=== PATIENT | female | born 1960 | race Caucasian/White ===

== ENCOUNTER → 2016-08-19 | Outpatient (CLI) | payer MEDICARE, MEDICAID ==
[~2016-08-19] MED LIST: AMBI10TA PO; ATIV0.5T3 PO; ATIV1TAB10 PO; BENZ1TAB PO; CALCTAB43 PO; CALCTAB68 PO; CELE10TA PO; CHLOR50TA OR; CLOM50CA3 PO; DEBR6.5S4 AU; DEBROX AU; DEPA125C PO; FLUD0.1T PO; FLUD1TA PO; FLUT1SPR2; ISOVUE-370 76% 100ML VIAL (Q9967) As Ordered ONE; LACT10SO29 PO; LASI40TA PO; LEVA750T PO; MAGN400T PO; MAGN400T2 PO; METO50TA2 PO; MILKSUS PO; MIRA33504 PO; MOM30SS OR; MULTTAB4 PO; OXCA300T PO; PERCOCET PO; PERI0.126 MT; SENN1TAB4 PO; SENN8.6T76 PO; SERO1TAB2 PO; SYNT50TA PO; VITA200015 PO; VITMTA PO; ZYPR10TA PO; celebrex OR; colace OR; miralax OR
--- NOTE | 2016-08-19 22:44 | REP ---
CT chest with IV contrast one 05/26 Indication: Chest mass Comparison: CTA chest 12/10/2015, CT chest with contrast 09/07/2015 ,CT chest 12/20/14 Technique: Following IV contrast injection of 75 ml Isovue 370 mg/ml, 3 mm continuous spiral axial sections were performed through the chest. Findings: Thoracic aorta is without aneurysm or dissection. The heart is of normal size. There are moderate calcifications in the left circumflex coronary artery nor adjacent mitral valve. There are a few scattered mediastinal and hilar nodes, none of which are pathologically enlarged or changed. Fibroatelectatic changes are present within the lingula and the left lower lobe without change. Noncalcified nodular opacities are seen in the left lower lobe on image 59 series 201 most compatible with fibro atelectatic changes and not significantly changed from 12/10/2015 . Calcified granuloma is identified within the periphery of the right mid lung field on image number 43 series 201 There is moderate diffuse fatty infiltration of liver . There are three stable hypodense lesions within the right dome of liver on image 67 series 2 most compatible with cysts. Visualized portions of spleen, pancreas adrenal glands are normal. The stomach is contracted. Visualized portion small bowel and colon within normal limits. Subcentimeter left axillary nodes again identified one 8 mm node with slightly rounded appearance/infiltrated Impression 1. Fibro atelectatic changes / scarring in the lingula and in the left with lower lobe. Two nodular opacities both 6 mm diameter on image 59 series 201 are most compatible with fibro atelectatic changes yet interval follow-up CT is recommended in 3 months for reevaluation. Signed by Beatriz Gray MD 08/19/2016 10:35 P
== END ==
LOC: M RAD 12:36
PROVIDERS: ATTEND Family Medicine
DX: R91.8 Other nonspecific abnormal finding of lung field (principal); J98.4 Other disorders of lung; K76.0 Fatty (change of) liver, not elsewhere classified
CPT/HCPCS: 71260; Q9967

== ENCOUNTER → 2016-09-03 | Outpatient (REF) | payer MEDICARE, MEDICAID ==
[~2016-09-03] MED LIST changes: -ISOVUE-370 76% 100ML VIAL (Q9967) As Ordered ONE
[2016-09-03 14:10] LABS: ALBUMIN 3.9 GM/DL (3.2-5.2); ALBUMIN/GLOBULIN RATIO 1.05 (1.00-1.93); ALKALINE PHOSPHATASE 47 U/L (45-117); ALT/SGPT 114 U/L (12-78); ANION GAP 9 MEQ/L (8-16); AST/SGOT 69 U/L (15-37); BILIRUBIN,TOTAL 0.3 MG/DL (0.2-1.0); BLOOD UREA NITROGEN 9 MG/DL (7-18); CALCIUM LEVEL 9.1 MG/DL (8.5-10.1); CARBON DIOXIDE LEVEL 27 MEQ/L (21-32); CHLORIDE LEVEL 101 MEQ/L (98-107); CREATININE FOR GFR 0.59 MG/DL (0.55-1.02); FREE T4 0.69 NG/DL (0.76-1.46); GLOMERULAR FILTRATION RATE > 60.0 (>51); GLUCOSE, FASTING 97 MG/DL (70-105); POTASSIUM SERUM 4.3 MEQ/L (3.5-5.1); SODIUM LEVEL 137 MEQ/L (136-145); TOTAL PROTEIN 7.6 GM/DL (6.4-8.2)
== END ==
LOC: M SFHCPLAZ 10:20
PROVIDERS: ATTEND Family Medicine
DX: I50.30 Unspecified diastolic (congestive) heart failure (principal); E03.9 Hypothyroidism, unspecified; M85.80 Other specified disorders of bone density and structure, unspecified site; Z51.81 Encounter for therapeutic drug level monitoring; Z79.899 Other long term (current) drug therapy

== ENCOUNTER → 2016-09-03 | Outpatient (REF) | payer MEDICARE, MEDICAID ==
[2016-09-03 13:58] LABS: ALBUMIN 3.9 GM/DL (3.2-5.2); ALBUMIN/GLOBULIN RATIO 1.03 (1.00-1.93); ALKALINE PHOSPHATASE 48 U/L (45-117); ALT/SGPT 111 U/L (12-78); AST/SGOT 66 U/L (15-37); BILIRUBIN,DIRECT < 0.1 MG/DL (0.0-0.2); BILIRUBIN,TOTAL 0.3 MG/DL (0.2-1.0); TOTAL PROTEIN 7.7 GM/DL (6.4-8.2)
[2016-09-03 14:06] LABS: BASO % 0.4 % (0.0-1.0); EOS # 0.1 K/mm3 (0.0-0.50); EOS % 1.9 % (0.0-3.0); LARGE UNSTAINED CELL # 0.1 K/mm3 (0.0-0.4); LARGE UNSTAINED CELL % 2.7 % (0.0-4.0); LYMPH # 0.9 K/mm3 (1.5-4.5); LYMPH % 24.2 % (24.0-44.0); MEAN CORPUSCULAR HEMOGLOBIN 30.4 pg (27.0-33.0); MEAN CORPUSCULAR HGB CONC 33.7 g/dl (32.0-36.5); MEAN CORPUSCULAR VOLUME 90.1 fl (80.0-96.0); MONO # 0.4 K/mm3 (0.0-0.8); MONO % 10.5 % (0.0-5.0); NEUTROPHILS # 2.4 K/mm3 (1.8-7.7); NEUTROPHILS % 60.3 % (36.0-66.0); PLATELET COUNT, AUTOMATED 150 k/mm3 (150-450); RED CELL DISTRIBUTION WIDTH 12.8 % (11.5-14.5); WHITE BLOOD COUNT 3.9 K/mm3 (4.0-10.0)
== END ==
LOC: M LABDRAWP 13:01
PROVIDERS: ATTEND Anesthesiology Pain Medicine
DX: Z51.81 Encounter for therapeutic drug level monitoring (principal); Z79.899 Other long term (current) drug therapy

== ENCOUNTER 2016-09-18 10:45 | Emergency (ER) | payer MEDICARE, MEDICAID ==
[2016-09-18 12:57] LABS: ANION GAP 9 MEQ/L (8-16); BLOOD UREA NITROGEN 8 MG/DL (7-18); CALCIUM LEVEL 9.1 MG/DL (8.5-10.1); CARBON DIOXIDE LEVEL 27 MEQ/L (21-32); CHLORIDE LEVEL 95 MEQ/L (98-107); CREATININE FOR GFR 0.61 MG/DL (0.55-1.02); GLOMERULAR FILTRATION RATE > 60.0 (>51); GLUCOSE, FASTING 96 MG/DL (70-105); POTASSIUM SERUM 4.2 MEQ/L (3.5-5.1); SODIUM LEVEL 131 MEQ/L (136-145)
--- NOTE | 2016-09-18 13:14 | REP ---
Chest the patient sitting, AP and lateral views: Comparisons are the chest CT dated 08/19/2016, portable chest dated 07/11/2016 and PA and lateral chest of 11/14/2015. There are no focal infiltrates. No pleural effusions. Lung dinh are clear. Cardiac size is normal. There is a 8 mm nodule adjacent to the left lateral margin of the heart. There were two left lung nodules in this approximate location on the CT of 08/19/2016. 3-month CT follow-up was recommended which would in the October/November time frame. Impression: There are no acute cardiopulmonary findings. There is a left lung nodule as discussed in the body of the report. Signed by Pankaj Love MD 09/18/2016 01:06 P
[2016-09-18 13:25] LABS: BASO % 0.2 % (0.0-1.0); EOS % 1.8 % (0.0-3.0); LARGE UNSTAINED CELL # 0.2 K/mm3 (0.0-0.4); LARGE UNSTAINED CELL % 5.8 % (0.0-4.0); LYMPH # 0.7 K/mm3 (1.5-4.5); LYMPH % 23.6 % (24.0-44.0); MEAN CORPUSCULAR HGB CONC 35.2 g/dl (32.0-36.5); MEAN CORPUSCULAR VOLUME 88.1 fl (80.0-96.0); MONO # 0.4 K/mm3 (0.0-0.8); MONO % 13.7 % (0.0-5.0); NEUTROPHILS # 1.6 K/mm3 (1.8-7.7); NEUTROPHILS % 54.9 % (36.0-66.0); PLATELET COUNT, AUTOMATED 125 k/mm3 (150-450); RED CELL DISTRIBUTION WIDTH 12.7 % (11.5-14.5)
--- NOTE | 2016-09-18 13:30 | REP ---
CT brain without contrast: History: Hypertension. Weakness, evaluate for intracranial hemorrhage. Comparison CT study September 07, 2015. Comparison CT study from September 12, 2014 is also reviewed. 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 Findings: Bone window settings demonstrate hyperostosis frontalis interna. No bony destructive lesion is seen. Visualized paranasal sinuses are clear. On soft tissue window settings there is physiologic calcification of the basal ganglia bilaterally. There is minimal diffuse cerebral atrophy. There is periventricular low density in the right frontal lobe consistent with small vessel changes. This is status quo. There is no evidence of intracranial hemorrhage. No extra-axial fluid collection is seen. No mass or midline shift is observed. Impression: No evidence of intracranial hemorrhage. Small vessel changes and mild diffuse atrophy. 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 No acute abnormality. Signed by Fransisco Delgado MD 09/18/2016 04:32 P
--- NOTE | 2016-09-18 15:51 | EDDOCDS ---
Nurse's Notes [facility] Name: Karla Haywood Age: 56 yrs Sex: Female : 1960 Arrival Date: 09/18/2016 Time: 10:45 Bed 11 Private MD: Nathan Rivero Diagnosis: Weakness Presentation: 09/18 11:02 Presenting complaint: per [facility] staff weakness SOB unable to ambulate lethargic since [facility] yesterday. Adult Sepsis Screening: The patient does not have new or worsening altered mentation. Patient's respiratory rate is less than 22. Systolic blood pressure is less than or equal to 100 (1 point). Patient has a qSOFA score of 0- Negative Sepsis Screen. Suicide/Homicide risk assessment- Unable to assess, due to patient's chronic mental disability. Status: Patient is not a field service analyst or dependent. Transition of care: patient was not received from another setting of care. 11:02 Acuity: BRUCE Level 3 [facility] 11:02 Method Of Arrival: Wheelchair [facility] Triage Assessment: 11:13 General: Appears in no apparent distress, well nourished, well groomed, Behavior is [facility] appropriate for age. Pain: Unable to use pain scale. Does not appear to understand pain scale. Patient appears quiet. HIV screening NA for this visit does not understand. Neurological: Level of Consciousness is awake, alert. Respiratory: Airway is patent Respiratory effort is even, unlabored. Derm: Skin is pink, warm & dry. Historical: - Allergies: Keflex (Rash); - Home Meds: 1. Zyprexa 2.5 mg AM and 10 mg HS Oral tab 1 tab (Last dose: 09/18/2016 06:00) 2. Milk of Magnesia Oral 30 mL thu wed thu (Last dose: 09/17/2016) 3. metoprolol tartrate 50 mg Oral tab 1 tab 2 times per day (Last dose: 09/18/2016 06:00) 4. Calcium + Vitamin D 600 mg calcium- 200 unit Oral tab 600 mg twice a day (Last dose: 09/18/2016 06:00) 5. senna 8.6 mg oral cap 1 caps twice a day (Last dose: 09/18/2016 06:00) 6. multivitamin Oral tab 1 tab daily (Last dose: 09/18/2016 06:00) 7. magnesium oxide 400 mg Oral tab 400 mg twice a day (Last dose: 09/18/2016 06:00) 8. Ativan 0.5 mg Oral tab 1 tab twice a day (Last dose: 09/18/2016 06:00) 9. Vitamin D Oral 4000 unit daily (Last dose: 09/18/2016 06:00) 10. Miralax 17 gram/dose Oral powd 17 g once daily (Last dose: 09/18/2016 06:00) 11. Depakote Sprinkles 125 mg Oral cpSP 8 caps nightly (Last dose: 09/17/2016) 12. Seroquel 300 mg Oral tab 1 tab nightly (Last dose: 09/17/2016) 13. clomipramine 50 mg oral cap 1 cap 2 times per day (Last dose: 09/18/2016 06:00) 14. lactulose 10 gram/15 mL oral syrp 10 g daily (Last dose: 09/17/2016) 15. levothyroxine 50 mcg Oral cap 1 cap once daily (Last dose: 09/18/2016 05:30) 16. oxcarbazepine 300 mg oral tab 1 tab 2 times per day (Last dose: 09/18/2016 06:00) 17. Peridex 0.12 % mucous membrane mwsh 15 mL daily (Last dose: 09/18/2016 06:00) 18. Lasix 40 mg Oral tab 1 tab once daily (Last dose: 09/18/2016 06:00) - PMHx: aggression; Anxiety; Cerebral Palsy; Hypertension; moderate MR; Hypothyroidism; Seizure Disorder; syncope; - PSHx: Cholecystectomy (2012); left ankle surgery; - Social history: Smoking status: Patient states was never smoker of tobacco. The patient speaks a little Chinese. - Family history: Not pertinent. - : The pt / caregiver states he / she is not on anticoagulants. Home medication list is obtained from the facility MAR. - Exposure Risk Screening:: None identified. Screenin:39 Screening information is obtained from residence staff. Fall risk:. Assistance ADL's: mk4 Requires assistance with meal preparation, this assistance is provided by residence staff, bathing, assistance is provided by residence staff, dressing, assistance is provided by residence staff, toileting, assistance is provided by residence staff, ambulation, assistance is provided by residence staff, housework, assistance is provided by residence staff, medication administration, assistance is provided by residence staff. Abuse/DV Screen: The patient / caregiver reports he/she is: not in a situation that causes fear, pain or injury. Nutritional screening: On thickened liquids. home support is adequate. 15:34 Advance Directives: There is no active DNR order. js13 Assessment: 10:57 General: BP recheck 164/104 manual . dwg 11:30 General: Appears in no apparent distress, Behavior is cooperative. Neurological: Level mk4 of Consciousness is awake, baseline MR per [facility] staff, pt cooperative . 11:30 Respiratory: Airway is patent Breath sounds are clear bilaterally. Derm: Skin is mk4 intact, is healthy with good turgor, Skin is pink, warm & dry. 12:30 General: Appears in no apparent distress, Behavior is cooperative. Neurological: Level mk4 of Consciousness is awake. Respiratory: Airway is patent Respiratory effort is even, unlabored. 14:13 General: Appears in no apparent distress, comfortable, Behavior is cooperative, [facility] mk4 workers at bedside , no episodes of syncope, pt cooperative with care , fully awake and alert throughout visit, doesn't appear to be lethargic or have any difficulty breathing . 14:14 Respiratory: Airway is patent Respiratory effort is even, unlabored, Respiratory mk4 pattern is regular, awaiting dispo. 15:18 General: Patient ambulated with minimal assist with gait belt. No shuffling and able to js13 bear weight.. 15:26 General: Appears in no apparent distress, comfortable, Behavior is cooperative. Pain: js13 Denies pain. Neurological: Level of Consciousness is awake. Respiratory: Airway is patent Respiratory effort is even, unlabored, Respiratory pattern is regular, symmetrical, Breath sounds are clear. Derm: Skin is pink, warm & dry. Vital Signs: 10:48 BP 207 / 138; Pulse 93; Resp 20; Temp 96.6(T); Pulse Ox 97% on R/A; Weight 97.52 kg elp (R); Height 5 ft. 6 in. (167.64 cm) (R); 10:56 BP 164 / 104; dwg 12:34 BP 162 / 84 RA Supine (man/lg); ct3 12:42 BP 137 / 76 (auto/); mk4 12:42 Pulse 92 MON; mk4 12:56 Pulse 96 MON; Pulse Ox 95% ; mk4 12:57 BP 114 / 73 (auto/); mk4 13:12 BP 117 / 79 (auto/); mk4 13:12 Pulse 96 MON; Pulse Ox 95% ; mk4 13:27 BP 109 / 72 (auto/); mk4 13:27 Pulse 96 MON; Pulse Ox 94% ; mk4 13:42 BP 101 / 68 (auto/); mk4 13:42 Pulse 98 MON; Pulse Ox 95% ; mk4 13:57 BP 112 / 73 (auto/); mk4 13:57 Pulse 96 MON; Pulse Ox 95% ; mk4 14:12 BP 118 / 73 (auto/); mk4 14:12 Pulse 102 MON; Pulse Ox 93% ; mk4 14:27 BP 124 / 65 (auto/); mk4 14:27 Pulse 98 MON; Pulse Ox 95% ; mk4 14:42 BP 117 / 72 (auto/); js13 14:42 Pulse 100 MON; Resp 14; Pulse Ox 94% on R/A; js13 14:57 BP 120 / 61 (auto/); js13 14:57 Pulse 102 MON; Resp 16; Temp 97.1(O); Pulse Ox 96% on R/A; js13 10:48 Body Mass Index 34.70 (97.52 kg, 167.64 cm) elp Vitals: 10:48 Log In Time: September 18, 2016 at 10:45. RN notified that patient meets Red Flag elp criteria. ED Course: 10:48 Patient visited by Lalitha Joel PCA. elp 10:48 Nathan Rivero MD is Private Physician. elp 10:48 Patient moved to Waiting elp 10:49 Patient visited by Lalitha Joel PCA. elp 11:03 Triage Initiated kpj 11:25 Patient moved to Pre RCE elp 11:26 Patient moved to 11 kpj 11:30 Patient visited by Ida Campos RN. mk4 12:22 Corwin Manley MD is Attending Physician. br1 12:33 Patient visited by Corwin Manley MD. br1 12:35 Patient visited by Bianca Little PCA. ct3 12:45 Inserted saline lock: 20 gauge in right hand and blood collected. No procedures done mk4 that require assistance. Straight cath inserted returned clear yellow urine. Patient tolerated well. 12:48 VALPROIC ACID (DEPAKOTE) Sent. mk4 13:04 [facility] Payment Agreement was scanned into [employer] and attached to record. jp5 13:06 EKG done. (by ED staff). Reviewed by Corwin Manley MD. dem1 13:09 Patient visited by Juan J Lopez. dem1 13:18 Chest, 2 View (pa\E\lat) Returned. EDMS 13:20 Urine Culture Sent. mk4 13:20 Urinalysis Sent. mk4 13:20 -Influenza A&B Rapid Antigen - Nose Sent. mk4 13:53 Patient visited by Ida Campos, DEVEN. mk4 14:06 CT Head Without Contrast Returned. EDMS 14:26 Patient visited by Ida Campos, DEVEN. mk4 15:19 Patient visited by Stephany Sanchez,DEVEN. js13 15:25 Patient visited by Corwin Manley MD. br1 15:27 Patient visited by Stephany Sanchez,DEVEN. js13 15:27 Nathan Rivero MD is Referral Physician. br1 15:32 Discontinued IV lock intact, bleeding controlled, pressure dressing applied, No js13 redness/swelling at site. 15:34 The patient / caregiver is instructed regarding the plan of care and ED course. js13 Order Results: Lab Order: Basic Metabolic Profile; SPEC'M 09/18/16 11:50 Test: GLUCOSE, FASTING; Value: 96; Range: 70-105; Units: MG/DL; Status: F Test: BLOOD UREA NITROGEN; Value: 8; Range: 7-18; Units: MG/DL; Status: F Test: CREATININE FOR GFR; Value: 0.61; Range: 0.55-1.02; Units: MG/DL; Status: F Test: GLOMERULAR FILTRATION RATE; Value: > 60.0; Range: >51; Status: F Test: SODIUM LEVEL; Value: 131; Range: 136-145; Abnormal: Below low normal; Units: MEQ/L; Status: F Test: POTASSIUM SERUM; Value: 4.2; Range: 3.5-5.1; Units: MEQ/L; Status: F Test: CHLORIDE LEVEL; Value: 95; Range: 98-107; Abnormal: Below low normal; Units: MEQ/L; Status: F Test: CARBON DIOXIDE LEVEL; Value: 27; Range: 21-32; Units: MEQ/L; Status: F Test: ANION GAP; Value: 9; Range: 8-16; Units: MEQ/L; Status: F Test: CALCIUM LEVEL; Value: 9.1; Range: 8.5-10.1; Units: MG/DL; Status: F Test Note: ; Units are mL/min/1.73 m2 Chronic Kidney Disease Staging per NKF: Stage I & II GFR >=60 Normal to Mildly Decreased Stage III GFR 30-59 Moderately Decreased Stage IV GFR 15-29 Severely Decreased Stage V GFR <15 Very Little GFR Left ESRD GFR <15 on UNINDENTURED APPRENTICE Lab Order: CBC with Diff; SPEC'M 09/18/16 11:50 Test: WHITE BLOOD COUNT; Value: 3.0; Range: 4.0-10.0; Abnormal: Below low normal; Units: K/mm3; Status: F Test: RED BLOOD COUNT; Value: 4.31; Range: 4.00-5.40; Units: M/mm3; Status: F Test: HEMOGLOBIN; Value: 13.4; Range: 12.0-16.0; Units: g/dl; Status: F Test: HEMATOCRIT; Value: 38.0; Range: 36.0-47.0; Units: %; Status: F Test: MEAN CORPUSCULAR VOLUME; Value: 88.1; Range: 80.0-96.0; Units: fl; Status: F Test: MEAN CORPUSCULAR HEMOGLOBIN; Value: 31.0; Range: 27.0-33.0; Units: pg; Status: F Test: MEAN CORPUSCULAR HGB CONC; Value: 35.2; Range: 32.0-36.5; Units: g/dl; Status: F Test: RED CELL DISTRIBUTION WIDTH; Value: 12.7; Range: 11.5-14.5; Units: %; Status: F Test: PLATELET COUNT, AUTOMATED; Value: 125; Range: 150-450; Abnormal: Below low normal; Units: k/mm3; Status: F Test: NEUTROPHILS %; Value: 54.9; Range: 36.0-66.0; Units: %; Status: F Test: LYMPH %; Value: 23.6; Range: 24.0-44.0; Abnormal: Below low normal; Units: %; Status: F Test: MONO %; Value: 13.7; Range: 0.0-5.0; Abnormal: Above high normal; Units: %; Status: F Test: EOS %; Value: 1.8; Range: 0.0-3.0; Units: %; Status: F Test: BASO %; Value: 0.2; Range: 0.0-1.0; Units: %; Status: F Test: LARGE UNSTAINED CELL %; Value: 5.8; Range: 0.0-4.0; Abnormal: Above high normal; Units: %; Status: F Test: NEUTROPHILS #; Value: 1.6; Range: 1.8-7.7; Abnormal: Below low normal; Units: K/mm3; Status: F Test: LYMPH #; Value: 0.7; Range: 1.5-4.5; Abnormal: Below low normal; Units: K/mm3; Status: F Test: MONO #; Value: 0.4; Range: 0.0-0.8; Units: K/mm3; Status: F Test: EOS #; Value: 0.0; Range: 0.0-0.50; Units: K/mm3; Status: F Test: BASO #; Value: 0.0; Range: 0.0-0.2; Units: K/mm3; Status: F Test: LARGE UNSTAINED CELL #; Value: 0.2; Range: 0.0-0.4; Units: K/mm3; Status: F Lab Order: Cardiac Injury Profile; SPEC'M 09/18/16 11:50 Test: CPK CREATINE PHOSPHOKINASE; Value: 82; Range: 26-192; Units: U/L; Status: F Test: CK-MB VALUE MASS; Value: 1.9; Range: 0.0-3.6; Units: NG/ML; Status: F Test: MB/CK RELATIVE INDEX; Value: 2.31; Range: < OR =4; Status: F Test Note: ; DIAGNOSIS CRITERIA MMB ng/ml Relative Index (RI) NON-AMI < or = 5 N/A [place] > 5 < or = 4 AMI > 5 > 4 Lab Order: Troponin; SPEC'M 17 11:50 Test: TROPONIN I; Value: < 0.02; Range: < 0.10; Units: NG/ML; Status: F Test Note: ; Troponin I Reference Interval for Siemens [place] LOCI: 99th Percentile= 0.00-0.045 ng/ml Risk Stratification: <= 0.10 ng/ml Decreased Risk for Adverse Clinical Events. 0.10-1.50 ng/ml Increased Risk for Adverse Clinical Events. Evaluation of additional criterion and/or repeat testing in 2-6 hours is suggested to rule out myocardial damage. >= 1.50 ng/ml Indicative of Myocardial Injury. Lab Order: -Influenza A&B Rapid Antigen - Nose; SPECM 09/18/16 12:53 Test: INFLUENZA A RAPID SCR by ICA; Value: INFLUENZA A RESULTS NEGATIVE; Status: F Test: INFLUENZA A RAPID SCR by ICA; Value: Comments:; Status: F Test: INFLUENZA B RAPID SCR by ICA; Value: INFLUENZA B RESULTS NEGATIVE; Status: F Test Note: ; The Influenza test is a direct rapid immunoassay for the qualitative detection of Influenza viral antigen. Cell culture (Viral Culture) testing should be considered to confirm NEGATIVE results and to assist in detecting other viruses that can provide similar clinical symptoms. Please contact the lab within 24 hours ([phone]) if confirmatory testing is desired. Lab Order: BNP; [facility] 09/18/16 11:50 Test: BRAIN NATRIURETIC PEPTIDE; Value: 9.2; Range: <100; Units: PG/ML; Status: F Lab Order: Urinalysis; [facility]/18/16 12:57 Test: APPEARANCE, URINE; Value: CLOUDY; Range: CLEAR; Abnormal: Above high normal; Status: F Test: COLOR, URINE; Value: YELLOW; Range: YELLOW; Status: F Test: PH,URINE; Value: 7.0; Range: 5.0-9.0; Units: UNITS; Status: F Test: SPECIFIC GRAVITY URINE AUTO; Value: 1.014; Range: 1.002-1.035; Status: F Test: PROTEIN, URINE AUTO; Value: NEGATIVE; Range: NEGATIVE; Units: mg/dL; Status: F Test: GLUCOSE, URINE (UA) AUTO; Value: NEGATIVE; Range: NEGATIVE; Units: mg/dL; Status: F Test: KETONE, URINE AUTO; Value: TRACE; Range: NEGATIVE; Abnormal: Above high normal; Units: mg/dL; Status: F Test: UROBILINOGEN, URINE AUTO; Value: 0.2; Range: 0.0-2.0; Units: mg/dL; Status: F Test: BILIRUBIN, URINE AUTO; Value: NEGATIVE; Range: NEGATIVE; Status: F Test: NITRITE, URINE AUTO; Value: NEGATIVE; Range: NEGATIVE; Status: F Test: LEUKOCYTE ESTERASE, URINE AUTO; Value: 3+; Range: NEGATIVE; Abnormal: Above high normal; Status: F Test: BLOOD, URINE BLOOD; Value: 2+; Range: NEGATIVE; Abnormal: Above high normal; Status: F Test: WBC, URINE AUTO; Value: 1; Range: 0-3; Units: /HPF; Status: F Test: RBC, URINE AUTO; Value: 1; Range: 0-3; Units: /HPF; Status: F Test: BACTERIA, URINE AUTO; Value: NEGATIVE; Range: NEGATIVE; Status: F Test: SQUAMOUS EPITHELIAL CELL UR AU; Value: 1; Range: 0-6; Units: /HPF; Status: F Test: HYALINE CAST, URINE AUTO; Value: 0; Range: 0-1; Units: /LPF; Status: F Lab Order: VALPROIC ACID (DEPAKOTE); SPEC'M 09/18/16 11:50 Test: VALPROIC ACID (DEPAKOTE); Value: 65.7; Range: 50.0-100.0; Units: UG/ML; Status: F Radiology Order: CT Head Without Contrast Test: CT Head Without Contrast REASON FOR EXAMINATION: htn, weak eval for ich; CT brain without contrast:; ; History: Hypertension. Weakness, evaluate for intracranial hemorrhage.; Comparison CT study September 07, 2015. Comparison CT study from September 12, 2014; is also reviewed. 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 No; bony destructive lesion is seen. Visualized paranasal sinuses are clear.; ; On soft tissue window settings there is physiologic calcification of the basal; ganglia bilaterally. There is minimal diffuse cerebral atrophy. There is; periventricular low density in the right frontal lobe consistent with small; vessel changes. This is status quo. There is no evidence of intracranial; hemorrhage. No extra-axial fluid collection is seen. No mass or midline shift; is observed.; ; Impression:; ; No evidence of intracranial hemorrhage. Small vessel changes and mild diffuse; atrophy. 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 No pleural effusions. Lung dinh are clear.; Cardiac size is normal.; ; There is a 8 mm nodule adjacent to the left lateral margin of the heart. There; were two left lung nodules in this approximate location on the CT of 08/19/2016.; 3-month CT follow-up was recommended which would in the time frame.; ; Impression:; ; There are no acute cardiopulmonary findings.; ; There is a left lung nodule as discussed in the body of the report.; ; ; Signed by; Pankaj Love MD 09/18/2016 01:06 P; Outcome: 15:27 Discharge ordered by Provider. br1 15:33 Discharge Assessment: Patient awake and alert. patient administered narcotics - no. The js13 following High Risk Discharge criteria are identified: None. Discharged to With [facility] staff members. Condition: stable. Discharge instructions given to ground school instructor, Instructed on discharge instructions, follow up and referral plans. medication usage, Demonstrated understanding of instructions, medications, Pt was receptive of discharge instructions/ teaching. CT Study completed. Property :Personal belongings accompany Pt. 15:51 Patient left the ED. js13 Signatures: Dispatcher [employer] EDMS Pankaj Umanzor, RN Kimberley Jarquin RN Corwin Holden MD MD br1 Bianca Little, GLUING MACHINE FEEDER GLUING MACHINE FEEDER ct3 Juan J Lopez dem1 Stephany Sanchez RN RN js13 Lalitha Joel, GLUING MACHINE FEEDER GLUING MACHINE FEEDER sherwinp Ida Campos RN RN [email or web address] Rebekah Rodriguez jp5 Corrections: (The following items were deleted from the chart) 14:16 14:13 General: Appears in no apparent distress, comfortable, Behavior is cooperative, mk4 jrc workers at bedside , no episodes of syncope, pt cooperative with care . mk4 14:18 11:30 General: Appears in no apparent distress, Behavior is cooperative, mk4 mk4 14:38 14:14 Respiratory: Airway is patent Respiratory effort is even, unlabored, Respiratory mk4 pattern is regular, mk4 15:33 14:57 Pulse 102bpm; MonitorResp 16bpm; Pulse Ox 96% RA; js13 js13 MTDD
--- NOTE | 2016-09-18 15:51 | EDDOCDS ---
Physician Documentation [facility] Name: Karla Haywood Age: 56 yrs Sex: Female : 1960 Arrival Date: 09/18/2016 Time: 10:45 Bed 11 Private MD: Nathan Rivero Disposition: 09/18/16 15:27 Discharged to Home/Self Care. Impression: Weakness. - Condition is Stable. - Discharge Instructions: Weakness. - Medication Reconciliation, Local Pharmacy Hours form. - Follow up: Nathan Rivero MD; When: 1 - 2 days; Reason: Recheck today's complaints. - Problem is new. - Symptoms have improved. - Notes: You were seen in the ED for generalized weakness. Bloodwork along with urine tests showed no acute findings. Chest Xray showed your known pulmonary nodule and CT scan showed your vascular malformation, for which you may continue to follow with Dr. Rivero. As you are feeling better you may return home. Call Dr. Rivero to discuss the ED visit and arrange to be seen for follow-up. Return to the ED for any worsening weakness, trouble breathing, fever, vomiting, or any other concerns. Historical: - Allergies: Keflex (Rash); - Home Meds: 1. Zyprexa 2.5 mg AM and 10 mg HS Oral tab 1 tab (Last dose: 09/18/2016 06:00) 2. Milk of Magnesia Oral 30 mL thu (Last dose: 09/17/2016) 3. metoprolol tartrate 50 mg Oral tab 1 tab 2 times per day (Last dose: 09/18/2016 06:00) 4. Calcium + Vitamin D 600 mg calcium- 200 unit Oral tab 600 mg twice a day (Last dose: 09/18/2016 06:00) 5. senna 8.6 mg oral cap 1 caps twice a day (Last dose: 09/18/2016 06:00) 6. multivitamin Oral tab 1 tab daily (Last dose: 09/18/2016 06:00) 7. magnesium oxide 400 mg Oral tab 400 mg twice a day (Last dose: 09/18/2016 06:00) 8. Ativan 0.5 mg Oral tab 1 tab twice a day (Last dose: 09/18/2016 06:00) 9. Vitamin D Oral 4000 unit daily (Last dose: 09/18/2016 06:00) 10. Miralax 17 gram/dose Oral powd 17 g once daily (Last dose: 09/18/2016 06:00) 11. Depakote Sprinkles 125 mg Oral cpSP 8 caps nightly (Last dose: 09/17/2016) 12. Seroquel 300 mg Oral tab 1 tab nightly (Last dose: 09/17/2016) 13. clomipramine 50 mg oral cap 1 cap 2 times per day (Last dose: 09/18/2016 06:00) 14. lactulose 10 gram/15 mL oral syrp 10 g daily (Last dose: 09/17/2016) 15. levothyroxine 50 mcg Oral cap 1 cap once daily (Last dose: 09/18/2016 05:30) 16. oxcarbazepine 300 mg oral tab 1 tab 2 times per day (Last dose: 09/18/2016 06:00) 17. Peridex 0.12 % mucous membrane mwsh 15 mL daily (Last dose: 09/18/2016 06:00) 18. Lasix 40 mg Oral tab 1 tab once daily (Last dose: 09/18/2016 06:00) - PMHx: aggression; Anxiety; Cerebral Palsy; Hypertension; moderate MR; Hypothyroidism; Seizure Disorder; syncope; - PSHx: Cholecystectomy (2012); left ankle surgery; - Social history: Smoking status: Patient states was never smoker of tobacco. The patient speaks a little Northern Irish. - Family history: Not pertinent. - : The pt / caregiver states he / she is not on anticoagulants. Home medication list is obtained from the facility MAR. - Exposure Risk Screening:: None identified. Vital Signs: 09/18 10:48 BP 207 / 138; Pulse 93; Resp 20; Temp 96.6(T); Pulse Ox 97% on R/A; Weight 97.52 kg / elp 214.99 lbs (R); Height 5 ft. 6 in. (167.64 cm) (R); 10:56 BP 164 / 104; dwg 12:34 BP 162 / 84 RA Supine (man/lg); ct3 12:42 BP 137 / 76 (auto/); mk4 12:42 Pulse 92 MON; mk4 12:56 Pulse 96 MON; Pulse Ox 95% ; mk4 12:57 BP 114 / 73 (auto/); mk4 13:12 BP 117 / 79 (auto/); mk4 13:12 Pulse 96 MON; Pulse Ox 95% ; mk4 13:27 BP 109 / 72 (auto/); mk4 13:27 Pulse 96 MON; Pulse Ox 94% ; mk4 13:42 BP 101 / 68 (auto/); mk4 13:42 Pulse 98 MON; Pulse Ox 95% ; mk4 13:57 BP 112 / 73 (auto/); mk4 13:57 Pulse 96 MON; Pulse Ox 95% ; mk4 14:12 BP 118 / 73 (auto/); mk4 14:12 Pulse 102 MON; Pulse Ox 93% ; mk4 14:27 BP 124 / 65 (auto/); mk4 14:27 Pulse 98 MON; Pulse Ox 95% ; mk4 14:42 BP 117 / 72 (auto/); js13 14:42 Pulse 100 MON; Resp 14; Pulse Ox 94% on R/A; js13 14:57 BP 120 / 61 (auto/); js13 14:57 Pulse 102 MON; Resp 16; Temp 97.1(O); Pulse Ox 96% on R/A; js13 10:48 Body Mass Index 34.70 (97.52 kg, 167.64 cm) elp MDM: 12:24 Misc. Nursing Order ordered. br1 12:33 IV Saline Lock ordered. br1 12:34 Code Machine Operator/Pulse Ox/q 30 min VS ordered. br1 12:34 Rhythm Strip to chart ordered. br1 12:34 Undress patient appropriately for examination ordered. br1 12:34 Basic Metabolic Profile Ordered. EDMS 12:34 CBC with Diff Ordered. EDMS 12:34 Cardiac Injury Profile Ordered. EDMS 12:34 Troponin Ordered. EDMS 12:35 ECG WITH READING ER PHYS+CARDIAG ordered. EDMS 12:35 Straight cath ordered. br1 12:36 BNP Ordered. EDMS 12:36 Urinalysis Ordered. EDMS 12:36 -Influenza A&B Rapid Antigen - Nose Ordered. EDMS 12:36 Urine Culture Ordered. EDMS 12:37 Chest, 2 View (pa\E\lat) Ordered. EDMS 12:37 CT Head Without Contrast Ordered. EDMS 12:41 VALPROIC ACID (DEPAKOTE) Ordered. EDMS 13:04 [facility] [place] was scanned into [employer] and attached to record. jp5 13:04 Financial registration complete. jp5 13:44 Basic Metabolic Profile Reviewed. br1 13:44 CBC with Diff Reviewed. br1 13:44 Urinalysis Reviewed. br1 13:44 Cardiac Injury Profile Reviewed. br1 13:44 Troponin Reviewed. br1 13:44 BNP Reviewed. br1 13:44 VALPROIC ACID (DEPAKOTE) Reviewed. br1 13:44 Chest, 2 View (pa\E\lat) Reviewed. br1 14:59 -Influenza A&B Rapid Antigen - Nose Reviewed. br1 14:59 CT Head Without Contrast Reviewed. br1 15:00 Ambulate Patient to Assess Patient Safety ordered. br1 Signatures: Dispatcher [employer] EDMS Kimberley Petit, RN RN Corwin Valle MD MD br1 Stephany Sanchez,RN RN js13 Ida Campos, RN RN marly4 Rebekah Rodriguez jp5 The chart was reviewed and I authenticate all verbal orders and agree with the evaluation and treatment provided.Corrections: (The following items were deleted from the chart) 12:41 12:38 VALPROIC ACID (DEPAKOTE)+LAB ordered. EDMS EDMS Attachments: 13:04 [facility] [place] jp5 MTDD
--- NOTE | 2016-09-19 21:03 | ECGEPIP ---
Stationary ECG Study [facility] - ED Test Date: 2016-09-18 Pat Name: MILLIE AQUINO Department: Room: - Gender: F Fabric Machine Operator: jesenia : 1960 Requested By: LORI Jones Order Number: [id number] Reading MD: Lenora Jones Measurements Intervals Chromo Rate: 95 P: 11 VA: 180 QRS: 64 QRSD: 106 T: 49 QT: 361 QTc: 454 Interpretive Statements SINUS RHYTHM MODERATE INTRAVENTRICULAR CONDUCTION DELAY NSTTW ABNORMALITY DELAYED R PROGRESSION ?SEPTAL [place] Electronically Signed On 09-19-2016 21:03:25 EST by Lenora Jones
--- NOTE | 2016-09-20 16:52 | EDDOCDS ---
Physician Documentation [facility] Name: Karla Haywood Age: 56 yrs Sex: Female : 1960 Arrival Date: 09/18/2016 Time: 10:45 Bed 11 Private MD: Nathan Rivero Disposition: 09/18/16 15:27 Discharged to Home/Self Care. Impression: Weakness. - Condition is Stable. - Discharge Instructions: Weakness. - Medication Reconciliation, Local Pharmacy Hours form. - Follow up: Nathan Rivero MD; When: 1 - 2 days; Reason: Recheck today's complaints. - Problem is new. - Symptoms have improved. - Notes: You were seen in the ED for generalized weakness. Bloodwork along with urine tests showed no acute findings. Chest Xray showed your known pulmonary nodule and CT scan showed your vascular malformation, for which you may continue to follow with Dr. Rivero. As you are feeling better you may return home. Call Dr. Rivero to discuss the ED visit and arrange to be seen for follow-up. Return to the ED for any worsening weakness, trouble breathing, fever, vomiting, or any other concerns. Historical: - Allergies: Keflex (Rash); - Home Meds: 1. Zyprexa 2.5 mg AM and 10 mg HS Oral tab 1 tab (Last dose: 09/18/2016 06:00) 2. Milk of Magnesia Oral 30 mL thu (Last dose: 09/17/2016) 3. metoprolol tartrate 50 mg Oral tab 1 tab 2 times per day (Last dose: 09/18/2016 06:00) 4. Calcium + Vitamin D 600 mg calcium- 200 unit Oral tab 600 mg twice a day (Last dose: 09/18/2016 06:00) 5. senna 8.6 mg oral cap 1 caps twice a day (Last dose: 09/18/2016 06:00) 6. multivitamin Oral tab 1 tab daily (Last dose: 09/18/2016 06:00) 7. magnesium oxide 400 mg Oral tab 400 mg twice a day (Last dose: 09/18/2016 06:00) 8. Ativan 0.5 mg Oral tab 1 tab twice a day (Last dose: 09/18/2016 06:00) 9. Vitamin D Oral 4000 unit daily (Last dose: 09/18/2016 06:00) 10. Miralax 17 gram/dose Oral powd 17 g once daily (Last dose: 09/18/2016 06:00) 11. Depakote Sprinkles 125 mg Oral cpSP 8 caps nightly (Last dose: 09/17/2016) 12. Seroquel 300 mg Oral tab 1 tab nightly (Last dose: 09/17/2016) 13. clomipramine 50 mg oral cap 1 cap 2 times per day (Last dose: 09/18/2016 06:00) 14. lactulose 10 gram/15 mL oral syrp 10 g daily (Last dose: 09/17/2016) 15. levothyroxine 50 mcg Oral cap 1 cap once daily (Last dose: 09/18/2016 05:30) 16. oxcarbazepine 300 mg oral tab 1 tab 2 times per day (Last dose: 09/18/2016 06:00) 17. Peridex 0.12 % mucous membrane mwsh 15 mL daily (Last dose: 09/18/2016 06:00) 18. Lasix 40 mg Oral tab 1 tab once daily (Last dose: 09/18/2016 06:00) - PMHx: aggression; Anxiety; Cerebral Palsy; Hypertension; moderate MR; Hypothyroidism; Seizure Disorder; syncope; - PSHx: Cholecystectomy (2012); left ankle surgery; - Social history: Smoking status: Patient states was never smoker of tobacco. The patient speaks a little Pakistani. - Family history: Not pertinent. - : The pt / caregiver states he / she is not on anticoagulants. Home medication list is obtained from the facility MAR. - Exposure Risk Screening:: None identified. Vital Signs: 09/18 10:48 BP 207 / 138; Pulse 93; Resp 20; Temp 96.6(T); Pulse Ox 97% on R/A; Weight 97.52 kg / elp 214.99 lbs (R); Height 5 ft. 6 in. (167.64 cm) (R); 10:56 BP 164 / 104; dwg 12:34 BP 162 / 84 RA Supine (man/lg); ct3 12:42 BP 137 / 76 (auto/); mk4 12:42 Pulse 92 MON; mk4 12:56 Pulse 96 MON; Pulse Ox 95% ; mk4 12:57 BP 114 / 73 (auto/); mk4 13:12 BP 117 / 79 (auto/); mk4 13:12 Pulse 96 MON; Pulse Ox 95% ; mk4 13:27 BP 109 / 72 (auto/); mk4 13:27 Pulse 96 MON; Pulse Ox 94% ; mk4 13:42 BP 101 / 68 (auto/); mk4 13:42 Pulse 98 MON; Pulse Ox 95% ; mk4 13:57 BP 112 / 73 (auto/); mk4 13:57 Pulse 96 MON; Pulse Ox 95% ; mk4 14:12 BP 118 / 73 (auto/); mk4 14:12 Pulse 102 MON; Pulse Ox 93% ; mk4 14:27 BP 124 / 65 (auto/); mk4 14:27 Pulse 98 MON; Pulse Ox 95% ; mk4 14:42 BP 117 / 72 (auto/); js13 14:42 Pulse 100 MON; Resp 14; Pulse Ox 94% on R/A; js13 14:57 BP 120 / 61 (auto/); js13 14:57 Pulse 102 MON; Resp 16; Temp 97.1(O); Pulse Ox 96% on R/A; js13 10:48 Body Mass Index 34.70 (97.52 kg, 167.64 cm) elp MDM: 12:24 Misc. Nursing Order ordered. br1 12:33 IV Saline Lock ordered. br1 12:34 Regulatory Intern/Pulse Ox/q 30 min VS ordered. br1 12:34 Rhythm Strip to chart ordered. br1 12:34 Undress patient appropriately for examination ordered. br1 12:34 Basic Metabolic Profile Ordered. EDMS 12:34 CBC with Diff Ordered. EDMS 12:34 Cardiac Injury Profile Ordered. EDMS 12:34 Troponin Ordered. EDMS 12:35 ECG WITH READING ER PHYS+CARDIAG ordered. EDMS 12:35 Straight cath ordered. br1 12:36 BNP Ordered. EDMS 12:36 Urinalysis Ordered. EDMS 12:36 -Influenza A&B Rapid Antigen - Nose Ordered. EDMS 12:36 Urine Culture Ordered. EDMS 12:37 Chest, 2 View (pa\E\lat) Ordered. EDMS 12:37 CT Head Without Contrast Ordered. EDMS 12:41 VALPROIC ACID (DEPAKOTE) Ordered. EDMS 13:04 [facility] [place] Payment Agreement was scanned into [employer] and attached to record. jp5 13:04 Financial registration complete. jp5 13:44 Basic Metabolic Profile Reviewed. br1 13:44 CBC with Diff Reviewed. br1 13:44 Urinalysis Reviewed. br1 13:44 Cardiac Injury Profile Reviewed. br1 13:44 Troponin Reviewed. br1 13:44 BNP Reviewed. br1 13:44 VALPROIC ACID (DEPAKOTE) Reviewed. br1 13:44 Chest, 2 View (pa\E\lat) Reviewed. br1 14:59 -Influenza A&B Rapid Antigen - Nose Reviewed. br1 14:59 CT Head Without Contrast Reviewed. br1 15:00 Ambulate Patient to Assess Patient Safety ordered. br1 09/19 12:00 T-Sheet-- Draft Copy was scanned into [employer] and attached to record. gb 12:00 ECG/EKG was scanned into [employer] and attached to record. gb 12:01 Radiology Report was scanned into [employer] and attached to record. gb 09/20 06:42 ED course: dr rivero faxed formal report of cxr for fu mlg. ml Signatures: Dispatcher [employer] EDMS Don Best MD MD ml Jobson, Karen, RN RN kpj Alysha Millan, Reg Reg gb Corwin Manley MD MD br1 Stephany Sanchez,RN RN js13 Ida Campos, RN RN mk4 Rebekah Rodriguez jp5 The chart was reviewed and I authenticate all verbal orders and agree with the evaluation and treatment provided.Corrections: (The following items were deleted from the chart) 09/18 12:41 12:38 VALPROIC ACID (DEPAKOTE)+LAB ordered. EDMS EDMS Attachments: 13:04 [facility] Payment Agreement jp5 09/19 12:00 T-Sheet-- Draft Copy gb 12:00 ECG/EKG gb Chart Complete MTDD
--- NOTE | 2016-09-20 16:52 | EDDOCDS ---
Physician Documentation [facility] Name: Karla Haywood Age: 56 yrs Sex: Female : 1960 Arrival Date: 09/18/2016 Time: 10:45 Bed 11 Private MD: Nathan Rivero Disposition: 09/18/16 15:27 Discharged to Home/Self Care. Impression: Weakness. - Condition is Stable. - Discharge Instructions: Weakness. - Medication Reconciliation, Local Pharmacy Hours form. - Follow up: Nathan Rivero MD; When: 1 - 2 days; Reason: Recheck today's complaints. - Problem is new. - Symptoms have improved. - Notes: You were seen in the ED for generalized weakness. Bloodwork along with urine tests showed no acute findings. Chest Xray showed your known pulmonary nodule and CT scan showed your vascular malformation, for which you may continue to follow with Dr. Rievro. As you are feeling better you may return home. Call Dr. Rivero to discuss the ED visit and arrange to be seen for follow-up. Return to the ED for any worsening weakness, trouble breathing, fever, vomiting, or any other concerns. Historical: - Allergies: Keflex (Rash); - Home Meds: 1. Zyprexa 2.5 mg AM and 10 mg HS Oral tab 1 tab (Last dose: 09/18/2016 06:00) 2. Milk of Magnesia Oral 30 mL thu (Last dose: 09/17/2016) 3. metoprolol tartrate 50 mg Oral tab 1 tab 2 times per day (Last dose: 09/18/2016 06:00) 4. Calcium + Vitamin D 600 mg calcium- 200 unit Oral tab 600 mg twice a day (Last dose: 09/18/2016 06:00) 5. senna 8.6 mg oral cap 1 caps twice a day (Last dose: 09/18/2016 06:00) 6. multivitamin Oral tab 1 tab daily (Last dose: 09/18/2016 06:00) 7. magnesium oxide 400 mg Oral tab 400 mg twice a day (Last dose: 09/18/2016 06:00) 8. Ativan 0.5 mg Oral tab 1 tab twice a day (Last dose: 09/18/2016 06:00) 9. Vitamin D Oral 4000 unit daily (Last dose: 09/18/2016 06:00) 10. Miralax 17 gram/dose Oral powd 17 g once daily (Last dose: 09/18/2016 06:00) 11. Depakote Sprinkles 125 mg Oral cpSP 8 caps nightly (Last dose: 09/17/2016) 12. Seroquel 300 mg Oral tab 1 tab nightly (Last dose: 09/17/2016) 13. clomipramine 50 mg oral cap 1 cap 2 times per day (Last dose: 09/18/2016 06:00) 14. lactulose 10 gram/15 mL oral syrp 10 g daily (Last dose: 09/17/2016) 15. levothyroxine 50 mcg Oral cap 1 cap once daily (Last dose: 09/18/2016 05:30) 16. oxcarbazepine 300 mg oral tab 1 tab 2 times per day (Last dose: 09/18/2016 06:00) 17. Peridex 0.12 % mucous membrane mwsh 15 mL daily (Last dose: 09/18/2016 06:00) 18. Lasix 40 mg Oral tab 1 tab once daily (Last dose: 09/18/2016 06:00) - PMHx: aggression; Anxiety; Cerebral Palsy; Hypertension; moderate MR; Hypothyroidism; Seizure Disorder; syncope; - PSHx: Cholecystectomy (2012); left ankle surgery; - Social history: Smoking status: Patient states was never smoker of tobacco. The patient speaks a little Cook Islander. - Family history: Not pertinent. - : The pt / caregiver states he / she is not on anticoagulants. Home medication list is obtained from the facility MAR. - Exposure Risk Screening:: None identified. Vital Signs: 09/18 10:48 BP 207 / 138; Pulse 93; Resp 20; Temp 96.6(T); Pulse Ox 97% on R/A; Weight 97.52 kg / elp 214.99 lbs (R); Height 5 ft. 6 in. (167.64 cm) (R); 10:56 BP 164 / 104; dwg 12:34 BP 162 / 84 RA Supine (man/lg); ct3 12:42 BP 137 / 76 (auto/); mk4 12:42 Pulse 92 MON; mk4 12:56 Pulse 96 MON; Pulse Ox 95% ; mk4 12:57 BP 114 / 73 (auto/); mk4 13:12 BP 117 / 79 (auto/); mk4 13:12 Pulse 96 MON; Pulse Ox 95% ; mk4 13:27 BP 109 / 72 (auto/); mk4 13:27 Pulse 96 MON; Pulse Ox 94% ; mk4 13:42 BP 101 / 68 (auto/); mk4 13:42 Pulse 98 MON; Pulse Ox 95% ; mk4 13:57 BP 112 / 73 (auto/); mk4 13:57 Pulse 96 MON; Pulse Ox 95% ; mk4 14:12 BP 118 / 73 (auto/); mk4 14:12 Pulse 102 MON; Pulse Ox 93% ; mk4 14:27 BP 124 / 65 (auto/); mk4 14:27 Pulse 98 MON; Pulse Ox 95% ; mk4 14:42 BP 117 / 72 (auto/); js13 14:42 Pulse 100 MON; Resp 14; Pulse Ox 94% on R/A; js13 14:57 BP 120 / 61 (auto/); js13 14:57 Pulse 102 MON; Resp 16; Temp 97.1(O); Pulse Ox 96% on R/A; js13 10:48 Body Mass Index 34.70 (97.52 kg, 167.64 cm) elp MDM: 12:24 Misc. Nursing Order ordered. br1 12:33 IV Saline Lock ordered. br1 12:34 Med Aide/Pulse Ox/q 30 min VS ordered. br1 12:34 Rhythm Strip to chart ordered. br1 12:34 Undress patient appropriately for examination ordered. br1 12:34 Basic Metabolic Profile Ordered. EDMS 12:34 CBC with Diff Ordered. EDMS 12:34 Cardiac Injury Profile Ordered. EDMS 12:34 Troponin Ordered. EDMS 12:35 ECG WITH READING ER PHYS+CARDIAG ordered. EDMS 12:35 Straight cath ordered. br1 12:36 BNP Ordered. EDMS 12:36 Urinalysis Ordered. EDMS 12:36 -Influenza A&B Rapid Antigen - Nose Ordered. EDMS 12:36 Urine Culture Ordered. EDMS 12:37 Chest, 2 View (pa\E\lat) Ordered. EDMS 12:37 CT Head Without Contrast Ordered. EDMS 12:41 VALPROIC ACID (DEPAKOTE) Ordered. EDMS 13:04 [facility] [place] Agreement was scanned into [employer] and attached to record. jp5 13:04 Financial registration complete. jp5 13:44 Basic Metabolic Profile Reviewed. br1 13:44 CBC with Diff Reviewed. br1 13:44 Urinalysis Reviewed. br1 13:44 Cardiac Injury Profile Reviewed. br1 13:44 Troponin Reviewed. br1 13:44 BNP Reviewed. br1 13:44 VALPROIC ACID (DEPAKOTE) Reviewed. br1 13:44 Chest, 2 View (pa\E\lat) Reviewed. br1 14:59 -Influenza A&B Rapid Antigen - Nose Reviewed. br1 14:59 CT Head Without Contrast Reviewed. br1 15:00 Ambulate Patient to Assess Patient Safety ordered. br1 09/19 12:00 T-Sheet-- Draft Copy was scanned into [employer] and attached to record. gb 12:00 ECG/EKG was scanned into [employer] and attached to record. gb 12:01 Radiology Report was scanned into [employer] and attached to record. gb 09/20 06:42 ED course: dr rivero faxed formal report of cxr for fu mlg. ml Signatures: Dispatcher [employer] EDMS Don Best MD MD ml Jobson, Karen, RN RN kpj Alysha Millan, Reg Reg gb Corwin Manley MD MD br1 Stephany Sanchez,RN RN js13 Ida Campos, RN RN mk4 Rebekah Rodriguez jp5 The chart was reviewed and I authenticate all verbal orders and agree with the evaluation and treatment provided.Corrections: (The following items were deleted from the chart) 09/18 12:41 12:38 VALPROIC ACID (DEPAKOTE)+LAB ordered. EDMS EDMS Attachments: 13:04 [facility] Payment Agreement jp5 09/19 12:00 T-Sheet-- Draft Copy gb 12:00 ECG/EKG gb Chart Complete MTDD
--- NOTE | 2016-09-20 16:52 | EDDOCDS ---
Nurse's Notes [facility] Name: Millie Haywood Age: 56 yrs Sex: Female : 1960 Arrival Date: 09/18/2016 Time: 10:45 Bed 11 Private MD: Nathan Rivero Diagnosis: Weakness Presentation: 09/18 11:02 Presenting complaint: per [facility] staff weakness SOB unable to ambulate lethargic since [facility] yesterday. Adult Sepsis Screening: The patient does not have new or worsening altered mentation. Patient's respiratory rate is less than 22. Systolic blood pressure is less than or equal to 100 (1 point). Patient has a qSOFA score of 0- Negative Sepsis Screen. Suicide/Homicide risk assessment- Unable to assess, due to patient's chronic mental disability. 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 Transition of care: patient was not received from another setting of care. 11:02 Acuity: [facility] Level 3 [facility] 11:02 Method Of Arrival: Wheelchair [facility] Triage Assessment: 11:13 General: Appears in no apparent distress, well nourished, well groomed, Behavior is [facility] appropriate for age. Pain: Unable to use pain scale. Does not appear to understand pain scale. Patient appears quiet. HIV screening NA for this visit does not understand. Neurological: Level of Consciousness is awake, alert. Respiratory: Airway is patent Respiratory effort is even, unlabored. Derm: Skin is pink, warm & dry. Historical: - Allergies: Keflex (Rash); - Home Meds: 1. Zyprexa 2.5 mg AM and 10 mg HS Oral tab 1 tab (Last dose: 09/18/2016 06:00) 2. Milk of Magnesia Oral 30 mL thu wed thu (Last dose: 09/17/2016) 3. metoprolol tartrate 50 mg Oral tab 1 tab 2 times per day (Last dose: 09/18/2016 06:00) 4. Calcium + Vitamin D 600 mg calcium- 200 unit Oral tab 600 mg twice a day (Last dose: 09/18/2016 06:00) 5. senna 8.6 mg oral cap 1 caps twice a day (Last dose: 09/18/2016 06:00) 6. multivitamin Oral tab 1 tab daily (Last dose: 09/18/2016 06:00) 7. magnesium oxide 400 mg Oral tab 400 mg twice a day (Last dose: 09/18/2016 06:00) 8. Ativan 0.5 mg Oral tab 1 tab twice a day (Last dose: 09/18/2016 06:00) 9. Vitamin D Oral 4000 unit daily (Last dose: 09/18/2016 06:00) 10. Miralax 17 gram/dose Oral powd 17 g once daily (Last dose: 09/18/2016 06:00) 11. Depakote Sprinkles 125 mg Oral cpSP 8 caps nightly (Last dose: 09/17/2016) 12. Seroquel 300 mg Oral tab 1 tab nightly (Last dose: 09/17/2016) 13. clomipramine 50 mg oral cap 1 cap 2 times per day (Last dose: 09/18/2016 06:00) 14. lactulose 10 gram/15 mL oral syrp 10 g daily (Last dose: 09/17/2016) 15. levothyroxine 50 mcg Oral cap 1 cap once daily (Last dose: 09/18/2016 05:30) 16. oxcarbazepine 300 mg oral tab 1 tab 2 times per day (Last dose: 09/18/2016 06:00) 17. Peridex 0.12 % mucous membrane mwsh 15 mL daily (Last dose: 09/18/2016 06:00) 18. Lasix 40 mg Oral tab 1 tab once daily (Last dose: 09/18/2016 06:00) - PMHx: aggression; Anxiety; Cerebral Palsy; Hypertension; moderate MR; Hypothyroidism; Seizure Disorder; syncope; - PSHx: Cholecystectomy (2012); left ankle surgery; - Social history: Smoking status: Patient states was never smoker of tobacco. The patient speaks a little Ukrainian. - Family history: Not pertinent. - : The pt / caregiver states he / she is not on anticoagulants. Home medication list is obtained from the facility MAR. - Exposure Risk Screening:: None identified. Screenin:39 Screening information is obtained from residence staff. Fall risk:. Assistance ADL's: mk4 Requires assistance with meal preparation, this assistance is provided by residence staff, bathing, assistance is provided by residence staff, dressing, assistance is provided by residence staff, toileting, assistance is provided by residence staff, ambulation, assistance is provided by residence staff, housework, assistance is provided by residence staff, medication administration, assistance is provided by residence staff. Abuse/DV Screen: The patient / caregiver reports he/she is: not in a situation that causes fear, pain or injury. Nutritional screening: On thickened liquids. home support is adequate. 15:34 Advance Directives: There is no active DNR order. js13 Assessment: 10:57 General: BP recheck 164/104 manual . dwg 11:30 General: Appears in no apparent distress, Behavior is cooperative. Neurological: Level mk4 of Consciousness is awake, baseline MR per [facility] staff, pt cooperative . 11:30 Respiratory: Airway is patent Breath sounds are clear bilaterally. Derm: Skin is mk4 intact, is healthy with good turgor, Skin is pink, warm & dry. 12:30 General: Appears in no apparent distress, Behavior is cooperative. Neurological: Level mk4 of Consciousness is awake. Respiratory: Airway is patent Respiratory effort is even, unlabored. 14:13 General: Appears in no apparent distress, comfortable, Behavior is cooperative, [facility] mk4 workers at bedside , no episodes of syncope, pt cooperative with care , fully awake and alert throughout visit, doesn't appear to be lethargic or have any difficulty breathing . 14:14 Respiratory: Airway is patent Respiratory effort is even, unlabored, Respiratory mk4 pattern is regular, awaiting dispo. 15:18 General: Patient ambulated with minimal assist with gait belt. No shuffling and able to js13 bear weight.. 15:26 General: Appears in no apparent distress, comfortable, Behavior is cooperative. Pain: js13 Denies pain. Neurological: Level of Consciousness is awake. Respiratory: Airway is patent Respiratory effort is even, unlabored, Respiratory pattern is regular, symmetrical, Breath sounds are clear. Derm: Skin is pink, warm & dry. Vital Signs: 10:48 BP 207 / 138; Pulse 93; Resp 20; Temp 96.6(T); Pulse Ox 97% on R/A; Weight 97.52 kg elp (R); Height 5 ft. 6 in. (167.64 cm) (R); 10:56 BP 164 / 104; dwg 12:34 BP 162 / 84 RA Supine (man/lg); ct3 12:42 BP 137 / 76 (auto/); mk4 12:42 Pulse 92 MON; mk4 12:56 Pulse 96 MON; Pulse Ox 95% ; mk4 12:57 BP 114 / 73 (auto/); mk4 13:12 BP 117 / 79 (auto/); mk4 13:12 Pulse 96 MON; Pulse Ox 95% ; mk4 13:27 BP 109 / 72 (auto/); mk4 13:27 Pulse 96 MON; Pulse Ox 94% ; mk4 13:42 BP 101 / 68 (auto/); mk4 13:42 Pulse 98 MON; Pulse Ox 95% ; mk4 13:57 BP 112 / 73 (auto/); mk4 13:57 Pulse 96 MON; Pulse Ox 95% ; mk4 14:12 BP 118 / 73 (auto/); mk4 14:12 Pulse 102 MON; Pulse Ox 93% ; mk4 14:27 BP 124 / 65 (auto/); mk4 14:27 Pulse 98 MON; Pulse Ox 95% ; mk4 14:42 BP 117 / 72 (auto/); js13 14:42 Pulse 100 MON; Resp 14; Pulse Ox 94% on R/A; js13 14:57 BP 120 / 61 (auto/); js13 14:57 Pulse 102 MON; Resp 16; Temp 97.1(O); Pulse Ox 96% on R/A; js13 10:48 Body Mass Index 34.70 (97.52 kg, 167.64 cm) elp Vitals: 10:48 Log In Time: September 18, 2016 at 10:45. RN notified that patient meets Red Flag elp criteria. ED Course: 10:48 Patient visited by Lalitha Joel PCA. elp 10:48 Nathan Rivero MD is Private Physician. elp 10:48 Patient moved to Waiting elp 10:49 Patient visited by Lalitha Joel PCA. elp 11:03 Triage Initiated kpj 11:25 Patient moved to Pre RCE elp 11:26 Patient moved to 11 kpj 11:30 Patient visited by Ida Campos RN. mk4 12:22 Lori Manley MD is Attending Physician. br1 12:33 Patient visited by Lori Manley MD. br1 12:35 Patient visited by Bianca Little PCA. ct3 12:45 Inserted saline lock: 20 gauge in right hand and blood collected. No procedures done mk4 that require assistance. Straight cath inserted returned clear yellow urine. Patient tolerated well. 12:48 VALPROIC ACID (DEPAKOTE) Sent. mk4 13:04 [facility] Payment Agreement was scanned into [employer] and attached to record. jp5 13:06 EKG done. (by ED staff). Reviewed by Lori Manley MD. dem1 13:09 Patient visited by Juan J Lopez. dem1 13:18 Chest, 2 View (pa\E\lat) Returned. EDMS 13:20 Urine Culture Sent. mk4 13:20 Urinalysis Sent. mk4 13:20 -Influenza A&B Rapid Antigen - Nose Sent. mk4 13:53 Patient visited by Ida Campos, RN. mk4 14:06 CT Head Without Contrast Returned. EDMS 14:26 Patient visited by Ida Campos, DEVEN. mk4 15:19 Patient visited by Stephany Sanchez,RN. js13 15:25 Patient visited by Lori Manley MD. br1 15:27 Patient visited by Stephany Sanchez,DEVEN. js13 15:27 Nathan Rivero MD is Referral Physician. br1 15:32 Discontinued IV lock intact, bleeding controlled, pressure dressing applied, No js13 redness/swelling at site. 15:34 The patient / caregiver is instructed regarding the plan of care and ED course. js13 16:35 CT Head Without Contrast Returned. EDMS 09/19 12:00 T-Sheet-- Draft Copy was scanned into [employer] and attached to record. gb 12:00 ECG/EKG was scanned into [employer] and attached to record. gb 12:01 Radiology Report was scanned into [employer] and attached to record. gb 21:17 EKG-ADULT Returned. EDMS Order Results: Lab Order: Basic Metabolic Profile; SPEC'M 09/18/16 11:50 Test: GLUCOSE, FASTING; Value: 96; Range: 70-105; Units: MG/DL; Status: F Test: BLOOD UREA NITROGEN; Value: 8; Range: 7-18; Units: MG/DL; Status: F Test: CREATININE FOR GFR; Value: 0.61; Range: 0.55-1.02; Units: MG/DL; Status: F Test: GLOMERULAR FILTRATION RATE; Value: > 60.0; Range: >51; Status: F Test: SODIUM LEVEL; Value: 131; Range: 136-145; Abnormal: Below low normal; Units: MEQ/L; Status: F Test: POTASSIUM SERUM; Value: 4.2; Range: 3.5-5.1; Units: MEQ/L; Status: F Test: CHLORIDE LEVEL; Value: 95; Range: 98-107; Abnormal: Below low normal; Units: MEQ/L; Status: F Test: CARBON DIOXIDE LEVEL; Value: 27; Range: 21-32; Units: MEQ/L; Status: F Test: ANION GAP; Value: 9; Range: 8-16; Units: MEQ/L; Status: F Test: CALCIUM LEVEL; Value: 9.1; Range: 8.5-10.1; Units: MG/DL; Status: F Test Note: ; Units are mL/min/1.73 m2 Chronic Kidney Disease Staging per NKF: Stage I & II GFR >=60 Normal to Mildly Decreased Stage III GFR 30-59 Moderately Decreased Stage IV GFR 15-29 Severely Decreased Stage V GFR <15 Very Little GFR Left ESRD GFR <15 on UPPER MARKER Lab Order: CBC with Diff; SPEC'M 09/18/16 11:50 Test: WHITE BLOOD COUNT; Value: 3.0; Range: 4.0-10.0; Abnormal: Below low normal; Units: K/mm3; Status: F Test: RED BLOOD COUNT; Value: 4.31; Range: 4.00-5.40; Units: M/mm3; Status: F Test: HEMOGLOBIN; Value: 13.4; Range: 12.0-16.0; Units: g/dl; Status: F Test: HEMATOCRIT; Value: 38.0; Range: 36.0-47.0; Units: %; Status: F Test: MEAN CORPUSCULAR VOLUME; Value: 88.1; Range: 80.0-96.0; Units: fl; Status: F Test: MEAN CORPUSCULAR HEMOGLOBIN; Value: 31.0; Range: 27.0-33.0; Units: pg; Status: F Test: MEAN CORPUSCULAR HGB CONC; Value: 35.2; Range: 32.0-36.5; Units: g/dl; Status: F Test: RED CELL DISTRIBUTION WIDTH; Value: 12.7; Range: 11.5-14.5; Units: %; Status: F Test: PLATELET COUNT, AUTOMATED; Value: 125; Range: 150-450; Abnormal: Below low normal; Units: k/mm3; Status: F Test: NEUTROPHILS %; Value: 54.9; Range: 36.0-66.0; Units: %; Status: F Test: LYMPH %; Value: 23.6; Range: 24.0-44.0; Abnormal: Below low normal; Units: %; Status: F Test: MONO %; Value: 13.7; Range: 0.0-5.0; Abnormal: Above high normal; Units: %; Status: F Test: EOS %; Value: 1.8; Range: 0.0-3.0; Units: %; Status: F Test: BASO %; Value: 0.2; Range: 0.0-1.0; Units: %; Status: F Test: LARGE UNSTAINED CELL %; Value: 5.8; Range: 0.0-4.0; Abnormal: Above high normal; Units: %; Status: F Test: NEUTROPHILS #; Value: 1.6; Range: 1.8-7.7; Abnormal: Below low normal; Units: K/mm3; Status: F Test: LYMPH #; Value: 0.7; Range: 1.5-4.5; Abnormal: Below low normal; Units: K/mm3; Status: F Test: MONO #; Value: 0.4; Range: 0.0-0.8; Units: K/mm3; Status: F Test: EOS #; Value: 0.0; Range: 0.0-0.50; Units: K/mm3; Status: F Test: BASO #; Value: 0.0; Range: 0.0-0.2; Units: K/mm3; Status: F Test: LARGE UNSTAINED CELL #; Value: 0.2; Range: 0.0-0.4; Units: K/mm3; Status: F Lab Order: Cardiac Injury Profile; SPEC'M 09/18/16 11:50 Test: CPK CREATINE PHOSPHOKINASE; Value: 82; Range: 26-192; Units: U/L; Status: F Test: CK-MB VALUE MASS; Value: 1.9; Range: 0.0-3.6; Units: NG/ML; Status: F Test: MB/CK RELATIVE INDEX; Value: 2.31; Range: < OR =4; Status: F Test Note: ; DIAGNOSIS CRITERIA MMB ng/ml Relative Index (RI) NON-AMI < or = 5 N/A [place] > 5 < or = 4 AMI > 5 > 4 Lab Order: Troponin; SPEC'M 09/18/16 11:50 Test: TROPONIN I; Value: < 0.02; Range: < 0.10; Units: NG/ML; Status: F Test Note: ; Troponin I Reference Interval for Gip[employer] LOCI: 99th Percentile= 0.00-0.045 ng/ml Risk Stratification: <= 0.10 ng/ml Decreased Risk for Adverse Clinical Events. 0.10-1.50 ng/ml Increased Risk for Adverse Clinical Events. Evaluation of additional criterion and/or repeat testing in 2-6 hours is suggested to rule out myocardial damage. >= 1.50 ng/ml Indicative of Myocardial Injury. Lab Order: -Influenza A&B Rapid Antigen - Nose; SPEC'M 09/18/16 12:53 Test: INFLUENZA A RAPID SCR by ICA; Value: INFLUENZA A RESULTS NEGATIVE; Status: F Test: INFLUENZA A RAPID SCR by ICA; Value: Comments:; Status: F Test: INFLUENZA B RAPID SCR by ICA; Value: INFLUENZA B RESULTS NEGATIVE; Status: F Test Note: ; The Influenza test is a direct rapid immunoassay for the qualitative detection of Influenza viral antigen. Cell culture (Viral Culture) testing should be considered to confirm NEGATIVE results and to assist in detecting other viruses that can provide similar clinical symptoms. Please contact the lab within 24 hours ([phone] if confirmatory testing is desired. Lab Order: BNP; SPEC'M 09/18/16 11:50 Test: BRAIN NATRIURETIC PEPTIDE; Value: 9.2; Range: <100; Units: PG/ML; Status: F Lab Order: Urinalysis; SPEC'M 09/18/16 12:57 Test: APPEARANCE, URINE; Value: CLOUDY; Range: CLEAR; Abnormal: Above high normal; Status: F Test: COLOR, URINE; Value: YELLOW; Range: YELLOW; Status: F Test: PH,URINE; Value: 7.0; Range: 5.0-9.0; Units: UNITS; Status: F Test: SPECIFIC GRAVITY URINE AUTO; Value: 1.014; Range: 1.002-1.035; Status: F Test: PROTEIN, URINE AUTO; Value: NEGATIVE; Range: NEGATIVE; Units: mg/dL; Status: F Test: GLUCOSE, URINE (UA) AUTO; Value: NEGATIVE; Range: NEGATIVE; Units: mg/dL; Status: F Test: KETONE, URINE AUTO; Value: TRACE; Range: NEGATIVE; Abnormal: Above high normal; Units: mg/dL; Status: F Test: UROBILINOGEN, URINE AUTO; Value: 0.2; Range: 0.0-2.0; Units: mg/dL; Status: F Test: BILIRUBIN, URINE AUTO; Value: NEGATIVE; Range: NEGATIVE; Status: F Test: NITRITE, URINE AUTO; Value: NEGATIVE; Range: NEGATIVE; Status: F Test: LEUKOCYTE ESTERASE, URINE AUTO; Value: 3+; Range: NEGATIVE; Abnormal: Above high normal; Status: F Test: BLOOD, URINE BLOOD; Value: 2+; Range: NEGATIVE; Abnormal: Above high normal; Status: F Test: WBC, URINE AUTO; Value: 1; Range: 0-3; Units: /HPF; Status: F Test: RBC, URINE AUTO; Value: 1; Range: 0-3; Units: /HPF; Status: F Test: BACTERIA, URINE AUTO; Value: NEGATIVE; Range: NEGATIVE; Status: F Test: SQUAMOUS EPITHELIAL CELL UR AU; Value: 1; Range: 0-6; Units: /HPF; Status: F Test: HYALINE CAST, URINE AUTO; Value: 0; Range: 0-1; Units: /LPF; Status: F Lab Order: Urine Culture; SPEC'M 09/18/16 12:57 Test: URINE CULTURE; Value: <EXTERNAL COMMENT eCWMed> FULL REPORT IN LAB NOTES (eCW and Medent).; Status: F Test: URINE CULTURE; Value: URINE CULTURE RESULT NO GROWTH; Status: F Lab Order: VALPROIC ACID (DEPAKOTE); SPEC'M 09/18/16 11:50 Test: VALPROIC ACID (DEPAKOTE); Value: 65.7; Range: 50.0-100.0; Units: UG/ML; Status: F Radiology Order: EKG-ADULT Test: EKG-ADULT REASON FOR EXAMINATION: dysrhythmia; Stationary ECG Study; [facility] - ED; ; Test Date: 2016-09-18; Pat Name: MILLIE HAYWOOD Department:; Room: -; Gender: F [employer] Agent: jesenia; : 1960 Requested By: LORI Jones; Order Number: [id number] Reading MD: Lenora Jones; Measurements; Intervals [place]; Rate: 95 P: 11; VA: 180 QRS: 64; QRSD: 106 T: 49; QT: 361; QTc: 454; Interpretive Statements; SINUS RHYTHM; MODERATE INTRAVENTRICULAR CONDUCTION DELAY; NSTTW ABNORMALITY; DELAYED R PROGRESSION ?SEPTAL MO; Electronically Signed On 09-19-2016 21:03:25 EST by Lenora Jones; Radiology Order: CT Head Without Contrast Test: CT Head Without Contrast REASON FOR EXAMINATION: htn, weak eval for ich; CT brain without contrast:; ; History: Hypertension. Weakness, evaluate for intracranial hemorrhage.; Comparison CT study September 07, 2015. Comparison CT study from September 12, 2014; is also reviewed. 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 No; bony destructive lesion is seen. Visualized paranasal sinuses are clear.; ; On soft tissue window settings there is physiologic calcification of the basal; ganglia bilaterally. There is minimal diffuse cerebral atrophy. There is; periventricular low density in the right frontal lobe consistent with small; vessel changes. This is status quo. There is no evidence of intracranial; hemorrhage. No extra-axial fluid collection is seen. No mass or midline shift; is observed.; ; Impression:; ; No evidence of intracranial hemorrhage. Small vessel changes and mild diffuse; atrophy. 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 No pleural effusions. Lung dinh are clear.; Cardiac size is normal.; ; There is a 8 mm nodule adjacent to the left lateral margin of the heart. There; were two left lung nodules in this approximate location on the CT of 08/19/2016.; 3-month CT follow-up was recommended which would in the time frame.; ; Impression:; ; There are no acute cardiopulmonary findings.; ; There is a left lung nodule as discussed in the body of the report.; ; ; Signed by; Pankaj Love MD 09/18/2016 01:06 P; Outcome: 09/18 15:27 Discharge ordered by Provider. br1 15:33 Discharge Assessment: Patient awake and alert. patient administered narcotics - no. The js13 following High Risk Discharge criteria are identified: None. Discharged to With [facility] staff members. Condition: stable. Discharge instructions given to petrophysical engineer, Instructed on discharge instructions, follow up and referral plans. medication usage, Demonstrated understanding of instructions, medications, Pt was receptive of discharge instructions/ teaching. CT Study completed. Property :Personal belongings accompany Pt. 15:51 Patient left the ED. js13 Signatures: Dispatcher [employer] EDMS Pankaj Umanzor, RN RN Kimberley Alvarez RN RN Alysha Hauser, Lori Troncoso MD MD br1 Bianca Little, NEON TUBE PUMPER NEON TUBE PUMPER ct3 Soraida Lopezia dem1 Stephany SanchezRN RN js13 Lalitha Joel, NEON TUBE PUMPER NEON TUBE PUMPER elp Ida Campos RN RN [email or web address] Rebekah Rodriguez jp5 Corrections: (The following items were deleted from the chart) 14:16 14:13 General: Appears in no apparent distress, comfortable, Behavior is cooperative, mk4 [facility] workers at bedside , no episodes of syncope, pt cooperative with care . mk4 14:18 11:30 General: Appears in no apparent distress, Behavior is cooperative, mk4 mk4 14:38 14:14 Respiratory: Airway is patent Respiratory effort is even, unlabored, Respiratory mk4 pattern is regular, mk4 15:33 14:57 Pulse 102bpm; MonitorResp 16bpm; Pulse Ox 96% RA; js13 js13 Chart Complete MTDD
== END 2016-09-18 15:51 | disposition home or self-care (01) ==
LOC: M ED 10:45
DX: R53.1 Weakness (principal); R06.02 Shortness of breath; I10 Essential (primary) hypertension; E03.9 Hypothyroidism, unspecified; F41.9 Anxiety disorder, unspecified; G80.9 Cerebral palsy, unspecified; F71 Moderate intellectual disabilities; G40.909 Epilepsy, unspecified, not intractable, without status epilepticus; Z79.899 Other long term (current) drug therapy; Z79.51 Long term (current) use of inhaled steroids; Z88.1 Allergy status to other antibiotic agents

== ENCOUNTER → 2016-09-19 | Outpatient (REF) | payer MEDICARE, MEDICAID | LOC: M SFHCPLAZ 16:11 | PROVIDERS: ATTEND Family Medicine | DX: R53.1 Weakness (principal) | CPT/HCPCS: 36415; 82140; G0463 ==

== ENCOUNTER → 2016-09-22 | Outpatient (REF) | payer MEDICARE, MEDICAID | LOC: M SFHCPLAZ 13:45 | PROVIDERS: ATTEND Physician Assistant Medical | DX: K76.0 Fatty (change of) liver, not elsewhere classified (principal) | CPT/HCPCS: 36415; 80164; 82140; G0463 ==

== ENCOUNTER → 2016-10-06 | Outpatient (CLI) | payer MEDICARE, MEDICAID ==
[2016-10-06 10:23] LABS: BASO % 0.2 % (0.0-1.0); EOS % 1.3 % (0.0-3.0); LARGE UNSTAINED CELL # 0.1 K/mm3 (0.0-0.4); LYMPH # 0.9 K/mm3 (1.5-4.5); LYMPH % 33.4 % (24.0-44.0); MEAN CORPUSCULAR HEMOGLOBIN 31.1 pg (27.0-33.0); MEAN CORPUSCULAR HGB CONC 34.9 g/dl (32.0-36.5); MONO # 0.2 K/mm3 (0.0-0.8); MONO % 8.7 % (0.0-5.0); NEUTROPHILS # 1.4 K/mm3 (1.8-7.7); NEUTROPHILS % 54.5 % (36.0-66.0); PLATELET COUNT, AUTOMATED 148 k/mm3 (150-450); WHITE BLOOD COUNT 2.6 K/mm3 (4.0-10.0)
[2016-10-06 10:24] LABS: ALBUMIN 3.6 GM/DL (3.2-5.2); ALBUMIN/GLOBULIN RATIO 0.97 (1.00-1.93); ALKALINE PHOSPHATASE 44 U/L (45-117); ALT/SGPT 96 U/L (12-78); ANION GAP 11 MEQ/L (8-16); AST/SGOT 55 U/L (15-37); BILIRUBIN,TOTAL 0.2 MG/DL (0.2-1.0); BLOOD UREA NITROGEN 8 MG/DL (7-18); CALCIUM LEVEL 8.9 MG/DL (8.5-10.1); CARBON DIOXIDE LEVEL 27 MEQ/L (21-32); CHLORIDE LEVEL 97 MEQ/L (98-107); CREATININE FOR GFR 0.55 MG/DL (0.55-1.02); GLOMERULAR FILTRATION RATE > 60.0 (>51); GLUCOSE, FASTING 148 MG/DL (70-105); POTASSIUM SERUM 4.2 MEQ/L (3.5-5.1); SODIUM LEVEL 135 MEQ/L (136-145); TOTAL PROTEIN 7.3 GM/DL (6.4-8.2)
== END ==
LOC: M WUC 09:08
PROVIDERS: ATTEND Family Medicine
DX: K76.0 Fatty (change of) liver, not elsewhere classified (principal); D72.819 Decreased white blood cell count, unspecified; E55.9 Vitamin D deficiency, unspecified

== ENCOUNTER → 2016-12-08 | Outpatient (REF) | payer MEDICARE, MEDICAID | LOC: M SFHCPLAZ 09:22 | PROVIDERS: ATTEND Physician Assistant Medical | DX: N30.00 Acute cystitis without hematuria (principal) ==

== ENCOUNTER → 2017-02-12 | Outpatient (CLI) | payer MEDICARE, MEDICAID ==
[~2017-02-12] MED LIST changes: +BISA10SU4 PR; -CALCTAB43 PO; +CALCTAB74 PO; +CEFD300CAP PO; +CLOM25CA2 PO; +COLA50CA5 PO; -FLUD1TA PO; +ISOVUE-370 76% 100ML VIAL (Q9967) As Ordered ONE; -LEVA750T PO; +LEVA750T7 PO; +MACR100C43 PO; +METO50TA7 PO; +QUET1TAB8 PO; +SENN18TA PO; -SENN1TAB4 PO; +VALI2TAB PO; +ZYPR2.5T2 PO
--- NOTE | 2017-02-12 12:29 | REP ---
Clinical: Follow-up pulmonary nodule. Comparison: 08/19/2016. Technique: Axial contrast enhanced images from the thoracic inlet to the upper abdomen using 100 ml Isovue 370 intravenous contrast material with coronal and sagittal re-formations. Findings: The bilateral lung dinh demonstrate scattered ground-glass opacities which may reflect mild bronchitis along with mild stable lingular and left lower lobe fibroatelectatic changes and chronic bronchiectasis. Small scattered bronchial opacities suggest mucous plugging. The previously identified presumed nodules likely reflect chronic mucous plugging and the larger, more posteriorly based "nodule "is unchanged while the more anteriorly smaller "nodule "now identified as patent mildly ectatic bronchiole. No new acute consolidation, nodule or mass lesion. No pleural effusion/reaction or pneumothorax. Calcified granuloma along the periphery of the right lower lobe is unchanged. Mediastinum demonstrates normal thoracic aorta and stable heart/pericardium. No adenopathy. Fatty infiltration to the liver noted. Adrenal glands are normal. Impression: 1. Previously suggested nodules likely represent small foci of mucus plugging, and the more posterior nodule versus mucous plugging remains unchanged while the more anterior suspected nodule now demonstrates patent ectatic bronchiole. 2. Current examination demonstrates scattered ground-glass opacities which may reflect superimposed bronchitis. Signed by Tim Kim MD 02/12/2017 12:20 P
== END ==
LOC: M RAD 10:49
PROVIDERS: ATTEND Family Medicine
DX: R22.2 Localized swelling, mass and lump, trunk (principal)
CPT/HCPCS: 71260; Q9967

== ENCOUNTER → 2017-02-13 | Outpatient (CLI) | payer MEDICARE, MEDICAID ==
[~2017-02-13] MED LIST changes: -ISOVUE-370 76% 100ML VIAL (Q9967) As Ordered ONE
[2017-02-13 10:10] LABS: BASO % 0.7 % (0.0-1.0); EOS # 0.1 K/mm3 (0.0-0.50); EOS % 1.5 % (0.0-3.0); LARGE UNSTAINED CELL # 0.1 K/mm3 (0.0-0.4); LARGE UNSTAINED CELL % 3.2 % (0.0-4.0); LYMPH # 1.4 K/mm3 (1.5-4.5); LYMPH % 35.4 % (24.0-44.0); MEAN CORPUSCULAR HEMOGLOBIN 31.8 pg (27.0-33.0); MEAN CORPUSCULAR HGB CONC 34.3 g/dl (32.0-36.5); MEAN CORPUSCULAR VOLUME 92.5 fl (80.0-96.0); MONO # 0.4 K/mm3 (0.0-0.8); MONO % 8.9 % (0.0-5.0); NEUTROPHILS % 50.2 % (36.0-66.0); PLATELET COUNT, AUTOMATED 159 k/mm3 (150-450); RED CELL DISTRIBUTION WIDTH 12.8 % (11.5-14.5); WHITE BLOOD COUNT 3.9 K/mm3 (4.0-10.0)
[2017-02-13 10:16] LABS: INR 0.99
[2017-02-13 10:50] LABS: ALBUMIN 3.8 GM/DL (3.2-5.2); ALBUMIN/GLOBULIN RATIO 0.88 (1.00-1.93); ALKALINE PHOSPHATASE 45 U/L (45-117); ALT/SGPT 90 U/L (12-78); ANION GAP 9 MEQ/L (8-16); AST/SGOT 60 U/L (15-37); BILIRUBIN,TOTAL 0.3 MG/DL (0.2-1.0); BLOOD UREA NITROGEN 9 MG/DL (7-18); CALCIUM LEVEL 9.1 MG/DL (8.5-10.1); CARBON DIOXIDE LEVEL 28 MEQ/L (21-32); CHLORIDE LEVEL 100 MEQ/L (98-107); CREATININE FOR GFR 0.62 MG/DL (0.55-1.02); FREE T4 0.63 NG/DL (0.76-1.46); GLOMERULAR FILTRATION RATE > 60.0 (>51); GLUCOSE, FASTING 112 MG/DL (70-105); POTASSIUM SERUM 4.6 MEQ/L (3.5-5.1); SODIUM LEVEL 137 MEQ/L (136-145); TOTAL PROTEIN 8.1 GM/DL (6.4-8.2)
== END ==
LOC: M LAB 09:30
PROVIDERS: ATTEND Family Medicine
DX: K76.0 Fatty (change of) liver, not elsewhere classified (principal); D69.6 Thrombocytopenia, unspecified; E55.9 Vitamin D deficiency, unspecified; E03.9 Hypothyroidism, unspecified
CPT/HCPCS: 36415; 80053; 80164; 82105; 82140; 82306; 83970; 84439; 84443; 85025; 85610; 85730; G0463

== ENCOUNTER → 2017-03-30 | Outpatient (REF) | payer MEDICARE, MEDICAID ==
[2017-03-30 13:19] LABS: MEAN CORPUSCULAR HEMOGLOBIN 31.7 pg (27.0-33.0); MEAN CORPUSCULAR HGB CONC 34.6 g/dl (32.0-36.5); MEAN CORPUSCULAR VOLUME 91.6 fl (80.0-96.0); RED CELL DISTRIBUTION WIDTH 13.1 % (11.5-14.5); WHITE BLOOD COUNT 3.8 K/mm3 (4.0-10.0)
[2017-03-30 13:49] LABS: ALBUMIN 3.5 GM/DL (3.2-5.2); ALBUMIN/GLOBULIN RATIO 0.85 (1.00-1.93); ALKALINE PHOSPHATASE 44 U/L (45-117); ALT/SGPT 84 U/L (12-78); ANION GAP 9 MEQ/L (8-16); AST/SGOT 58 U/L (15-37); BILIRUBIN,TOTAL 0.2 MG/DL (0.2-1.0); BLOOD UREA NITROGEN 7 MG/DL (7-18); CALCIUM LEVEL 8.8 MG/DL (8.5-10.1); CARBON DIOXIDE LEVEL 27 MEQ/L (21-32); CHLORIDE LEVEL 98 MEQ/L (98-107); CREATININE FOR GFR 0.51 MG/DL (0.55-1.02); GLOMERULAR FILTRATION RATE > 60.0 (>51); GLUCOSE, FASTING 86 MG/DL (70-105); MAGNESIUM LEVEL 1.9 MG/DL (1.8-2.4); POTASSIUM SERUM 4.2 MEQ/L (3.5-5.1); SODIUM LEVEL 134 MEQ/L (136-145); TOTAL PROTEIN 7.6 GM/DL (6.4-8.2)
[2017-03-30 14:16] LABS: BASOPHILS 1 % (0-4); EOSINOPHILS 2 % (0-5)
== END ==
LOC: M SFHCPLAZ 11:52
PROVIDERS: ATTEND Family Medicine
DX: D72.819 Decreased white blood cell count, unspecified (principal); E55.9 Vitamin D deficiency, unspecified; Z79.899 Other long term (current) drug therapy
CPT/HCPCS: 36415; 80053; 82306; 83036; 83735; 83970; 85007; 85027; G0463

== ENCOUNTER 2017-05-12 16:37 | Emergency (ER) | payer MEDICARE, MEDICAID ==
[~2017-05-12] VITALS: Ht 165.1 cm; Wt 100.0 kg
[~2017-05-12 16:37] MED LIST changes: -BISA10SU4 PR; -CEFD300CAP PO; -CLOM25CA2 PO; -COLA50CA5 PO; -MACR100C43 PO; -QUET1TAB8 PO; -VALI2TAB PO; -ZYPR2.5T2 PO
[2017-05-12] MEDS ORDERED: VALI2TAB PO (16:53)
[2017-05-12] MEDS ORDERED: COLA50CA5 PO (16:53)
[2017-05-12] MEDS ORDERED: ZYPR2.5T2 PO (16:53)
[2017-05-12] MEDS ORDERED: NS 1,000 ML IV ONE (18:15)
[2017-05-12 18:56] LABS: BASO % 0.2 % (0.0-1.0); IMMATURE GRANULOCYTE % 0.5 % (0-0); LYMPH # 1.5 10^3/uL (1.5-4.5); LYMPH % 36.5 % (24.0-44.0); MEAN CORPUSCULAR VOLUME 91.3 fl (80.0-96.0); MONO # 0.6 10^3/uL (0.0-0.8); MONO % 15.6 % (0.0-5.0); NEUTROPHILS # 1.9 10^3/uL (1.8-7.7); NEUTROPHILS % 46.2 % (36.0-66.0); PLATELET COUNT, AUTOMATED 154 10^3/uL (150-450); WHITE BLOOD COUNT 4.1 10^3/uL (4.0-10.0)
[2017-05-12 19:06] LABS: ADD MORPHOLOGY? NO
[2017-05-12] MEDS ORDERED: NS 500 ML IV ONE (19:15)
[2017-05-12 19:24] LABS: ANION GAP 6 MEQ/L (8-16); BLOOD UREA NITROGEN 8 MG/DL (7-18); CALCIUM LEVEL 9.5 MG/DL (8.5-10.1); CARBON DIOXIDE LEVEL 30 MEQ/L (21-32); CHLORIDE LEVEL 95 MEQ/L (98-107); CREATININE FOR GFR 0.67 MG/DL (0.55-1.02); GLOMERULAR FILTRATION RATE > 60.0 (>51); GLUCOSE, FASTING 125 MG/DL (70-105); POTASSIUM SERUM 4.5 MEQ/L (3.5-5.1); SODIUM LEVEL 131 MEQ/L (136-145)
[2017-05-12 21:21] LABS: RENAL EPITHELIAL CELLS 2 /HPF; YEAST LIKE CELL URINE AUTO SMALL
[2017-05-12] MEDS ORDERED: MACR100C43 PO (21:38)
[2017-05-12] MEDS ORDERED: NITROFURANTOIN (MACROBID) 100 MG CAP PO ONE (21:45)
[2017-05-12 21:48] VITALS: BP 148/90
== END 2017-05-12 22:01 | disposition home or self-care (01) ==
LOC: M ED 16:37
DX: N39.0 Urinary tract infection, site not specified (principal); Z79.899 Other long term (current) drug therapy; Z79.51 Long term (current) use of inhaled steroids; Z88.1 Allergy status to other antibiotic agents
CPT/HCPCS: 36415; 80048; 80053; 81001; 83036; 83605; 85025; 87040; 87088; 87186; 96360; 96361; 99283; G0463

== ENCOUNTER → 2017-05-12 | Outpatient (REF) | payer MEDICARE, MEDICAID ==
[2017-05-12 11:52] LABS: BASO % 0.3 % (0.0-1.0); EOS % 1.3 % (0.0-3.0); LYMPH # 1.1 10^3/uL (1.5-4.5); LYMPH % 35.7 % (24.0-44.0); MEAN CORPUSCULAR HEMOGLOBIN 30.7 pg (27.0-33.0); MEAN CORPUSCULAR HGB CONC 33.8 g/dl (32.0-36.5); MONO # 0.3 10^3/uL (0.0-0.8); MONO % 10.3 % (0.0-5.0); NEUTROPHILS # 1.5 10^3/uL (1.8-7.7); NEUTROPHILS % 51.4 % (36.0-66.0); PLATELET COUNT, AUTOMATED 136 10^3/uL (150-450); RED CELL DISTRIBUTION WIDTH 12.8 % (11.5-14.5)
[2017-05-12 11:54] LABS: ADD MANUAL DIFFER NO; DIFF SLIDE NUMBER 208
[2017-05-12 13:17] LABS: ALBUMIN 3.4 GM/DL (3.2-5.2); ALBUMIN/GLOBULIN RATIO 0.79 (1.00-1.93); ALKALINE PHOSPHATASE 47 U/L (45-117); ALT/SGPT 103 U/L (12-78); ANION GAP 8 MEQ/L (8-16); AST/SGOT 64 U/L (15-37); BILIRUBIN,TOTAL 0.3 MG/DL (0.2-1.0); BLOOD UREA NITROGEN 7 MG/DL (7-18); CARBON DIOXIDE LEVEL 29 MEQ/L (21-32); CHLORIDE LEVEL 95 MEQ/L (98-107); CREATININE FOR GFR 0.62 MG/DL (0.55-1.02); GLOMERULAR FILTRATION RATE > 60.0 (>51); GLUCOSE, FASTING 161 MG/DL (70-105); POTASSIUM SERUM 4.4 MEQ/L (3.5-5.1); SODIUM LEVEL 132 MEQ/L (136-145); TOTAL PROTEIN 7.7 GM/DL (6.4-8.2)
== END ==
LOC: M SFHCPLAZ 11:04
PROVIDERS: ATTEND Physician Assistant Medical
DX: N39.0 Urinary tract infection, site not specified (principal); D72.819 Decreased white blood cell count, unspecified; R73.01 Impaired fasting glucose; R55 Syncope and collapse

== ENCOUNTER → 2017-05-28 | Outpatient (REF) | payer MEDICARE, MEDICAID ==
[~2017-05-28] MED LIST changes: +BISA10SU4 PR; +CEFD300CAP PO; +CLOM25CA2 PO; +COLA50CA5 PO; +MACR100C43 PO; +QUET1TAB8 PO; +VALI2TAB PO; +ZYPR2.5T2 PO
[2017-05-28 13:36] LABS: ANION GAP 8 MEQ/L (8-16); BLOOD UREA NITROGEN 6 MG/DL (7-18); CALCIUM LEVEL 9.1 MG/DL (8.5-10.1); CARBON DIOXIDE LEVEL 29 MEQ/L (21-32); CHLORIDE LEVEL 99 MEQ/L (98-107); CREATININE FOR GFR 0.62 MG/DL (0.55-1.02); GLOMERULAR FILTRATION RATE > 60.0 (>51); GLUCOSE, FASTING 117 MG/DL (70-105); POTASSIUM SERUM 4.3 MEQ/L (3.5-5.1); SODIUM LEVEL 136 MEQ/L (136-145)
== END ==
LOC: M SFHCPLAZ 09:52
PROVIDERS: ATTEND Physician Assistant Medical
DX: N39.0 Urinary tract infection, site not specified (principal)

== ENCOUNTER 2017-06-03 05:40 | Inpatient (IN) | payer MEDICARE, MEDICAID ==
[~2017-06-03] VITALS: Ht 167.6 cm; Wt 98.7 kg
[~2017-06-03 05:40] MED LIST changes: -BISA10SU4 PR; -CEFD300CAP PO; -CLOM25CA2 PO; -QUET1TAB8 PO
[2017-06-04] MEDS ORDERED: NS IV ONE (11:00)
[2017-06-04] MEDS ORDERED: DILUENT IV ONE (11:00)
[2017-06-04] MEDS ORDERED: IPRATROPIUM 0.5MG/ALBUTEROL 2.5MG INH SOL UD 3ML (DUONEB)(J7620) NEB ONE (11:15)
[2017-06-04] MEDS ORDERED: ALBUTEROL SULFATE 2.5 MG/0.5 ML INH NEB SOLN INH ONE (11:15)
[2017-06-04 11:45] LABS: BASO % 0.1 % (0.0-1.0); EOS % 0.1 % (0.0-3.0); IMMATURE GRANULOCYTE % 0.3 % (0-0); LYMPH # 1.2 10^3/uL (1.5-4.5); LYMPH % 16.4 % (24.0-44.0); MEAN CORPUSCULAR HEMOGLOBIN 31.1 pg (27.0-33.0); MEAN CORPUSCULAR HGB CONC 33.3 g/dl (32.0-36.5); MEAN CORPUSCULAR VOLUME 93.3 fl (80.0-96.0); MONO # 1.6 10^3/uL (0.0-0.8); MONO % 22.2 % (0.0-5.0); NEUTROPHILS # 4.3 10^3/uL (1.8-7.7); NEUTROPHILS % 60.9 % (36.0-66.0); PLATELET COUNT, AUTOMATED 125 10^3/uL (150-450); RED CELL DISTRIBUTION WIDTH 13.8 % (11.5-14.5); WHITE BLOOD COUNT 7.1 10^3/uL (4.0-10.0)
[2017-06-04] MEDS ORDERED: methylPREDNISolone INJ 125 MG/2 ML VIAL (J2930) IV ONE (11:45)
[2017-06-04 12:03] LABS: RENAL EPITHELIAL CELLS 1 /HPF
[2017-06-04 12:16] LABS: INR 1.13
--- NOTE | 2017-06-04 12:25 | REP ---
PORTABLE CHEST, SINGLE VIEW: COMPARISON: 09/18/2016 There is no evidence of acute infiltrate. No pleural effusion is seen. The heart is normal in size. The mediastinal silhouette is unremarkable. The visualized osseous structures are intact. IMPRESSION: No acute pulmonary disease. Signed by Pankaj Membreno MD 06/04/2017 02:38 P
[2017-06-04 13:11] LABS: ALBUMIN/GLOBULIN RATIO 0.65 (1.00-1.93); ALKALINE PHOSPHATASE 45 U/L (45-117); ALT/SGPT 51 U/L (12-78); AMYLASE 35 U/L (25-115); ANION GAP 7 MEQ/L (8-16); AST/SGOT 26 U/L (15-37); BILIRUBIN,DIRECT 0.1 MG/DL (0.0-0.2); BILIRUBIN,TOTAL 0.4 MG/DL (0.2-1.0); BLOOD UREA NITROGEN 5 MG/DL (7-18); CALCIUM LEVEL 8.6 MG/DL (8.5-10.1); CARBON DIOXIDE LEVEL 27 MEQ/L (21-32); CHLORIDE LEVEL 98 MEQ/L (98-107); CREATININE FOR GFR 0.73 MG/DL (0.55-1.02); GLOMERULAR FILTRATION RATE > 60.0 (>51); GLUCOSE, FASTING 185 MG/DL (70-105); POTASSIUM SERUM 4.1 MEQ/L (3.5-5.1); SODIUM LEVEL 132 MEQ/L (136-145); TOTAL PROTEIN 7.6 GM/DL (6.4-8.2)
[2017-06-04 13:12] LABS: ABG BASE EXCESS 0.4 (-2.0-2.0); ABG HCO3 24.6 MEQ/L (22.0-26.0); ABG PARTIAL PRESSURE CO2 38.1 mmHg (35.0-45.0); ABG PARTIAL PRESSURE O2 60.8 mmHg (75.0-100.0); ABG STANDARD HCO3 24.7 MEQ/L (22.0-26.0); ABG TOTAL CO2 25.8 MEQ/L (22.0-29.0); ABG pH (ARTERIAL) 7.428 UNITS (7.350-7.450)
[2017-06-04] MEDS ORDERED: ACETAMINOPHEN 650 MG SUPP PR ONE (13:30)
[2017-06-04] MEDS ORDERED: LevoFLOXacin IV 750 MG in APPROPRIATE DILUENT 1 EA IV ONE (13:30)
[2017-06-04] MEDS ORDERED: ACETAMINOPHEN 325 MG TAB PO ONE (13:30)
[2017-06-04] MEDS ORDERED: CLOM25CA2 PO (13:37)
[2017-06-04] MEDS ORDERED: BISA10SU4 PR (13:42)
[2017-06-04] MEDS ORDERED: QUET1TAB8 PO (13:42)
[2017-06-04] MEDS ORDERED: NS 1,000 ML IV SCH (15:00)
[2017-06-04] MEDS ORDERED: ACETAMINOPHEN TAB 650MG DOSE (2X325MG) PO PRN (15:15)
[2017-06-04] MEDS ORDERED: BISACODYL 10 MG SUPP PR PRN (15:30)
[2017-06-04] MEDS ORDERED: diazePAM 2 MG TAB PO PRN (15:45)
[2017-06-04] MEDS ORDERED: ALBUTEROL SULFATE 2.5 MG/0.5 ML INH NEB SOLN NEB PRN (16:15)
[2017-06-04 16:50] VITALS: BP 142/73
--- NOTE | 2017-06-04 20:29 | HPEPDOC ---
General Date of Admission Jun 04, 2017 at 15:10 Primary Care Physician: Nathan Rivero M.D. Attending Physician: DEANN NICOLE DO Chief Complaint The patient is a 57-year-old female admitted with a reason for visit of Sepsis; Uti. History of Present Illness Patient is a 57-year-old female with past medical history significant for cerebral palsy, moderate mental retardation, obesity, CHF grade 1 diastolic dysfunction, vitamin D deficiency, history of recurrent syncope presents to the emergency room due to fever. Patient is at [facility] patient is present with her caregiver. Patient recently had a urinary tract infection a few weeks ago and was present in the ER. She was given Macrobid and sent home. Patient got a little better. Went side Dr. Rivero last Thursday. Was cleared from the urinary tract infection. Patient finished the Macrobid. A few days later started having strong odor of urine. Patient does have history of frequent UTIs. She had multiple syncopal episodes and seizure-like activity. Was not happening every day. This all started over the weekend with seizure-like activity at day program. Patient does have a history of these seizures and syncopal episodes when she is sick. Seizure-like activity is described as waving both arms. Denies incontinence. Syncopal episodes are described as usually when she eats. She'll be sitting up and slumps over these few seconds and then wakes back up. She is not confused. She is little more lethargic and sleepy than normal. This happens when she is ill. She does have some weakness in her arms. This is chronic. She denies any pain anywhere. She is able to answer questions. She knows she is in the hospital. She had a temperature of 102F yesterday. She was given some Tylenol. Patient visited her doctor in the office. She was sent over for ER evaluation and admission to the hospital. Home Medications Scheduled Calcium/Vitamin D (Calcium 600+D 600-400 mg-Unit) 1 Tab Tab, 1 TAB PO BID, ( Reported) CRUSH AND GIVE IN SAUCE Carbamide Peroxide (Debrox) 6.5 % Yelena, 5 DROP AU QMONTH, (Reported) GIVE FOR 3 DAYS THEN FLUSH Chlorhexidine Gluconate (Peridex) 0.12 % Yelena, 15 ML MT DAILY, (Reported) APPLY TO MOUTH USING TOOTHETTE Cholecalciferol (Vitamin D) 2,000 Unit Tab, 4,000 UNIT PO QPM, (Reported) CRUSH AND GIVE IN SAUCE Clomipramine HCl (Clomipramine HCl) 25 Mg Cap, 50 MG PO BID, (Reported) Divalproex Sodium (Depakote Sprinkles) 125 Mg Cap, 1,000 MG PO QHS, (Reported) GIVE IN SAUCE Docusate Sodium (Colace Clear) 50 Mg Cap, 15 ML PO Q2D, (Reported) Furosemide (Lasix) 40 Mg Tab, 40 MG PO DAILY, (Reported) Lactulose (Lactulose) 10 Gm/15 Ml Yelena, 15 ML PO BID, (Reported) AM AND 1600 Levothyroxine Sodium (Synthroid) 50 Mcg Tab, 50 MCG PO DAILY, (Reported) Lorazepam (Ativan) 0.5 Mg Tab, 0.5 MG PO BID, (Reported) Magnesium Oxide (Magnesium Oxide) 400 Mg Tab, 400 MG PO BID, (Reported) CRUSH AND GIVE IN SAUCE Metoprolol Tartrate (Metoprolol Tartrate) 50 Mg Tab, 50 MG PO BID, (Reported) CRUSH AND GIVE IN SAUCE Milk Of Magnesia (Milk of Magnesia) 1,200 Mg/15 Ml Hodan, 30 ML PO 3XW, (Reported) THURSDAY,THURSDAY,THURSDAY @[facility] Multivitamins *[facility]OCK[facility]* (Thera M Plus *[facility]*) 1 Tab Tab, 1 TAB PO QPM , (Reported) CRUSH AND GIVE IN SAUCE Olanzapine (Zyprexa) 10 Mg Tab, 10 MG PO QHS, (Reported) CRUSH AND GIVE IN SAUCE Olanzapine (Zyprexa) 2.5 Mg Tab, 2.5 MG PO QAM, (Reported) CRUSH AND GIVE IN SAUCE Oxcarbazepine (Oxcarbazepine) 300 Mg Tab, 300 MG PO BID, (Reported) Polyethylene Glycol (Miralax) 1 Pow Pow, 17 GM PO BID, (Reported) Quetiapine Fumerate (Quetiapine Fumarate) 100 Mg Tab, 100 MG PO BID, (Reported) Senna (Senna-Lax) 8.6 Mg Tab, 1 TAB PO BID, (Reported) CRUSH AND GIVE IN SAUCE Scheduled PRN Bisacodyl (Bisacodyl) 10 Mg Sup, 10 MG MA PRN PRN for CONSTIPATION, (Reported) GIVEN ON DAY 2 WITH NO BOWL MOVEMENT Diazepam (Valium) 2 Mg Tab, 2 MG PO ASDIRECTED PRN for ANXIETY/AGITATION, ( Reported) GIVEN PRIOR TO DENTAL PROCEDURE ONLY Allergies Coded Allergies: Cephalexin (Unverified Allergy, Unknown, RASH, 06/07/17) Has tolerated other cephalosporins since Past Medical History Medical History Cerebral palsy Moderate mental retardation Hypertension History of recurrent syncope Constipation Vitamin D deficiency Thrombocytopenia Obesity Osteoporosis CHF, grade 1 diastolic dysfunction Surgical History Teeth extractions Laparoscopic cholecystectomy Social History Patient lives at [facility]. She is disabled. Has a history of secondhand smoke exposure. Does not smoke herself. Denies alcohol. Review of Symptoms Constitutional: Reports: Other (Difficult to obtain, patient is poor historian. ), Denies: Chills, Fever Physical Examination General Exam: Positive: Alert, Cooperative, No Acute Distress ENT Exam: Positive: Atraumatic Neck Exam: Positive: Supple, Negative: JVD, thyromegaly, Lymphadenopathy Chest Exam: Positive: Clear to auscultation Heart Exam: Positive: Rate Normal Abdomen Exam: Positive: Normal bowel sounds, Soft, Negative: Tenderness Skin Exam: Positive: Nl turgor and temperature Psych Exam: Positive: Other (orientated to palce) Vital Signs Vital Signs Date Time Temp Pulse Resp B/P (MAP) Pulse Ox O2 Delivery O2 Flow Rate FiO2 06/04/17 17:00 Nasal Cannula 2.0 06/04/17 16:50 18 06/04/17 16:50 97.7 111 142/73 (96) 94 Laboratory Data Labs 24H Laboratory Tests 2 06/04/17 11:11: Blood Gas Bicarbonate Standard 24.7, Arterial Blood pH 7.428, Arterial Blood Partial Pressure CO2 38.1, Arterial Blood Partial Pressure O2 60.8L, Arterial Blood Total CO2 25.8, Arterial Blood HCO3 24.6, Arterial Blood Base Excess 0.4, Arterial Blood Oxygen Saturation 91.3L 06/04/17 11:30: Immature Granulocyte % (Auto) 0.3H, White Blood Count 7.1, Red Blood Count 3.86L , Hemoglobin 12.0, Hematocrit 36.0, Mean Corpuscular Volume 93.3, Mean Corpuscular Hemoglobin 31.1, Mean Corpuscular Hemoglobin Concent 33.3, Red Cell Distribution Width 13.8, Platelet Count 125L, Neutrophils (%) (Auto) 60.9, Lymphocytes (%) (Auto) 16.4L, Monocytes (%) (Auto) 22.2H, Eosinophils (%) (Auto ) 0.1, Basophils (%) (Auto) 0.1, Neutrophils # (Auto) 4.3, Lymphocytes # (Auto) 1.2L, Monocytes # (Auto) 1.6H, Eosinophils # (Auto) 0.0, Basophils # (Auto) 0.0 , Immature Granulocyte # (Auto) 0.0, Nucleated Red Blood Cells % (auto) 0.0, Prothrombin Time 14.7H, Prothromb Time International Ratio 1.13, Activated Partial Thromboplast Time 31.5 06/04/17 11:31: Lactic Acid Level 2.6*H 06/04/17 11:46: Urine Appearance CLOUDYH, Urine Color YELLOW, Urine pH 7.0, Urine Specific [place] 1.018, Urine Protein 1+H, Urine Glucose (UA) 1+H, Urine Ketones NEGATIVE , Urine Urobilinogen 0.2, Urine Bilirubin NEGATIVE, Urine Leukocyte Esterase 3+H , Urine Blood NEGATIVE, Urine Nitrite POSITIVE, Urine WBC (Auto) TNTCH, Urine RBC (Auto) 14H, Urine Hyaline Casts (Auto) 0, Urine Bacteria (Auto) 1+H, Urine Squamous Epithelial Cells 0, Urine Transitional Epithelial Cells <1, Urine Renal Epithelial Cells 1, Urine Mucus (Auto) SMALL, Urine Sperm (Auto) 06/04/17 12:32: Anion Gap 7L, Glomerular Filtration Rate > 60.0, Calcium Level 8.6, Aspartate Amino Transf (AST/SGOT) 26, Alanine Aminotransferase (ALT/SGPT) 51, Alkaline Phosphatase 45, Total Bilirubin 0.4, Direct Bilirubin 0.1, Total Creatine Kinase 40, Creatine Kinase MB 1.0, Creatine Kinase MB Relative Index 2.50, Troponin I < 0.02, C-Reactive Protein, Quantitative 12.10H, Total Protein 7.6, Albumin 3.0L, Albumin/Globulin Ratio 0.65L, Amylase Level 35, Valproic Acid ( Depakene) Level 60.1 06/04/17 16:00: Lactic Acid Followup at 4 Hours 1.4 CBC/BMP Laboratory Tests 06/04/17 11:30 Red Blood Count 3.86 L, Mean Corpuscular Volume 93.3, Mean Corpuscular Hemoglobin 31.1, Mean Corpuscular Hemoglobin Concent 33.3, Red Cell Distribution Width 13.8, Neutrophils (%) (Auto) 60.9, Lymphocytes (%) (Auto) 16.4 L, Monocytes (%) (Auto) 22.2 H, Eosinophils (%) (Auto) 0.1, Basophils (%) ( Auto) 0.1, Neutrophils # (Auto) 4.3, Lymphocytes # (Auto) 1.2 L, Monocytes # ( Auto) 1.6 H, Eosinophils # (Auto) 0.0, Basophils # (Auto) 0.0 06/04/17 12:32 Microbiology Microbiology 06/04/17 Blood Culture, Received Pending 06/04/17 Blood Culture, Received Pending 06/04/17 Influenza Virus Type A Antigen - Final, Complete 06/04/17 Influenza Virus Type B Antigen - Final, Complete 06/04/17 Urine Culture, Received Pending Assessment/Plan 1. Sepsis from urinary tract infection Patient's lactic acid was elevated at 2.6. Patient is getting 1 bolus IV. Repeat lactic acid with reflex order. We'll give patient light fluids if lactic acid is normal. 60 mL per hour. Blood pressure has been normal and not hypotensive. Monitor vitals. Continue with Tylenol as needed for fevers. Temperature decreased to 102 F after given a dose of Tylenol. Patient meets SIRS criteria arterial with tachycardia and fever. 2. Urine tract infection Patient has evidence of infection on urinalysis. Patient had recently been treated for Escherichia coli UTI. Urine culture has been performed and pending. Starting patient on ceftriaxone every 12 hours IV. 3. Cervical palsy, moderate MR Patient is [facility] patient. Continue home medications. 4. Hypertension Continue home medications. Monitor vitals. 5. Vitamin D deficiency Continue home medications. 6. Grade 1 diastolic dysfunction Continuing home medications. Monitor I's and O's. Monitor fluid status. Plan / VTE VTE Prophylaxis Ordered?: Yes Plan Plan Patient moves for urinary tract infection. Treated with IV antibiotics. Starting patient on home pureed diet. GME ATTESTATION GME ATTESTATION My preceptor for this patient encounter was physically present in the building during the encounter and was fully available. As needed, all aspects of the patient interview, examination, medical decision making process, and medical care plan development were reviewed and approved by the preceptor. Preceptor is aware and concurs with the plan as stated in the body of this note and will attest to such by his/her cosignature. JOCELYNE SORIANO DO Jun 04, 2017 20:29
[2017-06-04] MEDS: SENNA 8.6 MG TAB (SENOKOT) PO SCH (20:35)
[2017-06-04] MEDS: LACTULOSE 20 GM/30 ML SYRUP UD PO SCH (20:35)
[2017-06-04] MEDS: VITAMIN D 1,000 INTERNATIONAL UNITS TABLET PO SCH (20:35)
[2017-06-04] MEDS: OLANZapine 10 MG TAB PO SCH (20:35)
[2017-06-04] MEDS: LORazepam 0.5 MG TAB PO SCH (20:36)
[2017-06-04] MEDS: MULTIVITAMINS/MINERALS THERAP 1 TAB PO SCH (20:36)
[2017-06-04] MEDS: MAGNESIUM OXIDE 400 MG TAB (MAG-OX) PO SCH (20:36)
[2017-06-04] MEDS: QUEtiapine FUMARATE 100 MG TAB PO SCH (20:36)
[2017-06-04] MEDS: MIRALAX *UNIT DOSE* 17GM PACKET PO SCH ×2 (20:37→21:00)
[2017-06-04] MEDS: OXcarbazepine 300 MG TAB PO SCH (20:37)
[2017-06-04] MEDS: DIVALPROEX SPRINKLE 125 MG CAP PO SCH (20:37)
[2017-06-04] MEDS: METOPROLOL TART 50 MG TAB PO SCH (20:37)
[2017-06-04] MEDS: cefTRIAXone SOD 1 GM in D5W 50 ML IV SCH (21:19)
[2017-06-04 22:00] VITALS: BP 125/66
[2017-06-05] MEDS: LEVOTHYROXINE 50MCG TABLET (0.05MG) PO SCH (05:49)
[2017-06-05 06:00] VITALS: BP 147/78
[2017-06-05 06:08] LABS: BASO % 0.2 % (0.0-1.0); EOS % 0.3 % (0.0-3.0); IMMATURE GRANULOCYTE % 0.5 % (0-0); LYMPH # 1.4 10^3/uL (1.5-4.5); LYMPH % 22.3 % (24.0-44.0); MEAN CORPUSCULAR HEMOGLOBIN 31.2 pg (27.0-33.0); MEAN CORPUSCULAR VOLUME 94.5 fl (80.0-96.0); MONO # 1.2 10^3/uL (0.0-0.8); NEUTROPHILS # 3.7 10^3/uL (1.8-7.7); NEUTROPHILS % 57.7 % (36.0-66.0); PLATELET COUNT, AUTOMATED 107 10^3/uL (150-450); RED CELL DISTRIBUTION WIDTH 13.7 % (11.5-14.5); WHITE BLOOD COUNT 6.4 10^3/uL (4.0-10.0)
[2017-06-05 06:25] LABS: ANION GAP 7 MEQ/L (8-16); BLOOD UREA NITROGEN 8 MG/DL (7-18); CARBON DIOXIDE LEVEL 27 MEQ/L (21-32); CHLORIDE LEVEL 104 MEQ/L (98-107); CREATININE FOR GFR 0.62 MG/DL (0.55-1.02); GLOMERULAR FILTRATION RATE > 60.0 (>51); GLUCOSE, FASTING 160 MG/DL (70-105); MAGNESIUM LEVEL 2.3 MG/DL (1.8-2.4); POTASSIUM SERUM 3.8 MEQ/L (3.5-5.1); SODIUM LEVEL 138 MEQ/L (136-145)
--- NOTE | 2017-06-05 07:21 | ECGEPIP ---
Stationary ECG Study [facility] - ED Test Date: 2017-06-04 Pat Name: MILLIE AQUINO Department: Room: - Gender: F Physical Therapy Attendant: jt : 1960 Requested By: Don Best Order Number: [id number] Reading MD: Lenora Jones Measurements Intervals [place] Rate: 114 P: 42 [place]: 183 QRS: 5 QRSD: 104 T: 5 QT: 304 QTc: 419 Interpretive Statements SINUS TACHYCARDIA ABNORMAL RHYTHM ECG NSTTW ABNORMALITY IVCD INCREASED RATE 09/18/16 Electronically Signed On 06-05-2017 7:21:00 EDT by Lenora Jones
[2017-06-05] MEDS: SENNA 8.6 MG TAB (SENOKOT) PO SCH ×2 (09:00→21:00)
[2017-06-05] MEDS: MIRALAX *UNIT DOSE* 17GM PACKET PO SCH ×2 (09:00→21:27)
[2017-06-05] MEDS: LACTULOSE 20 GM/30 ML SYRUP UD PO SCH ×2 (09:00→21:26)
[2017-06-05] MEDS: cefTRIAXone SOD 1 GM in D5W 50 ML IV SCH ×2 (09:34→21:38)
[2017-06-05] MEDS: OLANZapine 2.5MG TABLET PO SCH (09:39)
[2017-06-05] MEDS: QUEtiapine FUMARATE 100 MG TAB PO SCH ×2 (09:40→21:39)
[2017-06-05] MEDS: OXcarbazepine 300 MG TAB PO SCH ×2 (09:40→21:39)
[2017-06-05] MEDS: METOPROLOL TART 50 MG TAB PO SCH ×2 (09:41→21:40)
[2017-06-05] MEDS: LORazepam 0.5 MG TAB PO SCH ×2 (09:41→21:40)
[2017-06-05] MEDS: MAGNESIUM OXIDE 400 MG TAB (MAG-OX) PO SCH ×2 (09:41→21:40)
[2017-06-05] MEDS: CHLORHEXIDINE GLUCONATE 0.12 % 15ML UDC (PERIDEX ORAL RINSE) MT SCH (09:42)
--- NOTE | 2017-06-05 09:42 | IPNPDOC ---
Subjective Date Seen The patient was seen on 06/05/17. Subjective Chief Complaint/HPI The patient is a 57-year-old female admitted with a reason for visit of Sepsis; Uti. Events since last encounter Pt's personal care service provider at bedside. No new concerns. Karla slept well through the night. She would like to get out of bed. History and ROS unable to be obtained from the patient. General: Reports: ROS Unobtainable Objective Physical Examination General Exam: Positive: Alert, No Acute Distress ENT Exam: Positive: Mucous membr. moist/pink Chest Exam: Positive: Clear to auscultation, Diminished Heart Exam: Positive: Rate Normal, Normal S1, Normal S2 Abdomen Exam: Positive: Normal bowel sounds, Soft, Tenderness Extremity Exam: Positive: Edema (UE, LE appears puffy, LE 1-2 mm pitting edema) Assessment /Plan Problems (1) Sepsis Status: Acute Response to Treatment: Stable, Improving Discussed With: Nurse Problem Specific Plan: Monitor Clinically, Repeat Labs Problem Text: Cultures pending, T max 102.7 06/04 2 pm, no temp since then, WBC nl, cont with IV Ceftriaxone. (2) UTI (urinary tract infection) Status: Acute Response to Treatment: Stable Problem Specific Plan: Monitor Clinically Problem Text: See above. (3) Chronic diastolic CHF (congestive heart failure) Status: Chronic Response to Treatment: Stable Discussed With: Patient Problem Specific Plan: Monitor Clinically, Repeat Labs Problem Text: her lungs are clear, but she has significant edema, will d/c her IVF, resume Lasix 40 mg daily (4) Hypertension Status: Chronic Response to Treatment: Stable Problem Specific Plan: Monitor Clinically Plan/VTE VTE Prophylaxis Ordered?: Yes Plan Family Medicine Attending Note: Patient was seen and examined; I discussed her care with CONNIE Gilmore and I agree with her note as documented. Ms. Haywood is improving in terms of BP, temperature, and WBCs remain normal. Per her C aide at bedside, she is still quite weak and very sleepy. She will likely need a PT consult once she is more awake - likely within the next 2 days. (KES) VS, I&O, 24H, Fishbone Vital Signs/I&O Vital Signs Date Time Temp Pulse Resp B/P (MAP) Pulse Ox O2 Delivery O2 Flow Rate FiO2 06/05/17 06:00 97.2 97 20 147/78 (101) 94 Nasal Cannula 2.0 Laboratory Data 24H LABS Laboratory Tests 2 06/04/17 11:11: Blood Gas Bicarbonate Standard 24.7, Arterial Blood pH 7.428, Arterial Blood Partial Pressure CO2 38.1, Arterial Blood Partial Pressure O2 60.8L, Arterial Blood Total CO2 25.8, Arterial Blood HCO3 24.6, Arterial Blood Base Excess 0.4, Arterial Blood Oxygen Saturation 91.3L 06/04/17 11:30: Immature Granulocyte % (Auto) 0.3H, White Blood Count 7.1, Red Blood Count 3.86L , Hemoglobin 12.0, Hematocrit 36.0, Mean Corpuscular Volume 93.3, Mean Corpuscular Hemoglobin 31.1, Mean Corpuscular Hemoglobin Concent 33.3, Red Cell Distribution Width 13.8, Platelet Count 125L, Neutrophils (%) (Auto) 60.9, Lymphocytes (%) (Auto) 16.4L, Monocytes (%) (Auto) 22.2H, Eosinophils (%) (Auto ) 0.1, Basophils (%) (Auto) 0.1, Neutrophils # (Auto) 4.3, Lymphocytes # (Auto) 1.2L, Monocytes # (Auto) 1.6H, Eosinophils # (Auto) 0.0, Basophils # (Auto) 0.0 , Immature Granulocyte # (Auto) 0.0, Nucleated Red Blood Cells % (auto) 0.0, Prothrombin Time 14.7H, Prothromb Time International Ratio 1.13, Activated Partial Thromboplast Time 31.5 06/04/17 11:31: Lactic Acid Level 2.6*H 06/04/17 11:46: Urine Appearance CLOUDYH, Urine Color YELLOW, Urine pH 7.0, Urine Specific [place] 1.018, Urine Protein 1+H, Urine Glucose (UA) 1+H, Urine Ketones NEGATIVE , Urine Urobilinogen 0.2, Urine Bilirubin NEGATIVE, Urine Leukocyte Esterase 3+H , Urine Blood NEGATIVE, Urine Nitrite POSITIVE, Urine WBC (Auto) TNTCH, Urine RBC (Auto) 14H, Urine Hyaline Casts (Auto) 0, Urine Bacteria (Auto) 1+H, Urine Squamous Epithelial Cells 0, Urine Transitional Epithelial Cells <1, Urine Renal Epithelial Cells 1, Urine Mucus (Auto) SMALL, Urine Sperm (Auto) 06/04/17 12:32: Anion Gap 7L, Glomerular Filtration Rate > 60.0, Calcium Level 8.6, Aspartate Amino Transf (AST/SGOT) 26, Alanine Aminotransferase (ALT/SGPT) 51, Alkaline Phosphatase 45, Total Bilirubin 0.4, Direct Bilirubin 0.1, Total Creatine Kinase 40, Creatine Kinase MB 1.0, Creatine Kinase MB Relative Index 2.50, Troponin I < 0.02, C-Reactive Protein, Quantitative 12.10H, Total Protein 7.6, Albumin 3.0L, Albumin/Globulin Ratio 0.65L, Amylase Level 35, Valproic Acid ( Depakene) Level 60.1 06/04/17 16:00: Lactic Acid Followup at 4 Hours 1.4 06/05/17 05:21: Anion Gap 7L, Glomerular Filtration Rate > 60.0, Calcium Level 8.0L, Immature Granulocyte % (Auto) 0.5H, White Blood Count 6.4, Red Blood Count 3.43L, Hemoglobin 10.7L, Hematocrit 32.4L, Mean Corpuscular Volume 94.5, Mean Corpuscular Hemoglobin 31.2, Mean Corpuscular Hemoglobin Concent 33.0, Red Cell Distribution Width 13.7, Platelet Count 107L, Neutrophils (%) (Auto) 57.7, Lymphocytes (%) (Auto) 22.3L, Monocytes (%) (Auto) 19.0H, Eosinophils (%) (Auto ) 0.3, Basophils (%) (Auto) 0.2, Neutrophils # (Auto) 3.7, Lymphocytes # (Auto) 1.4L, Monocytes # (Auto) 1.2H, Eosinophils # (Auto) 0.0, Basophils # (Auto) 0.0 , Immature Granulocyte # (Auto) 0.0, Nucleated Red Blood Cells % (auto) 0.0, Blood Urea Nitrogen 8#, Creatinine 0.62, Sodium Level 138, Potassium Level 3.8, Chloride Level 104, Carbon Dioxide Level 27, Magnesium Level 2.3 CBC/BMP Laboratory Tests 06/04/17 11:30 Red Blood Count 3.86 L, Mean Corpuscular Volume 93.3, Mean Corpuscular Hemoglobin 31.1, Mean Corpuscular Hemoglobin Concent 33.3, Red Cell Distribution Width 13.8, Neutrophils (%) (Auto) 60.9, Lymphocytes (%) (Auto) 16.4 L, Monocytes (%) (Auto) 22.2 H, Eosinophils (%) (Auto) 0.1, Basophils (%) ( Auto) 0.1, Neutrophils # (Auto) 4.3, Lymphocytes # (Auto) 1.2 L, Monocytes # ( Auto) 1.6 H, Eosinophils # (Auto) 0.0, Basophils # (Auto) 0.0 06/04/17 12:32 06/05/17 05:21 Red Blood Count 3.43 L, Mean Corpuscular Volume 94.5, Mean Corpuscular Hemoglobin 31.2, Mean Corpuscular Hemoglobin Concent 33.0, Red Cell Distribution Width 13.7, Neutrophils (%) (Auto) 57.7, Lymphocytes (%) (Auto) 22.3 L, Monocytes (%) (Auto) 19.0 H, Eosinophils (%) (Auto) 0.3, Basophils (%) ( Auto) 0.2, Neutrophils # (Auto) 3.7, Lymphocytes # (Auto) 1.4 L, Monocytes # ( Auto) 1.2 H, Eosinophils # (Auto) 0.0, Basophils # (Auto) 0.0, Calcium Level 8.0 L Microbiology Microbiology 06/04/17 Blood Culture, Received Pending 06/04/17 Blood Culture, Received Pending 06/04/17 Influenza Virus Type A Antigen - Final, Complete 06/04/17 Influenza Virus Type B Antigen - Final, Complete 06/04/17 Urine Culture, Received Pending TARAS GLOVER PA-C Jun 05, 2017 09:42 JEAN BOLIVAR MD Jun 05, 2017 12:13
[2017-06-05] MEDS: CARBAMIDE PEROXIDE 6.5% OTIC SOLN 15ML AU SCH (09:43)
[2017-06-05 10:00] VITALS: BP 124/61
[2017-06-05] MEDS ORDERED: FUROSEMIDE 40 MG TAB PO ONE (10:00)
[2017-06-05 14:00] VITALS: BP 114/55
[2017-06-05 18:00] VITALS: BP 129/73
[2017-06-05 20:50] VITALS: BP 132/87
[2017-06-05] MEDS ORDERED: MOM 30ML SUSPENSION UDC PO SCH (21:00)
[2017-06-05] MEDS: DIVALPROEX SPRINKLE 125 MG CAP PO SCH (21:39)
[2017-06-05] MEDS: VITAMIN D 1,000 INTERNATIONAL UNITS TABLET PO SCH (21:40)
[2017-06-05] MEDS: OLANZapine 10 MG TAB PO SCH (21:40)
[2017-06-05] MEDS: MULTIVITAMINS/MINERALS THERAP 1 TAB PO SCH (21:41)
[2017-06-06 02:55] VITALS: BP 131/80
[2017-06-06 05:45] VITALS: BP 142/78
[2017-06-06 05:52] LABS: BASO % 0.2 % (0.0-1.0); EOS # 0.2 10^3/uL (0.0-0.50); EOS % 3.3 % (0.0-3.0); IMMATURE GRANULOCYTE % 0.7 % (0-0); LYMPH # 1.4 10^3/uL (1.5-4.5); LYMPH % 29.8 % (24.0-44.0); MEAN CORPUSCULAR HEMOGLOBIN 30.8 pg (27.0-33.0); MEAN CORPUSCULAR HGB CONC 32.8 g/dl (32.0-36.5); MEAN CORPUSCULAR VOLUME 93.8 fl (80.0-96.0); MONO # 0.9 10^3/uL (0.0-0.8); NEUTROPHILS # 2.2 10^3/uL (1.8-7.7); PLATELET COUNT, AUTOMATED 129 10^3/uL (150-450); RED CELL DISTRIBUTION WIDTH 13.8 % (11.5-14.5); WHITE BLOOD COUNT 4.6 10^3/uL (4.0-10.0)
[2017-06-06] MEDS: LEVOTHYROXINE 50MCG TABLET (0.05MG) PO SCH (05:57)
[2017-06-06 06:05] LABS: ANION GAP 7 MEQ/L (8-16); BLOOD UREA NITROGEN 7 MG/DL (7-18); CALCIUM LEVEL 8.6 MG/DL (8.5-10.1); CARBON DIOXIDE LEVEL 26 MEQ/L (21-32); CHLORIDE LEVEL 103 MEQ/L (98-107); CREATININE FOR GFR 0.54 MG/DL (0.55-1.02); GLOMERULAR FILTRATION RATE > 60.0 (>51); GLUCOSE, FASTING 112 MG/DL (70-105); POTASSIUM SERUM 4.1 MEQ/L (3.5-5.1); SODIUM LEVEL 136 MEQ/L (136-145)
[2017-06-06] MEDS: LACTULOSE 20 GM/30 ML SYRUP UD PO SCH ×2 (08:35→21:11)
[2017-06-06] MEDS: cefTRIAXone SOD 1 GM in D5W 50 ML IV SCH ×2 (08:35→21:15)
[2017-06-06] MEDS: CHLORHEXIDINE GLUCONATE 0.12 % 15ML UDC (PERIDEX ORAL RINSE) MT SCH (08:35)
[2017-06-06] MEDS: QUEtiapine FUMARATE 100 MG TAB PO SCH ×2 (08:36→21:14)
[2017-06-06] MEDS: METOPROLOL TART 50 MG TAB PO SCH ×2 (08:36→21:14)
[2017-06-06] MEDS: CARBAMIDE PEROXIDE 6.5% OTIC SOLN 15ML AU SCH (08:36)
[2017-06-06] MEDS: LORazepam 0.5 MG TAB PO SCH ×2 (08:36→21:12)
[2017-06-06] MEDS: MIRALAX *UNIT DOSE* 17GM PACKET PO SCH ×2 (08:36→21:13)
[2017-06-06] MEDS: MAGNESIUM OXIDE 400 MG TAB (MAG-OX) PO SCH ×2 (08:37→21:13)
[2017-06-06] MEDS: SENNA 8.6 MG TAB (SENOKOT) PO SCH ×2 (08:37→21:12)
[2017-06-06] MEDS: FUROSEMIDE 40 MG TAB PO SCH (08:37)
[2017-06-06] MEDS: OLANZapine 2.5MG TABLET PO SCH (08:42)
[2017-06-06] MEDS: OXcarbazepine 300 MG TAB PO SCH ×2 (08:42→21:12)
[2017-06-06 10:00] VITALS: BP 128/64
[2017-06-06 14:00] VITALS: BP 131/82
[2017-06-06 18:00] VITALS: BP 142/78
[2017-06-06] MEDS: MULTIVITAMINS/MINERALS THERAP 1 TAB PO SCH (21:12)
[2017-06-06] MEDS: VITAMIN D 1,000 INTERNATIONAL UNITS TABLET PO SCH (21:13)
[2017-06-06] MEDS: DIVALPROEX SPRINKLE 125 MG CAP PO SCH (21:13)
[2017-06-06] MEDS: OLANZapine 10 MG TAB PO SCH (21:16)
[2017-06-06 22:00] VITALS: BP 113/70
--- NOTE | 2017-06-07 01:22 | IPNPDOC ---
Subjective Date Seen The patient was seen on 06/06/17. Subjective Chief Complaint/HPI The patient is a 57-year-old female admitted with a reason for visit of Sepsis; Uti. Events since last encounter She is resting comfortably at time of exam, but aide stated that she had been awake for a while earlier and ate well. Aide reports patient had been ambulating with walker prior to admission, thought patient much weaker now. General: Reports: ROS Unobtainable Objective Physical Examination General Exam: Positive: No Acute Distress ENT Exam: Positive: Mucous membr. moist/pink Chest Exam: Positive: Clear to auscultation, Diminished Heart Exam: Positive: Rate Normal, Normal S1, Normal S2 Abdomen Exam: Positive: Normal bowel sounds, Soft, Tenderness Extremity Exam: Positive: Edema (UE, LE appears puffy, LE 1-2 mm pitting edema) Assessment /Plan Problems (1) Sepsis Status: Acute Response to Treatment: Stable, Improving Discussed With: Nurse Problem Specific Plan: Monitor Clinically, Repeat Labs Problem Text: 06/06 -- remains afebrile. E. coli UTI. Switch to PO abx tomorrow. Cultures pending, T max 102.7 06/04 2 pm, no temp since then, WBC nl, cont with IV Ceftriaxone. (2) UTI (urinary tract infection) Status: Acute Response to Treatment: Stable Problem Specific Plan: Monitor Clinically Problem Text: See above. (3) Chronic diastolic CHF (congestive heart failure) Status: Chronic Response to Treatment: Stable Discussed With: Patient Problem Specific Plan: Monitor Clinically, Repeat Labs Problem Text: her lungs are clear, but she has significant edema, will d/c her IVF, resume Lasix 40 mg daily (4) Hypertension Status: Chronic Response to Treatment: Stable Problem Specific Plan: Monitor Clinically Plan/VTE VTE Prophylaxis Ordered?: Yes VS, I&O, 24H, Fishbone Vital Signs/I&O Vital Signs Date Time Temp Pulse Resp B/P (MAP) Pulse Ox O2 Delivery O2 Flow Rate FiO2 06/06/17 22:00 96.8 102 19 113/70 (84) 94 Nasal Cannula 2.0 Laboratory Data 24H LABS Laboratory Tests 2 06/06/17 05:22: Immature Granulocyte % (Auto) 0.7H, White Blood Count 4.6, Red Blood Count 3.57L , Hemoglobin 11.0L, Hematocrit 33.5L, Mean Corpuscular Volume 93.8, Mean Corpuscular Hemoglobin 30.8, Mean Corpuscular Hemoglobin Concent 32.8, Red Cell Distribution Width 13.8, Platelet Count 129L, Neutrophils (%) (Auto) 47.0, Lymphocytes (%) (Auto) 29.8, Monocytes (%) (Auto) 19.0H, Eosinophils (%) (Auto) 3.3H, Basophils (%) (Auto) 0.2, Neutrophils # (Auto) 2.2, Lymphocytes # (Auto) 1.4L, Monocytes # (Auto) 0.9H, Eosinophils # (Auto) 0.2, Basophils # (Auto) 0.0 , Immature Granulocyte # (Auto) 0.0, Nucleated Red Blood Cells % (auto) 0.0, Anion Gap 7L, Glomerular Filtration Rate > 60.0, Blood Urea Nitrogen 7, Creatinine 0.54L, Sodium Level 136, Potassium Level 4.1, Chloride Level 103, Carbon Dioxide Level 26, Calcium Level 8.6 CBC/BMP Laboratory Tests 06/06/17 05:22 Red Blood Count 3.57 L, Mean Corpuscular Volume 93.8, Mean Corpuscular Hemoglobin 30.8, Mean Corpuscular Hemoglobin Concent 32.8, Red Cell Distribution Width 13.8, Neutrophils (%) (Auto) 47.0, Lymphocytes (%) (Auto) 29.8, Monocytes (%) (Auto) 19.0 H, Eosinophils (%) (Auto) 3.3 H, Basophils (%) ( Auto) 0.2, Neutrophils # (Auto) 2.2, Lymphocytes # (Auto) 1.4 L, Monocytes # ( Auto) 0.9 H, Eosinophils # (Auto) 0.2, Basophils # (Auto) 0.0, Calcium Level 8.6 Microbiology Microbiology 06/04/17 Blood Culture - Preliminary, Resulted No Growth after 48 hours. All Specime... 06/04/17 Blood Culture - Preliminary, Resulted No Growth after 48 hours. All Specime... 06/04/17 Influenza Virus Type A Antigen - Final, Complete 06/04/17 Influenza Virus Type B Antigen - Final, Complete 06/04/17 Urine Culture - Final, Complete Escherichia Coli KARISSA ROMO DO Jun 07, 2017 01:22
[2017-06-07 02:00] VITALS: BP 128/70
[2017-06-07 05:59] LABS: BASO % 0.5 % (0.0-1.0); EOS # 0.3 10^3/uL (0.0-0.50); EOS % 7.2 % (0.0-3.0); IMMATURE GRANULOCYTE % 1.3 % (0-0); LYMPH # 1.4 10^3/uL (1.5-4.5); LYMPH % 38.2 % (24.0-44.0); MEAN CORPUSCULAR HEMOGLOBIN 30.7 pg (27.0-33.0); MEAN CORPUSCULAR HGB CONC 32.9 g/dl (32.0-36.5); MEAN CORPUSCULAR VOLUME 93.2 fl (80.0-96.0); MONO # 0.8 10^3/uL (0.0-0.8); MONO % 21.5 % (0.0-5.0); NEUTROPHILS # 1.2 10^3/uL (1.8-7.7); NEUTROPHILS % 31.3 % (36.0-66.0); PLATELET COUNT, AUTOMATED 139 10^3/uL (150-450); RED CELL DISTRIBUTION WIDTH 13.6 % (11.5-14.5); WHITE BLOOD COUNT 3.8 10^3/uL (4.0-10.0)
[2017-06-07 06:00] VITALS: BP 124/88
[2017-06-07 06:14] LABS: ANION GAP 6 MEQ/L (8-16); BLOOD UREA NITROGEN 9 MG/DL (7-18); CALCIUM LEVEL 8.8 MG/DL (8.5-10.1); CARBON DIOXIDE LEVEL 29 MEQ/L (21-32); CHLORIDE LEVEL 103 MEQ/L (98-107); CREATININE FOR GFR 0.51 MG/DL (0.55-1.02); GLOMERULAR FILTRATION RATE > 60.0 (>51); GLUCOSE, FASTING 124 MG/DL (70-105); POTASSIUM SERUM 3.9 MEQ/L (3.5-5.1); SODIUM LEVEL 138 MEQ/L (136-145)
[2017-06-07] MEDS: LEVOTHYROXINE 50MCG TABLET (0.05MG) PO SCH (06:15)
[2017-06-07] MEDS: LACTULOSE 20 GM/30 ML SYRUP UD PO SCH ×2 (08:25→20:44)
[2017-06-07] MEDS: MIRALAX *UNIT DOSE* 17GM PACKET PO SCH ×2 (08:25→20:46)
[2017-06-07] MEDS: CHLORHEXIDINE GLUCONATE 0.12 % 15ML UDC (PERIDEX ORAL RINSE) MT SCH (08:26)
[2017-06-07] MEDS: OXcarbazepine 300 MG TAB PO SCH ×2 (08:26→20:44)
[2017-06-07] MEDS: CEFDINIR 300 MG CAP (OMNICEF) PO SCH ×2 (08:27→20:45)
[2017-06-07] MEDS: OLANZapine 2.5MG TABLET PO SCH (08:27)
[2017-06-07] MEDS: METOPROLOL TART 50 MG TAB PO SCH ×2 (08:27→20:47)
[2017-06-07] MEDS: SENNA 8.6 MG TAB (SENOKOT) PO SCH ×2 (08:27→20:46)
[2017-06-07] MEDS: QUEtiapine FUMARATE 100 MG TAB PO SCH ×2 (08:28→20:45)
[2017-06-07] MEDS: LORazepam 0.5 MG TAB PO SCH ×2 (08:28→20:44)
[2017-06-07] MEDS: MAGNESIUM OXIDE 400 MG TAB (MAG-OX) PO SCH ×2 (08:28→20:45)
[2017-06-07] MEDS: FUROSEMIDE 40 MG TAB PO SCH (08:28)
[2017-06-07] MEDS: CARBAMIDE PEROXIDE 6.5% OTIC SOLN 15ML AU SCH (08:30)
[2017-06-07 10:00] VITALS: BP 150/79
[2017-06-07 14:00] VITALS: BP 130/86
[2017-06-07 18:00] VITALS: BP 130/80
[2017-06-07] MEDS: OLANZapine 10 MG TAB PO SCH (20:44)
[2017-06-07] MEDS: DIVALPROEX SPRINKLE 125 MG CAP PO SCH (20:44)
[2017-06-07] MEDS: MULTIVITAMINS/MINERALS THERAP 1 TAB PO SCH (20:45)
[2017-06-07] MEDS: VITAMIN D 1,000 INTERNATIONAL UNITS TABLET PO SCH (20:45)
[2017-06-07 22:00] VITALS: BP 136/86
[2017-06-08 02:00] VITALS: BP 124/73
--- NOTE | 2017-06-08 02:27 | IPNPDOC ---
Subjective Date Seen The patient was seen on 06/07/17. Subjective Chief Complaint/HPI The patient is a 57-year-old female admitted with a reason for visit of Sepsis; Uti. Events since last encounter Patient was awake and alert today, requesting lunch (specifically polish fries) and DC home. Caregiver felt that she was at, or close to, her baseline. Patient switched to PO abx, and discussed with caregiver that if she passed PT, she could got home today or tomorrow. Caregiver preferred tomorrow, assuming patient passed PT. General: Reports: ROS Unobtainable Objective Physical Examination General Exam: Positive: Alert, Cooperative, No Acute Distress ENT Exam: Positive: Atraumatic Neck Exam: Positive: Supple, Negative: JVD, thyromegaly, Lymphadenopathy Chest Exam: Positive: Clear to auscultation Heart Exam: Positive: Rate Normal Abdomen Exam: Positive: Normal bowel sounds, Soft, Negative: Tenderness Extremity Exam: Positive: Edema (UE, LE appears puffy, LE 1-2 mm pitting edema) Skin Exam: Positive: Nl turgor and temperature Psych Exam: Positive: Other (orientated to place) Assessment /Plan Problems (1) Sepsis Status: Acute Response to Treatment: Stable, Improving Discussed With: Nurse Problem Specific Plan: Monitor Clinically, Repeat Labs Problem Text: 06/07 -- on PO abx, likely home tomorrow 06/06 -- remains afebrile. E. coli UTI. Switch to PO abx tomorrow. Cultures pending, T max 102.7 06/04 2 pm, no temp since then, WBC nl, cont with IV Ceftriaxone. (2) UTI (urinary tract infection) Status: Acute Response to Treatment: Stable Problem Specific Plan: Monitor Clinically Problem Text: See above. (3) Chronic diastolic CHF (congestive heart failure) Status: Chronic Response to Treatment: Stable Discussed With: Patient Problem Specific Plan: Monitor Clinically, Repeat Labs Problem Text: her lungs are clear, but she has significant edema, will d/c her IVF, resume Lasix 40 mg daily (4) Hypertension Status: Chronic Response to Treatment: Stable Problem Specific Plan: Monitor Clinically Plan/VTE VTE Prophylaxis Ordered?: Yes VS, I&O, 24H, Fishbone Vital Signs/I&O Vital Signs Date Time Temp Pulse Resp B/P (MAP) Pulse Ox O2 Delivery O2 Flow Rate FiO2 06/07/17 22:00 97.3 98 20 136/86 (103) 94 Room Air 2.0 Laboratory Data 24H LABS Laboratory Tests 2 06/07/17 05:17: Immature Granulocyte % (Auto) 1.3H, White Blood Count 3.8L, Red Blood Count 3.68L, Hemoglobin 11.3L, Hematocrit 34.3L, Mean Corpuscular Volume 93.2, Mean Corpuscular Hemoglobin 30.7, Mean Corpuscular Hemoglobin Concent 32.9, Red Cell Distribution Width 13.6, Platelet Count 139L, Neutrophils (%) (Auto) 31.3L, Lymphocytes (%) (Auto) 38.2, Monocytes (%) (Auto) 21.5H, Eosinophils (%) (Auto) 7.2H, Basophils (%) (Auto) 0.5, Neutrophils # (Auto) 1.2L, Lymphocytes # (Auto) 1.4L, Monocytes # (Auto) 0.8, Eosinophils # (Auto) 0.3, Basophils # (Auto) 0.0, Immature Granulocyte # (Auto) 0.1H, Nucleated Red Blood Cells % (auto) 0.0, Anion Gap 6L, Glomerular Filtration Rate > 60.0, Blood Urea Nitrogen 9, Creatinine 0.51L, Sodium Level 138, Potassium Level 3.9, Chloride Level 103, Carbon Dioxide Level 29, Calcium Level 8.8 CBC/BMP Laboratory Tests 06/07/17 05:17 Red Blood Count 3.68 L, Mean Corpuscular Volume 93.2, Mean Corpuscular Hemoglobin 30.7, Mean Corpuscular Hemoglobin Concent 32.9, Red Cell Distribution Width 13.6, Neutrophils (%) (Auto) 31.3 L, Lymphocytes (%) (Auto) 38.2, Monocytes (%) (Auto) 21.5 H, Eosinophils (%) (Auto) 7.2 H, Basophils (%) ( Auto) 0.5, Neutrophils # (Auto) 1.2 L, Lymphocytes # (Auto) 1.4 L, Monocytes # ( Auto) 0.8, Eosinophils # (Auto) 0.3, Basophils # (Auto) 0.0, Calcium Level 8.8 Microbiology Microbiology 06/04/17 Blood Culture - Preliminary, Resulted No Growth after 72 hours. All specime... 10/26/17 Blood Culture - Preliminary, Resulted No Growth after 72 hours. All specime... 06/04/17 Influenza Virus Type A Antigen - Final, Complete 06/04/17 Influenza Virus Type B Antigen - Final, Complete 06/04/17 Urine Culture - Final, Complete Escherichia Coli KARISSA ROMO DO Jun 08, 2017 02:27
[2017-06-08 05:53] LABS: BASO % 0.5 % (0.0-1.0); EOS # 0.4 10^3/uL (0.0-0.50); EOS % 10.4 % (0.0-3.0); IMMATURE GRANULOCYTE % 0.8 % (0-0); LYMPH # 1.6 10^3/uL (1.5-4.5); LYMPH % 41.3 % (24.0-44.0); MEAN CORPUSCULAR HEMOGLOBIN 30.4 pg (27.0-33.0); MEAN CORPUSCULAR HGB CONC 32.9 g/dl (32.0-36.5); MEAN CORPUSCULAR VOLUME 92.1 fl (80.0-96.0); MONO # 0.6 10^3/uL (0.0-0.8); MONO % 17.1 % (0.0-5.0); NEUTROPHILS # 1.1 10^3/uL (1.8-7.7); NEUTROPHILS % 29.9 % (36.0-66.0); PLATELET COUNT, AUTOMATED 154 10^3/uL (150-450); RED CELL DISTRIBUTION WIDTH 13.5 % (11.5-14.5); WHITE BLOOD COUNT 3.8 10^3/uL (4.0-10.0)
[2017-06-08] MEDS: LEVOTHYROXINE 50MCG TABLET (0.05MG) PO SCH (05:58)
[2017-06-08 06:00] VITALS: BP 124/83
[2017-06-08 06:06] LABS: ANION GAP 8 MEQ/L (8-16); BLOOD UREA NITROGEN 10 MG/DL (7-18); CALCIUM LEVEL 8.9 MG/DL (8.5-10.1); CARBON DIOXIDE LEVEL 29 MEQ/L (21-32); CHLORIDE LEVEL 101 MEQ/L (98-107); CREATININE FOR GFR 0.55 MG/DL (0.55-1.02); GLOMERULAR FILTRATION RATE > 60.0 (>51); GLUCOSE, FASTING 126 MG/DL (70-105); POTASSIUM SERUM 3.8 MEQ/L (3.5-5.1); SODIUM LEVEL 138 MEQ/L (136-145)
[2017-06-08] MEDS: LACTULOSE 20 GM/30 ML SYRUP UD PO SCH (09:00)
[2017-06-08] MEDS: MIRALAX *UNIT DOSE* 17GM PACKET PO SCH (09:00)
[2017-06-08] MEDS: SENNA 8.6 MG TAB (SENOKOT) PO SCH (09:00)
[2017-06-08] MEDS: OXcarbazepine 300 MG TAB PO SCH (09:18)
[2017-06-08 09:19] VITALS: BP 124/83
[2017-06-08] MEDS: QUEtiapine FUMARATE 100 MG TAB PO SCH (09:19)
[2017-06-08] MEDS: MAGNESIUM OXIDE 400 MG TAB (MAG-OX) PO SCH (09:19)
[2017-06-08] MEDS: OLANZapine 2.5MG TABLET PO SCH (09:19)
[2017-06-08] MEDS: CEFDINIR 300 MG CAP (OMNICEF) PO SCH (09:19)
[2017-06-08] MEDS: METOPROLOL TART 50 MG TAB PO SCH (09:19)
[2017-06-08] MEDS: FUROSEMIDE 40 MG TAB PO SCH (09:19)
[2017-06-08] MEDS: LORazepam 0.5 MG TAB PO SCH (09:19)
[2017-06-08] MEDS: CHLORHEXIDINE GLUCONATE 0.12 % 15ML UDC (PERIDEX ORAL RINSE) MT SCH (09:20)
[2017-06-08] MEDS: CARBAMIDE PEROXIDE 6.5% OTIC SOLN 15ML AU SCH (09:21)
[2017-06-08 10:00] VITALS: BP 129/78
[2017-06-08] MEDS ORDERED: CEFD300CAP PO (10:29)
--- NOTE | 2017-06-09 15:35 | DSES ---
DATE OF ADMISSION: 06/04/2017 DATE OF DISCHARGE: 06/08/2017 PCP: Dr. Nathan Rivero ATTENDING: Dr. Addy Hernandez HISTORY: This is a 57-year-old female patient with cerebral palsy, moderate mental retardation who presented to [facility] Emergency Room with fever. She recently had been treated for urinary tract infection and completed a course of Macrobid. The concern was that she had recurrent urinary tract infection (UTI). She was admitted to the hospital for sepsis secondary to UTI with a lactic acid level of 2.6. She was treated with bolus IV antibiotics and Tylenol as needed for fevers. Her Lasix was initially held during her hospitalization. During her hospital course she remained medically stable. Her fever reduced to normalized. She remains without any leukocytosis. Urine culture returned E. coli. Blood cultures were negative. She did have a rapid flu that was also negative. On admission chest x-ray was benign. She will be discharged home today. DISCHARGE DIAGNOSES: Include: 1. Sepsis secondary to urinary tract infection. 2. Chronic diastolic congestive heart failure. 3. Hypertension. DISCHARGE MEDICATIONS: Include: - Lasix 40 mg daily - Ceftin ER 300 mg by mouth twice a day times five days - bisacodyl 10 mg per rectum daily as needed for constipation - calcium with D twice daily - Debrox 5 drops each ear monthly - Peridex 15 mL oral care daily - vitamin D 4000 units daily - clomipramine 50 mg by mouth twice a day - valium 2 mg daily as needed for anxiety/agitation - Depakote 1000 mg before bed - Colace 15 mL every other day - lactulose 15 mg by mouth twice a day - levothyroxine 50 mcg by mouth daily - Ativan 0.5 mg twice daily - mag oxide 400 mg twice daily - metoprolol 50 mg twice daily - Milk of Magnesia 30 mL by mouth three times weekly - multivitamin one tablet daily - Zyprexa 10 mg before bed, 2.5 mg in the morning - oxcarbazepine 300 mg twice daily - MiraLAX 17 grams orally twice daily - Seroquel 100 mg by mouth twice a day - Senna 1 tablet by mouth twice daily DISCHARGE PLAN: Followup with Dr. Rivero in 1 week. Activity should be as tolerated. Diet is 1400 mL fluid restriction, nectar thickened liquids, pureed.
== END 2017-06-08 14:25 | disposition home or self-care (01) | DRG 872 ==
LOC: M ED 05:40 → UNDOADMIN 06-04 15:10 → M ED INP 06-04 15:10 → M MSPAV 06-04 16:54
PROVIDERS: ADMIT Internal Medicine; ATTEND Family Medicine
DX: A41.9 Sepsis, unspecified organism (principal); N39.0 Urinary tract infection, site not specified; I50.32 Chronic diastolic (congestive) heart failure; B96.20 Unspecified Escherichia coli [E. coli] as the cause of diseases classified elsewhere; G80.9 Cerebral palsy, unspecified; I11.0 Hypertensive heart disease with heart failure; M81.0 Age-related osteoporosis without current pathological fracture; E66.9 Obesity, unspecified; Z87.440 Personal history of urinary (tract) infections; Z79.899 Other long term (current) drug therapy; Z88.1 Allergy status to other antibiotic agents; Z90.49 Acquired absence of other specified parts of digestive tract; Z77.22 Contact with and (suspected) exposure to environmental tobacco smoke (acute) (chronic)

== ENCOUNTER 2017-06-29 09:36 | Outpatient (CLI) | payer MEDICARE, MEDICAID ==
[~2017-06-29] VITALS: Ht 165.1 cm; Wt 98.9 kg
[~2017-06-29 09:36] MED LIST changes: +BISA10SU4 PR; +CEFD300CAP PO; +CLOM25CA2 PO; +QUET1TAB8 PO
[2017-06-29] MEDS ORDERED: ZOLEDRONIC ACID 5 MG in APPROPRIATE DILUENT 1 EA IV ONE (10:00)
== END 2017-06-29 10:35 | disposition home or self-care (01) ==
LOC: M INFU 09:36
PROVIDERS: ATTEND Family Medicine
DX: M85.80 Other specified disorders of bone density and structure, unspecified site (principal); Z79.899 Other long term (current) drug therapy; Z88.1 Allergy status to other antibiotic agents
CPT/HCPCS: 96365; J3489

== ENCOUNTER → 2017-08-05 | Outpatient (CLI) | payer MEDICARE, MEDICAID ==
[2017-08-05 13:19] LABS: BASO % 0.6 % (0.0-1.0); EOS # 0.1 10^3/uL (0.0-0.50); EOS % 4.1 % (0.0-3.0); IMMATURE GRANULOCYTE % 0.6 % (0-0); LYMPH # 1.6 10^3/uL (1.5-4.5); LYMPH % 46.7 % (24.0-44.0); MEAN CORPUSCULAR HEMOGLOBIN 30.9 pg (27.0-33.0); MEAN CORPUSCULAR HGB CONC 33.9 g/dl (32.0-36.5); MEAN CORPUSCULAR VOLUME 91.2 fl (80.0-96.0); MONO # 0.4 10^3/uL (0.0-0.8); MONO % 12.7 % (0.0-5.0); NEUTROPHILS # 1.2 10^3/uL (1.8-7.7); NEUTROPHILS % 35.3 % (36.0-66.0); PLATELET COUNT, AUTOMATED 157 10^3/uL (150-450); RED CELL DISTRIBUTION WIDTH 13.2 % (11.5-14.5); WHITE BLOOD COUNT 3.4 10^3/uL (4.0-10.0)
[2017-08-05 13:33] LABS: ALBUMIN 3.4 GM/DL (3.2-5.2); ALBUMIN/GLOBULIN RATIO 0.76 (1.00-1.93); ALKALINE PHOSPHATASE 43 U/L (45-117); ALT/SGPT 78 U/L (12-78); AST/SGOT 49 U/L (7-37); BILIRUBIN,DIRECT 0.1 MG/DL (0.0-0.2); BILIRUBIN,TOTAL 0.3 MG/DL (0.2-1.0); TOTAL PROTEIN 7.9 GM/DL (6.4-8.2)
== END ==
LOC: M WUC 08:21
DX: Z79.899 Other long term (current) drug therapy (principal)
CPT/HCPCS: 80076

== ENCOUNTER → 2017-08-14 | Outpatient (REF) | payer MEDICARE, MEDICAID | LOC: M SFHCPLAZ 12:30 | DX: N39.0 Urinary tract infection, site not specified (principal) | CPT/HCPCS: 87088 ==

== ENCOUNTER → 2017-09-10 | Outpatient (REF) | payer MEDICARE, MEDICAID ==
[2017-09-10 14:54] LABS: BASO % 0.6 % (0.0-1.0); EOS # 0.2 10^3/uL (0.0-0.50); EOS % 3.4 % (0.0-3.0); HEMATOCRIT 39.6 % (36.0-47.0); HEMOGLOBIN 13.3 g/dl (12.0-16.0); IMMATURE GRANULOCYTE # 0.1 10^3/uL (0-0); IMMATURE GRANULOCYTE % 1.6 % (0-0); LYMPH # 0.6 10^3/uL (1.5-4.5); LYMPH % 12.7 % (24.0-44.0); MEAN CORPUSCULAR HEMOGLOBIN 30.4 pg (27.0-33.0); MEAN CORPUSCULAR HGB CONC 33.6 g/dl (32.0-36.5); MEAN CORPUSCULAR VOLUME 90.4 fl (80.0-96.0); MONO # 0.7 10^3/uL (0.0-0.8); MONO % 13.3 % (0.0-5.0); NEUTROPHILS # 3.4 10^3/uL (1.8-7.7); NEUTROPHILS % 68.4 % (36.0-66.0); PLATELET COUNT, AUTOMATED 154 10^3/uL (150-450); RED BLOOD COUNT 4.38 10^6/uL (4.00-5.40); RED CELL DISTRIBUTION WIDTH 13.1 % (11.5-14.5)
[2017-09-10 15:38] LABS: ESTIMATED AVERAGE GLUCOSE 134 MG/DL (60-110); HEMOGLOBIN A1c 6.3 %
[2017-09-10 16:21] LABS: ALBUMIN 3.4 GM/DL (3.2-5.2); ALBUMIN/GLOBULIN RATIO 0.77 (1.00-1.93); ALKALINE PHOSPHATASE 56 U/L (45-117); ALT/SGPT 123 U/L (12-78); ANION GAP 10 MEQ/L (8-16); AST/SGOT 82 U/L (7-37); BILIRUBIN,TOTAL 0.3 MG/DL (0.2-1.0); BLOOD UREA NITROGEN 7 MG/DL (7-18); CALCIUM LEVEL 8.7 MG/DL (8.5-10.1); CARBON DIOXIDE LEVEL 26 MEQ/L (21-32); CHLORIDE LEVEL 98 MEQ/L (98-107); CREATININE FOR GFR 0.54 MG/DL (0.55-1.30); FREE T4 0.77 NG/DL (0.76-1.46); GLOMERULAR FILTRATION RATE > 60.0 (>51); GLUCOSE, FASTING 227 MG/DL (70-100); MAGNESIUM LEVEL 1.8 MG/DL (1.8-2.4); NT-PRO BNP 159 PG/ML (<125); POTASSIUM SERUM 4.1 MEQ/L (3.5-5.1); SODIUM LEVEL 134 MEQ/L (136-145); TOTAL PROTEIN 7.8 GM/DL (6.4-8.2)
== END ==
LOC: M SFHCPLAZ 09:42
DX: E03.9 Hypothyroidism, unspecified (principal); D69.6 Thrombocytopenia, unspecified; I50.30 Unspecified diastolic (congestive) heart failure; Z79.899 Other long term (current) drug therapy
CPT/HCPCS: 83735

== ENCOUNTER → 2017-10-19 | Outpatient (CLI) | payer MEDICARE, MEDICAID | LOC: M WUC 16:50 | DX: M19.041 Primary osteoarthritis, right hand (principal) | CPT/HCPCS: 73130; 84550 ==

== ENCOUNTER → 2017-10-19 | Outpatient (REF) | payer MEDICARE, MEDICAID ==
[2017-10-19 18:46] LABS: C REACTIVE PROTEIN QUANTITATIV 0.46 MG/DL (0.00-0.30)
[2017-10-19 18:46] LABS: URIC ACID 6.8 MG/DL (2.6-6.0)
[2017-10-19 19:03] LABS: BASO % 0.4 % (0.0-1.0); EOS # 0.1 10^3/uL (0.0-0.50); EOS % 2.5 % (0.0-3.0); HEMATOCRIT 40.8 % (36.0-47.0); HEMOGLOBIN 13.4 g/dl (12.0-16.0); IMMATURE GRANULOCYTE % 0.4 % (0-3.0); LYMPH # 1.3 10^3/uL (1.5-4.5); LYMPH % 29.7 % (24.0-44.0); MEAN CORPUSCULAR HEMOGLOBIN 29.8 pg (27.0-33.0); MEAN CORPUSCULAR HGB CONC 32.8 g/dl (32.0-36.5); MEAN CORPUSCULAR VOLUME 90.7 fl (80.0-96.0); MONO # 0.6 10^3/uL (0.0-0.8); MONO % 13.4 % (0.0-5.0); NEUTROPHILS # 2.4 10^3/uL (1.8-7.7); NEUTROPHILS % 53.6 % (36.0-66.0); PLATELET COUNT, AUTOMATED 175 10^3/uL (150-450); RED CELL DISTRIBUTION WIDTH 13.6 % (11.5-14.5); WHITE BLOOD COUNT 4.5 10^3/uL (4.0-10.0)
[2017-10-19 20:48] LABS: ERYTHROCYTE SEDIMENTATION RATE 41 mm/hr (0-30)
== END ==
LOC: M SFHCPLAZ 16:00
DX: M79.641 Pain in right hand (principal)
CPT/HCPCS: 84550

== ENCOUNTER → 2017-12-16 | Outpatient (CLI) | payer MEDICARE, MEDICAID ==
[2017-12-16 09:01] LABS: BASO % 0.6 % (0.0-1.0); EOS # 0.1 10^3/uL (0.0-0.50); EOS % 2.1 % (0.0-3.0); HEMATOCRIT 39.2 % (36.0-47.0); HEMOGLOBIN 13.3 g/dl (12.0-15.5); IMMATURE GRANULOCYTE % 0.9 % (0-3.0); LYMPH # 1.3 10^3/uL (1.5-4.5); LYMPH % 37.4 % (24.0-44.0); MEAN CORPUSCULAR HEMOGLOBIN 30.6 pg (27.0-33.0); MEAN CORPUSCULAR HGB CONC 33.9 g/dl (32.0-36.5); MEAN CORPUSCULAR VOLUME 90.1 fl (80.0-96.0); MONO # 0.5 10^3/uL (0.0-0.8); MONO % 15.9 % (0.0-5.0); NEUTROPHILS # 1.5 10^3/uL (1.8-7.7); NEUTROPHILS % 43.1 % (36.0-66.0); PLATELET COUNT, AUTOMATED 138 10^3/uL (150-450); RED BLOOD COUNT 4.35 10^6/uL (4.00-5.40); RED CELL DISTRIBUTION WIDTH 13.1 % (11.5-14.5); WHITE BLOOD COUNT 3.4 10^3/uL (4.0-10.0)
[2017-12-16 09:32] LABS: ALBUMIN 3.5 GM/DL (3.2-5.2); ALKALINE PHOSPHATASE 48 U/L (45-117); ALT/SGPT 80 U/L (12-78); ANION GAP 9 MEQ/L (8-16); AST/SGOT 48 U/L (7-37); BILIRUBIN,TOTAL 0.2 MG/DL (0.2-1.0); BLOOD UREA NITROGEN 8 MG/DL (7-18); CALCIUM LEVEL 8.7 MG/DL (8.5-10.1); CARBON DIOXIDE LEVEL 26 MEQ/L (21-32); CHLORIDE LEVEL 99 MEQ/L (98-107); CREATININE FOR GFR 0.63 MG/DL (0.55-1.30); GLOMERULAR FILTRATION RATE > 60.0 (>51); GLUCOSE, FASTING 153 MG/DL (70-100); POTASSIUM SERUM 4.3 MEQ/L (3.5-5.1); SODIUM LEVEL 134 MEQ/L (136-145); TOTAL PROTEIN 8.5 GM/DL (6.4-8.2); VALPROIC ACID (DEPAKOTE) 81.7 UG/ML (50.0-100.0)
[2017-12-16 09:45] LABS: TOTAL 25(OH) VITAMIN D 81.2 NG/ML (30.0-100.0)
[2017-12-16 09:46] LABS: PTH INTACT 54.4 PG/ML (18.5-88.0)
[2017-12-16 10:44] LABS: ESTIMATED AVERAGE GLUCOSE 134 MG/DL (60-110); HEMOGLOBIN A1c 6.3 %
[2017-12-19 00:07] LABS: OXCARBAZEPINE 11 ug/mL (10-35)
[2017-12-19 00:07] LABS: INSULIN LEVEL 131.1 uIU/mL (2.6-24.9)
== END ==
LOC: M WUC 08:06
DX: D69.6 Thrombocytopenia, unspecified (principal); R73.01 Impaired fasting glucose; R55 Syncope and collapse
CPT/HCPCS: 83525

== ENCOUNTER 2018-02-04 17:29 | Emergency (ER) | payer MEDICARE, MEDICAID ==
[2018-02-04 18:43] LABS: VENOUS BASE EXCESS -1.7 (-2.0-2.0); VENOUS HCO3 23.3 MEQ/L (23.0-27.0); VENOUS O2 SATURATION 94.5 % (60.0-80.0); VENOUS PARTIAL PRESSURE CO2 40.5 mmHg (38.0-50.0); VENOUS PARTIAL PRESSURE O2 72.3 mmHg (30.0-50.0); VENOUS PH 7.378 UNITS (7.330-7.430); VENOUS TOTAL CO2 24.6 MEQ/L (24.0-28.0)
[2018-02-04 19:05] LABS: ALBUMIN 3.5 GM/DL (3.2-5.2); ALBUMIN/GLOBULIN RATIO 0.69 (1.00-1.93); ALKALINE PHOSPHATASE 49 U/L (45-117); ALT/SGPT 81 U/L (12-78); ANION GAP 9 MEQ/L (8-16); AST/SGOT 54 U/L (7-37); BILIRUBIN,DIRECT 0.1 MG/DL (0.0-0.2); BILIRUBIN,TOTAL 0.3 MG/DL (0.2-1.0); BLOOD UREA NITROGEN 13 MG/DL (7-18); CALCIUM LEVEL 8.8 MG/DL (8.5-10.1); CARBON DIOXIDE LEVEL 26 MEQ/L (21-32); CHLORIDE LEVEL 98 MEQ/L (98-107); GLOMERULAR FILTRATION RATE > 60.0 (>51); GLUCOSE, FASTING 113 MG/DL (70-100); POTASSIUM SERUM 4.5 MEQ/L (3.5-5.1); SODIUM LEVEL 133 MEQ/L (136-145); TOTAL PROTEIN 8.6 GM/DL (6.4-8.2)
== END 2018-02-04 19:34 | disposition home or self-care (01) ==
LOC: M ED 17:29
DX: T43.011A Poisoning by tricyclic antidepressants, accidental (unintentional), initial encounter (principal); I11.0 Hypertensive heart disease with heart failure; I50.9 Heart failure, unspecified; G47.9 Sleep disorder, unspecified; F71 Moderate intellectual disabilities; Z87.440 Personal history of urinary (tract) infections; M81.0 Age-related osteoporosis without current pathological fracture; E03.9 Hypothyroidism, unspecified; F41.9 Anxiety disorder, unspecified; F32.9 Major depressive disorder, single episode, unspecified; Z88.1 Allergy status to other antibiotic agents; Z79.899 Other long term (current) drug therapy
CPT/HCPCS: 93005

== ENCOUNTER → 2018-03-09 | Outpatient (REF) | payer MEDICARE, MEDICAID ==
[2018-03-09 09:53] LABS: AMORPHOUS SEDIMENT SMALL (NEGATIVE); APPEARANCE, URINE CLOUDY (CLEAR); BACTERIA, URINE AUTO 1+ (NEGATIVE); BILIRUBIN, URINE AUTO NEGATIVE (NEGATIVE); BLOOD, URINE BLOOD NEGATIVE (NEGATIVE); COLOR, URINE AMBER (YELLOW); GLUCOSE, URINE (UA) AUTO NEGATIVE (NEGATIVE); KETONE, URINE AUTO TRACE mg/dL (NEGATIVE); LEUKOCYTE ESTERASE, URINE AUTO TRACE (NEGATIVE); NITRITE, URINE AUTO NEGATIVE (NEGATIVE); PROTEIN, URINE AUTO NEGATIVE (NEGATIVE); RBC, URINE AUTO 0 /HPF (0-3); SPECIFIC GRAVITY URINE AUTO 1.016 (1.002-1.035); SQUAMOUS EPITHELIAL CELL UR AU 2 /HPF (0-6); UROBILINOGEN, URINE AUTO 0.2 mg/dL (0.0-2.0); WBC, URINE AUTO 6 /HPF (0-3)
== END ==
LOC: M SFHCPLAZ 09:18
DX: N39.0 Urinary tract infection, site not specified (principal)
CPT/HCPCS: 81001

== ENCOUNTER → 2018-05-18 | Outpatient (REF) | payer MEDICARE, MEDICAID ==
[2018-05-18 21:19] LABS: AMORPHOUS SEDIMENT SMALL (NEGATIVE); APPEARANCE, URINE CLOUDY (CLEAR); BACTERIA, URINE AUTO NEGATIVE (NEGATIVE); BILIRUBIN, URINE AUTO NEGATIVE (NEGATIVE); BLOOD, URINE BLOOD NEGATIVE (NEGATIVE); COLOR, URINE YELLOW (YELLOW); GLUCOSE, URINE (UA) AUTO NEGATIVE (NEGATIVE); KETONE, URINE AUTO TRACE mg/dL (NEGATIVE); LEUKOCYTE ESTERASE, URINE AUTO NEGATIVE (NEGATIVE); MUCUS, URINE SMALL (NEGATIVE); NITRITE, URINE AUTO NEGATIVE (NEGATIVE); PROTEIN, URINE AUTO NEGATIVE (NEGATIVE); RBC, URINE AUTO 2 /HPF (0-3); SPECIFIC GRAVITY URINE AUTO 1.016 (1.002-1.035); SQUAMOUS EPITHELIAL CELL UR AU 1 /HPF (0-6); UROBILINOGEN, URINE AUTO 0.2 mg/dL (0.0-2.0); WBC, URINE AUTO 3 /HPF (0-3)
== END ==
LOC: M LAB REF 20:45
DX: L97.522 Non-pressure chronic ulcer of other part of left foot with fat layer exposed (principal); R39.9 Unspecified symptoms and signs involving the genitourinary system
CPT/HCPCS: 81001

== ENCOUNTER → 2018-06-12 | Outpatient (CLI) | payer MEDICARE, MEDICAID ==
[2018-06-12 10:40] LABS: BASO % 0.3 % (0.0-1.0); EOS # 0.1 10^3/uL (0.0-0.50); EOS % 1.4 % (0.0-3.0); HEMATOCRIT 39.8 % (36.0-47.0); HEMOGLOBIN 13.9 g/dl (12.0-15.5); IMMATURE GRANULOCYTE % 0.8 % (0-3.0); LYMPH # 1.2 10^3/uL (1.5-4.5); LYMPH % 33.4 % (24.0-44.0); MEAN CORPUSCULAR HEMOGLOBIN 30.8 pg (27.0-33.0); MEAN CORPUSCULAR HGB CONC 34.9 g/dl (32.0-36.5); MEAN CORPUSCULAR VOLUME 88.1 fl (80.0-96.0); MONO # 0.6 10^3/uL (0.0-0.8); NEUTROPHILS # 1.7 10^3/uL (1.8-7.7); NEUTROPHILS % 47.1 % (36.0-66.0); PLATELET COUNT, AUTOMATED 109 10^3/uL (150-450); RED BLOOD COUNT 4.52 10^6/uL (4.00-5.40); RED CELL DISTRIBUTION WIDTH 13.5 % (11.5-14.5); WHITE BLOOD COUNT 3.5 10^3/uL (4.0-10.0)
[2018-06-12 10:50] LABS: INR 1.04; PROTHROMBIN TIME 13.7 SECONDS (12.1-14.4)
[2018-06-12 10:51] LABS: PARTIAL THROMBOPLASTIN TIME 30.3 SECONDS (25.4-37.6)
[2018-06-12 11:02] LABS: ESTIMATED AVERAGE GLUCOSE 128 MG/DL (60-110); HEMOGLOBIN A1c 6.1 %
[2018-06-12 11:15] LABS: ALBUMIN 3.4 GM/DL (3.2-5.2); ALBUMIN/GLOBULIN RATIO 0.74 (1.00-1.93); ALKALINE PHOSPHATASE 44 U/L (45-117); ALT/SGPT 62 U/L (12-78); ANION GAP 8 MEQ/L (8-16); AST/SGOT 33 U/L (7-37); BILIRUBIN,TOTAL 0.3 MG/DL (0.2-1.0); BLOOD UREA NITROGEN 8 MG/DL (7-18); C REACTIVE PROTEIN QUANTITATIV < 0.30 MG/DL (0.00-0.30); CALCIUM LEVEL 8.5 MG/DL (8.5-10.1); CARBON DIOXIDE LEVEL 25 MEQ/L (21-32); CHLORIDE LEVEL 95 MEQ/L (98-107); CHOLESTEROL LEVEL 174 MG/DL (<200); CHOLESTEROL RISK RATIO 5.117 (<5); CPK CREATINE PHOSPHOKINASE 53 U/L (26-192); CREATININE FOR GFR 0.54 MG/DL (0.55-1.30); FREE T4 0.68 NG/DL (0.76-1.46); GLOMERULAR FILTRATION RATE > 60.0 (>51); GLUCOSE, FASTING 120 MG/DL (70-100); HDL CHOLESTEROL 34 MG/DL (>40); LDL CHOLESTEROL 72 MG/DL (<100); MAGNESIUM LEVEL 1.9 MG/DL (1.8-2.4); NON-HDL-C 140 MG/DL; POTASSIUM SERUM 4.4 MEQ/L (3.5-5.1); SODIUM LEVEL 128 MEQ/L (136-145); TRIGLYCERIDES LEVEL 340 MG/DL (<150)
[2018-06-14 10:03] LABS: TOTAL 25(OH) VITAMIN D 88.8 NG/ML (30.0-100.0)
[2018-06-14 10:04] LABS: PTH INTACT 60.5 PG/ML (18.5-88.0)
[2018-06-15 10:08] LABS: ALPHA FETOPROTEIN TUMOR QUANT 2.2 NG/ML (<8.1)
== END ==
LOC: M LAB 10:08
DX: D72.819 Decreased white blood cell count, unspecified (principal); K76.0 Fatty (change of) liver, not elsewhere classified; I50.30 Unspecified diastolic (congestive) heart failure; E55.9 Vitamin D deficiency, unspecified; E03.9 Hypothyroidism, unspecified; R53.81 Other malaise; Z79.899 Other long term (current) drug therapy
CPT/HCPCS: 72190

== ENCOUNTER 2018-06-21 13:33 | Outpatient (CLI) | payer MEDICARE, MEDICAID ==
[2018-06-21] MEDS: ZOLEDRONIC ACID 5 MG in APPROPRIATE DILUENT 1 EA IV (13:45)
== END 2018-06-21 14:40 | disposition home or self-care (01) ==
LOC: M INFU 13:33
DX: M85.80 Other specified disorders of bone density and structure, unspecified site (principal); Z79.899 Other long term (current) drug therapy
CPT/HCPCS: J3489

== ENCOUNTER → 2018-09-14 | Outpatient (REF) | payer MEDICARE, MEDICAID ==
[~2018-09-14] MED LIST changes: -DEPA125C PO; +DEPA1CAP PO; -LASI40TA PO; +LASI40TA9 PO; +MILK120011 PO; -MILKSUS PO; -OXCA300T PO; +OXCA300T14 PO
[2018-09-14 11:39] LABS: HEMOGLOBIN A1c 6.5 %
[2018-09-14 11:43] LABS: ALBUMIN 3.4 GM/DL (3.2-5.2); ALT/SGPT 190 U/L (12-78); BILIRUBIN,TOTAL 0.3 MG/DL (0.2-1.0); BLOOD UREA NITROGEN 11 MG/DL (7-18); CALCIUM LEVEL 8.7 MG/DL (8.5-10.1); CARBON DIOXIDE LEVEL 27 MEQ/L (21-32); CHLORIDE LEVEL 94 MEQ/L (98-107); CREATININE FOR GFR 0.63 MG/DL (0.55-1.30); FREE T4 0.68 NG/DL (0.76-1.46); GLOMERULAR FILTRATION RATE > 60.0 (>51); GLUCOSE, FASTING 126 MG/DL (70-100); POTASSIUM SERUM 4.8 MEQ/L (3.5-5.1); SODIUM LEVEL 129 MEQ/L (136-145); TOTAL PROTEIN 8.1 GM/DL (6.4-8.2); VALPROIC ACID (DEPAKOTE) 81.3 UG/ML (50.0-100.0)
== END ==
LOC: M SFHCPLAZ 09:45
PROVIDERS: ATTEND Physician Assistant Medical
DX: R73.01 Impaired fasting glucose (principal); E66.9 Obesity, unspecified; R56.9 Unspecified convulsions

== ENCOUNTER → 2018-09-20 | Outpatient (CLI) | payer MEDICARE, MEDICAID ==
[2018-09-20 11:26] LABS: ALBUMIN 3.4 GM/DL (3.2-5.2); ALT/SGPT 158 U/L (12-78); BILIRUBIN,TOTAL 0.2 MG/DL (0.2-1.0); BLOOD UREA NITROGEN 9 MG/DL (7-18); CALCIUM LEVEL 8.7 MG/DL (8.5-10.1); CARBON DIOXIDE LEVEL 26 MEQ/L (21-32); CHLORIDE LEVEL 96 MEQ/L (98-107); CREATININE FOR GFR 0.69 MG/DL (0.55-1.30); GLOMERULAR FILTRATION RATE > 60.0 (>51); GLUCOSE, FASTING 209 MG/DL (70-100); POTASSIUM SERUM 4.4 MEQ/L (3.5-5.1); SODIUM LEVEL 133 MEQ/L (136-145); TOTAL PROTEIN 8.4 GM/DL (6.4-8.2)
== END ==
LOC: M WUC 08:28
PROVIDERS: ATTEND Physician Assistant Medical
DX: R53.83 Other fatigue (principal); E22.2 Syndrome of inappropriate secretion of antidiuretic hormone; R56.9 Unspecified convulsions

== ENCOUNTER → 2018-10-07 | Outpatient (CLI) | payer MEDICARE, MEDICAID ==
--- NOTE | 2018-10-12 10:35 | SLEEPHOME ---
DATE OF PROCEDURE: 10/07/2018 ORDERING PROVIDER: ANABELLA Gunter INTERPRETATION: Diagnostic home sleep testing was performed due to concern for the obstructive sleep apnea syndrome in this patient with a history of snoring, excessive somnolence and obesity. For testing nocturnal T3 respiratory monitoring device was used. Continuous record was made of pulse, oxygen saturation, airflow, chest and abdominal strain and body position. 10 hours and 59 minutes of data were reviewed. Of these 8 hours and 15 minutes were marked as time in bed. During the interval marked time in bed, there was 33 respiratory events identified of 10 seconds in duration or greater for a respiratory event index respiratory event index of 4. The events that were seen were both obstructive and mixed. 19 mixed and central apneas were identified. Baseline pulse rate of 74 beats per minute, pulse rate ranged from 65-83. Baseline saturation was 91%. Lowest oxygen saturation recorded was 83%. Testing was performed in both the supine and non-supine positions. Events were more frequent in the supine posture. IMPRESSION: Borderline abnormal diagnostic home sleep test with repetitive respiratory events and oxygen desaturations to 83%. The respiratory event index was 4. RECOMMENDATION: Sleep position retraining for avoidance of the supine posture may be sufficient to reduce the frequency of events. If symptoms persist, referral for formal sleep evaluation and nocturnal polysomnography may be necessary to substantiate a diagnosis of obstructive sleep apnea syndrome.
== END ==
LOC: M SLEEP HO 11:07
PROVIDERS: ATTEND Physician Assistant Medical
DX: R09.02 Hypoxemia (principal)

== ENCOUNTER → 2018-11-17 | Outpatient (REF) | payer MEDICARE, MEDICAID ==
[~2018-11-17] MED LIST changes: +OXYC1TAB23 PO; -PERCOCET PO
[2018-11-17 16:27] LABS: ALBUMIN 3.7 GM/DL (3.2-5.2); ALT/SGPT 196 U/L (12-78); BILIRUBIN,TOTAL 0.3 MG/DL (0.2-1.0); BLOOD UREA NITROGEN 11 MG/DL (7-18); C REACTIVE PROTEIN QUANTITATIV < 0.30 MG/DL (0.00-0.30); CALCIUM LEVEL 9.1 MG/DL (8.5-10.1); CARBON DIOXIDE LEVEL 29 MEQ/L (21-32); CHLORIDE LEVEL 94 MEQ/L (98-107); CREATININE FOR GFR 0.71 MG/DL (0.55-1.30); GLOMERULAR FILTRATION RATE > 60.0 (>51); GLUCOSE, FASTING 115 MG/DL (70-100); POTASSIUM SERUM 4.7 MEQ/L (3.5-5.1); SODIUM LEVEL 130 MEQ/L (136-145)
[2018-11-17 16:43] LABS: HEMOGLOBIN A1c 5.8 %
[2018-11-17 16:44] LABS: BASO % 0.5 % (0.0-1.0); EOS % 0.9 % (0.0-3.0); HEMATOCRIT 39.6 % (36.0-47.0); HEMOGLOBIN 13.5 g/dl (12.0-15.5); LYMPH # 1.1 10^3/uL (1.5-4.5); LYMPH % 25.9 % (24.0-44.0); MEAN CORPUSCULAR HGB CONC 34.1 g/dl (32.0-36.5); MONO # 0.7 10^3/uL (0.0-0.8); MONO % 17.4 % (0.0-5.0); NEUTROPHILS # 2.3 10^3/uL (1.8-7.7); NEUTROPHILS % 54.6 % (36.0-66.0); PLATELET COUNT, AUTOMATED 137 10^3/uL (150-450); RED BLOOD COUNT 4.35 10^6/uL (4.00-5.40); WHITE BLOOD COUNT 4.3 10^3/uL (4.0-10.0)
== END ==
LOC: M SFHCPLAZ 13:57
PROVIDERS: ATTEND Physician Assistant Medical
DX: N39.0 Urinary tract infection, site not specified (principal); E22.2 Syndrome of inappropriate secretion of antidiuretic hormone; R73.01 Impaired fasting glucose; R53.83 Other fatigue
CPT/HCPCS: 36415; 80053; 83036; 84145; 85025; 85379; 86140; G0463

== ENCOUNTER → 2018-11-19 | Outpatient (REF) | payer MEDICARE, MEDICAID ==
[2018-11-19 13:45] LABS: AMORPHOUS SEDIMENT SMALL (NEGATIVE); APPEARANCE, URINE CLOUDY (CLEAR); BACTERIA, URINE AUTO 3+ (NEGATIVE); BILIRUBIN, URINE AUTO NEGATIVE (NEGATIVE); BLOOD, URINE BLOOD NEGATIVE (NEGATIVE); COLOR, URINE AMBER (YELLOW); GLUCOSE, URINE (UA) AUTO NEGATIVE (NEGATIVE); KETONE, URINE AUTO TRACE mg/dL (NEGATIVE); LEUKOCYTE ESTERASE, URINE AUTO 2+ (NEGATIVE); MUCUS, URINE SMALL (NEGATIVE); NITRITE, URINE AUTO NEGATIVE (NEGATIVE); PROTEIN, URINE AUTO 2+ mg/dL (NEGATIVE); RBC, URINE AUTO 12 /HPF (0-3); SQUAMOUS EPITHELIAL CELL UR AU 0 /HPF (0-6); WBC, URINE AUTO 153 /HPF (0-3)
== END ==
LOC: M SFHCPLAZ 12:54
PROVIDERS: ATTEND Physician Assistant Medical
DX: N39.0 Urinary tract infection, site not specified (principal)

== ENCOUNTER → 2018-12-03 | Outpatient (CLI) | payer MEDICARE, MEDICAID ==
[2018-12-03 18:16] LABS: ALBUMIN 3.3 GM/DL (3.2-5.2); ALT/SGPT 115 U/L (12-78); BILIRUBIN,TOTAL 0.4 MG/DL (0.2-1.0); BLOOD UREA NITROGEN 8 MG/DL (7-18); CALCIUM LEVEL 8.8 MG/DL (8.5-10.1); CARBON DIOXIDE LEVEL 26 MEQ/L (21-32); CHLORIDE LEVEL 92 MEQ/L (98-107); CREATININE FOR GFR 0.44 MG/DL (0.55-1.30); GLOMERULAR FILTRATION RATE > 60.0 (>51); GLUCOSE, FASTING 142 MG/DL (70-100); POTASSIUM SERUM 4.8 MEQ/L (3.5-5.1); SODIUM LEVEL 127 MEQ/L (136-145); TOTAL PROTEIN 7.8 GM/DL (6.4-8.2); VALPROIC ACID (DEPAKOTE) 74.7 UG/ML (50.0-100.0)
== END ==
LOC: M WUC 14:59
PROVIDERS: ATTEND Nurse Practitioner Family
DX: R56.9 Unspecified convulsions (principal); K76.0 Fatty (change of) liver, not elsewhere classified

== ENCOUNTER → 2018-12-04 | Outpatient (REF) | payer MEDICARE, MEDICAID ==
[2018-12-04 09:18] LABS: AMORPHOUS SEDIMENT SMALL (NEGATIVE); APPEARANCE, URINE HAZY (CLEAR); BACTERIA, URINE AUTO NEGATIVE (NEGATIVE); BILIRUBIN, URINE AUTO NEGATIVE (NEGATIVE); BLOOD, URINE BLOOD NEGATIVE (NEGATIVE); COLOR, URINE YELLOW (YELLOW); GLUCOSE, URINE (UA) AUTO NEGATIVE (NEGATIVE); KETONE, URINE AUTO NEGATIVE (NEGATIVE); LEUKOCYTE ESTERASE, URINE AUTO NEGATIVE (NEGATIVE); MUCUS, URINE SMALL (NEGATIVE); NITRITE, URINE AUTO NEGATIVE (NEGATIVE); PROTEIN, URINE AUTO NEGATIVE (NEGATIVE); RBC, URINE AUTO 1 /HPF (0-3); SQUAMOUS EPITHELIAL CELL UR AU 0 /HPF (0-6); UROBILINOGEN, URINE AUTO 0.2 mg/dL (0.0-2.0); WBC, URINE AUTO 2 /HPF (0-3)
== END ==
LOC: M FHC 08:56
PROVIDERS: ATTEND Nurse Practitioner Family
DX: N39.0 Urinary tract infection, site not specified (principal)

== ENCOUNTER → 2018-12-09 | Outpatient (CLI) | payer MEDICARE, MEDICAID ==
[2018-12-09 11:07] LABS: ALBUMIN 3.2 GM/DL (3.2-5.2); ALT/SGPT 118 U/L (12-78); BILIRUBIN,TOTAL 0.3 MG/DL (0.2-1.0); BLOOD UREA NITROGEN 9 MG/DL (7-18); CALCIUM LEVEL 8.5 MG/DL (8.5-10.1); CARBON DIOXIDE LEVEL 28 MEQ/L (21-32); CHLORIDE LEVEL 95 MEQ/L (98-107); CREATININE FOR GFR 0.55 MG/DL (0.55-1.30); GLOMERULAR FILTRATION RATE > 60.0 (>51); GLUCOSE, FASTING 136 MG/DL (70-100); POTASSIUM SERUM 4.7 MEQ/L (3.5-5.1); SODIUM LEVEL 128 MEQ/L (136-145); TOTAL PROTEIN 8.5 GM/DL (6.4-8.2)
== END ==
LOC: M WUC 09:16
PROVIDERS: ATTEND Physician Assistant Medical
DX: E22.2 Syndrome of inappropriate secretion of antidiuretic hormone (principal); K72.90 Hepatic failure, unspecified without coma

== ENCOUNTER → 2019-01-07 | Outpatient (CLI) | payer MEDICARE, MEDICAID ==
[2019-01-07 08:24] LABS: BASO % 0.2 % (0.0-1.0); EOS # 0.1 10^3/uL (0.0-0.50); EOS % 1.4 % (0.0-3.0); HEMATOCRIT 40.6 % (36.0-47.0); HEMOGLOBIN 14.3 g/dl (12.0-15.5); LYMPH # 1.3 10^3/uL (1.5-4.5); LYMPH % 29.6 % (24.0-44.0); MEAN CORPUSCULAR HEMOGLOBIN 31.1 pg (27.0-33.0); MEAN CORPUSCULAR HGB CONC 35.2 g/dl (32.0-36.5); MEAN CORPUSCULAR VOLUME 88.3 fl (80.0-96.0); MONO # 0.7 10^3/uL (0.0-0.8); MONO % 17.3 % (0.0-5.0); NEUTROPHILS # 2.1 10^3/uL (1.8-7.7); NEUTROPHILS % 50.8 % (36.0-66.0); PLATELET COUNT, AUTOMATED 125 10^3/uL (150-450); WHITE BLOOD COUNT 4.2 10^3/uL (4.0-10.0)
[2019-01-07 08:54] LABS: ALBUMIN 3.2 GM/DL (3.2-5.2); ALT/SGPT 180 U/L (12-78); BILIRUBIN,TOTAL 0.3 MG/DL (0.2-1.0); BLOOD UREA NITROGEN 6 MG/DL (7-18); CALCIUM LEVEL 8.7 MG/DL (8.5-10.1); CARBON DIOXIDE LEVEL 26 MEQ/L (21-32); CHLORIDE LEVEL 95 MEQ/L (98-107); CREATININE FOR GFR 0.58 MG/DL (0.55-1.30); GLOMERULAR FILTRATION RATE > 60.0 (>51); GLUCOSE, FASTING 115 MG/DL (70-100); POTASSIUM SERUM 4.4 MEQ/L (3.5-5.1); SODIUM LEVEL 128 MEQ/L (136-145); VALPROIC ACID (DEPAKOTE) 80.3 UG/ML (50.0-100.0)
[2019-01-07 11:52] LABS: PTH INTACT 51.9 PG/ML (18.5-88.0); TOTAL 25(OH) VITAMIN D 104.8 NG/ML (30.0-100.0)
== END ==
LOC: M LAB 07:42
PROVIDERS: ATTEND Family Medicine
DX: D69.6 Thrombocytopenia, unspecified (principal); I10 Essential (primary) hypertension; E03.9 Hypothyroidism, unspecified; R55 Syncope and collapse; E55.9 Vitamin D deficiency, unspecified

== ENCOUNTER → 2019-02-03 | Outpatient (CLI) | payer MEDICARE, MEDICAID ==
[2019-02-03 08:20] LABS: BASO % 0.4 % (0.0-1.0); EOS # 0.1 10^3/uL (0.0-0.50); EOS % 1.8 % (0.0-3.0); HEMATOCRIT 39.8 % (36.0-47.0); HEMOGLOBIN 13.6 g/dl (12.0-15.5); LYMPH # 1.8 10^3/uL (1.5-4.5); MEAN CORPUSCULAR HEMOGLOBIN 31.1 pg (27.0-33.0); MEAN CORPUSCULAR HGB CONC 34.2 g/dl (32.0-36.5); MEAN CORPUSCULAR VOLUME 90.9 fl (80.0-96.0); MONO # 0.6 10^3/uL (0.0-0.8); MONO % 12.8 % (0.0-5.0); NEUTROPHILS # 2.1 10^3/uL (1.8-7.7); NEUTROPHILS % 45.8 % (36.0-66.0); PLATELET COUNT, AUTOMATED 121 10^3/uL (150-450); RED BLOOD COUNT 4.38 10^6/uL (4.00-5.40); WHITE BLOOD COUNT 4.5 10^3/uL (4.0-10.0)
[2019-02-03 08:54] LABS: ALT/SGPT 102 U/L (12-78); BILIRUBIN,TOTAL 0.3 MG/DL (0.2-1.0); BLOOD UREA NITROGEN 10 MG/DL (7-18); CALCIUM LEVEL 8.5 MG/DL (8.8-10.2); CARBON DIOXIDE LEVEL 29 MEQ/L (21-32); CHLORIDE LEVEL 97 MEQ/L (98-107); GLOMERULAR FILTRATION RATE > 60.0 (>45); GLUCOSE, FASTING 98 MG/DL (70-100); NT-PRO BNP 148 PG/ML (<125); POTASSIUM SERUM 4.4 MEQ/L (3.5-5.1); SODIUM LEVEL 131 MEQ/L (136-145); TOTAL PROTEIN 8.3 GM/DL (6.4-8.2)
[2019-02-03 08:58] LABS: OSMOLALITY SERUM 282 MOSM/KG (275-295)
[2019-02-08 14:19] LABS: ALBUMIN 3.66 GM/DL (3.29-5.55); ALBUMIN % 44.1 % (55.8-66.1); ALPHA-1-GLOBULIN % 3.1 % (2.9-4.9); ALPHA-2-GLOBULINS % 8.3 % (7.1-11.8); BETA-1-GLOBULINS % 5.7 % (4.7-7.2); BETA-2-GLOBULINS % 5.6 % (3.2-6.5); GAMMA GLOBULIN % 33.2 % (11.1-18.8)
[2019-02-08 14:20] LABS: ALPHA-1-GLOBULINS 0.26 GM/DL (0.17-0.41); ALPHA-2-GLOBULINS 0.69 GM/DL (0.42-0.99); BETA-1-GLOBULINS 0.47 GM/DL (0.28-0.60); BETA-2-GLOBULINS 0.46 GM/DL (0.19-0.55); GAMMA GLOBULINS 2.76 GM/DL (0.65-1.58)
== END ==
LOC: M LAB 07:42
PROVIDERS: ATTEND Family Medicine
DX: I50.30 Unspecified diastolic (congestive) heart failure (principal); R53.1 Weakness; E87.1 Hypo-osmolality and hyponatremia

== ENCOUNTER → 2019-02-04 | Outpatient (REF) | payer MEDICARE, MEDICAID ==
[2019-02-05 07:51] LABS: OSMOLALITY URINE 560 MOSM/KG (500-800)
[2019-02-05 08:02] LABS: SODIUM,RANDOM URINE 44 MEQ/L
[2019-02-05 08:13] LABS: APPEARANCE, URINE CLEAR (CLEAR); BACTERIA, URINE AUTO NEGATIVE (NEGATIVE); BILIRUBIN, URINE AUTO NEGATIVE (NEGATIVE); BLOOD, URINE BLOOD NEGATIVE (NEGATIVE); COLOR, URINE YELLOW (YELLOW); GLUCOSE, URINE (UA) AUTO NEGATIVE (NEGATIVE); KETONE, URINE AUTO TRACE mg/dL (NEGATIVE); LEUKOCYTE ESTERASE, URINE AUTO NEGATIVE (NEGATIVE); NITRITE, URINE AUTO NEGATIVE (NEGATIVE); PROTEIN, URINE AUTO NEGATIVE (NEGATIVE); RBC, URINE AUTO 0 /HPF (0-3); SPECIFIC GRAVITY URINE AUTO 1.017 (1.002-1.035); UROBILINOGEN, URINE AUTO 0.2 mg/dL (0.0-2.0); WBC, URINE AUTO 1 /HPF (0-3)
[2019-02-05 08:14] LABS: SQUAMOUS EPITHELIAL CELL UR AU 0 /HPF (0-6)
== END ==
LOC: M LAB REF 20:50
PROVIDERS: ATTEND Family Medicine
DX: I50.30 Unspecified diastolic (congestive) heart failure (principal); E87.1 Hypo-osmolality and hyponatremia; R53.1 Weakness

== ENCOUNTER → 2019-03-01 | Outpatient (REF) | payer MEDICARE, MEDICAID ==
[2019-03-01 16:27] LABS: ALT/SGPT 170 U/L (12-78); BILIRUBIN,TOTAL 0.4 MG/DL (0.2-1.0); BLOOD UREA NITROGEN 10 MG/DL (7-18); CALCIUM LEVEL 8.7 MG/DL (8.8-10.2); CARBAMAZEPINE (TEGRETOL) LEVEL < 0.5 UG/ML (4.0-10.0); CARBON DIOXIDE LEVEL 29 MEQ/L (21-32); CHLORIDE LEVEL 94 MEQ/L (98-107); CREATININE FOR GFR 0.52 MG/DL (0.55-1.30); GLOMERULAR FILTRATION RATE > 60.0 (>45); GLUCOSE, FASTING 130 MG/DL (70-100); NT-PRO BNP 200 PG/ML (<125); POTASSIUM SERUM 4.4 MEQ/L (3.5-5.1); SODIUM LEVEL 129 MEQ/L (136-145); TOTAL PROTEIN 8.5 GM/DL (6.4-8.2); VALPROIC ACID (DEPAKOTE) 76.9 UG/ML (50.0-100.0)
== END ==
LOC: M SFHCPLAZ 14:23
PROVIDERS: ATTEND Physician Assistant Medical
DX: K76.0 Fatty (change of) liver, not elsewhere classified (principal); I50.30 Unspecified diastolic (congestive) heart failure; R40.0 Somnolence
CPT/HCPCS: 80053; 80156; 80164; 82140; 83880; G0463

== ENCOUNTER → 2019-03-04 | Outpatient (REF) | payer MEDICARE, MEDICAID | LOC: M SFHCPLAZ 12:37 | PROVIDERS: ATTEND Physician Assistant Medical | DX: R53.83 Other fatigue (principal) | CPT/HCPCS: 36415; 82140; G0463 ==

== ENCOUNTER → 2019-03-10 | Outpatient (REF) | payer MEDICARE, MEDICAID ==
[2019-03-10 13:40] LABS: OSMOLALITY SERUM 281 MOSM/KG (275-295)
[2019-03-10 14:05] LABS: ALBUMIN 3.2 GM/DL (3.2-5.2); ALT/SGPT 195 U/L (12-78); BILIRUBIN,TOTAL 0.3 MG/DL (0.2-1.0); BLOOD UREA NITROGEN 8 MG/DL (7-18); CALCIUM LEVEL 9.1 MG/DL (8.8-10.2); CARBON DIOXIDE LEVEL 29 MEQ/L (21-32); CHLORIDE LEVEL 97 MEQ/L (98-107); CREATININE FOR GFR 0.62 MG/DL (0.55-1.30); FREE T4 0.73 NG/DL (0.76-1.46); GLOMERULAR FILTRATION RATE > 60.0 (>45); GLUCOSE, FASTING 110 MG/DL (70-100); NT-PRO BNP 181 PG/ML (<125); POTASSIUM SERUM 4.2 MEQ/L (3.5-5.1); SODIUM LEVEL 133 MEQ/L (136-145); TOTAL PROTEIN 8.7 GM/DL (6.4-8.2); VALPROIC ACID (DEPAKOTE) 72.6 UG/ML (50.0-100.0)
[2019-03-10 14:35] LABS: HEMOGLOBIN A1c 6.1 %
== END ==
LOC: M SFHCPLAZ 10:12
PROVIDERS: ATTEND Family Medicine
DX: E87.1 Hypo-osmolality and hyponatremia (principal); I50.30 Unspecified diastolic (congestive) heart failure; R73.01 Impaired fasting glucose
CPT/HCPCS: 36415; 80053; 80164; 80183; 83036; 83735; 83880; 83930; 84439; 84443; G0463

== ENCOUNTER → 2019-03-14 | Outpatient (REF) | payer MEDICARE, MEDICAID ==
[2019-03-14 10:30] LABS: SODIUM,RANDOM URINE 60 MEQ/L
[2019-03-14 10:31] LABS: OSMOLALITY URINE 298 MOSM/KG (500-800)
== END ==
LOC: M SFHCPLAZ 09:08
PROVIDERS: ATTEND Family Medicine
DX: E87.1 Hypo-osmolality and hyponatremia (principal); I50.30 Unspecified diastolic (congestive) heart failure; R73.01 Impaired fasting glucose

== ENCOUNTER → 2019-03-22 | Outpatient (CLI) | payer MEDICARE, MEDICAID ==
[~2019-03-22] MED LIST changes: +GASTROGRAFIN SOLUTION 30ML (Q9963) As Ordered ONE; +ISOVUE-370 76% 100ML VIAL (Q9967) As Ordered ONE
--- NOTE | 2019-03-23 08:15 | REP ---
REASON: Abdominal pain. COMPARISON: Multiple. The latest 07/11/2016. CONTRAST 100 mL Isovue-370. Motion artifact obscures the lung bases. A significant nodule can not be ruled out. There are no pleural or pericardial effusions. There are numerable low density lesions seen throughout the liver. They all have higher than water Hounsfield unit readings with exception of one in the posterior segment of the right lobe which measures 1.8 cm. These were not present or not imaged on the prior exams where significant motion artifact was also noted. Surgical clips are seen in the gallbladder fossa from previous cholecystectomy. The spleen and pancreas are within normal limits. The adrenal glands and kidneys are within normal limits. The abdominal aorta and paraaortic regions are within normal limits. The bowel loops and their mesenteries are within normal limits. There is no free fluid or free air. There is no evidence of an intraabdominal mass or adenopathy. CT PELVIS: The bowel loops and their mesenteries are within normal limits. There is no evidence of a mass or adenopathy. There is no free fluid or free air. Bone window technique throughout the examination shows no significant change in the appearance of the osseous structures. IMPRESSION: 1. Exam limitations as described above. 2. Newly imaged or new developed liver low density lesions. I can not confirm that they represent cysts. Only one has water Hounsfield unit readings while the other have higher than water Hounsfield unit readings. When the imaged upper abdomen obtained during CT of the chest of 09/12/2014 is reviewed, some of these were imaged while other were not. Consider ultrasonography for further evaluation. If the patient is MRI compatible consider MRI if clinically relevant. Electronically Signed by Dylan Saavedra DO 03/23/2019 09:37 A
== END ==
LOC: M RAD 12:30
PROVIDERS: ATTEND Family Medicine
DX: R10.9 Unspecified abdominal pain (principal)
CPT/HCPCS: 74178; Q9963; Q9967

== ENCOUNTER → 2019-03-31 | Outpatient (CLI) | payer MEDICARE, MEDICAID ==
[~2019-03-31] MED LIST changes: -GASTROGRAFIN SOLUTION 30ML (Q9963) As Ordered ONE; -ISOVUE-370 76% 100ML VIAL (Q9967) As Ordered ONE
--- NOTE | 2019-03-31 10:05 | REP ---
RIGHT UPPER QUADRANT SONOGRAPHY: HISTORY: Liver cysts. COMPARISON: Sonography September 20, 2015. Comparison CT study March 22, 2019. Sonographic Findings: Scan quality was inhibited some degree by limited windows and patient ability to cooperate. The gallbladder is surgically absent. Common bile duct is normal measuring 0.6 cm in greatest diameter. There are several hepatic cysts as seen on CT. The largest is high in the right posterior liver 1.4 cm in greatest diameter. There are echogenic shadowing foci in the liver which are compatible with the granulomatous calcifications. Two cysts were visible by prior sonography. Pancreas is obscured by abdominal gas. There is no evidence of ascites. No right renal abnormality is noted. Right kidney measures 11 x 5.1 x 4.5 cm. IMPRESSION: Several simple cysts in the liver. No other significant abnormality. Post cholecystectomy. Electronically Signed by Fransisco Delgado MD 03/31/2019 04:26 P
== END ==
LOC: M RAD 07:42
PROVIDERS: ATTEND Family Medicine
DX: K76.89 Other specified diseases of liver (principal)

== ENCOUNTER → 2019-05-21 | Outpatient (REF) | payer MEDICARE, MEDICAID ==
[2019-05-21 11:07] LABS: AMORPHOUS SEDIMENT MODERATE (NEGATIVE); APPEARANCE, URINE CLOUDY (CLEAR); BACTERIA, URINE AUTO 1+ (NEGATIVE); BILIRUBIN, URINE AUTO NEGATIVE (NEGATIVE); BLOOD, URINE BLOOD NEGATIVE (NEGATIVE); COLOR, URINE YELLOW (YELLOW); GLUCOSE, URINE (UA) AUTO NEGATIVE (NEGATIVE); KETONE, URINE AUTO NEGATIVE (NEGATIVE); LEUKOCYTE ESTERASE, URINE AUTO 1+ (NEGATIVE); MUCUS, URINE SMALL (NEGATIVE); NITRITE, URINE AUTO NEGATIVE (NEGATIVE); PROTEIN, URINE AUTO NEGATIVE (NEGATIVE); RBC, URINE AUTO 3 /HPF (0-3); SPECIFIC GRAVITY URINE AUTO 1.012 (1.002-1.035); SQUAMOUS EPITHELIAL CELL UR AU 2 /HPF (0-6); UROBILINOGEN, URINE AUTO 0.2 mg/dL (0.0-2.0); WBC, URINE AUTO 32 /HPF (0-3)
== END ==
LOC: M LAB REF 10:00
PROVIDERS: ATTEND Family Medicine
DX: N39.0 Urinary tract infection, site not specified (principal)

== ENCOUNTER → 2019-05-25 | Outpatient (REF) | payer MEDICARE, MEDICAID ==
[2019-05-25 11:45] LABS: AMORPHOUS SEDIMENT SMALL (NEGATIVE); APPEARANCE, URINE CLOUDY (CLEAR); BACTERIA, URINE AUTO 1+ (NEGATIVE); BILIRUBIN, URINE AUTO NEGATIVE (NEGATIVE); BLOOD, URINE BLOOD NEGATIVE (NEGATIVE); COLOR, URINE AMBER (YELLOW); GLUCOSE, URINE (UA) AUTO NEGATIVE (NEGATIVE); KETONE, URINE AUTO TRACE mg/dL (NEGATIVE); LEUKOCYTE ESTERASE, URINE AUTO 2+ (NEGATIVE); NITRITE, URINE AUTO NEGATIVE (NEGATIVE); PROTEIN, URINE AUTO 1+ mg/dL (NEGATIVE); RBC, URINE AUTO 9 /HPF (0-3); SPECIFIC GRAVITY URINE AUTO 1.016 (1.002-1.035); SQUAMOUS EPITHELIAL CELL UR AU 13 /HPF (0-6); TRIPLE PHOSPHATE CRYSTALS SMALL; UROBILINOGEN, URINE AUTO 0.2 mg/dL (0.0-2.0); WBC, URINE AUTO 4 /HPF (0-3)
== END ==
LOC: M SFHCPLAZ 10:20
PROVIDERS: ATTEND Family Medicine
DX: N39.0 Urinary tract infection, site not specified (principal)

== ENCOUNTER → 2019-06-07 | Outpatient (REF) | payer MEDICARE, MEDICAID ==
[2019-06-07 11:12] LABS: BASO % 0.6 % (0.0-1.0); EOS # 0.1 10^3/uL (0.0-0.5); EOS % 1.6 % (0.0-3.0); HEMATOCRIT 40.6 % (36.0-47.0); HEMOGLOBIN 14.3 g/dl (12.0-15.5); LYMPH # 1.2 10^3/uL (1.5-5.0); LYMPH % 37.3 % (24.0-44.0); MEAN CORPUSCULAR HEMOGLOBIN 32.4 pg (27.0-33.0); MEAN CORPUSCULAR HGB CONC 35.2 g/dl (32.0-36.5); MEAN CORPUSCULAR VOLUME 91.9 fl (80.0-96.0); MONO # 0.4 10^3/uL (0.0-0.8); MONO % 11.6 % (0.0-5.0); NEUTROPHILS # 1.5 10^3/uL (1.5-8.5); NEUTROPHILS % 47.3 % (36.0-66.0); PLATELET COUNT, AUTOMATED 104 10^3/uL (150-450); RED BLOOD COUNT 4.42 10^6/uL (4.00-5.40); WHITE BLOOD COUNT 3.1 10^3/uL (4.0-10.0)
[2019-06-07 11:38] LABS: ALBUMIN 2.8 GM/DL (3.2-5.2); ALT/SGPT 125 U/L (12-78); BILIRUBIN,TOTAL 0.4 MG/DL (0.2-1.0); BLOOD UREA NITROGEN 8 MG/DL (7-18); C REACTIVE PROTEIN QUANTITATIV 1.17 MG/DL (0.00-0.30); CALCIUM LEVEL 8.7 MG/DL (8.8-10.2); CARBON DIOXIDE LEVEL 27 MEQ/L (21-32); CHLORIDE LEVEL 93 MEQ/L (98-107); CREATININE FOR GFR 0.58 MG/DL (0.55-1.30); GLOMERULAR FILTRATION RATE > 60.0 (>45); GLUCOSE, FASTING 142 MG/DL (70-100); LDH LACTATE DEHYDROGENASE 166 U/L (84-246); POTASSIUM SERUM 4.5 MEQ/L (3.5-5.1); SODIUM LEVEL 127 MEQ/L (136-145)
[2019-06-07 14:48] LABS: APPEARANCE, URINE HAZY (CLEAR); BACTERIA, URINE AUTO 2+ (NEGATIVE); BILIRUBIN, URINE AUTO NEGATIVE (NEGATIVE); BLOOD, URINE BLOOD 1+ (NEGATIVE); COLOR, URINE YELLOW (YELLOW); GLUCOSE, URINE (UA) AUTO NEGATIVE (NEGATIVE); KETONE, URINE AUTO NEGATIVE (NEGATIVE); LEUKOCYTE ESTERASE, URINE AUTO NEGATIVE (NEGATIVE); MUCUS, URINE SMALL (NEGATIVE); NITRITE, URINE AUTO POSITIVE (NEGATIVE); PROTEIN, URINE AUTO NEGATIVE (NEGATIVE); RBC, URINE AUTO 7 /HPF (0-3); SQUAMOUS EPITHELIAL CELL UR AU 0 /HPF (0-6); TRANSITIONAL EPITHELIAL AUTO <1 /HPF; UROBILINOGEN, URINE AUTO 0.2 mg/dL (0.0-2.0); WBC, URINE AUTO 2 /HPF (0-3)
== END ==
LOC: M SFHCPLAZ 10:02
PROVIDERS: ATTEND Physician Assistant Medical
DX: R30.0 Dysuria (principal); N39.0 Urinary tract infection, site not specified
CPT/HCPCS: 36415; 80053; 81001; 82140; 83605; 83615; 85025; 86140; 87088; 87186; G0463

== ENCOUNTER → 2019-06-08 | Outpatient (REF) | payer MEDICARE, MEDICAID ==
[2019-06-08 11:58] LABS: BASO % 0.3 % (0.0-1.0); EOS # 0.1 10^3/uL (0.0-0.5); EOS % 1.4 % (0.0-3.0); HEMATOCRIT 38.8 % (36.0-47.0); HEMOGLOBIN 13.5 g/dl (12.0-15.5); LYMPH % 26.6 % (24.0-44.0); MEAN CORPUSCULAR HEMOGLOBIN 31.9 pg (27.0-33.0); MEAN CORPUSCULAR HGB CONC 34.8 g/dl (32.0-36.5); MEAN CORPUSCULAR VOLUME 91.7 fl (80.0-96.0); MONO # 0.5 10^3/uL (0.0-0.8); MONO % 12.4 % (0.0-5.0); NEUTROPHILS # 2.1 10^3/uL (1.5-8.5); NEUTROPHILS % 58.2 % (36.0-66.0); PLATELET COUNT, AUTOMATED 116 10^3/uL (150-450); RED BLOOD COUNT 4.23 10^6/uL (4.00-5.40); WHITE BLOOD COUNT 3.6 10^3/uL (4.0-10.0)
[2019-06-08 12:29] LABS: ALBUMIN 2.8 GM/DL (3.2-5.2); ALT/SGPT 119 U/L (12-78); BILIRUBIN,TOTAL 0.3 MG/DL (0.2-1.0); BLOOD UREA NITROGEN 9 MG/DL (7-18); CALCIUM LEVEL 8.9 MG/DL (8.8-10.2); CARBON DIOXIDE LEVEL 27 MEQ/L (21-32); CHLORIDE LEVEL 95 MEQ/L (98-107); CREATININE FOR GFR 0.57 MG/DL (0.55-1.30); GLOMERULAR FILTRATION RATE > 60.0 (>45); GLUCOSE, FASTING 161 MG/DL (70-100); POTASSIUM SERUM 4.2 MEQ/L (3.5-5.1); SODIUM LEVEL 127 MEQ/L (136-145); TOTAL PROTEIN 8.3 GM/DL (6.4-8.2)
== END ==
LOC: M SFHCPLAZ 10:36
PROVIDERS: ATTEND Physician Assistant Medical
DX: E87.1 Hypo-osmolality and hyponatremia (principal)

== ENCOUNTER → 2019-06-28 | Outpatient (REF) | payer MEDICARE, MEDICAID ==
[2019-06-28 12:51] LABS: AMORPHOUS SEDIMENT SMALL (NEGATIVE); APPEARANCE, URINE CLOUDY (CLEAR); BACTERIA, URINE AUTO 1+ (NEGATIVE); BILIRUBIN, URINE AUTO NEGATIVE (NEGATIVE); BLOOD, URINE BLOOD NEGATIVE (NEGATIVE); COLOR, URINE YELLOW (YELLOW); GLUCOSE, URINE (UA) AUTO NEGATIVE (NEGATIVE); KETONE, URINE AUTO NEGATIVE (NEGATIVE); LEUKOCYTE ESTERASE, URINE AUTO TRACE (NEGATIVE); NITRITE, URINE AUTO NEGATIVE (NEGATIVE); PROTEIN, URINE AUTO NEGATIVE (NEGATIVE); RBC, URINE AUTO 0 /HPF (0-3); SPECIFIC GRAVITY URINE AUTO 1.013 (1.002-1.035); SQUAMOUS EPITHELIAL CELL UR AU 3 /HPF (0-6); UROBILINOGEN, URINE AUTO 0.2 mg/dL (0.0-2.0); WBC, URINE AUTO 7 /HPF (0-3)
== END ==
LOC: M SFHCPLAZ 12:08
PROVIDERS: ATTEND Nurse Practitioner Family
DX: N39.0 Urinary tract infection, site not specified (principal)

== ENCOUNTER → 2019-07-03 | Outpatient (CLI) | payer MEDICARE, MEDICAID ==
[2019-07-03 14:34] LABS: ALBUMIN 2.9 GM/DL (3.2-5.2); ALT/SGPT 83 U/L (12-78); BILIRUBIN,TOTAL 0.4 MG/DL (0.2-1.0); BLOOD UREA NITROGEN 8 MG/DL (7-18); CALCIUM LEVEL 8.9 MG/DL (8.8-10.2); CARBON DIOXIDE LEVEL 27 MEQ/L (21-32); CHLORIDE LEVEL 94 MEQ/L (98-107); CREATININE FOR GFR 0.65 MG/DL (0.55-1.30); GLOMERULAR FILTRATION RATE > 60.0 (>45); GLUCOSE, FASTING 151 MG/DL (70-100); POTASSIUM SERUM 4.8 MEQ/L (3.5-5.1); SODIUM LEVEL 128 MEQ/L (136-145); TOTAL PROTEIN 8.5 GM/DL (6.4-8.2)
== END ==
LOC: M WUC 13:01
PROVIDERS: ATTEND Family Medicine
DX: R53.83 Other fatigue (principal)

== ENCOUNTER → 2019-07-14 | Outpatient (CLI) | payer MEDICARE, MEDICAID ==
[2019-07-14 17:17] LABS: BASO % 0.3 % (0.0-1.0); HEMATOCRIT 41.5 % (36.0-47.0); HEMOGLOBIN 13.8 g/dl (12.0-15.5); LYMPH # 1.5 10^3/uL (1.5-5.0); LYMPH % 38.8 % (24.0-44.0); MEAN CORPUSCULAR HEMOGLOBIN 32.1 pg (27.0-33.0); MEAN CORPUSCULAR HGB CONC 33.3 g/dl (32.0-36.5); MEAN CORPUSCULAR VOLUME 96.5 fl (80.0-96.0); MONO # 0.6 10^3/uL (0.0-0.8); MONO % 14.8 % (0.0-5.0); NEUTROPHILS # 1.7 10^3/uL (1.5-8.5); NEUTROPHILS % 44.6 % (36.0-66.0); PLATELET COUNT, AUTOMATED 104 10^3/uL (150-450); WHITE BLOOD COUNT 3.8 10^3/uL (4.0-10.0)
[2019-07-14 17:28] LABS: ALBUMIN 3.1 GM/DL (3.2-5.2); ALT/SGPT 70 U/L (12-78); BILIRUBIN,TOTAL 0.3 MG/DL (0.2-1.0); BLOOD UREA NITROGEN 9 MG/DL (7-18); CALCIUM LEVEL 8.8 MG/DL (8.8-10.2); CARBON DIOXIDE LEVEL 30 MEQ/L (21-32); CHLORIDE LEVEL 101 MEQ/L (98-107); CREATININE FOR GFR 0.54 MG/DL (0.55-1.30); GLOMERULAR FILTRATION RATE > 60.0 (>45); GLUCOSE, FASTING 95 MG/DL (70-100); POTASSIUM SERUM 4.6 MEQ/L (3.5-5.1); SODIUM LEVEL 134 MEQ/L (136-145); TOTAL PROTEIN 8.5 GM/DL (6.4-8.2)
[2019-07-14 17:30] LABS: INR 1.25; PROTHROMBIN TIME 15.4 SECONDS (11.8-14.0)
[2019-07-14 17:31] LABS: PARTIAL THROMBOPLASTIN TIME 36.7 SECONDS (25.0-38.4)
[2019-07-14 17:42] LABS: PTH INTACT 50.4 PG/ML (18.5-88.0); TOTAL 25(OH) VITAMIN D 97.9 NG/ML (30.0-100.0)
[2019-07-14 18:07] LABS: HEMOGLOBIN A1c 5.7 %
[2019-07-19 08:06] LABS: LEVETIRACETAM (KEPPRA) 15.8 ug/mL (10.0-40.0)
== END ==
LOC: M PLALAB 12:18
PROVIDERS: ATTEND Family Medicine
DX: R73.01 Impaired fasting glucose (principal); K72.90 Hepatic failure, unspecified without coma; E55.9 Vitamin D deficiency, unspecified; E87.1 Hypo-osmolality and hyponatremia; D69.6 Thrombocytopenia, unspecified; K76.0 Fatty (change of) liver, not elsewhere classified
CPT/HCPCS: 36415; 80053; 80164; 80180; 82172; 82306; 83010; 83036; 83883; 83970; 85025; 85610; 85730; G0463

== ENCOUNTER → 2019-07-29 | Outpatient (REF) | payer MEDICARE, MEDICAID ==
[2019-07-29 13:35] LABS: ALBUMIN 2.9 GM/DL (3.2-5.2); ALT/SGPT 106 U/L (12-78); BILIRUBIN,TOTAL 0.6 MG/DL (0.2-1.0); BLOOD UREA NITROGEN 8 MG/DL (7-18); CALCIUM LEVEL 8.7 MG/DL (8.8-10.2); CARBON DIOXIDE LEVEL 27 MEQ/L (21-32); CHLORIDE LEVEL 96 MEQ/L (98-107); GLOMERULAR FILTRATION RATE > 60.0 (>45); GLUCOSE, FASTING 114 MG/DL (70-100); POTASSIUM SERUM 4.4 MEQ/L (3.5-5.1); SODIUM LEVEL 131 MEQ/L (136-145); TOTAL PROTEIN 8.9 GM/DL (6.4-8.2)
== END ==
LOC: M SFHCPLAZ 11:46
PROVIDERS: ATTEND Nurse Practitioner Family
DX: K72.90 Hepatic failure, unspecified without coma (principal)

== ENCOUNTER → 2019-08-11 | Outpatient (CLI) | payer MEDICARE, MEDICAID ==
--- NOTE | 2019-08-17 13:39 | DEXA ---
AP SPINE L1 - L4 1.105 -0.7 0.5 LT FEMUR TOTAL 0.826 -1.4 -0.5 LT NECK 0.875 -1.2 0.1 RT FEMUR TOTAL 0.960 -0.4 0.6 RT NECK 0.896 -1.0 0.2 TOTAL BODY TOTAL OTHER COMMENTS: Normal bone densitometry of the spine. There is low bone density of the hips. The density of the spine has increased 8.9% since the initial exam on 03/30/2012. The spine density has increased 8.9% since the most recent exam on 06/05/2016. The density of the left hip has decreased 21.3% since the initial exam on 03/30/2012. The density of the left hip has increased 1.3% since the most recent exam on 06/05/2016. The density of the right hip has increased 1.1% since the initial exam on 03/30/2012. The density of the right hip has increased 5.3% since the most recent exam on 06/05/2016. FOLLOW-UP: Recommendation for the next bone density exam: 2 years. REY
== END ==
LOC: M WHC 10:08
PROVIDERS: ATTEND Family Medicine
DX: M85.89 Other specified disorders of bone density and structure, multiple sites (principal)

== ENCOUNTER → 2019-08-19 | Outpatient (CLI) | payer MEDICARE, MEDICAID ==
[2019-08-19 13:56] LABS: BASO % 0.5 % (0.0-1.0); EOS # 0.1 10^3/uL (0.0-0.5); EOS % 1.5 % (0.0-3.0); HEMATOCRIT 37.3 % (36.0-47.0); HEMOGLOBIN 12.9 g/dl (12.0-15.5); LYMPH # 1.5 10^3/uL (1.5-5.0); LYMPH % 37.1 % (24.0-44.0); MEAN CORPUSCULAR HEMOGLOBIN 32.8 pg (27.0-33.0); MEAN CORPUSCULAR HGB CONC 34.6 g/dl (32.0-36.5); MEAN CORPUSCULAR VOLUME 94.9 fl (80.0-96.0); MONO # 0.6 10^3/uL (0.0-0.8); MONO % 14.1 % (0.0-5.0); NEUTROPHILS # 1.9 10^3/uL (1.5-8.5); NEUTROPHILS % 46.3 % (36.0-66.0); PLATELET COUNT, AUTOMATED 115 10^3/uL (150-450); RED BLOOD COUNT 3.93 10^6/uL (4.00-5.40); WHITE BLOOD COUNT 4.1 10^3/uL (4.0-10.0)
[2019-08-19 14:18] LABS: ALT/SGPT 92 U/L (12-78); BILIRUBIN,TOTAL 0.4 MG/DL (0.2-1.0); BLOOD UREA NITROGEN 10 MG/DL (7-18); CALCIUM LEVEL 8.9 MG/DL (8.8-10.2); CARBON DIOXIDE LEVEL 30 MEQ/L (21-32); CHLORIDE LEVEL 97 MEQ/L (98-107); CREATININE FOR GFR 0.59 MG/DL (0.55-1.30); GLOMERULAR FILTRATION RATE > 60.0 (>45); GLUCOSE, FASTING 89 MG/DL (70-100); POTASSIUM SERUM 4.4 MEQ/L (3.5-5.1); SODIUM LEVEL 132 MEQ/L (136-145); TOTAL PROTEIN 8.5 GM/DL (6.4-8.2)
== END ==
LOC: M PLALAB 12:14
PROVIDERS: ATTEND Family Medicine
DX: R55 Syncope and collapse (principal); E03.9 Hypothyroidism, unspecified; K76.0 Fatty (change of) liver, not elsewhere classified
CPT/HCPCS: 36415; 80053; 80164; 80180; 82105; 82140; 83605; 84439; 84443; 85025; G0463

== ENCOUNTER → 2019-08-25 | Outpatient (REF) | payer MEDICARE, MEDICAID ==
[2019-08-25 20:36] LABS: APPEARANCE, URINE CLEAR (CLEAR); BACTERIA, URINE AUTO NEGATIVE (NEGATIVE); BILIRUBIN, URINE AUTO NEGATIVE (NEGATIVE); BLOOD, URINE BLOOD NEGATIVE (NEGATIVE); COLOR, URINE YELLOW (YELLOW); GLUCOSE, URINE (UA) AUTO NEGATIVE (NEGATIVE); KETONE, URINE AUTO NEGATIVE (NEGATIVE); LEUKOCYTE ESTERASE, URINE AUTO NEGATIVE (NEGATIVE); NITRITE, URINE AUTO NEGATIVE (NEGATIVE); PROTEIN, URINE AUTO NEGATIVE (NEGATIVE); RBC, URINE AUTO 0 /HPF (0-3); SPECIFIC GRAVITY URINE AUTO 1.014 (1.002-1.035); SQUAMOUS EPITHELIAL CELL UR AU 0 /HPF (0-6); UROBILINOGEN, URINE AUTO 0.2 mg/dL (0.0-2.0); WBC, URINE AUTO 0 /HPF (0-3)
== END ==
LOC: M LAB REF 20:23
PROVIDERS: ATTEND Family Medicine
DX: N39.0 Urinary tract infection, site not specified (principal)

== ENCOUNTER → 2019-12-02 | Outpatient (REF) | payer MEDICARE, MEDICAID ==
[~2019-12-02] MED LIST changes: +QUET100T2 PO; -QUET1TAB8 PO
[2019-12-02 13:13] LABS: BASO % 0.5 % (0.0-1.0); EOS # 0.1 10^3/uL (0.0-0.5); EOS % 1.6 % (0.0-3.0); HEMATOCRIT 40.3 % (36.0-47.0); LYMPH # 1.9 10^3/uL (1.5-5.0); LYMPH % 44.2 % (24.0-44.0); MEAN CORPUSCULAR HEMOGLOBIN 31.9 pg (27.0-33.0); MEAN CORPUSCULAR HGB CONC 34.7 g/dl (32.0-36.5); MEAN CORPUSCULAR VOLUME 91.8 fl (80.0-96.0); MONO # 0.5 10^3/uL (0.0-0.8); MONO % 12.3 % (0.0-5.0); NEUTROPHILS # 1.8 10^3/uL (1.5-8.5); NEUTROPHILS % 40.9 % (36.0-66.0); PLATELET COUNT, AUTOMATED 105 10^3/uL (150-450); RED BLOOD COUNT 4.39 10^6/uL (4.00-5.40); WHITE BLOOD COUNT 4.3 10^3/uL (4.0-10.0)
[2019-12-02 13:44] LABS: HEMOGLOBIN A1c 5.7 %
[2019-12-02 13:45] LABS: ALBUMIN 3.1 GM/DL (3.2-5.2); ALT/SGPT 128 U/L (12-78); BILIRUBIN,TOTAL 0.4 MG/DL (0.2-1.0); BLOOD UREA NITROGEN 11 MG/DL (7-18); CARBON DIOXIDE LEVEL 28 MEQ/L (21-32); CHLORIDE LEVEL 98 MEQ/L (98-107); GLOMERULAR FILTRATION RATE > 60.0 (>45); GLUCOSE, FASTING 108 MG/DL (70-100); POTASSIUM SERUM 4.3 MEQ/L (3.5-5.1); SODIUM LEVEL 132 MEQ/L (136-145); TOTAL PROTEIN 8.9 GM/DL (6.4-8.2); VALPROIC ACID (DEPAKOTE) 76.6 UG/ML (50.0-100.0)
[2019-12-05 00:06] LABS: LEVETIRACETAM (KEPPRA) 35.5 ug/mL (10.0-40.0)
== END ==
LOC: M SFHCPLAZ 11:55
PROVIDERS: ATTEND Family Medicine
DX: R55 Syncope and collapse (principal); R73.01 Impaired fasting glucose
CPT/HCPCS: 36415; 80053; 80164; 80180; 83036; 83525; 85025; G0463

== ENCOUNTER → 2020-04-02 | Outpatient (CLI) | payer MEDICARE, MEDICAID ==
[~2020-04-02] MED LIST changes: -LACT10SO29 PO; +LACT20EL PO
[2020-04-02 14:12] LABS: ALT/SGPT 122 U/L (12-78); BILIRUBIN,TOTAL 0.4 MG/DL (0.2-1.0); BLOOD UREA NITROGEN 8 MG/DL (7-18); CALCIUM LEVEL 8.8 MG/DL (8.8-10.2); CARBON DIOXIDE LEVEL 26 MEQ/L (21-32); CHLORIDE LEVEL 100 MEQ/L (98-107); CREATININE FOR GFR 0.48 MG/DL (0.55-1.30); FREE T4 0.82 NG/DL (0.76-1.46); GLOMERULAR FILTRATION RATE > 60.0 (>45); GLUCOSE, FASTING 93 MG/DL (70-100); MAGNESIUM LEVEL 1.7 MG/DL (1.8-2.4); POTASSIUM SERUM 3.8 MEQ/L (3.5-5.1); SODIUM LEVEL 132 MEQ/L (136-145); TOTAL PROTEIN 8.5 GM/DL (6.4-8.2); VALPROIC ACID (DEPAKOTE) 84.3 UG/ML (50.0-100.0)
== END ==
LOC: M LAB 08:58
PROVIDERS: ATTEND Family Medicine
DX: I50.9 Heart failure, unspecified (principal)

== ENCOUNTER → 2020-05-29 | Outpatient (CLI) | payer MEDICARE, MEDICAID ==
[2020-05-29 10:57] LABS: BASO % 0.6 % (0.0-1.0); EOS # 0.1 10^3/uL (0.0-0.5); EOS % 1.6 % (0.0-3.0); HEMOGLOBIN 14.2 g/dl (12.0-15.5); LYMPH # 2.1 10^3/uL (1.5-5.0); LYMPH % 42.9 % (24.0-44.0); MEAN CORPUSCULAR HEMOGLOBIN 30.9 pg (27.0-33.0); MEAN CORPUSCULAR HGB CONC 33.8 g/dl (32.0-36.5); MEAN CORPUSCULAR VOLUME 91.5 fl (80.0-96.0); MONO # 0.6 10^3/uL (0.0-0.8); MONO % 11.5 % (0.0-5.0); NEUTROPHILS # 2.2 10^3/uL (1.5-8.5); NEUTROPHILS % 43.2 % (36.0-66.0); PLATELET COUNT, AUTOMATED 121 10^3/uL (150-450); RED BLOOD COUNT 4.59 10^6/uL (4.00-5.40)
[2020-05-29 11:25] LABS: ALBUMIN 2.9 GM/DL (3.2-5.2); ALT/SGPT 91 U/L (12-78); BILIRUBIN,TOTAL 0.4 MG/DL (0.2-1.0); BLOOD UREA NITROGEN 11 MG/DL (7-18); C REACTIVE PROTEIN QUANTITATIV 0.34 MG/DL (0.00-0.30); CARBON DIOXIDE LEVEL 27 MEQ/L (21-32); CHLORIDE LEVEL 101 MEQ/L (98-107); CREATININE FOR GFR 0.49 MG/DL (0.55-1.30); GLOMERULAR FILTRATION RATE > 60.0 (>45); GLUCOSE, FASTING 89 MG/DL (70-100); POTASSIUM SERUM 4.4 MEQ/L (3.5-5.1); SODIUM LEVEL 132 MEQ/L (136-145); TOTAL PROTEIN 8.8 GM/DL (6.4-8.2)
[2020-05-29 11:58] LABS: APPEARANCE, URINE CLOUDY (CLEAR); BACTERIA, URINE AUTO 2+ (NEGATIVE); BILIRUBIN, URINE AUTO NEGATIVE (NEGATIVE); BLOOD, URINE BLOOD NEGATIVE (NEGATIVE); COLOR, URINE YELLOW (YELLOW); GLUCOSE, URINE (UA) AUTO NEGATIVE (NEGATIVE); KETONE, URINE AUTO NEGATIVE (NEGATIVE); LEUKOCYTE ESTERASE, URINE AUTO 3+ (NEGATIVE); NITRITE, URINE AUTO POSITIVE (NEGATIVE); PROTEIN, URINE AUTO NEGATIVE (NEGATIVE); RBC, URINE AUTO 0 /HPF (0-3); SPECIFIC GRAVITY URINE AUTO 1.013 (1.002-1.035); SQUAMOUS EPITHELIAL CELL UR AU 0 /HPF (0-6); UROBILINOGEN, URINE AUTO 0.2 mg/dL (0.0-2.0); WBC, URINE AUTO 29 /HPF (0-3)
== END ==
LOC: M LAB 08:35
PROVIDERS: ATTEND Family Medicine
DX: R53.83 Other fatigue (principal)

== ENCOUNTER 2020-08-06 10:21 | Inpatient (IN) | payer MEDICARE, MEDICAID ==
[~2020-08-06] VITALS: Ht 165.1 cm; Wt 81.3 kg
[2020-08-06 12:14] LABS: BASO % 0.2 % (0.0-1.0); HEMOGLOBIN 16.1 g/dl (12.0-15.5); LYMPH # 2.1 10^3/uL (1.5-5.0); LYMPH % 15.8 % (24.0-44.0); MEAN CORPUSCULAR HEMOGLOBIN 30.8 pg (27.0-33.0); MEAN CORPUSCULAR HGB CONC 32.9 g/dl (32.0-36.5); MEAN CORPUSCULAR VOLUME 93.9 fl (80.0-96.0); MONO % 7.7 % (0.0-5.0); NEUTROPHILS # 9.9 10^3/uL (1.5-8.5); NEUTROPHILS % 75.7 % (36.0-66.0); PLATELET COUNT, AUTOMATED 166 10^3/uL (150-450); RED BLOOD COUNT 5.22 10^6/uL (4.00-5.40)
--- NOTE | 2020-08-06 12:21 | REP ---
INDICATION: distension ?SBO COMPARISON: None. TECHNIQUE: Supine and cross-table lateral views of the abdomen and pelvis. FINDINGS: Frontal view of the chest demonstrates chronic interstitial changes and fibrosis. Superimposed left lower lobe infiltrate cannot be excluded. Supine and cross-table lateral views of the abdomen demonstrate a large ovoid gas filled portion of suspected sigmoid colon highly suspicious for sigmoid volvulus. Associated proximal large bowel demonstrates distension and diffuse fecal stasis. Small bowel is incompletely evaluated. IMPRESSION: Findings highly suspicious for obstructive sigmoid volvulus causing obstruction to the large bowel with extensive fecal stasis. <Electronically signed by Tim Kim > 08/06/20 [id number]
[2020-08-06] MEDS ORDERED: MACR50CA10 PO (12:24)
[2020-08-06] MEDS ORDERED: KEPP1TAB2 PO (12:24)
[2020-08-06] MEDS ORDERED: LevoFLOXacin IV 750 MG in IV 1 EA IV ONE (12:45)
[2020-08-06] MEDS ORDERED: NS 2,530 ML in IV 1 EA IV ONE (12:45)
[2020-08-06 12:59] LABS: ALBUMIN 3.7 GM/DL (3.2-5.2); BILIRUBIN,DIRECT 0.2 MG/DL (0.0-0.2); BILIRUBIN,TOTAL 0.5 MG/DL (0.2-1.0); C REACTIVE PROTEIN QUANTITATIV 0.72 MG/DL (0.00-0.30); TOTAL PROTEIN 10.6 GM/DL (6.4-8.2)
[2020-08-06] MEDS ORDERED: ISOVUE-370 76% 100ML VIAL As Ordered ONE (12:59)
--- NOTE | 2020-08-06 14:16 | REP ---
INDICATION: ?sigmoid volvulus. COMPARISON: None TECHNIQUE: Axial contrast-enhanced images from the lung bases to the pubic symphysis using 100 cc Isovue 370 intravenous contrast material. . This CT examination was performed using the following dose reduction techniques: Automated exposure control, adjustment of mA and/or kv according to the patient's size, and the use of iterative reconstruction technique. FINDINGS: There is significant dilatation involving the mid to distal sigmoid colon with air-fecal fluid levels which abruptly transitions to collapsed distal sigmoid colon demonstrating a subtle "beak like" appearance with subtle surrounding swirled appearance to the adjacent fat. The remainder of the colon demonstrates moderate to significant distension and fecal stasis. Findings are compatible with distal sigmoid obstruction possibly related to adhesions or small internal hernia. The small bowel is relatively unremarkable. There is no evidence for free air or significant ascites. Liver demonstrates few scattered hypodensities measuring up to 2 cm which may reflect cysts. Spleen, pancreas, bilateral adrenal glands and kidneys are normal. Evidence for prior cholecystectomy noted. Further evaluation of the pelvis demonstrates relatively normal bladder and age-appropriate uterus/adnexa. No significant ascites. No free air. Abdominal aorta and vasculature without aneurysm or dissection. Musculoskeletal structures demonstrate degenerative changes. IMPRESSION: Findings are highly suspicious for distal sigmoid obstruction possibly related to adhesions or internal hernia. <Electronically signed by Tim Kim > 08/06/20 [id number]
[2020-08-06] MEDS ORDERED: CALC1TAB63 PO (15:17)
[2020-08-06] MEDS ORDERED: DOCU5LIQ PO (15:17)
[2020-08-06] MEDS ORDERED: POLY1POW38 PO (15:17)
[2020-08-06] MEDS ORDERED: XIFA550T PO (15:17)
[2020-08-06] MEDS ORDERED: VITA200038 PO (15:17)
[2020-08-06] MEDS ORDERED: MILKSUS3 PO (15:17)
[2020-08-06] MEDS ORDERED: FLEET ENEMA PR ONE (15:30)
--- NOTE | 2020-08-06 17:12 | HPEPDOC ---
[facility] Medical History & Physical Date of Admission Aug 06, 2020 Date of Service: Aug 06, 2020 History and Physical CHIEF COMPLAINT: Abdominal Pain HISTORY OF PRESENT ILLNESS (retrieved from employment evaluator/case manager as patient has intellectual disability and unable to answer questions): 60 yo F hx of anxiety, depression, constipation, hypothyroidism, recurrent UTIs, chronic diastolic heart failure and intellectual disability presents from [facility] home as the caretakers have noticed her abdomen had become extremely rigid. Patient appeared to be having abdominal pain. Bench Lay Out Technician notes patient had BM yesterday which was normal. Bench Lay Out Technician denies presence of any nausea/vomiting. In the ED, patient had an abdominal x-ray and CT scan performed which showed findings suggestive of sigmoid volvulus with large bowel obstruction and fecal stasis. Initial vitals showing tachycardia, otherwise within normal limits. Patients lactate was 4.98 on admission and CRP slightly elevated at 0.72. Leukocytosis was present with WBC at 13. Gen surg curbsided and inserted rectal tube into patient in the ED, with air insufflation. Per nurse, soft stool came out, non-bloody. PAST MEDICAL HISTORY: 1. Anxiety 2. Depression 3. Hypothyroidism 4. Recurrent UTIs 5. Chronic Diastolic heart failure 6. Intellectual disability PAST SURGICAL HISTORY: 1. Laproscopic cholecystectomy SOCIAL HISTORY: Does not smoke drink or use drugs. Lives at [facility] home ALLERGIES: cephalexin REVIEW OF SYSTEMS: Unable to be clearly documented as patient has intellectual disability. However as per employment evaluator/case manager, patient did not seem to have any fevers, chills, cough HOME MEDICATIONS: Please see below. PHYSICAL EXAMINATION: GENERAL APPEARANCE: Sleeping. Not answering questions. As per employment evaluator/case manager, unable to follow directions HEENT: Lips appear blue, but warm. CARDIOVASCULAR: Heart sounds 1+2 normal. No murmurs or regurgitations LUNGS: Clear to auscultation ABDOMEN: Filled with air. Non-tender. BS + MUSCULOSKELETAL: Unable to be examined EXTREMITIES: No pitting edema. Left ankle with brace NEUROLOGICAL: Unable to be examined LABORATORY DATA: See below. IMAGING: Abdominal CT scan: Findings are highly suspicious for distal sigmoid obstruction possibly related to adhesions or internal hernia. Abdominal X-ray: Findings highly suspicious for obstructive sigmoid volvulus causing obstruction to the large bowel with extensive fecal stasis. MICROBIOLOGY: Please see below. ASSESSMENT/Plan: 60 yo F hx of anxiety, depression, constipation, hy pothyroidism, recurrent UTIs, chronic diastolic heart failure and intellectual disability presents from [facility] home as the caretakers have noticed her abdomen had become extremely rigid and patient appeared to have abdominal pain. Abdominal x- ray and CT scan highly suggestive of sigmoid volvulus. Rectal tube inserted in ED with soft stool flowing out and was subsequently removed. Patient admitted for management of sigmoid volvulus. #Sigmoid Volvulus -As seen on abdominal X-ray and CT. As per CT this may be due to internal hernia or adhesions (s/p cholecystectomy) -Rectal tube placed in ED by Dr. Lee. Initial plan to place NG but given intellectual disability this plan was aborted -Strict NPO for another rectal tube placement and possible surgery tomorrow -Home constipation meds: miralax, milk of mag, colace, senna, lactulose discontinued until volvulus is confirmed to have been resolved -INR ordered. COVID neg #Lactic acidosis -4.8 on admission. Trend. Likely 2/2 sigmoid volvulus -IV fluids ordered #Leukocytosis -13 on admission. Trend -Likely 2/2 acute stress event rather than infectious -Afebrile #?Hx of seizures -c/w home medication keppra 750 BID #HTN -On metoprolol 50 BID. HR tachy on admission. continue #Anxiety/Depression -C/W home medication clomipramine #Hypothyroidism -C/w home medication synthyroid 50 mcg #Chronic diastolic heart failure -Clinically euvolemic -Stage 1 DD as per outpatient notes in november. On 60 mg lasix daily. Continue. #Intellectual disability -c/w home medications quetiapine 100, olanzapine as per outpatient notes in November DVT: SCDs Diet: NPO Dispo: Back to [facility] Case discussed with Dr. Vishal Zacarias MD Hospitalist Resident Vital Signs Vital Signs Date Time Temp Pulse Resp B/P (MAP) Pulse Ox O2 Delivery O2 Flow Rate FiO2 08/06/20 16:22 104 18 133/84 (100) 94 Room Air 08/06/20 10:27 96.6 Laboratory Data Labs 24H Laboratory Tests 2 08/06/20 12:06: Immature Granulocyte % (Auto) 0.6, Neutrophils (%) (Auto) 75.7H, Lymphocytes (%) (Auto) 15.8L, Monocytes (%) (Auto) 7.7H, Eosinophils (%) (Auto) 0.0, Basophils (%) (Auto) 0.2, Neutrophils # (Auto) 9.9H, Lymphocytes # (Auto) 2.1, Monocytes # (Auto) 1.0H, Eosinophils # (Auto) 0.0, Basophils # (Auto) 0.0, Nucleated Red Blood Cells % (auto) 0.0, Total Bilirubin 0.5, Direct Bilirubin 0.2, Aspartate Amino Transf (AST/SGOT) 29, Alanine Aminotransferase (ALT/SGPT) 44, Alkaline Phosphatase 61, C-Reactive Protein, Quantitative 0.72H, Total Protein 10.6H, Albumin 3.7, Albumin/Globulin Ratio 0.5L, Amylase Level 36, Lipase 147, Valproic Acid (Depakene) Level 88.0 08/06/20 12:07: POC Glucose (Misc Panel) 178H, POC Sodium (Misc Panel) 140, POC Potassium (Misc Panel) 3.6, POC Chloride (Misc Panel) 99, POC Total CO2 (Misc Panel) 24.0, POC Blood Urea Nitrogen (Misc Panel 22, POC Ionized Calcium (Misc Panel) 5.1, POC Creatinine (Misc Panel) 0.7, POC Hematocrit (Misc Panel) 51.0 08/06/20 12:11: POC Lactate (Misc Panel) 4.98*H 08/06/20 12:13: POC Troponin I (Misc) 0.01 08/06/20 15:34: CBC/BMP Laboratory Tests 08/06/20 12:06 Microbiology Microbiology 08/06/20 Blood Culture, Received Pending Home Medications Scheduled Calcium Carbonate/Vitamin D3 (Calcium 600-Vit D3 400 Tablet) 1 Each Tablet, 1 TAB PO BID CRUSH AND GIVE IN APPLESAUCE Carbamide Peroxide (Debrox) 6.5 % Yelena, 5 DROP AU QMONTH GIVE FOR 3 DAYS THEN FLUSH Chlorhexidine Gluconate (Peridex) 0.12 % Yelena, 15 ML MT DAILY APPLY TO MOUTH USING TOOTHETTE Cholecalciferol (Vitamin D3) (Vitamin D3) 50 Mcg Tablet, 100 MCG PO DAILY CRUSH AND GIVE WITH APPLESAUCE Clomipramine HCl (Clomipramine HCl) 25 Mg Cap, 25 MG PO BID Divalproex Sodium (Depakote Sprinkle) 125 Mg Cap, 875 MG PO QHS GIVE IN SAUCE Docusate Sodium (Docusate Sodium) 50 Mg/5 Ml Liquid, 15 ML PO BID Furosemide (Lasix) 40 Mg Tab, 60 MG PO DAILY Lactulose (Lactulose) 10 Gm/15 Ml Yelena, 15 ML PO BID AM AND 1600 Levetiracetam (Keppra) 750 Mg Tablet, 750 MG PO BID Levothyroxine Sodium (Synthroid) 50 Mcg Tab, 50 MCG PO DAILY Magnesium Hydroxide (Milk of Magnesia) 400 Mg/5 Ml Oral.susp, 30 ML PO 3XW MON, WED, FRI QHS Magnesium Oxide (Magnesium Oxide) 400 Mg Tab, 400 MG PO BID CRUSH AND GIVE IN SAUCE Metoprolol Tartrate (Metoprolol Tartrate) 50 Mg Tab, 50 MG PO BID CRUSH AND GIVE IN SAUCE Multivitamins (Thera M Plus Tablet) 1 Tab Tab, 1 TAB PO DAILY CRUSH AND GIVE IN SAUCE Nitrofurantoin Macrocrystal (Macrodantin) 50 Mg Capsule, 50 MG PO QHS Olanzapine (Zyprexa) 10 Mg Tab, 2.5 MG PO QHS CRUSH AND GIVE IN SAUCE Polyethylene Glycol 3350 (Polyethylene Glycol 3350) 17 Gm Powd.pack, 17 GRAM PO BID MIX WITH 8 OUNCES OF NECTAR THICK WATER Quetiapine Fumarate (Quetiapine Fumarate) 100 Mg Tab, 150 MG PO BID Rifaximin (Xifaxan) 550 Mg Tablet, 550 MG PO BID Senna (Senna Lax) 8.6 Mg Tab, 17.2 MG PO TID CRUSH AND GIVE IN SAUCE Allergies Coded Allergies: cephalexin (Verified Allergy, Intermediate, rash, 08/06/20) A-FIB/CHADSVASC A-FIB History Current/History of A-Fib/PAF?: No GME ATTESTATION GME ATTESTATION My faculty preceptor for this patient encounter was physically present during the encounter and was fully available. All aspects of the patient interview, examination, medical decision making process, and medical care plan development were reviewed and approved by the faculty preceptor. The faculty preceptor is aware and concurs with the plan as stated in the body of this note and will attest to such by his/her cosignature. ATTENDING NOTE I, A Yousef, have independently examined this patient and performed my own physical exam, as well as reviewed the documentation and edited where necessary. I have discussed in detail with the resident / student the findings and plan of treatment as documented by the resident / student and edited their note. I agree with their findings and treatment plan and have edited their documentation. I will continue to follow the patient during this hospital stay. BECKY ZACARIAS M.D.,PGY-2 Aug 06, 2020 17:12 REJI RICO MD Aug 07, 2020 19:30
[2020-08-06 17:20] LABS: RSV AMPLIFICATION NEGATIVE (NEGATIVE)
[2020-08-06] MEDS ORDERED: MOM 30ML SUSPENSION UDC PO PRN (20:45)
[2020-08-06] MEDS: NS 1,000 ML IV SCH (20:54)
[2020-08-06] MEDS ORDERED: HEPARIN SOD (PORCINE) 5000UNITS/ML 1ML VIAL/SYRINGE SC SCH (21:00)
[2020-08-06] MEDS ORDERED: OLANZapine 10 MG TAB PO SCH (21:00)
[2020-08-06] MEDS ORDERED: DOCUSATE SOD LIQ 100MG/10ML UDC PO SCH (21:00)
[2020-08-06] MEDS ORDERED: levETIRAcetam 250MG TABLET (KEPPRA) PO SCH (21:00)
[2020-08-06] MEDS ORDERED: MAGNESIUM OXIDE 400 MG TAB (MAG-OX) PO SCH (21:00)
[2020-08-06] MEDS ORDERED: MIRALAX *UNIT DOSE* 17GM PACKET PO SCH (21:00)
[2020-08-06] MEDS ORDERED: METOPROLOL TART 50 MG TAB PO SCH (21:00)
[2020-08-06] MEDS ORDERED: rifAXIMin 550 MG TAB (XIFAXAN) PO SCH (21:00)
[2020-08-06] MEDS ORDERED: QUEtiapine FUMARATE 50 MG TAB PO SCH (21:00)
[2020-08-06] MEDS ORDERED: SENNA 8.6 MG TAB (SENOKOT) PO SCH (21:00)
[2020-08-06] MEDS ORDERED: levETIRAcetam INJection 750 MG in D5W 100 ML IV ONE (22:15)
[2020-08-06] MEDS: DIVALPROEX SPRINKLE 125 MG CAP PO SCH (22:43)
[2020-08-07] VITALS (7 sets, daily range): BP systolic 100–111; BP diastolic 63–69
[2020-08-07] MEDS: NS 1,000 ML IV SCH ×2 (05:47→15:42)
[2020-08-07] MEDS: LEVOTHYROXINE 50MCG TABLET (0.05MG) PO SCH (05:47)
[2020-08-07 05:56] LABS: HEMATOCRIT 45.2 % (36.0-47.0); HEMOGLOBIN 15.2 g/dl (12.0-15.5); MEAN CORPUSCULAR HEMOGLOBIN 31.6 pg (27.0-33.0); MEAN CORPUSCULAR HGB CONC 33.6 g/dl (32.0-36.5); PLATELET COUNT, AUTOMATED 122 10^3/uL (150-450); RED BLOOD COUNT 4.81 10^6/uL (4.00-5.40); WHITE BLOOD COUNT 10.4 10^3/uL (4.0-10.0)
[2020-08-07 06:07] LABS: INR 1.32; PROTHROMBIN TIME 16.7 SECONDS (12.5-14.3)
[2020-08-07 06:25] LABS: ALBUMIN 2.3 GM/DL (3.2-5.2); ALT/SGPT 41 U/L (12-78); BILIRUBIN,TOTAL 0.6 MG/DL (0.2-1.0); BLOOD UREA NITROGEN 16 MG/DL (7-18); CALCIUM LEVEL 8.1 MG/DL (8.8-10.2); CARBON DIOXIDE LEVEL 26 MEQ/L (21-32); CHLORIDE LEVEL 107 MEQ/L (98-107); CREATININE FOR GFR 0.68 MG/DL (0.55-1.30); GLOMERULAR FILTRATION RATE > 60.0 (>45); GLUCOSE, FASTING 146 MG/DL (70-100); POTASSIUM SERUM 3.4 MEQ/L (3.5-5.1); SODIUM LEVEL 138 MEQ/L (136-145); TOTAL PROTEIN 7.7 GM/DL (6.4-8.2)
[2020-08-07] MEDS: CHLORHEXIDINE GLUCONATE 0.12 % 15ML UDC (PERIDEX ORAL RINSE) MT SCH (08:52)
[2020-08-07] MEDS: levETIRAcetam 250MG TABLET (KEPPRA) PO SCH ×2 (08:53→21:44)
[2020-08-07] MEDS: FUROSEMIDE 40 MG TAB PO SCH (08:53)
[2020-08-07] MEDS: QUEtiapine FUMARATE 50 MG TAB PO SCH ×2 (08:53→21:45)
[2020-08-07] MEDS: MAGNESIUM OXIDE 400 MG TAB (MAG-OX) PO SCH ×2 (08:56→21:45)
[2020-08-07] MEDS: METOPROLOL TART 50 MG TAB PO SCH ×2 (08:57→21:45)
[2020-08-07] MEDS ORDERED: MIRALAX *UNIT DOSE* 17GM PACKET PO SCH (09:00)
[2020-08-07] MEDS ORDERED: MULTIVITAMINS/MINERALS THERAP 1 TAB PO SCH (09:00)
[2020-08-07] MEDS ORDERED: SENNA 8.6 MG TAB (SENOKOT) PO SCH (09:00)
[2020-08-07] MEDS ORDERED: MOM 30ML SUSPENSION UDC PO PRN (09:00)
--- NOTE | 2020-08-07 11:33 | IPNPDOC ---
Text Note Date of Service The patient was seen on 08/07/20. NOTE Subjective: Patient seen and examined at bedside. No acute overnight events reported reported by nursing staff this morning. Patient was complaining of pain. Discussed at length with caregiver at bedside. Objective: General: NAD, lying comfortably in bed, attempts to answer questions, poor historian at baseline with intellectual disability HEENT: NC/AT LungS: CTA B/L Heart: +S1S2, soft systolic murmur Abd: soft, tender, +BS, distended Ext: trace peripheral edema A/P: 60F with PMHx anxiety/depression, constipation, hypothyroidism, recurrent UTIs, HFpEF, intellectual disability presents from [facility] home as the caretakers have noticed her abdomen had become extremely rigid and patient appeared to have abdominal pain. Abdominal x-ray and CT scan highly suggestive of sigmoid volvulus. Rectal tube inserted in ED with soft stool flowing out and was subsequently removed. Patient admitted for management of sigmoid volvulus. #Sigmoid Volvulus - follow as per surgery -As seen on abdominal X-ray and CT. As per CT this may be due to internal hernia or adhesions (s/p cholecystectomy) -Rectal tube placed in ED by Dr. Lee. Initial plan to place NG but given intellectual disability this plan was aborted -Strict NPO for another rectal tube placement and possible surgery -Home constipation meds: miralax, milk of mag, colace, senna, lactulose discontinued until volvulus is confirmed to have been resolved -INR ordered. COVID neg #Lactic acidosis -4.8 on admission - trending down #+blood cultures - empiric abx coverage started - check mrsa screen - repeat cultures pending #Leukocytosis -13 on admission. Trend down -Likely 2/2 acute stress event rather than infectious -Afebrile #?Hx of seizures -c/w home medication keppra 750 BID #HTN -On metoprolol 50 BID. HR tachy on admission. continue #Anxiety/Depression -C/W home medication clomipramine #Hypothyroidism -C/w home medication synthyroid 50 mcg #Chronic diastolic heart failure -Clinically euvolemic -Stage 1 DD as per outpatient notes in november. On 60 mg lasix daily. Continue. #Intellectual disability -c/w home medications quetiapine 100, olanzapine as per outpatient notes in November #DVT prophylaxis - mechanical DISPO: pending surgery f/u for volvulus VS,Fishbone, I+O VS, Fishbone, I+O Laboratory Tests 08/06/20 12:06 08/07/20 05:42 Vital Signs Date Time Temp Pulse Resp B/P (MAP) Pulse Ox O2 Delivery O2 Flow Rate FiO2 08/07/20 08:57 119 112/75 08/07/20 06:00 98.4 19 95 Nasal Cannula 2.0 I&O- Last 24 Hours up to 6 AM 08/07/20 05:59 Intake Total 3187.5 ml Output Total 275 ml Balance 2912.5 ml JOCELYNE ELLIS MD Aug 07, 2020 11:32
[2020-08-07] MEDS: MEROPENEM INJ 1 GM in IV 1 EA IV SCH ×2 (12:33→21:43)
[2020-08-07 13:56] LABS: ABG BASE EXCESS -2.1 (-2.0-2.0); ABG HCO3 20.9 MEQ/L (22.0-26.0); ABG O2 SATURATION 98.7 % (95.0-99.0); ABG PARTIAL PRESSURE CO2 31.3 mmHg (35.0-45.0); ABG STANDARD HCO3 22.8 MEQ/L (22.0-26.0); ABG TOTAL CO2 21.9 MEQ/L (23.0-31.0); ABG pH (ARTERIAL) 7.443 UNITS (7.350-7.450)
[2020-08-07] MEDS ORDERED: VANCOMYCIN HCL 750 MG, VIAL MATE ADAPTER 1 EACH in D5W 250 ML IV ONE ×2 (14:00→15:00)
--- NOTE | 2020-08-07 14:17 | REP ---
INDICATION: eval dvt COMPARISON: None. TECHNIQUE: Membreno scale and color Doppler evaluation bilateral lower extremities using linear high frequency transducer. FINDINGS: Ultrasound examination of the right and left lower extremity deep venous structures from the common femoral vein to the popliteal vein demonstrates normal compressibility flow and wave patterns in response to respiration and augmentation. There is no evidence for deep venous thrombosis. IMPRESSION: No evidence for deep venous thrombosis. <Electronically signed by Tim Kim > 08/07/20 [id number]
[2020-08-07 14:37] LABS: HEMATOCRIT 44.1 % (36.0-47.0); MEAN CORPUSCULAR HEMOGLOBIN 30.5 pg (27.0-33.0); MEAN CORPUSCULAR HGB CONC 31.7 g/dl (32.0-36.5); MEAN CORPUSCULAR VOLUME 96.1 fl (80.0-96.0); PLATELET COUNT, AUTOMATED 110 10^3/uL (150-450); RED BLOOD COUNT 4.59 10^6/uL (4.00-5.40); WHITE BLOOD COUNT 7.7 10^3/uL (4.0-10.0)
--- NOTE | 2020-08-07 14:47 | REP ---
INDICATION: sob COMPARISON: 06/04/2017 TECHNIQUE: PA and lateral. FINDINGS: Lung dinh demonstrate diffuse chronic interstitial changes and fibrosis. Subtle superimposed left-sided airspace disease cannot be excluded. No discrete focal consolidation, effusion, or pneumothorax. Skeletal structures are stable. Old healed left clavicle fracture noted. IMPRESSION: Chronic appearing changes. Cannot exclude superimposed left sided airspace disease <Electronically signed by Tim Kim > 08/07/20 [id number]
[2020-08-07 14:56] LABS: ANISOCYTOSIS 1+; ATYPICAL LYMPH 3 % (0-5); HYPOCHROMASIA 1+; LYMPHOCYTES 23 % (16-44); MONOCYTES 11 % (0-5); NEUTROPHILS 19 % (28-66); PLATELET ESTIMATE DECREASED (NORMAL)
[2020-08-07 15:11] LABS: ALBUMIN 2.2 GM/DL (3.2-5.2); ALT/SGPT 36 U/L (12-78); BILIRUBIN,TOTAL 0.5 MG/DL (0.2-1.0); BLOOD UREA NITROGEN 19 MG/DL (7-18); CALCIUM LEVEL 7.8 MG/DL (8.8-10.2); CARBON DIOXIDE LEVEL 26 MEQ/L (21-32); CHLORIDE LEVEL 107 MEQ/L (98-107); CK-MB VALUE MASS < 1.0 NG/ML (<3.6); CPK CREATINE PHOSPHOKINASE 33 U/L (26-192); CREATININE FOR GFR 0.74 MG/DL (0.55-1.30); GLOMERULAR FILTRATION RATE > 60.0 (>45); GLUCOSE, FASTING 213 MG/DL (70-100); MB/CK RELATIVE INDEX 3.03 (< OR =4); POTASSIUM SERUM 3.6 MEQ/L (3.5-5.1); SODIUM LEVEL 140 MEQ/L (136-145); TOTAL PROTEIN 6.8 GM/DL (6.4-8.2); TROPONIN I < 0.02 NG/ML (< 0.10)
[2020-08-07 16:58] LABS: NT-PRO BNP 439 PG/ML (<125)
--- NOTE | 2020-08-07 19:45 | IPN ---
PROGRESS NOTE DATE: 08/07/2020 SUBJECTIVE: The patient last night had decompression of a probable sigmoid volvulus. This morning she has had much less distention that she had previously. She had no nausea or vomiting, however she has had several bowel movements during the day and essentially has not had significant distention as she had yesterday. She has been NPO. However, at this point she says her white count has dropped down to 10.4. A follow-up CBC revealed a white count down to 7.7 this afternoon. I spoke with Dr. Guy this afternoon after I had seen the patient. The patient had blood cultures that showed gram positive cocci in clusters, etiology as of yet to be determined. The stool that she has been having has been soft stool and has not been bloody and no evidence of significant diarrhea associated with possible C. Diff. PHYSICAL EXAMINATION: Her abdomen is softly distended, mildly tender to deep palpation but no definitive peritoneal signs. Mostly, she seems uncomfortable but really does not wince when we performed her abdominal exam. IMPRESSION/PLAN: Her sigmoid volvulus seems to have resolved/improved and she is having some bowel movements and these have been soft, medium size, multiple ones without any bloody diarrhea, without any other complaints from this standpoint. I anticipate this issue is resolved. However, the concern at this point is that with the gram positive/blood cultures that are positive that there may be some other etiology that is yet to be determined. At this point, it is less likely that is colonic michelle causing this gram positive blood culture. It is possible, however, the opposite is true where she may have had some sort of infectious etiology that caused an ileus and that this was not indeed a sigmoid volvulus. However, I would recommend if she has ongoing infectious status to repeat her CT scan of her abdomen and pelvis for further evaluation. I would also be concerned of a possible aspiration pneumonia given the amount of gastric distention I saw yesterday on her CT scan although the patient has not had any nausea or vomiting reportedly by the [facility] Staff who is with her. In any case, we will have to continue with current close observation.
[2020-08-07] MEDS ORDERED: DOCUSATE SOD LIQ 100MG/10ML UDC PO SCH (21:00)
[2020-08-07] MEDS: DIVALPROEX SPRINKLE 125 MG CAP PO SCH (21:44)
[2020-08-07] MEDS: OLANZapine 2.5MG TABLET PO SCH (21:45)
[2020-08-07] MEDS: VANCOMYCIN HCL 1,000 MG, VIAL MATE ADAPTER 1 EACH in D5W 250 ML IV SCH (22:54)
[2020-08-08 01:00] VITALS: BP 103/72
[2020-08-08] MEDS: MEROPENEM INJ 1 GM in IV 1 EA IV SCH ×3 (04:31→21:05)
[2020-08-08 06:00] VITALS: BP 108/73
[2020-08-08] MEDS: LEVOTHYROXINE 50MCG TABLET (0.05MG) PO SCH (06:33)
[2020-08-08] MEDS: NS 1,000 ML IV SCH ×2 (06:34→18:37)
[2020-08-08 07:41] LABS: HEMATOCRIT 41.7 % (36.0-47.0); HEMOGLOBIN 13.4 g/dl (12.0-15.5); MEAN CORPUSCULAR HEMOGLOBIN 30.9 pg (27.0-33.0); MEAN CORPUSCULAR HGB CONC 32.1 g/dl (32.0-36.5); MEAN CORPUSCULAR VOLUME 96.3 fl (80.0-96.0); PLATELET COUNT, AUTOMATED 107 10^3/uL (150-450); RED BLOOD COUNT 4.33 10^6/uL (4.00-5.40); WHITE BLOOD COUNT 7.8 10^3/uL (4.0-10.0)
[2020-08-08 08:05] LABS: ATYPICAL LYMPH 3 % (0-5); LYMPHOCYTES 29 % (16-44); MONOCYTES 19 % (0-5); NEUTROPHILS 42 % (28-66); PLATELET ESTIMATE DECREASED (NORMAL)
[2020-08-08 08:06] LABS: BLOOD UREA NITROGEN 20 MG/DL (7-18); CALCIUM LEVEL 8.3 MG/DL (8.8-10.2); CARBON DIOXIDE LEVEL 32 MEQ/L (21-32); CHLORIDE LEVEL 109 MEQ/L (98-107); CREATININE FOR GFR 0.71 MG/DL (0.55-1.30); GLOMERULAR FILTRATION RATE > 60.0 (>45); GLUCOSE, FASTING 122 MG/DL (70-100); POTASSIUM SERUM 3.6 MEQ/L (3.5-5.1); SODIUM LEVEL 145 MEQ/L (136-145)
[2020-08-08] MEDS: FUROSEMIDE 40 MG TAB PO SCH (08:52)
[2020-08-08] MEDS: levETIRAcetam 250MG TABLET (KEPPRA) PO SCH ×2 (08:56→21:05)
[2020-08-08] MEDS: CHLORHEXIDINE GLUCONATE 0.12 % 15ML UDC (PERIDEX ORAL RINSE) MT SCH (08:56)
[2020-08-08] MEDS: MAGNESIUM OXIDE 400 MG TAB (MAG-OX) PO SCH ×2 (08:57→21:05)
[2020-08-08] MEDS: QUEtiapine FUMARATE 50 MG TAB PO SCH ×2 (08:57→21:05)
[2020-08-08] MEDS: METOPROLOL TART 50 MG TAB PO SCH ×2 (09:00→20:55)
--- NOTE | 2020-08-08 09:15 | CR ---
CONSULTATION DATE: 08/06/2020 REASON FOR CONSULTATION: HISTORY OF PRESENT ILLNESS: The patient presents to the emergency room with abdominal distension, abdominal pain for less than 24 hours. The patient has some mental retardation and a significant intellectual disability, unable to truly answer questions, but her honeycomb decapper states that she had normal bowel movements for the last couple of days and has an abdominal distension today and was complaining of abdominal pain. She did not have any nausea, no vomiting. Emergency room workup revealed abdominal distension with CT scan findings of distended colon, etiology was undetermined. However, given her presentation, I was concerned that there was sigmoid volvulus. PAST MEDICAL HISTORY: Significant for: 1. History of laparoscopic cholecystectomy. 2. Anxiety/depression. 3. Hypothyroidism. 4. Recurrent urinary tract infections (UTIs) 5. Chronic diastolic heart failure. MEDICATIONS: Calcium carbonate, clomipramine, Depakote, Colace, Lasix, Lactulose, Keppra, Synthroid, milk of magnesia, magnesium oxide, metoprolol, Macrodantin, Zyprexa, MiraLax, quetiapine fumarate, Xifaxan and senna. PHYSICAL EXAMINATION: Reveals a 60-year-old who looks her stated age. HEENT: Unremarkable. Neck: Supple. No adenopathy. Lungs are clear anteriorly. Heart is regular. Abdomen is tensely distended, tympanic without significant guarding or rebound or peritoneal sounds. The patient does have an elevated white count of 13,000. However, it appears to be probably dehydration given the hematocrit elevation of 49 as well. IMPRESSION/PLAN: The patient has large bowel distension of undetermined etiology, possibly functional, as well as possible mechanical. Given its presentation and where I am looking at the CAT, I think I can see where the transition point in the sigmoid and would present as a typical probable sigmoid volvulus presentation. At this point, I have discussed with the sister consent for placing a rectal tube. The patient and the family understands the risks, include but are not limited to infection, bleeding, damage to the bowel itself, bowel perforation, as well as possibly not resolving the issue and may require operative intervention and further intervention.
[2020-08-08 10:00] VITALS: BP 94/62
[2020-08-08] MEDS: VANCOMYCIN HCL 1,000 MG, VIAL MATE ADAPTER 1 EACH in D5W 250 ML IV SCH ×2 (10:08→22:35)
--- NOTE | 2020-08-08 10:22 | RO ---
OPERATIVE NOTE DATE OF OPERATION: 08/06/2020 PREOPERATIVE DIAGNOSIS: Colonic distention, probable sigmoid volvulus. POSTOPERATIVE DIAGNOSIS: Colonic distention, probable sigmoid volvulus. PROCEDURE: Colonic decompression with rectal tube. SURGEON: Rosendo Lee Jr., MD ANESTHESIA: None. BRIEF PROCEDURE SUMMAR: The patient was left in her emergency room bed, was placed in the left lateral decubitus position. Digital rectal exam was performed then. Using a 24-Malay chest tube, I was carefully able to pass this up through the area of colonic obstruction. A large volume of air was evacuated and then a significant amount of liquid stool as well. The patient's abdominal distention immediately improved. The tube was irrigated multiple times to get further liquid stool out but otherwise given the patient's intellectual disabilities, I had concerns that she might move this tube out or may cause some trauma with this tube. Thus, I removed the tube given the significant improvement and plan is to follow up in 12-24 hours and see if this resolves on its own or whether further intervention/decompression may be necessary.
--- NOTE | 2020-08-08 10:41 | REP ---
INDICATION: interim eval COMPARISON: 08/06/2020 TECHNIQUE: Supine view of the abdomen and pelvis. FINDINGS: Distended central loop of large bowel likely representing dilated sigmoid colon appears mildly improved as compared to prior examination. Moderate fecal stasis through the colon as well as suspected fecal impaction at the rectosigmoid suggested. IMPRESSION: Findings suggest mildly improved decreased distention of the large bowel and sigmoid colon as compared with 08/06/2020. Fecal impaction at the rectum. <Electronically signed by Tim Kim > 08/08/20 1037
--- NOTE | 2020-08-08 11:55 | IPNPDOC ---
Text Note Date of Service The patient was seen on 08/08/20. NOTE Subjective: Patient seen and examined at bedside. No acute overnight events reported. , No new medical complaints this morning. Patient does appear to be more comfortable today. Objective: General: NAD, lying comfortably in bed, attempts to answer questions, poor historian at baseline with intellectual disability HEENT: NC/AT LungS: CTA B/L Heart: +S1S2, RRR Abd: soft, mild tenderness, +BS, distended Ext: trace peripheral edema A/P: 60F with PMHx anxiety/depression, constipation, hypothyroidism, recurrent UTIs, HFpEF, intellectual disability presents from [facility] home as the caretakers have noticed her abdomen had become extremely rigid and patient appeared to have abdo hillary pain. Abdominal x-ray and CT scan highly suggestive of sigmoid volvulus. Rectal tube inserted in ED with soft stool flowing out and was subsequently removed. Patient admitted for management of sigmoid volvulus. #Sigmoid Volvulus - follow as per surgery - assistance appreciated -Strict NPO #Lactic acidosis - unclear etiology - continue with IV fluids and antibiotics - melquiades/vanc day #2 #+blood cultures - empiric abx coverage started - mrsa screen - negative - repeat cultures pending #Leukocytosis - resolved #?Hx of seizures -c/w home medication keppra 750 BID #HTN -On metoprolol 50 BID. #Anxiety/Depression -C/W home medication clomipramine #Hypothyroidism -C/w home medication Synthroid 50 mcg #Chronic diastolic heart failure -Clinically euvolemic -Stage 1 DD as per outpatient notes in november. On 60 mg lasix daily. Continue. #Intellectual disability -c/w home medications quetiapine 100, olanzapine as per outpatient notes in November #DVT prophylaxis - mechanical DISPO: pending clinical improvement, possible aspiration pneumonia, CT chest pending for further eval VS,Fishbone, I+O VS, Fishbone, I+O Laboratory Tests 08/07/20 14:29 08/08/20 07:29 Vital Signs Date Time Temp Pulse Resp B/P (MAP) Pulse Ox O2 Delivery O2 Flow Rate FiO2 08/08/20 09:00 2.0 08/08/20 09:00 109 110/74 08/08/20 06:00 99.4 18 98 Nasal Cannula I&O- Last 24 Hours up to 6 AM 08/08/20 06:00 Intake Total 1070 ml Output Total 750 ml Balance 320 ml JOCELYNE ELLIS MD Aug 08, 2020 11:55
--- NOTE | 2020-08-08 12:22 | ECHO ---
DATE OF PROCEDURE: 08/07/2020 Age: 60 Gender: Female Height: 165 cm Weight: 81 kg REFERRING PHYSICIAN: Sandro Rodgers MD and Stewart Guy M.D. INDICATION: Dyspnea. MEASUREMENTS: IVS 1.3 cm LV 3.0 cm LVPW 1.3 cm LA 3.4 cm Aorta 3.3 cm Mitral E wave velocity 59 cm/s Mitral A wave 79 cm/s E prime septal 5.6 cm/s E prime lateral 6.5 cm/s FINDINGS: This study is of limited technical quality with difficult visualization. Apparently the patient was uncooperative with the exam. Underlying sinus rhythm with wide QRS complex. Left ventricle has normal size and hyperdynamic contractility, I estimate EF around 70%. Unfortunately I cannot completely rule out subtle wall motion abnormalities because the visualization was rather limited. The right ventricle also appears grossly normal size and systolic function. Both atria appear at least mildly enlarged. Aortic valve is tricuspid. It is sclerotic, but mobility is preserved. Mitral and tricuspid valves appear grossly normal. The pulmonic valve also appears grossly normal based on limited visualization. No pericardial effusion is noted. Inferior vena cava was not visualized. The aortic root and aortic arch appear normal. Abdominal aorta was not seen. Doppler interrogation of the aortic valve reveals no significant stenosis and trace insufficiency. There is approximately [id number] mitral and tricuspid insufficiency. Calculated pulmonary artery pressure is in the 30s corresponding to mild pulmonary hypertension. Pulmonic valve exhibits trace insufficiency. Mitral inflow pattern and tissue Doppler imaging of the mitral annulus reveal grade 1 diastolic dysfunction. CONCLUSIONS: * Study is of fair technical quality due to poor cooperation from the patient. * Underlying sinus rhythm with wide QRS complex. * Normal LV size with mild LVH and hyperdynamic LV systolic function, estimated LVEF approximately 70%. Cannot rule out subtle segmental wall motion abnormalities. Grade 1 diastolic dysfunction. * Aortic sclerosis with no stenosis and trace insufficiency. * [id number] mitral and tricuspid insufficiency. * Unable to estimate central venous pressure, but at least mild pulmonary hypertension. MTDD
[2020-08-08] MEDS ORDERED: SODIUM CHLORIDE 0.9% 1000ML IV ONE (12:45)
--- NOTE | 2020-08-08 13:10 | REP ---
INDICATION: sob, lactic acidosis COMPARISON: 02/12/2017 TECHNIQUE: Axial noncontrast images from the thoracic inlet to the upper abdomen with coronal and sagittal reformations. This CT examination was performed using the following dose reduction techniques: Automated exposure control, adjustment of mA and/or kv according to the patient's size, and use of iterative reconstruction technique. FINDINGS: Advanced chronic emphysematous disease with bronchiectasis and scattered scarring/fibrosis again noted. Subtle superimposed scattered bilateral ground-glass infiltrates along with minimal right basilar atelectasis and small right pleural effusion are identified. Atherosclerotic changes to the thoracic aorta and coronary arteries noted without aortic aneurysm or cardiomegaly. No significant adenopathy. Tracheobronchial tree is relatively patent. Thyroid gland is grossly normal. IMPRESSION: Advanced chronic emphysematous disease with superimposed subtle scattered patchy ground-glass infiltrates, trace right atelectasis and small right pleural effusion suggest early multifocal pneumonia. Correlation is required. <Electronically signed by Tim Kim > 08/08/20 [id number]
[2020-08-08 14:00] VITALS: BP 98/71
[2020-08-08 15:26] LABS: FREE THYROXINE INDEX 2.2 % (1.3-4.8); T UPTAKE 34 % (30-39); THYROID STIMULATING HORMONE 0.464 uIU/ML (0.358-3.740); THYROXINE (T4) 6.6 UG/DL (4.5-12.0)
[2020-08-08 18:00] VITALS: BP 102/70
[2020-08-08] MEDS: OLANZapine 2.5MG TABLET PO SCH (21:05)
[2020-08-08] MEDS: DIVALPROEX SPRINKLE 125 MG CAP PO SCH (21:06)
[2020-08-08 22:00] VITALS: BP 101/68
[2020-08-09] MEDS: MEROPENEM INJ 1 GM in IV 1 EA IV SCH ×3 (04:16→20:46)
[2020-08-09] MEDS: LEVOTHYROXINE 50MCG TABLET (0.05MG) PO SCH (05:55)
[2020-08-09 06:00] VITALS: BP 125/79
[2020-08-09 06:05] LABS: BASO % 0.4 % (0.0-1.0); EOS # 0.1 10^3/uL (0.0-0.5); EOS % 1.1 % (0.0-3.0); HEMATOCRIT 36.4 % (36.0-47.0); HEMOGLOBIN 11.7 g/dl (12.0-15.5); LYMPH # 1.7 10^3/uL (1.5-5.0); LYMPH % 36.9 % (24.0-44.0); MEAN CORPUSCULAR HGB CONC 32.1 g/dl (32.0-36.5); MEAN CORPUSCULAR VOLUME 96.3 fl (80.0-96.0); MONO # 0.7 10^3/uL (0.0-0.8); MONO % 14.5 % (0.0-5.0); NEUTROPHILS # 2.1 10^3/uL (1.5-8.5); NEUTROPHILS % 46.2 % (36.0-66.0); PLATELET COUNT, AUTOMATED 103 10^3/uL (150-450); RED BLOOD COUNT 3.78 10^6/uL (4.00-5.40); WHITE BLOOD COUNT 4.6 10^3/uL (4.0-10.0)
[2020-08-09 06:44] LABS: BLOOD UREA NITROGEN 17 MG/DL (7-18); CALCIUM LEVEL 7.5 MG/DL (8.8-10.2); CARBON DIOXIDE LEVEL 31 MEQ/L (21-32); CHLORIDE LEVEL 108 MEQ/L (98-107); CREATININE FOR GFR 0.41 MG/DL (0.55-1.30); GLOMERULAR FILTRATION RATE > 60.0 (>45); GLUCOSE, FASTING 98 MG/DL (70-100); POTASSIUM SERUM 3.5 MEQ/L (3.5-5.1); SODIUM LEVEL 142 MEQ/L (136-145)
[2020-08-09] MEDS: MAGNESIUM OXIDE 400 MG TAB (MAG-OX) PO SCH ×2 (08:53→20:47)
[2020-08-09] MEDS: CHLORHEXIDINE GLUCONATE 0.12 % 15ML UDC (PERIDEX ORAL RINSE) MT SCH (08:53)
[2020-08-09] MEDS: QUEtiapine FUMARATE 50 MG TAB PO SCH ×2 (08:54→20:47)
[2020-08-09] MEDS: METOPROLOL TART 50 MG TAB PO SCH ×2 (08:54→21:00)
[2020-08-09] MEDS: FUROSEMIDE 40 MG TAB PO SCH (08:54)
[2020-08-09] MEDS: levETIRAcetam 250MG TABLET (KEPPRA) PO SCH ×2 (08:54→20:47)
[2020-08-09 10:00] VITALS: BP 94/65
[2020-08-09] MEDS: VANCOMYCIN HCL 1,000 MG, VIAL MATE ADAPTER 1 EACH in D5W 250 ML IV SCH ×2 (10:33→23:25)
[2020-08-09] MEDS: NS 1,000 ML IV SCH (10:34)
--- NOTE | 2020-08-09 10:35 | IPN ---
PROGRESS NOTE DATE: 08/09/2020 SUBJECTIVE: Karla is seen [facility]. She has sigmoid volvulus. She has Staph hominis positive blood cultures. She is being followed by surgery. She is presently in [facility] Home with intellectual disability. She has lactic acidosis, which has cleared with IV fluids and antibiotic therapy. Her blood pressure is well-controlled on the current dose of metoprolol. She is on her home seizure medications without recurrence of epileptic events. Has hypothyroidism on replacement levothyroxine. OBJECTIVE: VITAL SIGNS: Blood pressure 118/79, pulse rate 100, respiratory rate 18, O2 saturation 98%. GENERAL: Alert and conversant, in no distress. LUNGS: Clear. HEART: Regular rhythm. ABDOMEN: Soft and mildly distended. No masses. No peripheral edema. LABORATORY DATA: Electrolytes unremarkable. BUN 17, creatinine 0.4, potassium 3.5. White count 4.6, hemoglobin 11.7, and platelets 103,000. Blood cultures have grown out Staph hominis on one blood culture and three are negative so far. IMPRESSION AND PLAN: 1. Cecal volvulus. Dr. Lee is following her. She is status post colonic decompression with rectal tube. 2. Staphylococcus hominis bacteremia that could be of bowel source; however, there is only one positive blood culture. She is on IV antibiotics with meropenem and vancomycin. 3. Seizure disorder, stable on current antiepileptic medication. 4. Hypothyroidism. Continue current dose of levothyroxine. 5. "Diastolic dysfunction." She carries the diagnosis of diastolic congestive heart failure. It looks like it is mild age-appropriate diastolic abnormality. She is on Lasix 60 mg daily for which we will need to keep a close eye on her renal function, as her p.o. intake is currently limited.
[2020-08-09 14:00] VITALS: BP 99/67
[2020-08-09 18:00] VITALS: BP 100/67
[2020-08-09] MEDS: DIVALPROEX SPRINKLE 125 MG CAP PO SCH (20:47)
[2020-08-09] MEDS: OLANZapine 2.5MG TABLET PO SCH (20:47)
[2020-08-09] MEDS: ACETAMINOPHEN TAB 650MG DOSE (2X325MG) PO PRN (20:48)
[2020-08-09 22:00] VITALS: BP 102/60
[2020-08-10 02:00] VITALS: BP 108/68
[2020-08-10] MEDS: MEROPENEM INJ 1 GM in IV 1 EA IV SCH ×3 (03:52→22:30)
[2020-08-10] MEDS: NS 1,000 ML IV SCH ×2 (03:52→15:39)
[2020-08-10 06:00] VITALS: BP 112/64
[2020-08-10] MEDS: LEVOTHYROXINE 50MCG TABLET (0.05MG) PO SCH (06:33)
[2020-08-10] MEDS: CHLORHEXIDINE GLUCONATE 0.12 % 15ML UDC (PERIDEX ORAL RINSE) MT SCH (09:22)
[2020-08-10] MEDS: METOPROLOL TART 50 MG TAB PO SCH ×2 (09:23→20:56)
[2020-08-10] MEDS: QUEtiapine FUMARATE 50 MG TAB PO SCH ×2 (09:23→20:55)
[2020-08-10] MEDS: levETIRAcetam 250MG TABLET (KEPPRA) PO SCH ×2 (09:23→20:46)
[2020-08-10] MEDS: MAGNESIUM OXIDE 400 MG TAB (MAG-OX) PO SCH ×2 (09:24→20:47)
[2020-08-10] MEDS: VANCOMYCIN HCL 1,000 MG, VIAL MATE ADAPTER 1 EACH in D5W 250 ML IV SCH ×2 (09:25→23:31)
--- NOTE | 2020-08-10 09:27 | IPN ---
PROGRESS NOTE DATE: 08/10/2020 SUBJECTIVE: Karla looks better. She seems more energetic. Her color is better. The [facility] staff think she has improved as well. PHYSICAL EXAMINATION: VITAL SIGNS: Blood pressure is 112/64, afebrile. Vital signs stable. LUNGS: Clear. HEART: Regular rhythm. ABDOMEN: Slightly distended, nontender. No masses. LABORATORY DATA: Lab work is all pending. IMPRESSION: 1. Cecal volvulus, status post colonic decompression with rectal tube. She seems to be responding to this. She is on a clear liquid diet, tolerating it well. Dr. Lee is following her. 2. Staph hominis bacteremia, one out of four blood cultures, on IV antibiotics with Ertapenem and Vancomycin. She needs an endoscopy at some point to make sure there is no underlying malignancy. 3. Seizure disorder, continue her antiepileptic therapy. 4. Hypothyroidism, on Levothyroxine. 5. Diastolic dysfunction, she carries that diagnosis, I think it is probably just an age-related finding. Her urine output is decreased. I am stopping her Lasix today. 6. Waiting for surgical input as far as next step with this case.
[2020-08-10 10:00] VITALS: BP 113/70
--- NOTE | 2020-08-10 10:55 | IPN ---
PROGRESS NOTE DATE: 08/10/2020 SUBJECTIVE: The patient overall seems to be doing well with the clear liquids overnight, although she states that she is hungry. There was a report by the [facility] [[email or web address]] bedside mechanic senior, who states that she had a bowel movement this morning, although that once again was not recorded on the Is and Os. OBJECTIVE: Her abdomen still has some mild distention and she complains of some discomfort, but no tenderness. IMPRESSION AND PLAN: I do feel that she has a baseline probable bowel distention issue. It is hard to know if this is a chronic dilated colon as her major issues or whether there is some partial volvulus associated with this. However, I do feel that it is reasonable to give her a regular diet given that she is "asymptomatic" or at least baseline for her at this time. If she tolerates a regular diet, then discharging her to home may be a reasonable next step. Question obviously is whether she has ongoing bowel issues whether a diverting colostomy may be reasonable and that can be discussed as an outpatient I believe. Dr. Graham will be covering me for the weekend. Should you have any additional questions or concerns, please contact him. Otherwise, I will not ask him to round on her with the expectation that she will be discharged over the weekend.
--- NOTE | 2020-08-10 10:55 | IPN ---
PROGRESS NOTE DATE: 08/09/2020 SUBJECTIVE: The patient had a very large bowel movement last night, it was not recorded on the I and O's however, and the patient seems to be thirsty this morning, wants something to drink, actually wants something to eat. However, given her white count is normalized and overall she is feeling "back to normal," although when I ask her if her abdomen hurts she does mention "yes" but on her physical exam she has some distention but no significant tenderness appreciated. IMPRESSION/PLAN: Patient seems to be at her stable baseline at this time and we may be able to have her continue at this level of abdominal distention requiring some bowel regimen that may be an ongoing issue but at this point what I would recommend is that we start her on the clears, see how she does with this. If she does not develop any progressive abdominal distention then I would recommend that we advance her to a regular diet tomorrow and if she tolerates that for 24 hours, then discharge her to home thereafter.
[2020-08-10] MEDS: DOCUSATE SODIUM 100MG CAPSULE PO SCH ×2 (11:32→20:45)
[2020-08-10] MEDS: SENNA 8.6 MG TAB (SENOKOT) PO SCH ×2 (11:32→20:47)
[2020-08-10 12:39] LABS: BASO % 0.4 % (0.0-1.0); EOS # 0.1 10^3/uL (0.0-0.5); HEMATOCRIT 38.4 % (36.0-47.0); HEMOGLOBIN 12.2 g/dl (12.0-15.5); LYMPH # 1.8 10^3/uL (1.5-5.0); LYMPH % 36.7 % (24.0-44.0); MEAN CORPUSCULAR HEMOGLOBIN 30.5 pg (27.0-33.0); MEAN CORPUSCULAR HGB CONC 31.8 g/dl (32.0-36.5); MONO # 0.6 10^3/uL (0.0-0.8); MONO % 12.9 % (0.0-5.0); NEUTROPHILS # 2.4 10^3/uL (1.5-8.5); NEUTROPHILS % 48.6 % (36.0-66.0); PLATELET COUNT, AUTOMATED 123 10^3/uL (150-450)
[2020-08-10 13:02] LABS: BLOOD UREA NITROGEN 9 MG/DL (7-18); CALCIUM LEVEL 7.6 MG/DL (8.8-10.2); CARBON DIOXIDE LEVEL 34 MEQ/L (21-32); CHLORIDE LEVEL 103 MEQ/L (98-107); GLOMERULAR FILTRATION RATE > 60.0 (>45); GLUCOSE, FASTING 143 MG/DL (70-100); POTASSIUM SERUM 3.3 MEQ/L (3.5-5.1); SODIUM LEVEL 141 MEQ/L (136-145)
[2020-08-10 14:00] VITALS: BP 111/70
[2020-08-10] MEDS: KCL 10MEQ/100ML SWI (KRUN) 10 MEQ in IV 1 EA IV SCH ×8 (15:33→20:45)
[2020-08-10 18:00] VITALS: BP 110/68
[2020-08-10] MEDS: DIVALPROEX SPRINKLE 125 MG CAP PO SCH (20:46)
[2020-08-10] MEDS: OLANZapine 2.5MG TABLET PO SCH (20:47)
[2020-08-10] MEDS: ACETAMINOPHEN TAB 650MG DOSE (2X325MG) PO PRN (20:53)
[2020-08-10 22:00] VITALS: BP 116/92
[2020-08-10] MEDS ORDERED: DOCUSATE SOD LIQ 100MG/10ML UDC GT PRN (22:30)
[2020-08-10] MEDS ORDERED: DOCUSATE SOD LIQ 100MG/10ML UDC PO SCH (23:30)
[2020-08-11] VITALS (12 sets, daily range): BP systolic 68–109; BP diastolic 48–73
[2020-08-11] MEDS: MEROPENEM INJ 1 GM in IV 1 EA IV SCH (04:01)
[2020-08-11 05:46] LABS: HEMATOCRIT 38.7 % (36.0-47.0); HEMOGLOBIN 12.7 g/dl (12.0-15.5); MEAN CORPUSCULAR HEMOGLOBIN 31.5 pg (27.0-33.0); MEAN CORPUSCULAR HGB CONC 32.8 g/dl (32.0-36.5); PLATELET COUNT, AUTOMATED 110 10^3/uL (150-450); RED BLOOD COUNT 4.03 10^6/uL (4.00-5.40); WHITE BLOOD COUNT 5.7 10^3/uL (4.0-10.0)
[2020-08-11 06:21] LABS: BLOOD UREA NITROGEN 5 MG/DL (7-18); CALCIUM LEVEL 7.8 MG/DL (8.8-10.2); CARBON DIOXIDE LEVEL 34 MEQ/L (21-32); CHLORIDE LEVEL 103 MEQ/L (98-107); CREATININE FOR GFR 0.46 MG/DL (0.55-1.30); GLOMERULAR FILTRATION RATE > 60.0 (>45); GLUCOSE, FASTING 103 MG/DL (70-100); POTASSIUM SERUM 4.3 MEQ/L (3.5-5.1); SODIUM LEVEL 139 MEQ/L (136-145)
[2020-08-11] MEDS: VANCOMYCIN HCL 1,000 MG, VIAL MATE ADAPTER 1 EACH in D5W 250 ML IV SCH (06:23)
[2020-08-11] MEDS: LEVOTHYROXINE 50MCG TABLET (0.05MG) PO SCH (06:23)
[2020-08-11] MEDS: CHLORHEXIDINE GLUCONATE 0.12 % 15ML UDC (PERIDEX ORAL RINSE) MT SCH (08:50)
[2020-08-11] MEDS: MAGNESIUM OXIDE 400 MG TAB (MAG-OX) PO SCH ×2 (08:51→20:52)
[2020-08-11] MEDS: QUEtiapine FUMARATE 50 MG TAB PO SCH ×2 (08:51→20:52)
[2020-08-11] MEDS: SENNA 8.6 MG TAB (SENOKOT) PO SCH ×2 (08:51→20:52)
[2020-08-11] MEDS: levETIRAcetam 250MG TABLET (KEPPRA) PO SCH ×2 (08:51→20:52)
[2020-08-11] MEDS: METOPROLOL TART 50 MG TAB PO SCH (08:52)
[2020-08-11] MEDS: DOCUSATE SODIUM 100MG CAPSULE PO SCH ×2 (09:00→20:51)
--- NOTE | 2020-08-11 10:39 | IPN ---
PROGRESS NOTE DATE: 08/11/2020 SUBJECTIVE: Karla is being followed for her cecal volvulus and saw GI yesterday, started on clear liquids, did not develop any worsening abdominal distention. She does have some edema related to her IV fluids which we need to address today. PHYSICAL EXAMINATION: VITAL SIGNS: Blood pressure 109/73, pulse 58, respiratory rate 18, 97% O2 saturation. GENERAL: She is alert and conversant. There is puffy edema of the hands and upper extremities. LUNGS: Clear. HEART: Heart rhythm is soft. Mildly distended, nontender. ABDOMEN: Good bowel sounds. LABORATORY DATA: CBC is unremarkable. Potassium is 4.3. Renal function is normal. IMPRESSION: 1. Volvulus, resolved without surgical intervention. We are going to stop her IV antibiotics at this point and advance her diet. 2. Edema, she has received IV fluids for several days. I will give her a single dose of diuretic. Need to watch her potassium if she has much of a diuresis. 3. Seizure disorder, stable without recurrence. 4. Hypothyroidism, continue current dose of levothyroxine. PLAN: Discharge tomorrow or the next day. She is a [facility] client so I am not sure whether they will take the client back on Thursday.
[2020-08-11] MEDS ORDERED: FUROSEMIDE 20MG/2ML VIAL (J1940) IV ONE (11:00)
[2020-08-11] MEDS ORDERED: LR 1,000 ML IV ONE (11:15)
--- NOTE | 2020-08-11 11:39 | IPN ---
PROGRESS NOTE DATE: 08/11/2020 SUBJECTIVE: I was called by the floor. Karla's blood pressure fell after she received her morning dose of metoprolol. She had systolics in the 80s-90s, was rechecked and it was in the 60s. She was lethargic so oxygen was placed. Nursing checked it manually and it is up in the mid 90s. No seizure activity was noted. PHYSICAL EXAMINATION: VITAL SIGNS: Systolic pressure is now in the 90s. GENERAL: She is more alert. She is responsive. Color is good. No diaphoretic. LUNGS: Decreased breath sounds, clear. HEART: Rhythm is regular. ABDOMEN: Soft, it is not anymore distended or tender than it was earlier in the day. IMPRESSION: 1. Hypotension, probably from her antihypertensives. She acts a little postictal but she does have [facility] staff member present who did not witness any seizure. I am giving her a bolus of lactated ringers. We will recheck her pressure. She is volume overloaded but at this point I need to get her pressure up, we can deal with the excess volume later in the day. The furosemide I ordered earlier has not been given and will hold this. I have also stopped her antihypertensives.
[2020-08-11] MEDS: FUROSEMIDE 20MG/2ML VIAL (J1940) IV ONE ×2 (18:43→18:51)
[2020-08-11] MEDS: DIVALPROEX SPRINKLE 125 MG CAP PO SCH (20:52)
[2020-08-11] MEDS: OLANZapine 2.5MG TABLET PO SCH (20:52)
[2020-08-11] MEDS: ACETAMINOPHEN TAB 650MG DOSE (2X325MG) PO PRN (20:57)
[2020-08-12] VITALS (9 sets, daily range): BP systolic 92–129; BP diastolic 57–84
[2020-08-12 05:55] LABS: HEMATOCRIT 35.5 % (36.0-47.0); HEMOGLOBIN 11.4 g/dl (12.0-15.5); MEAN CORPUSCULAR HEMOGLOBIN 30.4 pg (27.0-33.0); MEAN CORPUSCULAR HGB CONC 32.1 g/dl (32.0-36.5); MEAN CORPUSCULAR VOLUME 94.7 fl (80.0-96.0); PLATELET COUNT, AUTOMATED 116 10^3/uL (150-450); RED BLOOD COUNT 3.75 10^6/uL (4.00-5.40); WHITE BLOOD COUNT 4.8 10^3/uL (4.0-10.0)
[2020-08-12 06:28] LABS: BLOOD UREA NITROGEN 6 MG/DL (7-18); CALCIUM LEVEL 7.6 MG/DL (8.8-10.2); CARBON DIOXIDE LEVEL 32 MEQ/L (21-32); CHLORIDE LEVEL 105 MEQ/L (98-107); CREATININE FOR GFR 0.34 MG/DL (0.55-1.30); GLOMERULAR FILTRATION RATE > 60.0 (>45); GLUCOSE, FASTING 91 MG/DL (70-100); SODIUM LEVEL 139 MEQ/L (136-145)
[2020-08-12] MEDS: LEVOTHYROXINE 50MCG TABLET (0.05MG) PO SCH (06:55)
[2020-08-12] MEDS: CHLORHEXIDINE GLUCONATE 0.12 % 15ML UDC (PERIDEX ORAL RINSE) MT SCH (08:12)
[2020-08-12] MEDS: MAGNESIUM OXIDE 400 MG TAB (MAG-OX) PO SCH ×2 (08:13→20:08)
[2020-08-12] MEDS: DOCUSATE SODIUM 100MG CAPSULE PO SCH ×2 (08:13→20:07)
[2020-08-12] MEDS: QUEtiapine FUMARATE 50 MG TAB PO SCH ×2 (08:13→20:07)
[2020-08-12] MEDS: SENNA 8.6 MG TAB (SENOKOT) PO SCH ×2 (08:14→20:07)
[2020-08-12] MEDS: levETIRAcetam 250MG TABLET (KEPPRA) PO SCH ×2 (08:14→20:07)
--- NOTE | 2020-08-12 09:20 | IPN ---
PROGRESS NOTE DATE: 08/11/2020 HISTORY: Patient is a 60-year-old woman with a lifelong developmental intellectual disability who had presented to the hospital with I believe some abdominal discomfort and distention and was found to have evidence for a sigmoid volvulus. She initially underwent decompression with a rectal tube but has had no recurrence of symptoms since this was removed. She is on a liquid diet which she has been tolerating. She was noted to have a mild drop in her blood pressure today and Dr. Hernandez asked me to reassess her. Vital signs show that she has been afebrile over the past 24 hours. Her most recent blood pressure was 68/48. Her pulse is in the 70s and 80s. A pulse oximetry is normal. Intake and output shows that yesterday she had 2500 in, 1400 of which was oral. Her urine output showed 870 out. PHYSICAL EXAMINATION: The patient is lying quietly in the hospital bed. She interacts verbally with the aide from [facility] ([facility] who is at the bedside. She also interacts with me and says hello and asks some short questions. Heart exam shows a regular rhythm. The abdomen is somewhat full and borderline obese. She does have some bowel sounds. There is tympany to percussion in her left mid and central abdomen. She has no tenderness to percussion. The abdomen is full but soft and there is no significant tenderness on palpation. LABORATORY STUDIES: Today show a white count of 6, hemoglobin 13, hematocrit 39, and a platelet count of 110,000. Chemistries showed normal electrolytes with a BUN of 5, creatinine 0.46, and a glucose of 103. She has blood cultures from 08/07/2020 which show no growth after 72 hours. IMPRESSION: Patient has underlying anatomy consistent with a sigmoid volvulus. She is not currently having any pain or obstruction. RECOMMENDATIONS: At this point, she does not appear to have any exacerbation of her volvulus. She can continue the liquid diet and it may be reasonable to consider advancing this. Certainly, if she develops recurrent symptoms I think it would be reasonable to consider surgical intervention on an elective scheduled basis to address her volvulus. REY
--- NOTE | 2020-08-12 16:18 | IPN ---
PROGRESS NOTE DATE: 08/12/2020 Karla's blood pressure remains problematic, she is between 90-100, she seems well perfused, mental status is back to its baseline, does not look septic, not running a fever, no white cell elevation to suggest there is an infection leading to this. PHYSICAL EXAMINATION: Blood pressure 92/68, pulse 93, respiratory rate 18. General appearance: Alert, mental status at baseline, she communicates per her usual. Skin: Warm and well-perfused. Lungs: Clear. Heart: Regular rhythm. Abdomen: Soft, nontender. 1+ peripheral edema in the upper extremities and the feet. LABORATORY DATA: White count 4, hemoglobin 11.4, platelets 160, sodium 139, potassium 4, BUN 6, creatinine 0.3, glucose 91. IMPRESSION: 1. Cecal volvulus. She is on a liquid diet. Surgery is following her. Elective surgery to prevent recurrence of this advised. 2. Mild hypotension. Review of her office and hospital chart shows that her baseline blood pressures are around 90-100 anyway. I think that is where she usually has her blood pressure and she is not so much hypotensive currently as at her usual pressures. 3. Peripheral edema. I am hesitant to give a diuretic, I do not want make her already baseline low blood pressures any lower. She probably will just mobilize this and diurese it on her own over time. If not, we could reconsider diuretic therapy. Potential for discharge tomorrow if stable.
[2020-08-12] MEDS ORDERED: FLUCONAZOLE 100 MG TAB PO ONE (19:45)
[2020-08-12] MEDS: DIVALPROEX SPRINKLE 125 MG CAP PO SCH (20:06)
[2020-08-12] MEDS: OLANZapine 2.5MG TABLET PO SCH (20:07)
[2020-08-12] MEDS: ACETAMINOPHEN TAB 650MG DOSE (2X325MG) PO PRN (20:08)
[2020-08-12] MEDS ORDERED: CLOTRIMAZOLE 1% VAG CR 45 GM PV SCH (21:00)
[2020-08-12] MEDS: DOCUSATE SOD LIQ 100MG/10ML UDC PO SCH (21:56)
[2020-08-12] MEDS: CLOTRIMAZOLE 1% VAG CR 45 GM TOP SCH (22:28)
[2020-08-13 02:00] VITALS: BP 105/69
[2020-08-13 06:00] VITALS: BP 103/69
[2020-08-13] MEDS: LEVOTHYROXINE 50MCG TABLET (0.05MG) PO SCH (06:03)
[2020-08-13 06:39] LABS: HEMATOCRIT 35.3 % (36.0-47.0); HEMOGLOBIN 11.6 g/dl (12.0-15.5); MEAN CORPUSCULAR HEMOGLOBIN 30.5 pg (27.0-33.0); MEAN CORPUSCULAR HGB CONC 32.9 g/dl (32.0-36.5); MEAN CORPUSCULAR VOLUME 92.9 fl (80.0-96.0); PLATELET COUNT, AUTOMATED 148 10^3/uL (150-450); WHITE BLOOD COUNT 5.9 10^3/uL (4.0-10.0)
[2020-08-13 06:58] LABS: BLOOD UREA NITROGEN 5 MG/DL (7-18); CALCIUM LEVEL 8.2 MG/DL (8.8-10.2); CARBON DIOXIDE LEVEL 32 MEQ/L (21-32); CHLORIDE LEVEL 104 MEQ/L (98-107); CREATININE FOR GFR 0.38 MG/DL (0.55-1.30); GLOMERULAR FILTRATION RATE > 60.0 (>45); GLUCOSE, FASTING 94 MG/DL (70-100); SODIUM LEVEL 138 MEQ/L (136-145)
[2020-08-13] MEDS: DOCUSATE SOD LIQ 100MG/10ML UDC PO SCH ×2 (08:25→08:43)
[2020-08-13] MEDS: CHLORHEXIDINE GLUCONATE 0.12 % 15ML UDC (PERIDEX ORAL RINSE) MT SCH (08:25)
[2020-08-13] MEDS: SENNA 8.6 MG TAB (SENOKOT) PO SCH (08:25)
[2020-08-13] MEDS: MAGNESIUM OXIDE 400 MG TAB (MAG-OX) PO SCH (08:26)
[2020-08-13] MEDS: levETIRAcetam 250MG TABLET (KEPPRA) PO SCH (08:26)
[2020-08-13] MEDS: QUEtiapine FUMARATE 50 MG TAB PO SCH (08:26)
[2020-08-13] MEDS: CLOTRIMAZOLE 1% VAG CR 45 GM TOP SCH (08:27)
--- NOTE | 2020-08-13 09:20 | DSES ---
DISCHARGE SUMMARY DATE OF ADMISSION: 08/06/2020 DATE OF DISCHARGE: 08/13/2020 PRINCIPAL DIAGNOSIS: Cecal volvulus with small bowel obstruction resolved without surgical intervention. SECONDARY DIAGNOSES: 1. Chronic borderline hypotension. 2. Peripheral edema secondary to intravenous (IV) fluids. 3. Lactic acidosis, resolved. 4. History of seizures. 5. Hypothyroidism. 6. Mental retardation. 7. Reported history of diastolic heart failure. HISTORY: The patient was admitted with cecal volvulus with small bowel obstruction. Please see details in history and physical from admission. HOSPITAL COURSE: Admitted to a medical bed and seen by surgery. Rectal tube was passed. The bowel obstruction resolved. The volvulus apparently corrected. She never needed surgical intervention. I picked up her case towards the end of her hospitalization. She was on IV fluids for most of her hospitalization and developed some peripheral edema related to this. We did not diurese this off because her blood pressures were 90 to 100 and I did not want to promote hypotension (I reviewed her office chart and her baseline blood pressure was around 100, so she was basically at her baseline). She had an echocardiogram with ejection fraction of 70%. Grade 1 diastolic dysfunction, which is essentially appropriate for age. Aortic sclerosis without stenosis. [id number] mitral and tricuspid insufficiency noted. At least mild pulmonary hypertension noted. DISCHARGE PHYSICAL EXAMINATION: VITAL SIGNS: On the day of discharge, she is eager to go home. Her blood pressure has been stable at 103/69, pulse 92, respiratory rate 18, O2 saturation 97% on room air. GENERAL APPEARANCE: She was alert and cooperative. LUNGS: Clear. HEART: Rhythm regular. ABDOMEN: Soft and nontender with no masses. EXTREMITIES: There is 1+ peripheral edema of the hands and legs. LABORATORY DATA: Today her white count is 5.9, hemoglobin 11.6, platelets 148,000. Sodium 138, potassium 4.0, BUN 5, creatinine 0.3, glucose 94. COVID screen was negative. MRSA screen was negative. DISCHARGE DISPOSITION: She is discharged home in improved and stable condition. She is under [facility] care. She will follow-up with her primary care provider, Dr. Rivero, in a week. DISCHARGE ACTIVITY: As tolerated. DISCHARGE DIET: She will stay on the same diet she was taking prior to admission. DISCHARGE MEDICATIONS: - calcium with vitamin D - Debrox drops as needed - Peridex mouth wash as needed - vitamin D 100 mcg daily - clomipramine 25 mg b.i.d. - Depakote sprinkles 875 mg at bedtime - Colace liquid 50 mg per teaspoon, one tablespoon b.i.d. - furosemide 60 mg daily - lactulose 15 mg b.i.d. - Keppra 750 mg b.i.d. - levothyroxine 50 mcg daily - milk of magnesia as needed - Magox 400 mg b.i.d. - Lopressor 50 mg b.i.d. - multivitamin - nitrofurantoin 50 mg at bedtime for UTI prophylaxis - Zyprexa 2.5 mg at bedtime - MiraLAX 17 grams b.i.d. mixed with nectar thick water - Seroquel 150 mg b.i.d. - rifaximin 550 mg b.i.d. - Senna laxative t.i.d. There are no pending labs. ADDENDUM: The patient had Staph hominis on one blood culture. Follow-up blood cultures were negative. Could be contaminant, but could be related to her cecal volvulus. The plan is for surgery to see her as an outpatient to discuss further workup and surgical intervention to prevent recurrence of volvulus.
[2020-08-13 10:00] VITALS: BP 118/81
[2020-08-13 14:00] VITALS: BP 110/80
[2020-08-15] MEDS ORDERED: FLUCONAZOLE 50MG TABLET PO ONE (19:45)
== END 2020-08-13 15:50 | disposition home or self-care (01) | DRG 389 ==
LOC: M ED 10:21 → M ED INP 17:49 → M MSPAV 08-07 01:09
PROVIDERS: ADMIT Family Medicine; ATTEND Family Medicine
PROC: 0DHP7DZ Insertion of Intraluminal Device into Rectum, Via Natural or Artificial Opening (ICD-10-PCS; principal; 2020-08-06)
DX: K56.2 Volvulus (principal); I50.32 Chronic diastolic (congestive) heart failure; E87.2 Acidosis; R78.81 Bacteremia; F79 Unspecified intellectual disabilities; I11.0 Hypertensive heart disease with heart failure; G40.909 Epilepsy, unspecified, not intractable, without status epilepticus; I95.2 Hypotension due to drugs; Z79.899 Other long term (current) drug therapy; E03.9 Hypothyroidism, unspecified; D72.829 Elevated white blood cell count, unspecified; F41.9 Anxiety disorder, unspecified; F32.9 Major depressive disorder, single episode, unspecified

== ENCOUNTER 2020-09-02 21:11 | Inpatient (IN) | payer MEDICARE, MEDICAID ==
[~2020-09-02] VITALS: Ht 162.6 cm; Wt 86.6 kg
[~2020-09-02 21:11] MED LIST changes: +CALC1TAB63 PO; +DOCU5LIQ PO; +KEPP1TAB2 PO; +MACR50CA10 PO; +MILKSUS3 PO; +POLY1POW38 PO; +VITA200038 PO; +XIFA550T PO
[2020-09-02] MEDS ORDERED: NS 1,000 ML IV ONE (21:45)
--- NOTE | 2020-09-02 22:35 | REPVR ---
PROCEDURE INFORMATION: Exam: XR Chest, 1 View Exam date and time: 09/02/2020 10:05 PM Age: 60 years old Clinical indication: Shortness of breath; Additional info: Gen med TECHNIQUE: Imaging protocol: XR of the chest Views: 1 view. COMPARISON: CT Chest without contrast 08/08/2020 12:45 PM FINDINGS: Lungs: There is interstitial density throughout both lungs and similar to the previous exams. This may be the result of chronic interstitial lung disease. It would be helpful to obtain a CT scan of the chest further evaluation of this. Pleural space: Unremarkable. No pleural effusion. No pneumothorax. Heart/Mediastinum: Heart is normal in size. Bones/joints: Unremarkable. Gastrointestinal tract: There is distention of the bowel and recurrent obstruction not excluded. Recommend CT scan of the abdomen and pelvis as well. IMPRESSION: 1. Interstitial density throughout both lungs with similar to the previous exams. 2. Recurrent distention of bowel and I could not exclude Recurrent obstruction. Recommend CT scan of the chest, abdomen and pelvis for further evaluation to be compared with the previous exams. Electronically signed by: Sharif Best On 09/02/2020 22:35:31 PM
[2020-09-02 22:47] LABS: RSV AMPLIFICATION NEGATIVE (NEGATIVE)
[2020-09-02 22:50] LABS: INR 1.49; PROTHROMBIN TIME 18.3 SECONDS (12.5-14.3)
[2020-09-02 23:05] LABS: BLOOD UREA NITROGEN 11 MG/DL (7-18); CALCIUM LEVEL 8.9 MG/DL (8.8-10.2); CARBON DIOXIDE LEVEL 25 MEQ/L (21-32); CHLORIDE LEVEL 101 MEQ/L (98-107); CREATININE FOR GFR 0.64 MG/DL (0.55-1.30); GLOMERULAR FILTRATION RATE > 60.0 (>45); GLUCOSE, FASTING 121 MG/DL (70-100); POTASSIUM SERUM 4.2 MEQ/L (3.5-5.1); SODIUM LEVEL 134 MEQ/L (136-145)
--- NOTE | 2020-09-02 23:43 | HPEPDOC ---
[facility] Medical History & Physical Date of Admission Sep 02, 2020 Date of Service: Sep 03, 2020 History and Physical TIME OF SERVICE: 1205 CHIEF COMPLAINT: sent from assisted living facility HISTORY OF PRESENT ILLNESS: This 60 yr old F developed a runny nose and congestion yesterday. Today [facility] staff sent her to the hospital because she was tachycardic and weak. REVIEW OF SYSTEMS: unobtainable bc the pt has AMS PAST MEDICAL/ SURGICAL HISTORY: Anxiety Depression Hypothyroidism Recurrent UTIs HFpEF / Chronic Diastolic heart failure Hx of paroxysmal VT Chronic nocturnal O2 use Osteopenia Intellectual disability with aggressive behavior /requires assistance with ADLs Laparoscopic cholecystectomy L Ankle Surgery SOCIAL HISTORY: Does not smoke drink or use drugs. Lives at [facility] home FAMILY HISTORY: unobtainable bc the pt has AMS ALLERGIES: Please see below. HOME MEDICATIONS: Please see below. PHYSICAL EXAMINATION: Vital Signs Date Time Temp Pulse Resp B/P (MAP) Pulse Ox O2 Delivery O2 Flow Rate FiO2 09/02/20 21:56 108 89 09/02/20 22:41 111/75 (87) 09/02/20 22:56 99.0 20 Nasal Cannula 09/03/20 05:29 1.0 GENERAL APPEARANCE: well nourished/ well developed/ appears ill HEENT: NC in place CARDIOVASCULAR: RRR/NMRG/ no LE edema LUNGS: CTAB ABDOMEN: soft / she doesnt grimace with palpation INTEGUMENT: legs are cool to touch NEUROLOGICAL: unable to assess bc pt has AMS PSYCHIATRIC: lethargic LABORATORY DATA: 09/02/20 23:52 09/02/20 21:26: Coronavirus (COVID-19)(PCR) POSITIVEA, Influenza Type A (RT-PCR) NEGATIVE, Influenza Type B (RT-PCR) NEGATIVE, Respiratory Syncytial Virus (PCR) NEGATIVE 09/02/20 22:11: Prothrombin Time 18.3H, Prothromb Time International Ratio 1.49, Anion Gap 8, Glomerular Filtration Rate > 60.0, Lactic Acid Level 2.1*H, Calcium Level 8.9 IMAGING: Chest xray IMPRESSION: 1. Interstitial density throughout both lungs with similar to the previous exams. 2. Recurrent distention of bowel and I could not exclude Recurrent obstruction. Recommend CT scan of the chest, abdomen and pelvis for further evaluation to be compared with the previous exams. CT chest IMPRESSION: 1. Patchy ground-glass opacities bilaterally and reticular opacities. Mildly increased from prior. Commonly reported imaging features of COVID-19 pneumonia are present. Other processes such as influenza pneumonia and organizing pneumonia, as can be seen with drug toxicity and connective tissue disease, can cause a similar imaging pattern. (See Reference: Alexei) 2. Diffuse bronchial mucous thickening and mucus plugging consistent with bronchitis. Increased from prior. 3. Enlarged right pretracheal node. Increased from prior. 4. See CT Abdomen Pelvis report for abdomen and pelvis findings CT abd/pelvis IMPRESSION: 1. Stool impaction in the rectum. 2. Dilated sigmoid colon. Probably secondary to stool impaction. 3. Focal thickening of the mid sigmoid colon. Peristaltic contraction versus hypertrophic changes versus colitis versus neoplasm. 4. Diffuse mild thickening of the rectosigmoid junction. Suspicious for colitis. 5. No evidence of bowel perforation. 6. Multiple hypodense lesions in the liver. No change from prior. 7. Patchy ground-glass opacities in the lung bases. See CT chest report. CT head IMPRESSION: 1. No acute intracranial hemorrhage, mass or midline shift. 2. Involutional changes of the brain in keeping with the patient's age, with findings of chronic microvascular ischemic disease. MICROBIOLOGY: 09/02/20 Blood Culture, Received Pending 09/02/20 Blood Culture, Received Pending ASSESSMENT: is a 60 yr old w a hx of Intellectual disability with aggressive behavior Anxiety Depression Hypothyroidism HFpEF Chronic nocturnal O2 use & Osteopenia who will be admitted for management of sepsis, COVID 19 and possible colitis. PLAN: 1. Encephalopathy Likely due to infection CT head neg for CVA Plan: admit to PCU / frequent neurochecks /NPO with D5NS pending improvement in her mental status 2. COVID-19 O2 sats were as low as 88 % in the ER Plan: continuous pulse ox / supplemental O2 up to 3L with target O2 sats between 92-95% / contact & air borne precautions / f/u repeat plts (if low indicates bad prognosis), CRP (if high indicates bad prognosis), INR, BMP, fibrinogen, INR, D- dimer, PT, PTT (if patient has DIC indicates bad prognosis), ferritin, LDH, troponins ( if elevated will need Echo to r/o cardiomyopathy) / VBG to assess the degree of hypoxemia / bc she has hypoxemia will start IV steroids & Remdesivir 3. Questionable colitis Plan: the day time team may consider Gen surg +/- GI consult for c-scope 4. Weakness Likely 2/2 infection Plan: f/u phosphorus/ fall precautions 4. Stool impaction Plan: enema 5. Chronic HFpEF Plan: IV Furosemide & metoprolol 6. Anxiety /Depression / Intellectual Disability w behavioral disturbance Plan: hold Clomipramine, Quetiapine & until she is more alert 7. Hypothyroidism Plan: IV Levothyroxine DVT px w lovenox and ASA Dispo: Home after more than 2 midnights stay Home Medications Scheduled Carbamide Peroxide (Debrox) 6.5 % Yelena, 5 DROP AU QMONTH GIVE FOR 3 DAYS THEN FLUSH Cholecalciferol (Vitamin D3) (Vitamin D3) 50 Mcg Tablet, 100 MCG PO DAILY CRUSH AND GIVE WITH APPLESAUCE Clomipramine HCl (Clomipramine HCl) 25 Mg Cap, 25 MG PO BID Divalproex Sodium (Depakote Sprinkle) 125 Mg Cap, 875 MG PO QHS GIVE IN SAUCE Docusate Sodium (Docusate Sodium) 50 Mg/5 Ml Liquid, 15 ML PO BID Furosemide (Lasix) 40 Mg Tab, 40 MG PO DAILY Lactulose (Lactulose) 10 Gm/15 Ml Yelena, 15 ML PO BID AM AND 1600 Levetiracetam (Keppra) 750 Mg Tablet, 750 MG PO BID Levothyroxine Sodium (Synthroid) 50 Mcg Tab, 50 MCG PO DAILY Magnesium Hydroxide (Milk of Magnesia) 400 Mg/5 Ml Oral.susp, 30 ML PO 3XW MON, WED, FRI QHS Magnesium Oxide (Magnesium Oxide) 400 Mg Tab, 400 MG PO BID CRUSH AND GIVE IN SAUCE Metoprolol Tartrate (Metoprolol Tartrate) 50 Mg Tab, 50 MG PO BID CRUSH AND GIVE IN SAUCE Multivitamins (Thera M Plus Tablet) 1 Tab Tab, 1 TAB PO DAILY CRUSH AND GIVE IN SAUCE Nitrofurantoin Macrocrystal (Macrodantin) 50 Mg Capsule, 50 MG PO QHS Olanzapine (Olanzapine) 2.5 Mg Tablet, 2.5 MG PO QHS Polyethylene Glycol 3350 (Polyethylene Glycol 3350) 17 Gm Powd.pack, 17 GRAM PO BID MIX WITH 8 OUNCES OF NECTAR THICK WATER Quetiapine Fumarate (Quetiapine Fumarate) 100 Mg Tab, 150 MG PO BID Rifaximin (Xifaxan) 550 Mg Tablet, 550 MG PO BID Senna (Senna Lax) 8.6 Mg Tab, 17.2 MG PO TID CRUSH AND GIVE IN SAUCE Scheduled PRN Acetaminophen (Acetaminophen) 325 Mg Tablet, 650 MG PO Q4H PRN for PAIN / FEVER Guaifenesin (Guaifenesin) 100 Mg/5 Ml Liquid, 20 ML PO Q4H PRN for COUGH Ibuprofen (Ibuprofen) 100 Mg/5 Ml Oral.susp, 200 MG PO Q6H PRN for PAIN Neomycin/Bacitracin/Polymyxinb (Triple Antibiotic Ointment) 28.4 Gm Oint...g., 1 APPLIC TOP BID PRN for CUTS Nystatin (Nystatin) 15 Gm Cream..g., 1 APPLIC EXT BID PRN for EXCORIATION APPLY TO LABIA Zinc Oxide (Desitin) 454 Gm Cream..g., 1 APLCT TOP BID PRN for RASH Allergies Coded Allergies: cephalexin (Verified Allergy, Intermediate, rash, 08/06/20) A-FIB/CHADSVASC A-FIB History Current/History of A-Fib/PAF?: No Current PO Anticoag Therapy: No CATE CONRAD MD Sep 02, 2020 23:43
[2020-09-02] MEDS ORDERED: MAALOX 30 ML SUSP *UDC PO PRN (23:45)
[2020-09-02] MEDS ORDERED: ACETAMINOPHEN TAB 650MG DOSE (2X325MG) PO PRN (23:45)
[2020-09-02] MEDS ORDERED: MOM 30ML SUSPENSION UDC PO PRN (23:45)
[2020-09-03] VITALS (7 sets, daily range): BP systolic 99–120; BP diastolic 62–74; O2SAT 95
[2020-09-03 00:22] LABS: BASO % 0.5 % (0.0-1.0); EOS % 0.2 % (0.0-3.0); HEMATOCRIT 38.2 % (36.0-47.0); HEMOGLOBIN 12.5 g/dl (12.0-15.5); LYMPH # 2.3 10^3/uL (1.5-5.0); LYMPH % 37.4 % (24.0-44.0); MEAN CORPUSCULAR HEMOGLOBIN 30.6 pg (27.0-33.0); MEAN CORPUSCULAR HGB CONC 32.7 g/dl (32.0-36.5); MEAN CORPUSCULAR VOLUME 93.4 fl (80.0-96.0); MONO # 1.1 10^3/uL (0.0-0.8); MONO % 18.7 % (0.0-5.0); NEUTROPHILS # 2.6 10^3/uL (1.5-8.5); NEUTROPHILS % 42.7 % (36.0-66.0); PLATELET COUNT, AUTOMATED 113 10^3/uL (150-450); RED BLOOD COUNT 4.09 10^6/uL (4.00-5.40); WHITE BLOOD COUNT 6.1 10^3/uL (4.0-10.0)
[2020-09-03] MEDS ORDERED: D5W/0.9% SODIUM CHLORIDE 1,000 ML IV SCH (00:25)
[2020-09-03 00:34] LABS: ALBUMIN 2.6 GM/DL (3.2-5.2); ALT/SGPT 27 U/L (12-78); BILIRUBIN,DIRECT 0.2 MG/DL (0.0-0.2); BILIRUBIN,TOTAL 0.5 MG/DL (0.2-1.0); C REACTIVE PROTEIN QUANTITATIV 9.77 MG/DL (0.00-0.30); CPK CREATINE PHOSPHOKINASE 31 U/L (26-192); FERRITIN 292 NG/ML (8-252); LDH LACTATE DEHYDROGENASE 164 U/L (84-246); MAGNESIUM LEVEL 1.8 MG/DL (1.8-2.4); NT-PRO BNP 232 PG/ML (<125); TOTAL PROTEIN 7.4 GM/DL (6.4-8.2); TROPONIN I < 0.02 NG/ML (< 0.10)
[2020-09-03 00:35] LABS: INR 1.29; PROTHROMBIN TIME 16.4 SECONDS (12.5-14.3)
[2020-09-03 00:36] LABS: PARTIAL THROMBOPLASTIN TIME 39.6 SECONDS (24.2-38.5)
[2020-09-03 00:39] LABS: D-DIMER QUANT 917.2 ng/ml (<500)
--- NOTE | 2020-09-03 00:56 | REPVR ---
PROCEDURE INFORMATION: Exam: CT Head Without Contrast Exam date and time: 09/02/2020 12:30 AM Age: 60 years old Clinical indication: Pain; Headache; Additional info: Covid 19 PT can't walk R/O CVA TECHNIQUE: Imaging protocol: Computed tomography of the head without contrast. Radiation optimization: All CT scans at this facility use at least one of these dose optimization techniques: automated exposure control; mA and/or kV adjustment per patient size (includes targeted exams where dose is matched to clinical indication); or iterative reconstruction. COMPARISON: CT Head without contrast 09/18/2016 12:45 PM FINDINGS: Brain: There are global involutional changes of the brain which are in keeping with the patient's age. Periventricular hypodensities are nonspecific but most likely reflect chronic microvascular ischemic disease. The appearance is stable compared to 09/18/2016. Benign basal ganglia calcifications are noted. There is no evidence of intracranial hemorrhage. No abnormal extra-axial fluid collections are identified. No mass effect or midline shift is seen. Cerebral ventricles: No ventriculomegaly. Bones/joints: Benign hyperostosis frontalis is present. Paranasal sinuses: Air-fluid levels are seen in the maxillary antra bilaterally and the right sphenoid sinus. Mastoid air cells: There is mild partial opacification of the left mastoid air cells. Soft tissues: Unremarkable. IMPRESSION: 1. No acute intracranial hemorrhage, mass or midline shift. 2. Involutional changes of the brain in keeping with the patient's age, with findings of chronic microvascular ischemic disease. Electronically signed by: Anca Foy On 09/03/2020 00:55:52 AM
--- NOTE | 2020-09-03 01:01 | REPVR ---
PROCEDURE INFORMATION: Exam: CT Chest Without Contrast; Diagnostic Exam date and time: 09/02/2020 12:30 AM Age: 60 years old Clinical indication: Chest pain; Additional info: Covid TECHNIQUE: Imaging protocol: Diagnostic computed tomography of the chest without contrast. Radiation optimization: All CT scans at this facility use at least one of these dose optimization techniques: automated exposure control; mA and/or kV adjustment per patient size (includes targeted exams where dose is matched to clinical indication); or iterative reconstruction. COMPARISON: CT Chest without contrast 08/08/2020 12:45 PM FINDINGS: Limitations: Examination is limited by motion artifact. Bronchial tree: Bronchial mucous plugging bilaterally. Diffuse bronchial mucous thickening. Mild bronchiectasis in the left upper lobe, lingula, and left lower lobe. Lungs: Patchy ground-glass opacities bilaterally. Peripheral calcified granuloma in the right upper lobe. Diffuse reticular opacities. Pleural space: No right pleural effusion. Mild left pleural effusion. No pneumothorax. Heart: Calcification of the mitral annulus. Mild pericardial effusion. Heart size is within normal limits. Aorta: Mild calcified atherosclerotic disease. No aortic aneurysm. Lymph nodes: Enlarged right pretracheal node measures 1.6 x 2.1 cm. Other multiple small mediastinal nodes. Bones/joints: Unremarkable. No acute fracture. Soft tissues: Unremarkable. IMPRESSION: 1. Patchy ground-glass opacities bilaterally and reticular opacities. Mildly increased from prior. Commonly reported imaging features of COVID-19 pneumonia are present. Other processes such as influenza pneumonia and organizing pneumonia, as can be seen with drug toxicity and connective tissue disease, can cause a similar imaging pattern. (See Reference: Alexei) 2. Diffuse bronchial mucous thickening and mucus plugging consistent with bronchitis. Increased from prior. 3. Enlarged right pretracheal node. Increased from prior. 4. See CT Abdomen Pelvis report for abdomen and pelvis findings. REFERENCES: Alexei Medel, et al., Radiological Society of [place] Expert Consensus Statement on Reporting Chest CT Findings Related to COVID-19. Endorsed by the Society of Thoracic Radiology, the [place] [employer], and RSNA, Oct 2019. Electronically signed by: Willie Perez On 09/03/2020 01:01:14 AM
--- NOTE | 2020-09-03 01:06 | REPVR ---
PROCEDURE INFORMATION: Exam: CT Abdomen And Pelvis Without Contrast Exam date and time: 09/02/2020 12:30 AM Age: 60 years old Clinical indication: Abdominal pain; Additional info: Covid. History of sigmoid volvulus. TECHNIQUE: Imaging protocol: Computed tomography of the abdomen and pelvis without contrast. Radiation optimization: All CT scans at this facility use at least one of these dose optimization techniques: automated exposure control; mA and/or kV adjustment per patient size (includes targeted exams where dose is matched to clinical indication); or iterative reconstruction. COMPARISON: CT ABD/PEL W/IV CONTRAST ONLY 08/06/2020 1:51 PM FINDINGS: Limitations: Examination is limited by motion artifact. Lungs: Diffuse bronchial wall thickening. Patchy ground-glass opacities and reticular opacities bilaterally. Calcified granuloma in the right middle lobe. See CT chest report. Heart: Mild pericardial effusion. Liver: Calcified granulomas in the liver. Multiple hypodense lesions in the liver measuring up to 1.7 cm. Gallbladder and bile ducts: Status post cholecystectomy. No biliary ductal dilatation. Pancreas: Normal. No ductal dilation. Spleen: Normal. No splenomegaly. Adrenal glands: Normal. No mass. Kidneys and ureters: Normal. No hydronephrosis. Stomach and bowel: Small bowel is not dilated. Focal thickening of the midsigmoid colon. (Series 305, image 75). Diffuse mild thickening of the rectosigmoid junction. There is associated mild pericolonic stranding associated with the rectosigmoid junction. Sigmoid colon measures up to 8.2 x 11.4 cm. cm in diameter. Stool impaction in the rectum. Copious stool in the colon. Appendix: The appendix is not seen. However, there is no evidence of appendicitis. Appendix is normal. Intraperitoneal space: Unremarkable. No free air. No significant fluid collection. Vasculature: Mild calcified atherosclerotic disease. No aortic aneurysm. Lymph nodes: Unremarkable. No enlarged lymph nodes. Urinary bladder: Unremarkable as visualized. Reproductive: Uterus is normal. Bones/joints: Moderate degenerative spine. No acute fracture. Chronic compression deformity of the superior endplate of L2. Soft tissues: There is dependent subcutaneous edema. IMPRESSION: 1. Stool impaction in the rectum. 2. Dilated sigmoid colon. Probably secondary to stool impaction. 3. Focal thickening of the mid sigmoid colon. Peristaltic contraction versus hypertrophic changes versus colitis versus neoplasm. 4. Diffuse mild thickening of the rectosigmoid junction. Suspicious for colitis. 5. No evidence of bowel perforation. 6. Multiple hypodense lesions in the liver. No change from prior. 7. Patchy ground-glass opacities in the lung bases. See CT chest report. Electronically signed by: Willie Perez On 09/03/2020 01:06:28 AM
[2020-09-03] MEDS ORDERED: OLAN2.5T25 PO (01:20)
[2020-09-03] MEDS ORDERED: GUAI100L6 PO (01:27)
[2020-09-03] MEDS ORDERED: ACET-908 PO (01:27)
[2020-09-03] MEDS ORDERED: IBUP100S10 PO (01:27)
[2020-09-03] MEDS ORDERED: NYST10CR EXT (01:27)
[2020-09-03] MEDS ORDERED: TRIPOIN9 TOP (01:27)
[2020-09-03] MEDS ORDERED: DESI13CR2 TOP (01:27)
[2020-09-03] MEDS ORDERED: levETIRAcetam INJection 750 MG in D5W 100 ML IV SCH ×2 (05:00→09:00)
[2020-09-03] MEDS ORDERED: REMDESIVIR 200 MG in NS 250 ML IV ONE (07:00)
--- NOTE | 2020-09-03 07:06 | ECGEPIP ---
[facility] - ED Test Date: 2020-09-02 Pat Name: MILLIE AQUINO Department: Room: [place] [id number] Gender: Female Director Of Student Life: : 1960 Requested By: ASHIA TORRES Order Number: [id number] Reading MD: Juan Mckeon Measurements Intervals Powell Rate: 106 P: 10 UT: 164 QRS: -18 QRSD: 105 T: -10 QT: 322 QTc: 428 Interpretive Statements SINUS TACHYCARDIA MINIMAL VOLTAGE CRITERIA FOR LVH, CONSIDER NORMAL VARIANT SEPTAL MYOCARDIAL INFARCTION, PROBABLY OLD SIMILAR TO 02/04/18 Electronically Signed on 09-03-2020 7:05:55 EST by Juan Mckeon
[2020-09-03 08:32] LABS: VENOUS BASE EXCESS 0.4 (-2.0-2.0); VENOUS HCO3 26.3 MEQ/L (23.0-27.0); VENOUS O2 SATURATION 91.7 % (60.0-80.0); VENOUS PARTIAL PRESSURE CO2 47.3 mmHg (38.0-50.0); VENOUS PARTIAL PRESSURE O2 66.9 mmHg (30.0-50.0); VENOUS PH 7.363 UNITS (7.330-7.430); VENOUS STANDARD HCO3 24.8 MEQ/L; VENOUS TOTAL CO2 27.8 MEQ/L (24.0-28.0)
[2020-09-03 08:35] LABS: BASO % 0.3 % (0.0-1.0); EOS % 0.2 % (0.0-3.0); HEMATOCRIT 35.6 % (36.0-47.0); HEMOGLOBIN 11.5 g/dl (12.0-15.5); LYMPH # 1.9 10^3/uL (1.5-5.0); LYMPH % 32.1 % (24.0-44.0); MEAN CORPUSCULAR HEMOGLOBIN 30.7 pg (27.0-33.0); MEAN CORPUSCULAR HGB CONC 32.3 g/dl (32.0-36.5); MEAN CORPUSCULAR VOLUME 95.2 fl (80.0-96.0); MONO # 1.2 10^3/uL (0.0-0.8); NEUTROPHILS # 2.8 10^3/uL (1.5-8.5); NEUTROPHILS % 47.1 % (36.0-66.0); PLATELET COUNT, AUTOMATED 102 10^3/uL (150-450); RED BLOOD COUNT 3.74 10^6/uL (4.00-5.40); WHITE BLOOD COUNT 5.9 10^3/uL (4.0-10.0)
[2020-09-03] MEDS ORDERED: METOPROLOL 5 MG/5 ML VIAL IV SCH (09:00)
[2020-09-03] MEDS ORDERED: FUROSEMIDE 20MG/2ML VIAL (J1940) IV SCH (09:00)
[2020-09-03] MEDS ORDERED: SODIUM CHLORIDE 0.9% INJ 10 ML SYR IV ONE (09:00)
[2020-09-03] MEDS: ASPIRIN 81 MG ENTERIC TAB PO SCH (09:00)
[2020-09-03] MEDS: METOPROLOL TART 50 MG TAB PO SCH ×2 (09:00→21:00)
[2020-09-03] MEDS ORDERED: FLEET ENEMA PR PRN (09:00)
[2020-09-03] MEDS: ENOXAPARIN 40MG/0.4ML SYRINGE (J1650 PER 10MG) SC SCH ×2 (09:01→21:00)
[2020-09-03] MEDS: dexameTHASONE 4 MG/ML 1ML VIAL (J1100 PER 1MG) IV SCH (09:02)
[2020-09-03 09:08] LABS: BLOOD UREA NITROGEN 10 MG/DL (7-18); CALCIUM LEVEL 8.2 MG/DL (8.8-10.2); CARBON DIOXIDE LEVEL 28 MEQ/L (21-32); CHLORIDE LEVEL 101 MEQ/L (98-107); CREATININE FOR GFR 0.58 MG/DL (0.55-1.30); GLOMERULAR FILTRATION RATE > 60.0 (>45); GLUCOSE, FASTING 112 MG/DL (70-100); MAGNESIUM LEVEL 1.9 MG/DL (1.8-2.4); POTASSIUM SERUM 3.7 MEQ/L (3.5-5.1); SODIUM LEVEL 138 MEQ/L (136-145)
--- NOTE | 2020-09-03 11:50 | IPNPDOC ---
Text Note Date of Service The patient was seen on 09/03/20. NOTE Interval history: [facility] patient admitted overnight as [facility] staff found her tachy cardic in the 120s and weaker than her baseline. They also noted to day history of rhinorrhea and nasal congestion. She was found to be Covid positive in the emergency department yesterday and was satting 88% on room air so she was admitted for hypoxia. CT of her abdomen and pelvis also showed stool impaction and colonic dilatation. She was recently discharged on 08/13/2020 for a volvulus however it is unclear the last time she had a bowel movement. Subjective: No acute events overnight. Patient was rousable on walking in the room. I was informed that she is altered at baseline however when I asked if I could listen to her heart and lungs she grunted yes and not at her exposing her chest. Further answers were unobtainable. Patient did have a bowel movement overnight following an enema. Objective: Physical examination: Vitals: (See below) General: Well-appearing female who appears stated age sleeping comfortably in bed in no acute distress. HEENT: NC, AT. EOMI, no scleral icterus. No pharyngeal erythema, mucous membranes moist. Neck: No lymphadenopathy or JVD CV: RRR, Normal S1 and S2. No murmurs, gallops, or rubs. Resp: CTAB with full breath sounds. No wheezes, crackles, or rhonchi. No dullness to percussion. Abdomen: Bowel sounds present. Soft, nontender, minimally distended. Extremities: 2mm pitting edema below the knees in bilateral lower extremities. Assessment/Plan: Patient is a 60-year-old female who presents from [facility] who presents with hypoxemia in the setting of Covid 19 pneumonia. #. Hypoxic respiratory failure secondary to Covid 19 infection -Continue with Dexamethasone/Remdesivir and continuing to monitor oxygen levels. She is presently on room air and doing well, however we will wait to see if she returns to her baseline mental status and monitor her an additional night. - Procalcitonin of 0.07, no need for additional antibiotic therapy - Lungs are clear, no need for additional respiratory support presently. #. Constipation -BM overnight so this may have been transient -Will start CLD to see how she does, will continue with IV medications for now #. Colitis? -Her abdominal exam is benign, no signs of worsening symptoms and patient appears improved from day prior, will continue to monitor, if she becomes febrile or continues to not pass stool will trial additional enema #. Encephalopathy? If the patient was truly encephalopathic last night, I believe it has resolved or is resolving today as she was able to follow commands for me. Per [facility] staff she is usually more awake, we will re-evaluate her this afternoon to see if she perks up, will continue to hold clomipramine, seroquel. #. Chronic HFpEF Continue IV Lasix and metoprolol #. Intellectual disability with history of behavioral disturbance/anxiety/depression See encephalopathy #. Hypothyroidism -Continue home Synthroid DVT prophylaxis: Lovenox. Disposition: Likely one more night of observation. VS,Fishbone, I+O VS, Fishbone, I+O Laboratory Tests 09/02/20 22:11 09/02/20 23:52 09/03/20 07:51 Vital Signs Date Time Temp Pulse Resp B/P (MAP) Pulse Ox O2 Delivery O2 Flow Rate FiO2 09/03/20 09:02 98 108/62 (77) 09/03/20 07:54 96.9 19 96 Nasal Cannula 2.0 I&O- Last 24 Hours up to 6 AM 09/03/20 06:00 Intake Total 1150 ml Balance 1150 ml GME ATTESTATION GME ATTESTATION My faculty preceptor for this patient encounter was physically present during the encounter and was fully available. All aspects of the patient interview, examination, medical decision making process, and medical care plan development were reviewed and approved by the faculty preceptor. The faculty preceptor is aware and concurs with the plan as stated in the body of this note and will attest to such by his/her cosignature. ATTENDING NOTE I, Blane Lopez MD, have independently examined this patient and performed my own physical exam, as well as reviewed the documentation and edited where necessary. I have discussed in detail with the resident / student the findings and plan of treatment as documented by the resident / student and edited their note. I agree with their findings and treatment plan and have edited their documentation. LEO KAUFFMAN DO Sep 03, 2020 11:50 BLANE LOPEZ MD Sep 07, 2020 12:50
[2020-09-03] MEDS: levETIRAcetam 250MG TABLET (KEPPRA) PO SCH (21:44)
[2020-09-04 04:00] VITALS: BP 125/65
[2020-09-04 06:57] LABS: INR 1.26; PROTHROMBIN TIME 16.1 SECONDS (12.5-14.3)
[2020-09-04 06:58] LABS: PARTIAL THROMBOPLASTIN TIME 38.7 SECONDS (24.2-38.5)
[2020-09-04] MEDS ORDERED: REMDESIVIR 100 MG in NS 250 ML IV SCH (07:00)
[2020-09-04 07:12] LABS: ALBUMIN 2.6 GM/DL (3.2-5.2); ALT/SGPT 36 U/L (12-78); BILIRUBIN,DIRECT 0.2 MG/DL (0.0-0.2); BILIRUBIN,TOTAL 0.4 MG/DL (0.2-1.0); CPK CREATINE PHOSPHOKINASE 29 U/L (26-192); FERRITIN 355 NG/ML (8-252); LDH LACTATE DEHYDROGENASE 175 U/L (84-246); NT-PRO BNP 243 PG/ML (<125); TOTAL PROTEIN 7.8 GM/DL (6.4-8.2); TROPONIN I < 0.02 NG/ML (< 0.10)
[2020-09-04 08:00] VITALS: O2SAT 94
[2020-09-04] MEDS ORDERED: SODIUM CHLORIDE 0.9% INJ 10 ML SYR IV SCH (08:00)
[2020-09-04 08:15] VITALS: BP 120/78
[2020-09-04 08:38] VITALS: BP 124/78
[2020-09-04] MEDS: METOPROLOL TART 50 MG TAB PO SCH (08:38)
[2020-09-04] MEDS: dexameTHASONE 4 MG/ML 1ML VIAL (J1100 PER 1MG) IV SCH (08:39)
[2020-09-04] MEDS: ENOXAPARIN 40MG/0.4ML SYRINGE (J1650 PER 10MG) SC SCH (08:39)
[2020-09-04] MEDS: levETIRAcetam 250MG TABLET (KEPPRA) PO SCH (08:39)
[2020-09-04] MEDS: ASPIRIN 81 MG ENTERIC TAB PO SCH (08:39)
[2020-09-04] MEDS ORDERED: FUROSEMIDE 40 MG TAB PO SCH (09:00)
[2020-09-04] MEDS ORDERED: OMEP-218 PO (10:43)
[2020-09-04] MEDS ORDERED: DEXA2TA PO (10:43)
--- NOTE | 2020-09-04 12:40 | DS.PDOC ---
Discharge Summary General Date of Admission Sep 02, 2020 at 23:43 Date of Discharge 09/04/2020 Attending Physician: BLANE LOPEZ MD Discharge Summary PROCEDURES PERFORMED DURING STAY: None. ADMITTING/DISCHARGE DIAGNOSES: COVID 19 pneumonia Anxiety Depression Hypothyroidism Recurrent UTIs HFpEF / Chronic Diastolic heart failure Hx of paroxysmal VT Chronic nocturnal O2 use Osteopenia Intellectual disability with aggressive behavior /requires assistance with ADLs Laparoscopic cholecystectomy L Ankle Surgery COMPLICATIONS/CHIEF COMPLAINT: Covid 19. HISTORY OF PRESENT ILLNESS/HOSPITAL COURSE: "This 60 yr old F developed a runny nose and congestion yesterday. Today [facility] staff sent her to the hospital because she was tachycardic and weak." Patient was evaluated in the emergency department and was found to be transiently hypoxemic and unable to tolerate room air. Very soon after admission she was able to tolerate room air adequately and there is consideration of discharge the following day however per the [facility] staff she typic ally was much more alert and active and there was concern of worsening so some of her antipsychotic agents were held and additional nitrates and by day 2 she was significantly more alert and interactive with staff. There was initially concern for stool impaction on admission so she was made npo and given an enema however shortly after she had a BM, she was restarted on her normal CLD and tolerated this adequately showing no signs of abdominal discomfort. She had been afebrile the entire time, had not required any supplemental oxygen, and a normal white blood cell count, with a normal pro-calcitonin to the decision is made to discharge her back to [facility] with a prescription for dexamethasone. DISCHARGE MEDICATIONS: Please see below. ALLERGIES: Please see below. PHYSICAL EXAMINATION ON DISCHARGE: VITAL SIGNS: Please see below. General: Well-appearing female who appears stated age sleeping comfortably in bed in no acute distress. HEENT: NC, AT. EOMI, no scleral icterus. No pharyngeal erythema, mucous membranes moist. Neck: No lymphadenopathy or JVD CV: RRR, Normal S1 and S2. No murmurs, gallops, or rubs. Resp: CTAB with full breath sounds. No wheezes, crackles, or rhonchi. No dullness to percussion. Abdomen: Bowel sounds present. Soft, nontender, minimally distended. Extremities: 2mm pitting edema below the knees in bilateral lower extremities. Psychiatric: Alert, interactive, making efforts to communicate. LABORATORY DATA: Please see below. IMAGING: Chest xray IMPRESSION: 1. Interstitial density throughout both lungs with similar to the previous exams. 2. Recurrent distention of bowel and I could not exclude Recurrent obstruction. Recommend CT scan of the chest, abdomen and pelvis for further evaluation to be compared with the previous exams. CT chest IMPRESSION: 1. Patchy ground-glass opacities bilaterally and reticular opacities. Mildly increased from prior. Commonly reported imaging features of COVID-19 pneumonia are present. Other processes such as influenza pneumonia and organizing pneumonia, as can be seen with drug toxicity and connective tissue disease, can cause a similar imaging pattern. (See Reference: Alexei) 2. Diffuse bronchial mucous thickening and mucus plugging consistent with bronchitis. Increased from prior. 3. Enlarged right pretracheal node. Increased from prior. 4. See CT Abdomen Pelvis report for abdomen and pelvis findings CT abd/pelvis IMPRESSION: 1. Stool impaction in the rectum. 2. Dilated sigmoid colon. Probably secondary to stool impaction. 3. Focal thickening of the mid sigmoid colon. Peristaltic contraction versus hypertrophic changes versus colitis versus neoplasm. 4. Diffuse mild thickening of the rectosigmoid junction. Suspicious for colitis. 5. No evidence of bowel perforation. 6. Multiple hypodense lesions in the liver. No change from prior. 7. Patchy ground-glass opacities in the lung bases. See CT chest report. CT head IMPRESSION: 1. No acute intracranial hemorrhage, mass or midline shift. 2. Involutional changes of the brain in keeping with the patient's age, with findings of chronic microvascular ischemic disease. PROGNOSIS: Good ACTIVITY: As tolerated. DIET: Clear liquid diet DISCHARGE PLAN: [facility] DISCHARGE INSTRUCTIONS: 1. Follow-up with PCP in the next 2 weeks 2. His return to hospital if symptoms worsen. DISCHARGE CONDITION: Stable. TIME SPENT ON DISCHARGE: 16 minutes. Vital Signs/I&Os Vital Signs Date Time Temp Pulse Resp B/P (MAP) Pulse Ox O2 Delivery O2 Flow Rate FiO2 09/04/20 08:38 79 124/78 09/04/20 08:15 98.0 20 93 Room Air 09/03/20 16:45 2.0 I&O- Last 24 Hours up to 6 AM 09/04/20 06:00 Intake Total 1010 ml Balance 1010 ml Laboratory Data Labs 24H Laboratory Tests 2 09/03/20 17:58: Bedside Glucose (Misc Panel) 133H 09/04/20 05:57: Prothrombin Time 16.1H, Prothromb Time International Ratio 1.26, Activated Partial Thromboplast Time 38.7H, Fibrinogen 440, Ferritin 355H, Total Bilirubin 0.4, Direct Bilirubin 0.2, Aspartate Amino Transf (AST/SGOT) 38H, Alanine Aminotransferase (ALT/SGPT) 36, Alkaline Phosphatase 52, Lactate Dehydrogenase 175, Total Creatine Kinase 29, Troponin I < 0.02, TW-Smo-Z-Type Natriuretic Peptide 243H, Total Protein 7.8, Albumin 2.6L, Albumin/Globulin Ratio 0.5L 09/04/20 06:12: Bedside Glucose (Misc Panel) 97 FSBS Laboratory Tests Test 09/03/20 17:58 09/04/20 06:12 Range/Units Bedside Glucose (Misc Panel) 133 97 80-115 MG/DL Microbiology Microbiology 09/02/20 Blood Culture - Preliminary, Resulted No growth after 24 hours . All specim... 09/02/20 Blood Culture - Preliminary, Resulted No growth after 24 hours . All specim... Discharge Medications Scheduled Carbamide Peroxide (Debrox) 6.5 % Yelena, 5 DROP AU QMONTH, (Reported) GIVE FOR 3 DAYS THEN FLUSH Cholecalciferol (Vitamin D3) (Vitamin D3) 50 Mcg Tablet, 100 MCG PO DAILY, (Reported) CRUSH AND GIVE WITH APPLESAUCE Clomipramine HCl (Clomipramine HCl) 25 Mg Cap, 25 MG PO BID, (Reported) Dexamethasone (Dexamethasone) 2 Mg Tablet, 1 TAB PO DAILY Divalproex Sodium (Depakote Sprinkle) 125 Mg Cap, 875 MG PO QHS, (Reported) GIVE IN SAUCE Docusate Sodium (Docusate Sodium) 50 Mg/5 Ml Liquid, 15 ML PO BID, (Reported) Furosemide (Lasix) 40 Mg Tab, 40 MG PO DAILY, (Reported) Lactulose (Lactulose) 10 Gm/15 Ml Yelena, 15 ML PO BID, (Reported) AM AND 1600 Levetiracetam (Keppra) 750 Mg Tablet, 750 MG PO BID, (Reported) Levothyroxine Sodium (Synthroid) 50 Mcg Tab, 50 MCG PO DAILY, (Reported) Magnesium Hydroxide (Milk of Magnesia) 400 Mg/5 Ml Oral.susp, 30 ML PO 3XW, (Reported) MON, WED, FRI QHS Magnesium Oxide (Magnesium Oxide) 400 Mg Tab, 400 MG PO BID, (Reported) CRUSH AND GIVE IN SAUCE Metoprolol Tartrate (Metoprolol Tartrate) 50 Mg Tab, 50 MG PO BID, (Reported) CRUSH AND GIVE IN SAUCE Multivitamins (Thera M Plus Tablet) 1 Tab Tab, 1 TAB PO DAILY, (Reported) CRUSH AND GIVE IN SAUCE Nitrofurantoin Macrocrystal (Macrodantin) 50 Mg Capsule, 50 MG PO QHS, (Reported) Olanzapine (Olanzapine) 2.5 Mg Tablet, 2.5 MG PO QHS, (Reported) Omeprazole (Omeprazole) 20 Mg Capsule.dr, 1 CAP PO DAILY Polyethylene Glycol 3350 (Polyethylene Glycol 3350) 17 Gm Powd.pack, 17 GRAM PO BID, (Reported) MIX WITH 8 OUNCES OF NECTAR THICK WATER Quetiapine Fumarate (Quetiapine Fumarate) 100 Mg Tab, 150 MG PO BID, (Reported) Rifaximin (Xifaxan) 550 Mg Tablet, 550 MG PO BID, (Reported) Senna (Senna Lax) 8.6 Mg Tab, 17.2 MG PO TID, (Reported) CRUSH AND GIVE IN SAUCE Scheduled PRN Acetaminophen (Acetaminophen) 325 Mg Tablet, 650 MG PO Q4H PRN for PAIN / FEVER, (Reported) Guaifenesin (Guaifenesin) 100 Mg/5 Ml Liquid, 20 ML PO Q4H PRN for COUGH, (Reported) Ibuprofen (Ibuprofen) 100 Mg/5 Ml Oral.susp, 200 MG PO Q6H PRN for PAIN, (Reported) Neomycin/Bacitracin/Polymyxinb (Triple Antibiotic Ointment) 28.4 Gm Oint...g., 1 APPLIC TOP BID PRN for CUTS, (Reported) Nystatin (Nystatin) 15 Gm Cream..g., 1 APPLIC EXT BID PRN for EXCORIATION, (Reported) APPLY TO LABIA Zinc Oxide (Desitin) 454 Gm Cream..g., 1 APLCT TOP BID PRN for RASH, (Reported) Allergies Coded Allergies: cephalexin (Verified Allergy, Intermediate, rash, 08/06/20) GME ATTESTATION GME ATTESTATION My faculty preceptor for this patient encounter was physically present during the encounter and was fully available. All aspects of the patient interview, examination, medical decision making process, and medical care plan development were reviewed and approved by the faculty preceptor. The faculty preceptor is a boothe and concurs with the plan as stated in the body of this note and will attest to such by his/her cosignature. GME ATTESTATION GME ATTESTATION My faculty preceptor for this patient encounter was physically present during the encounter and was fully available. All aspects of the patient interview, examination, medical decision making process, and medical care plan development were reviewed and approved by the faculty preceptor. The faculty preceptor is aware and concurs with the plan as stated in the body of this note and will attest to such by his/her cosignature. ATTENDING NOTE I, Blane Lopez MD, have independently examined this patient and performed my own physical exam, as well as reviewed the documentation and edited where necessary. I have discussed in detail with the resident / student the findings and plan of treatment as documented by the resident / student and edited their note. I agree with their findings and treatment plan and have edited their documentation. LEO KAUFFMAN DO Sep 04, 2020 12:40 BLANE LOPEZ MD Sep 07, 2020 12:53
== END 2020-09-04 14:10 | disposition home or self-care (01) | DRG 177 ==
LOC: M ED 21:11 → M ED INP 23:43 → M 4MAIN 09-03 05:26
PROVIDERS: ADMIT Internal Medicine; ATTEND Internal Medicine
DX: U07.1 COVID-19 (principal); J12.89 Other viral pneumonia; I50.32 Chronic diastolic (congestive) heart failure; G93.40 Encephalopathy, unspecified; K52.9 Noninfective gastroenteritis and colitis, unspecified; F79 Unspecified intellectual disabilities; E03.9 Hypothyroidism, unspecified; F41.9 Anxiety disorder, unspecified; F32.9 Major depressive disorder, single episode, unspecified; R00.0 Tachycardia, unspecified; Z79.899 Other long term (current) drug therapy; Z88.8 Allergy status to other drugs, medicaments and biological substances; K56.41 Fecal impaction

== ENCOUNTER → 2020-09-17 | Outpatient (REF) | payer MEDICARE, MEDICAID ==
[~2020-09-17] MED LIST changes: +ACET-908 PO; +DESI13CR2 TOP; +DEXA2TA PO; +GUAI100L6 PO; +IBUP100S10 PO; +NYST10CR EXT; +OLAN2.5T25 PO; +OMEP-218 PO; +TRIPOIN9 TOP
[2020-09-17 18:38] LABS: BASO % 0.8 % (0.0-1.0); EOS # 0.1 10^3/uL (0.0-0.5); HEMATOCRIT 38.9 % (36.0-47.0); HEMOGLOBIN 12.9 g/dl (12.0-15.5); LYMPH # 1.9 10^3/uL (1.5-5.0); LYMPH % 37.2 % (24.0-44.0); MEAN CORPUSCULAR HEMOGLOBIN 30.9 pg (27.0-33.0); MEAN CORPUSCULAR HGB CONC 33.2 g/dl (32.0-36.5); MEAN CORPUSCULAR VOLUME 93.3 fl (80.0-96.0); MONO # 0.7 10^3/uL (0.0-0.8); MONO % 12.7 % (0.0-5.0); NEUTROPHILS # 2.5 10^3/uL (1.5-8.5); NEUTROPHILS % 47.9 % (36.0-66.0); PLATELET COUNT, AUTOMATED 174 10^3/uL (150-450); RED BLOOD COUNT 4.17 10^6/uL (4.00-5.40); WHITE BLOOD COUNT 5.2 10^3/uL (4.0-10.0)
[2020-09-17 19:21] LABS: ALBUMIN 2.9 GM/DL (3.2-5.2); ALT/SGPT 20 U/L (12-78); BILIRUBIN,TOTAL 0.4 MG/DL (0.2-1.0); BLOOD UREA NITROGEN 10 MG/DL (7-18); CALCIUM LEVEL 9.1 MG/DL (8.8-10.2); CARBON DIOXIDE LEVEL 29 MEQ/L (21-32); CHLORIDE LEVEL 100 MEQ/L (98-107); CREATININE FOR GFR 0.62 MG/DL (0.55-1.30); FERRITIN 182 NG/ML (8-252); GLOMERULAR FILTRATION RATE > 60.0 (>45); GLUCOSE, FASTING 115 MG/DL (70-100); IRON (FE) 59 UG/DL (50-170); POTASSIUM SERUM 3.8 MEQ/L (3.5-5.1); SODIUM LEVEL 137 MEQ/L (136-145); TOTAL PROTEIN 8.1 GM/DL (6.4-8.2)
== END ==
LOC: M SFHCPLAZ 15:46
PROVIDERS: ATTEND Physician Assistant Medical
DX: Z79.899 Other long term (current) drug therapy (principal); J12.82 Pneumonia due to coronavirus disease 2019
CPT/HCPCS: 36415; 80053; 82728; 83540; 85025; G0463

== ENCOUNTER → 2020-10-01 | Outpatient (REF) | payer MEDICARE, MEDICAID ==
[2020-10-01 18:21] LABS: BASO % 0.7 % (0.0-1.0); EOS # 0.1 10^3/uL (0.0-0.5); EOS % 2.9 % (0.0-3.0); HEMATOCRIT 39.9 % (36.0-47.0); HEMOGLOBIN 13.5 g/dl (12.0-15.5); LYMPH # 1.9 10^3/uL (1.5-5.0); LYMPH % 45.6 % (24.0-44.0); MEAN CORPUSCULAR HEMOGLOBIN 31.8 pg (27.0-33.0); MEAN CORPUSCULAR HGB CONC 33.8 g/dl (32.0-36.5); MEAN CORPUSCULAR VOLUME 93.9 fl (80.0-96.0); MONO # 0.6 10^3/uL (0.0-0.8); MONO % 13.9 % (2.0-8.0); NEUTROPHILS # 1.5 10^3/uL (1.5-8.5); NEUTROPHILS % 36.4 % (36.0-66.0); PLATELET COUNT, AUTOMATED 138 10^3/uL (150-450); RED BLOOD COUNT 4.25 10^6/uL (4.00-5.40); WHITE BLOOD COUNT 4.1 10^3/uL (4.0-10.0)
[2020-10-01 18:44] LABS: ALT/SGPT 31 U/L (12-78); BILIRUBIN,TOTAL 0.1 MG/DL (0.2-1.0); BLOOD UREA NITROGEN 10 MG/DL (7-18); CARBON DIOXIDE LEVEL 30 MEQ/L (21-32); CHLORIDE LEVEL 101 MEQ/L (98-107); CREATININE FOR GFR 0.51 MG/DL (0.55-1.30); GLOMERULAR FILTRATION RATE > 60.0 (>45); GLUCOSE, FASTING 97 MG/DL (70-100); POTASSIUM SERUM 3.9 MEQ/L (3.5-5.1); SODIUM LEVEL 137 MEQ/L (136-145); TOTAL PROTEIN 7.9 GM/DL (6.4-8.2)
[2020-10-01 20:30] LABS: ERYTHROCYTE SEDIMENTATION RATE 40 mm/hr (0-30)
== END ==
LOC: M SFHCPLAZ 14:43
PROVIDERS: ATTEND Physician Assistant Medical
DX: Z79.899 Other long term (current) drug therapy (principal); J12.82 Pneumonia due to coronavirus disease 2019; Z23 Encounter for immunization
CPT/HCPCS: 36415; 80053; 85025; 85652; 86140; 90670; 90682; G0008; G0009; G0463

== ENCOUNTER 2020-10-17 15:12 | Outpatient (CLI) | payer MEDICARE, MEDICAID ==
[~2020-10-17] VITALS: Ht 167.6 cm; Wt 81.4 kg
[~2020-10-17 15:12] MED LIST changes: +ZOLEDRONIC ACID 5 MG in IV 1 EA IV ONE
[2020-10-17 15:50] VITALS: BP 101/74
[2020-10-17 16:24] VITALS: BP 91/52
== END 2020-10-17 16:30 | disposition home or self-care (01) ==
LOC: M INFU 15:12
PROVIDERS: ATTEND Family Medicine
DX: M85.80 Other specified disorders of bone density and structure, unspecified site (principal); Z88.1 Allergy status to other antibiotic agents
CPT/HCPCS: 96365; J3489

== ENCOUNTER → 2021-04-02 | Outpatient (CLI) | payer MEDICARE, MEDICAID ==
[~2021-04-02] MED LIST changes: -ACET-908 PO; +ACET-910 PO; -ZOLEDRONIC ACID 5 MG in IV 1 EA IV ONE
[2021-04-02 09:55] LABS: BASO % 0.6 % (0.0-1.0); EOS # 0.1 10^3/uL (0.0-0.5); EOS % 1.2 % (0.0-3.0); HEMATOCRIT 40.7 % (36.0-47.0); HEMOGLOBIN 13.7 g/dl (12.0-15.5); LYMPH # 2.4 10^3/uL (1.5-5.0); LYMPH % 47.5 % (24.0-44.0); MEAN CORPUSCULAR HEMOGLOBIN 30.7 pg (27.0-33.0); MEAN CORPUSCULAR HGB CONC 33.7 g/dl (32.0-36.5); MEAN CORPUSCULAR VOLUME 91.3 fl (80.0-96.0); MONO # 0.5 10^3/uL (0.0-0.8); MONO % 9.8 % (2.0-8.0); NEUTROPHILS # 2.1 10^3/uL (1.5-8.5); NEUTROPHILS % 40.5 % (36.0-66.0); PLATELET COUNT, AUTOMATED 126 10^3/uL (150-450); RED BLOOD COUNT 4.46 10^6/uL (4.00-5.40); WHITE BLOOD COUNT 5.1 10^3/uL (4.0-10.0)
[2021-04-02 10:20] LABS: HEMOGLOBIN A1c 5.4 %
[2021-04-02 10:47] LABS: ALT/SGPT 43 U/L (12-78); BILIRUBIN,TOTAL 0.3 MG/DL (0.2-1.0); BLOOD UREA NITROGEN 10 MG/DL (7-18); CALCIUM LEVEL 8.4 MG/DL (8.8-10.2); CARBON DIOXIDE LEVEL 30 MEQ/L (21-32); CHLORIDE LEVEL 103 MEQ/L (98-107); CREATININE FOR GFR 0.57 MG/DL (0.55-1.30); GLOMERULAR FILTRATION RATE > 60.0 (>45); GLUCOSE, FASTING 93 MG/DL (70-100); NT-PRO BNP 116 PG/ML (<125); POTASSIUM SERUM 4.5 MEQ/L (3.5-5.1); SODIUM LEVEL 135 MEQ/L (136-145); TOTAL PROTEIN 8.2 GM/DL (6.4-8.2); VALPROIC ACID (DEPAKOTE) 83.4 UG/ML (50.0-100.0)
[2021-04-02 11:56] LABS: PTH INTACT 51.9 PG/ML (18.5-88.0)
== END ==
LOC: M LAB 08:51
PROVIDERS: ATTEND Family Medicine
DX: K72.90 Hepatic failure, unspecified without coma (principal); R73.01 Impaired fasting glucose; I50.30 Unspecified diastolic (congestive) heart failure; D69.6 Thrombocytopenia, unspecified; E55.9 Vitamin D deficiency, unspecified

== ENCOUNTER → 2021-06-21 | Outpatient (CLI) | payer MEDICARE, MEDICAID ==
[2021-06-21 11:56] LABS: BASO % 0.4 % (0.0-1.0); EOS # 0.1 10^3/uL (0.0-0.5); EOS % 1.5 % (0.0-3.0); HEMATOCRIT 39.2 % (36.0-47.0); HEMOGLOBIN 13.3 g/dl (12.0-15.5); LYMPH # 2.2 10^3/uL (1.5-5.0); LYMPH % 49.1 % (24.0-44.0); MEAN CORPUSCULAR HEMOGLOBIN 30.7 pg (27.0-33.0); MEAN CORPUSCULAR HGB CONC 33.9 g/dl (32.0-36.5); MEAN CORPUSCULAR VOLUME 90.5 fl (80.0-96.0); MONO # 0.4 10^3/uL (0.0-0.8); MONO % 9.6 % (2.0-8.0); NEUTROPHILS # 1.8 10^3/uL (1.5-8.5); PLATELET COUNT, AUTOMATED 132 10^3/uL (150-450); RED BLOOD COUNT 4.33 10^6/uL (4.00-5.40); WHITE BLOOD COUNT 4.6 10^3/uL (4.0-10.0)
[2021-06-21 13:32] LABS: HEMOGLOBIN A1c 5.5 %
[2021-06-21 13:46] LABS: ALT/SGPT 44 U/L (12-78); BILIRUBIN,TOTAL 0.2 MG/DL (0.2-1.0); BLOOD UREA NITROGEN 7 MG/DL (7-18); CALCIUM LEVEL 9.2 MG/DL (8.8-10.2); CARBON DIOXIDE LEVEL 27 MEQ/L (21-32); CHLORIDE LEVEL 99 MEQ/L (98-107); CHOLESTEROL LEVEL 146 MG/DL (<200); CHOLESTEROL RISK RATIO 4.294 (<5); CREATININE FOR GFR 0.56 MG/DL (0.55-1.30); GLOMERULAR FILTRATION RATE > 60.0 (>45); GLUCOSE, FASTING 91 MG/DL (70-100); HDL CHOLESTEROL 34 MG/DL (>40); LDL CHOLESTEROL 76 MG/DL (<100); NON-HDL-C 112 MG/DL; POTASSIUM SERUM 4.3 MEQ/L (3.5-5.1); SODIUM LEVEL 133 MEQ/L (136-145); TOTAL PROTEIN 8.5 GM/DL (6.4-8.2); TRIGLYCERIDES LEVEL 182 MG/DL (<150)
[2021-06-21 13:47] LABS: ALBUMIN 3.1 GM/DL (3.2-5.2); FERRITIN 152 NG/ML (8-252); FREE T4 0.65 NG/DL (0.76-1.46); MAGNESIUM LEVEL 1.8 MG/DL (1.8-2.4); NT-PRO BNP 135 PG/ML (<125)
== END ==
LOC: M WUC 08:43
PROVIDERS: ATTEND Family Medicine
DX: I50.30 Unspecified diastolic (congestive) heart failure (principal); K76.0 Fatty (change of) liver, not elsewhere classified; E03.9 Hypothyroidism, unspecified

== ENCOUNTER → 2021-08-13 | Outpatient (CLI) | payer MEDICARE, MEDICAID ==
--- NOTE | 2021-08-13 11:55 | DEXAMM ---
INDICATION: OSTEOPENIA. COMPARISON: 08/11/2019 as well as other prior exams. TECHNIQUE: Bone density was measured using dual-energy x-ray absorptiometry (DEXA). FINDINGS: AP SPINE L1-L4 BMD 1.146 g/cm2 Young Adult T-Score -0.4 Age Matched Z-Score 1.0. LT FEMUR, TOTAL BMD 0.823 g/cm2 Young Adult T-Score -1.5 Age Matched Z-Score -0.4. LT NECK BMD 0.859 g/cm2 Young Adult T-Score -1.3 Age Matched Z-Score 0.1. RT FEMUR, TOTAL BMD 0.956 g/cm2 Young Adult T-Score -0.4 Age Matched Z-Score 0.6. RT NECK BMD 0.906 g/cm2 Young Adult T-Score -0.9 Age Matched Z-Score 0.4. IMPRESSION: There is normal bone density of the spine. There is low bone density of the left hip. There is normal bone density of the right hip. The density of the spine has increased 12.9% since the initial exam on 03/30/2012. The density of the spine increased 3.7% since most recent exam on 08/11/2019. The density of the left hip has decreased 21.5% since initial exam on 03/30/2012. The density of the left hip has decreased 0.4% since most recent exam on 08/11/2019. The density of the right hip has increased 0.6% since the initial exam on 03/30/2012. The density of the right hip has decreased 0.4% since the most recent exam on 08/11/2019. FOLLOW-UP: Recommendation for the next bone density exam: 2 years. <Electronically signed by Pankaj Membreno > 08/13/21 [id number]
== END ==
LOC: M WHC 11:05
PROVIDERS: ATTEND Family Medicine
DX: M85.851 Other specified disorders of bone density and structure, right thigh (principal)

== ENCOUNTER → 2021-10-14 | Outpatient (CLI) | payer MEDICARE, MEDICAID ==
[~2021-10-14] MED LIST changes: +OMEP-173 PO; -OMEP-218 PO
== END ==
LOC: M RAD 09:31
PROVIDERS: ATTEND Family Medicine
DX: K76.0 Fatty (change of) liver, not elsewhere classified (principal); K76.89 Other specified diseases of liver

== ENCOUNTER → 2021-10-17 | Outpatient (CLI) | payer MEDICARE, MEDICAID ==
[2021-10-17 10:17] LABS: BASO % 0.5 % (0.0-1.0); EOS # 0.1 10^3/uL (0.0-0.5); EOS % 1.2 % (0.0-3.0); HEMATOCRIT 39.7 % (36.0-47.0); HEMOGLOBIN 13.6 g/dl (12.0-15.5); LYMPH # 2.1 10^3/uL (1.5-5.0); LYMPH % 36.4 % (24.0-44.0); MEAN CORPUSCULAR HEMOGLOBIN 30.8 pg (27.0-33.0); MEAN CORPUSCULAR HGB CONC 34.3 g/dl (32.0-36.5); MEAN CORPUSCULAR VOLUME 89.8 fl (80.0-96.0); MONO # 0.6 10^3/uL (0.0-0.8); MONO % 11.3 % (2.0-8.0); NEUTROPHILS # 2.8 10^3/uL (1.5-8.5); NEUTROPHILS % 50.2 % (36.0-66.0); PLATELET COUNT, AUTOMATED 133 10^3/uL (150-450); RED BLOOD COUNT 4.42 10^6/uL (4.00-5.40); WHITE BLOOD COUNT 5.7 10^3/uL (4.0-10.0)
[2021-10-17 10:26] LABS: INR 1.09; PROTHROMBIN TIME 14.5 SECONDS (12.7-14.5)
[2021-10-17 10:27] LABS: PARTIAL THROMBOPLASTIN TIME 32.3 SECONDS (25.9-37.0)
[2021-10-17 10:52] LABS: ALBUMIN 3.2 GM/DL (3.2-5.2); ALT/SGPT 51 U/L (12-78); BILIRUBIN,TOTAL 0.3 MG/DL (0.2-1.0); BLOOD UREA NITROGEN 12 MG/DL (7-18); CALCIUM LEVEL 9.5 MG/DL (8.8-10.2); CARBON DIOXIDE LEVEL 29 MEQ/L (21-32); CHLORIDE LEVEL 101 MEQ/L (98-107); GLOMERULAR FILTRATION RATE > 60.0 (>45); GLUCOSE, FASTING 96 MG/DL (70-100); NT-PRO BNP 110 PG/ML (<125); POTASSIUM SERUM 4.7 MEQ/L (3.5-5.1); SODIUM LEVEL 135 MEQ/L (136-145); TOTAL PROTEIN 8.5 GM/DL (6.4-8.2); VALPROIC ACID (DEPAKOTE) 70.9 UG/ML (50.0-100.0)
== END ==
LOC: M LAB 09:08
PROVIDERS: ATTEND Family Medicine
DX: D69.6 Thrombocytopenia, unspecified (principal); E03.9 Hypothyroidism, unspecified; I50.30 Unspecified diastolic (congestive) heart failure; K72.90 Hepatic failure, unspecified without coma

== ENCOUNTER → 2021-10-25 | Outpatient (REF) | payer MEDICARE, MEDICAID ==
[2021-10-25 18:09] LABS: APPEARANCE, URINE CLEAR (CLEAR); BACTERIA, URINE AUTO NEGATIVE (NEGATIVE); BILIRUBIN, URINE AUTO NEGATIVE (NEGATIVE); BLOOD, URINE BLOOD NEGATIVE (NEGATIVE); COLOR, URINE YELLOW (YELLOW); GLUCOSE, URINE (UA) AUTO NEGATIVE (NEGATIVE); KETONE, URINE AUTO NEGATIVE (NEGATIVE); LEUKOCYTE ESTERASE, URINE AUTO NEGATIVE (NEGATIVE); NITRITE, URINE AUTO NEGATIVE (NEGATIVE); PROTEIN, URINE AUTO NEGATIVE (NEGATIVE); RBC, URINE AUTO 0 /HPF (0-3); SQUAMOUS EPITHELIAL CELL UR AU 0 /HPF (0-6); UROBILINOGEN, URINE AUTO 0.2 mg/dL (0.0-2.0); WBC, URINE AUTO 1 /HPF (0-3)
== END ==
LOC: M LAB REF 15:19
DX: N39.0 Urinary tract infection, site not specified (principal)

== ENCOUNTER 2021-10-31 13:40 | Outpatient (CLI) | payer MEDICARE, MEDICAID ==
[~2021-10-31] VITALS: Ht 167.6 cm; Wt 81.4 kg
[2021-10-31] MEDS ORDERED: ZOLEDRONIC ACID 5 MG in IV 1 EA IV ONE (14:00)
[2021-10-31 14:40] VITALS: BP 135/76
== END 2021-10-31 14:40 | disposition home or self-care (01) ==
LOC: M INFU 13:40
PROVIDERS: ATTEND Family Medicine
DX: M85.9 Disorder of bone density and structure, unspecified (principal)
CPT/HCPCS: 96365; J3489

== ENCOUNTER → 2021-11-19 | Outpatient (REF) | payer MEDICARE, MEDICAID ==
[2021-11-19 16:14] LABS: APPEARANCE, URINE CLEAR (CLEAR); BACTERIA, URINE AUTO NEGATIVE (NEGATIVE); BILIRUBIN, URINE AUTO NEGATIVE (NEGATIVE); BLOOD, URINE BLOOD NEGATIVE (NEGATIVE); COLOR, URINE YELLOW (YELLOW); GLUCOSE, URINE (UA) AUTO NEGATIVE (NEGATIVE); KETONE, URINE AUTO NEGATIVE (NEGATIVE); LEUKOCYTE ESTERASE, URINE AUTO TRACE (NEGATIVE); NITRITE, URINE AUTO NEGATIVE (NEGATIVE); PROTEIN, URINE AUTO NEGATIVE (NEGATIVE); RBC, URINE AUTO 1 /HPF (0-3); SPECIFIC GRAVITY URINE AUTO 1.005 (1.002-1.035); SQUAMOUS EPITHELIAL CELL UR AU 1 /HPF (0-6); UROBILINOGEN, URINE AUTO 0.2 mg/dL (0.0-2.0); WBC, URINE AUTO 9 /HPF (0-3)
== END ==
LOC: M LAB REF 15:49
PROVIDERS: ATTEND Family Medicine
DX: N39.0 Urinary tract infection, site not specified (principal)

== ENCOUNTER → 2021-12-06 | Outpatient (REF) | payer MEDICARE, MEDICAID ==
[2021-12-06 14:22] LABS: APPEARANCE, URINE CLEAR (CLEAR); BACTERIA, URINE AUTO NEGATIVE (NEGATIVE); BILIRUBIN, URINE AUTO NEGATIVE (NEGATIVE); BLOOD, URINE BLOOD NEGATIVE (NEGATIVE); COLOR, URINE YELLOW (YELLOW); GLUCOSE, URINE (UA) AUTO NEGATIVE (NEGATIVE); KETONE, URINE AUTO NEGATIVE (NEGATIVE); LEUKOCYTE ESTERASE, URINE AUTO NEGATIVE (NEGATIVE); NITRITE, URINE AUTO NEGATIVE (NEGATIVE); PROTEIN, URINE AUTO NEGATIVE (NEGATIVE); RBC, URINE AUTO 0 /HPF (0-3); SPECIFIC GRAVITY URINE AUTO 1.006 (1.002-1.035); SQUAMOUS EPITHELIAL CELL UR AU 0 /HPF (0-6); UROBILINOGEN, URINE AUTO 0.2 mg/dL (0.0-2.0); WBC, URINE AUTO 0 /HPF (0-3)
== END ==
LOC: M SFHCPLAZ 13:36
PROVIDERS: ATTEND Physician Assistant
DX: N39.0 Urinary tract infection, site not specified (principal)

== ENCOUNTER → 2022-01-03 | Outpatient (CLI) | payer MEDICARE, MEDICAID | LOC: M LAB 14:28 | PROVIDERS: ATTEND Family Medicine | DX: Z13.79 Encounter for other screening for genetic and chromosomal anomalies (principal); Z80.0 Family history of malignant neoplasm of digestive organs ==

== ENCOUNTER → 2022-01-10 | Outpatient (REF) | payer MEDICARE, MEDICAID ==
[2022-01-10 18:10] LABS: APPEARANCE, URINE HAZY (CLEAR); BACTERIA, URINE AUTO 2+ (NEGATIVE); BILIRUBIN, URINE AUTO NEGATIVE (NEGATIVE); BLOOD, URINE BLOOD NEGATIVE (NEGATIVE); COLOR, URINE YELLOW (YELLOW); GLUCOSE, URINE (UA) AUTO NEGATIVE (NEGATIVE); KETONE, URINE AUTO NEGATIVE (NEGATIVE); LEUKOCYTE ESTERASE, URINE AUTO 1+ (NEGATIVE); MUCUS, URINE SMALL (NEGATIVE); NITRITE, URINE AUTO POSITIVE (NEGATIVE); PROTEIN, URINE AUTO NEGATIVE (NEGATIVE); RBC, URINE AUTO 0 /HPF (0-3); SPECIFIC GRAVITY URINE AUTO 1.012 (1.002-1.035); SQUAMOUS EPITHELIAL CELL UR AU 0 /HPF (0-6); UROBILINOGEN, URINE AUTO 0.2 mg/dL (0.0-2.0); WBC, URINE AUTO 9 /HPF (0-3)
== END ==
LOC: M SFHCPLAZ 17:43
PROVIDERS: ATTEND Physician Assistant
DX: R30.0 Dysuria (principal)

== ENCOUNTER 2022-02-11 13:53 | Emergency (ER) | payer MEDICARE, MEDICAID ==
[2022-02-11 13:54] VITALS: BP 142/77
[2022-02-11 16:16] LABS: HEMATOCRIT 41.4 % (36.0-47.0); HEMOGLOBIN 13.9 g/dl (12.0-15.5); MEAN CORPUSCULAR HGB CONC 33.6 g/dl (32.0-36.5); MEAN CORPUSCULAR VOLUME 92.4 fl (80.0-96.0); PLATELET COUNT, AUTOMATED 152 10^3/uL (150-450); RED BLOOD COUNT 4.48 10^6/uL (4.00-5.40); WHITE BLOOD COUNT 6.4 10^3/uL (4.0-10.0)
[2022-02-11 16:44] LABS: BLOOD UREA NITROGEN 8 MG/DL (7-18); CALCIUM LEVEL 9.1 MG/DL (8.8-10.2); CARBON DIOXIDE LEVEL 30 MEQ/L (21-32); CHLORIDE LEVEL 99 MEQ/L (98-107); CREATININE FOR GFR 0.61 MG/DL (0.55-1.30); GLOMERULAR FILTRATION RATE > 60.0 (>45); GLUCOSE, FASTING 97 MG/DL (70-100); POTASSIUM SERUM 4.5 MEQ/L (3.5-5.1); SODIUM LEVEL 132 MEQ/L (136-145)
[2022-02-11] MEDS ORDERED: KETOROLAC 30 MG/ML 1ML VIAL IV ONE (18:20)
[2022-02-11] MEDS ORDERED: ISOVUE-370 76% 100ML VIAL As Ordered ONE (18:59)
[2022-02-11 19:55] LABS: ALBUMIN 3.3 GM/DL (3.2-5.2); ALT/SGPT 36 U/L (12-78); BILIRUBIN,DIRECT < 0.1 MG/DL (0.0-0.2); BILIRUBIN,TOTAL 0.2 MG/DL (0.2-1.0); LIPASE 185 U/L (73-393); TOTAL PROTEIN 8.4 GM/DL (6.4-8.2)
[2022-02-11] MEDS ORDERED: FLEET OIL RETENTION ENEMA PR SCH (21:30)
== END 2022-02-11 22:58 | disposition home or self-care (01) ==
LOC: M ED 13:53
DX: K56.41 Fecal impaction (principal); K59.39 Other megacolon; E11.9 Type 2 diabetes mellitus without complications; E03.9 Hypothyroidism, unspecified; Z79.890 Hormone replacement therapy; Z79.899 Other long term (current) drug therapy; Z88.1 Allergy status to other antibiotic agents
CPT/HCPCS: 51701; 74177; 80048; 80076; 81001; 83690; 85027; 87088; 87186; 96374; 99284; J1885; Q9967

== ENCOUNTER 2022-02-20 09:49 | Inpatient (IN) | payer MEDICARE, MEDICAID ==
[2022-02-20] MEDS: PANTOPRAZOLE 40MG VIAL IV SCH (09:00)
[2022-02-20 10:22] LABS: BASO % 0.5 % (0.0-1.0); EOS # 0.1 10^3/uL (0.0-0.5); EOS % 0.9 % (0.0-3.0); HEMATOCRIT 46.6 % (36.0-47.0); HEMOGLOBIN 15.7 g/dl (12.0-15.5); LYMPH # 2.7 10^3/uL (1.5-5.0); MEAN CORPUSCULAR HEMOGLOBIN 31.6 pg (27.0-33.0); MEAN CORPUSCULAR HGB CONC 33.7 g/dl (32.0-36.5); MEAN CORPUSCULAR VOLUME 93.8 fl (80.0-96.0); MONO # 0.9 10^3/uL (0.0-0.8); MONO % 11.4 % (2.0-8.0); NEUTROPHILS # 4.4 10^3/uL (1.5-8.5); NEUTROPHILS % 53.8 % (36.0-66.0); PLATELET COUNT, AUTOMATED 196 10^3/uL (150-450); RED BLOOD COUNT 4.97 10^6/uL (4.00-5.40); WHITE BLOOD COUNT 8.2 10^3/uL (4.0-10.0)
[2022-02-20 10:48] LABS: BILIRUBIN,DIRECT 0.1 MG/DL (0.0-0.2); BILIRUBIN,TOTAL 0.4 MG/DL (0.2-1.0); CALCIUM LEVEL 10.6 MG/DL (8.8-10.2); CREATININE FOR GFR 1.35 MG/DL (0.55-1.30); GLOMERULAR FILTRATION RATE 42.2 (>45); POTASSIUM SERUM 4.3 MEQ/L (3.5-5.1); TOTAL PROTEIN 9.9 GM/DL (6.4-8.2)
[2022-02-20 10:55] LABS: RSV AMPLIFICATION NEGATIVE (NEGATIVE)
[2022-02-20] MEDS ORDERED: BACT800T5 PO (12:30)
[2022-02-20] MEDS ORDERED: CALCCAP4 PO (12:30)
[2022-02-20] MEDS ORDERED: QUET300T2 PO (12:30)
[2022-02-20] MEDS ORDERED: LINZ290C PO (12:30)
[2022-02-20] MEDS ORDERED: MAGNSOL3 PO (12:30)
[2022-02-20] MEDS ORDERED: QUET200T2 PO (12:30)
[2022-02-20] MEDS ORDERED: HOME MED LIST COMPLETE! XX SCH (12:35)
[2022-02-20] MEDS: HEPARIN SOD (PORCINE) 5000UNITS/ML 1ML VIAL/SYRINGE SQ SCH ×2 (14:00→23:20)
[2022-02-20] MEDS ORDERED: MIDAZOLAM INJ 2MG/2ML VIAL (J2250 PER 1MG) IV ONE (16:00)
[2022-02-20] MEDS ORDERED: MIDAZOLAM INJ 2MG/2ML VIAL (J2250 PER 1MG) As Ordered ONE (16:02)
[2022-02-20] MEDS: NS 1,000 ML IV SCH (16:20)
[2022-02-20] MEDS ORDERED: MORPHINE 2 MG/ML 1ML VIAL IV PRN ×2 (16:20)
[2022-02-20] MEDS: PIPERACILLIN/TAZOBACTAM SOD 3.375 GM in D5W MINI-BAG PLUS 50 ML IV SCH ×2 (17:30→23:20)
[2022-02-20] MEDS: DOXYCYCLINE HYCLATE 100 MG in D5W MINI-BAG PLUS 100 ML IV SCH (19:34)
[2022-02-20 19:53] LABS: INR 1.35; PROTHROMBIN TIME 17.1 SECONDS (12.7-14.5)
[2022-02-20 19:54] LABS: PARTIAL THROMBOPLASTIN TIME 32.5 SECONDS (25.9-37.0)
[2022-02-20 21:07] VITALS: BP 129/75
[2022-02-21] VITALS: BP 123/72
[2022-02-21] MEDS: NS 1,000 ML IV SCH ×3 (00:20→18:20)
[2022-02-21] MEDS ORDERED: OLANZapine INTRAMUSCULAR 10MG VIAL IM ONE (03:00)
[2022-02-21 03:33] VITALS: BP 117/73
[2022-02-21] MEDS: PIPERACILLIN/TAZOBACTAM SOD 3.375 GM in D5W MINI-BAG PLUS 50 ML IV SCH ×4 (05:08→22:24)
[2022-02-21] MEDS: DOXYCYCLINE HYCLATE 100 MG in D5W MINI-BAG PLUS 100 ML IV SCH (05:57)
[2022-02-21] MEDS: HEPARIN SOD (PORCINE) 5000UNITS/ML 1ML VIAL/SYRINGE SQ SCH ×3 (05:57→21:23)
[2022-02-21 06:34] LABS: HEMATOCRIT 38.2 % (36.0-47.0); MEAN CORPUSCULAR HEMOGLOBIN 31.4 pg (27.0-33.0); MEAN CORPUSCULAR HGB CONC 33.5 g/dl (32.0-36.5); MEAN CORPUSCULAR VOLUME 93.6 fl (80.0-96.0); PLATELET COUNT, AUTOMATED 134 10^3/uL (150-450); RED BLOOD COUNT 4.08 10^6/uL (4.00-5.40); WHITE BLOOD COUNT 5.5 10^3/uL (4.0-10.0)
[2022-02-21 06:36] LABS: HEMOGLOBIN 12.8 g/dl (12.0-15.5)
[2022-02-21 06:59] LABS: ALBUMIN 2.8 GM/DL (3.2-5.2); ALT/SGPT 44 U/L (12-78); BILIRUBIN,TOTAL 0.4 MG/DL (0.2-1.0); BLOOD UREA NITROGEN 21 MG/DL (7-18); CALCIUM LEVEL 8.7 MG/DL (8.8-10.2); CARBON DIOXIDE LEVEL 31 MEQ/L (21-32); CHLORIDE LEVEL 104 MEQ/L (98-107); CREATININE FOR GFR 0.78 MG/DL (0.55-1.30); GLOMERULAR FILTRATION RATE > 60.0 (>45); GLUCOSE, FASTING 108 MG/DL (70-100); POTASSIUM SERUM 3.7 MEQ/L (3.5-5.1); SODIUM LEVEL 140 MEQ/L (136-145); TOTAL PROTEIN 6.9 GM/DL (6.4-8.2)
[2022-02-21 08:15] VITALS: BP 112/67
[2022-02-21] MEDS: PANTOPRAZOLE 40MG VIAL IV SCH (08:32)
[2022-02-21 12:11] VITALS: BP 125/82
[2022-02-21 16:08] VITALS: BP 129/63
[2022-02-21] MEDS ORDERED: ACETAMINOPHEN TAB 650MG DOSE (2X325MG) PO PRN (17:55)
[2022-02-21] MEDS ORDERED: guaiFENesin SYRUP 200MG 10ML UDC PO PRN (17:55)
[2022-02-21 20:00] VITALS: BP 133/76
[2022-02-21] MEDS: SENNA 8.6 MG TAB (SENOKOT) PO SCH (21:00)
[2022-02-21] MEDS: rifAXIMin 550 MG TAB (XIFAXAN) PO SCH (21:00)
[2022-02-21] MEDS: NYSTATIN 100,000 UNITS/GM TOPICAL PWD 15 GM TOP SCH (21:00)
[2022-02-21] MEDS: LACTULOSE 20 GM/30 ML SYRUP UD PO SCH (21:00)
[2022-02-21] MEDS: BACTRIM 160MG/800MG DS TAB PO SCH (21:00)
[2022-02-21] MEDS: DIVALPROEX SPRINKLE 125 MG CAP PO SCH (21:00)
[2022-02-21] MEDS: OLANZapine 2.5MG TABLET PO SCH (21:00)
[2022-02-21] MEDS: levETIRAcetam 250MG TABLET (KEPPRA) PO SCH (21:00)
[2022-02-21] MEDS: QUEtiapine FUMARATE 200 MG TAB PO SCH (21:00)
[2022-02-21] MEDS: DOCUSATE SOD LIQ 100MG/10ML UDC PO SCH (21:00)
[2022-02-21] MEDS: METOPROLOL TART 50 MG TAB PO SCH (21:00)
[2022-02-21] MEDS: MAGNESIUM OXIDE 400MG TAB (MAG-OX) PO SCH (21:00)
[2022-02-21] MEDS ORDERED: CLOMIPRAMINE 25 MG PO SCH (21:00)
[2022-02-21] MEDS: MIRALAX *UNIT DOSE* 17GM PACKET PO SCH (21:23)
[2022-02-22] VITALS: BP 110/63
[2022-02-22 04:00] VITALS: BP 101/65
[2022-02-22] MEDS: NS 1,000 ML IV SCH ×2 (04:20→14:20)
[2022-02-22] MEDS: PIPERACILLIN/TAZOBACTAM SOD 3.375 GM in D5W MINI-BAG PLUS 50 ML IV SCH ×2 (05:00→11:00)
[2022-02-22] MEDS: LEVOTHYROXINE 50MCG TABLET (0.05MG) PO SCH (06:38)
[2022-02-22] MEDS: HEPARIN SOD (PORCINE) 5000UNITS/ML 1ML VIAL/SYRINGE SQ SCH ×3 (06:38→21:56)
[2022-02-22] MEDS: LACTULOSE 20 GM/30 ML SYRUP UD PO SCH ×2 (09:00→20:48)
[2022-02-22] MEDS: MIRALAX *UNIT DOSE* 17GM PACKET PO SCH ×2 (09:00→20:48)
[2022-02-22] MEDS ORDERED: LINACLOTIDE 290 MCG PO SCH (09:00)
[2022-02-22] MEDS: PANTOPRAZOLE 40MG VIAL IV SCH (09:00)
[2022-02-22 09:37] VITALS: BP 175/77
[2022-02-22 09:42] LABS: HEMATOCRIT 39.3 % (36.0-47.0); HEMOGLOBIN 13.1 g/dl (12.0-15.5); MEAN CORPUSCULAR HEMOGLOBIN 31.4 pg (27.0-33.0); MEAN CORPUSCULAR HGB CONC 33.3 g/dl (32.0-36.5); MEAN CORPUSCULAR VOLUME 94.2 fl (80.0-96.0); PLATELET COUNT, AUTOMATED 119 10^3/uL (150-450); RED BLOOD COUNT 4.17 10^6/uL (4.00-5.40); WHITE BLOOD COUNT 5.5 10^3/uL (4.0-10.0)
[2022-02-22] MEDS: NYSTATIN 100,000 UNITS/GM TOPICAL PWD 15 GM TOP SCH ×2 (10:38→20:49)
[2022-02-22 10:40] LABS: ALBUMIN 2.6 GM/DL (3.2-5.2); ALT/SGPT 39 U/L (12-78); BILIRUBIN,TOTAL 0.4 MG/DL (0.2-1.0); BLOOD UREA NITROGEN 10 MG/DL (7-18); CALCIUM LEVEL 8.4 MG/DL (8.8-10.2); CARBON DIOXIDE LEVEL 24 MEQ/L (21-32); CHLORIDE LEVEL 109 MEQ/L (98-107); CREATININE FOR GFR 0.67 MG/DL (0.55-1.30); GLOMERULAR FILTRATION RATE > 60.0 (>45); GLUCOSE, FASTING 101 MG/DL (70-100); SODIUM LEVEL 139 MEQ/L (136-145); TOTAL PROTEIN 7.5 GM/DL (6.4-8.2)
[2022-02-22 11:54] VITALS: BP 112/60
[2022-02-22] MEDS: SENNA 8.6 MG TAB (SENOKOT) PO SCH ×3 (12:25→21:56)
[2022-02-22] MEDS: MULTIVITAMINS/MINERALS THERAP 1 TAB PO SCH (12:25)
[2022-02-22] MEDS: BACTRIM 160MG/800MG DS TAB PO SCH ×2 (12:25→21:55)
[2022-02-22] MEDS: rifAXIMin 550 MG TAB (XIFAXAN) PO SCH ×2 (12:25→21:56)
[2022-02-22] MEDS: levETIRAcetam 250MG TABLET (KEPPRA) PO SCH ×2 (12:26→21:56)
[2022-02-22] MEDS: MAGNESIUM OXIDE 400MG TAB (MAG-OX) PO SCH ×2 (12:26→21:56)
[2022-02-22] MEDS: DOCUSATE SOD LIQ 100MG/10ML UDC PO SCH ×2 (12:26→20:48)
[2022-02-22] MEDS: METOPROLOL TART 50 MG TAB PO SCH ×2 (12:27→21:04)
[2022-02-22] MEDS: QUEtiapine FUMARATE 100 MG TAB PO SCH (12:27)
[2022-02-22 20:00] VITALS: BP 151/68
[2022-02-22] MEDS: DIVALPROEX SPRINKLE 125 MG CAP PO SCH (21:55)
[2022-02-22] MEDS: QUEtiapine FUMARATE 200 MG TAB PO SCH (21:56)
[2022-02-22] MEDS: OLANZapine 2.5MG TABLET PO SCH (21:56)
[2022-02-22 23:52] VITALS: BP 120/81
[2022-02-23 03:51] VITALS: BP 120/81
[2022-02-23] MEDS: HEPARIN SOD (PORCINE) 5000UNITS/ML 1ML VIAL/SYRINGE SQ SCH ×2 (06:00→06:51)
[2022-02-23] MEDS: LEVOTHYROXINE 50MCG TABLET (0.05MG) PO SCH (06:51)
[2022-02-23] MEDS ORDERED: NYST10006 TOP (08:16)
[2022-02-23 08:35] VITALS: BP 128/63
[2022-02-23] MEDS: PANTOPRAZOLE 40MG VIAL IV SCH (09:00)
[2022-02-23] MEDS: LACTULOSE 20 GM/30 ML SYRUP UD PO SCH (09:00)
[2022-02-23] MEDS: NYSTATIN 100,000 UNITS/GM TOPICAL PWD 15 GM TOP SCH (09:10)
[2022-02-23] MEDS: DOCUSATE SOD LIQ 100MG/10ML UDC PO SCH (09:12)
[2022-02-23] MEDS: MIRALAX *UNIT DOSE* 17GM PACKET PO SCH (09:13)
[2022-02-23] MEDS: QUEtiapine FUMARATE 100 MG TAB PO SCH (09:24)
[2022-02-23] MEDS: levETIRAcetam 250MG TABLET (KEPPRA) PO SCH (09:24)
[2022-02-23 09:25] VITALS: BP 128/63
[2022-02-23] MEDS: rifAXIMin 550 MG TAB (XIFAXAN) PO SCH (09:25)
[2022-02-23] MEDS: MULTIVITAMINS/MINERALS THERAP 1 TAB PO SCH (09:25)
[2022-02-23] MEDS: MAGNESIUM OXIDE 400MG TAB (MAG-OX) PO SCH (09:25)
[2022-02-23] MEDS: METOPROLOL TART 50 MG TAB PO SCH (09:25)
[2022-02-23] MEDS: SENNA 8.6 MG TAB (SENOKOT) PO SCH (09:25)
[2022-02-23] MEDS: BACTRIM 160MG/800MG DS TAB PO SCH (09:25)
[2022-02-23] MEDS ORDERED: LACT20EL PO (12:45)
[2022-02-23] MEDS ORDERED: BACT800T5 PO (13:04)
[2022-02-25] MEDS ORDERED: NITROFURANTOIN (MACROBID) 100 MG CAP PO SCH (21:00)
== END 2022-02-23 13:54 | DRG 389 ==
LOC: EDBD 09:49 → M ED 09:49 → M PCU 16:19 → M ED INP 16:19 → M PCU 20:49
PROVIDERS: ADMIT Internal Medicine; ATTEND Internal Medicine
PROC: 0DJD8ZZ Inspection of Lower Intestinal Tract, Via Natural or Artificial Opening Endoscopic (ICD-10-PCS; principal; 2022-02-20)
DX: K56.2 Volvulus (principal); I50.32 Chronic diastolic (congestive) heart failure; N17.9 Acute kidney failure, unspecified; E87.2 Acidosis; K56.609 Unspecified intestinal obstruction, unspecified as to partial versus complete obstruction; E03.9 Hypothyroidism, unspecified; K75.81 Nonalcoholic steatohepatitis (NASH); F79 Unspecified intellectual disabilities; I87.2 Venous insufficiency (chronic) (peripheral); G47.33 Obstructive sleep apnea (adult) (pediatric); E86.0 Dehydration; E83.42 Hypomagnesemia; F32.A Depression, unspecified; E55.9 Vitamin D deficiency, unspecified; F41.9 Anxiety disorder, unspecified; Z79.899 Other long term (current) drug therapy; Z88.8 Allergy status to other drugs, medicaments and biological substances

== ENCOUNTER → 2022-04-21 | Outpatient (CLI) | payer MEDICARE, MEDICAID ==
[~2022-04-21] MED LIST changes: +BACT800T5 PO; +CALCCAP4 PO; +LINZ290C PO; +MAGNSOL3 PO; +NYST-13 EXT; +NYST10006 TOP; -NYST10CR EXT; +QUET200T2 PO; +QUET300T2 PO
== END ==
LOC: M LAB 11:03
PROVIDERS: ATTEND Family Medicine
DX: Z13.79 Encounter for other screening for genetic and chromosomal anomalies (principal); Z80.0 Family history of malignant neoplasm of digestive organs

== ENCOUNTER → 2022-04-28 | Outpatient (REF) | payer MEDICARE, MEDICAID ==
[2022-04-29 10:06] LABS: APPEARANCE, URINE MANUAL HAZY (CLEAR); COLOR, URINE MANUAL YELLOW (YELLOW)
[2022-04-29 10:07] LABS: BILIRUBIN, URINE MANUAL NEGATIVE (NEGATIVE); BLOOD URINE MANUAL NEGATIVE (NEGATIVE); GLUCOSE, URINE (UA) MANUAL NEGATIVE (NEGATIVE); KETONE, URINE MANUAL NEGATIVE (NEGATIVE); LEUKOCYTE ESTERASE, URINE MAN TRACE (NEGATIVE); NITRITE, URINE MANUAL NEGATIVE (NEGATIVE); PROTEIN, URINE MANUAL NEGATIVE (NEGATIVE); SPECIFIC GRAVITY,URINE MANUAL 1.014 (1.002-1.035); UROBILINOGEN, URINE MANUAL NORMAL (NORMAL)
[2022-04-29 10:13] LABS: RBC, URINE NONE SEEN /hpf (0-3); SQUAMOUS EPITHELIAL CELL URINE SMALL AMOUNT /hpf (SMALL AMT)
[2022-04-29 10:15] LABS: AMORPHOUS SEDIMENT, URINE SMALL AMOUNT (NEGATIVE); BACTERIA, URINE SMALL AMOUNT; MUCUS, URINE MOD AMOUNT (NEGATIVE)
== END ==
LOC: M SFHCPLAZ 12:44
PROVIDERS: ATTEND Family Medicine
DX: N39.0 Urinary tract infection, site not specified (principal)

== ENCOUNTER → 2022-07-30 | Outpatient (REF) | payer MEDICARE, MEDICAID ==
[~2022-07-30] MED LIST changes: +BUSP5TA PO; +CVS1CRE56 TOP; +SIME125T PO
[2022-07-30 19:21] LABS: APPEARANCE, URINE MANUAL HAZY (CLEAR); BILIRUBIN, URINE MANUAL NEGATIVE (NEGATIVE); BLOOD URINE MANUAL NEGATIVE (NEGATIVE); COLOR, URINE MANUAL DK YELLOW (YELLOW); GLUCOSE, URINE (UA) MANUAL NEGATIVE (NEGATIVE); KETONE, URINE MANUAL NEGATIVE (NEGATIVE); LEUKOCYTE ESTERASE, URINE MAN POSITIVE (NEGATIVE); NITRITE, URINE MANUAL POSITIVE (NEGATIVE); PROTEIN, URINE MANUAL NEGATIVE (NEGATIVE); UROBILINOGEN, URINE MANUAL NORMAL (NORMAL)
[2022-07-30 19:44] LABS: RBC, URINE NONE SEEN /hpf (0-3); SQUAMOUS EPITHELIAL CELL URINE SMALL AMOUNT /hpf (SMALL AMT)
[2022-07-30 19:45] LABS: BACTERIA, URINE LARGE AMOUNT; HYALINE CAST, URINE NONE SEEN /lpf (0-1)
== END ==
LOC: M SFHCPLAZ 17:34
PROVIDERS: ATTEND Family Medicine
DX: N39.0 Urinary tract infection, site not specified (principal)

== ENCOUNTER 2022-07-31 12:38 | Inpatient (IN) | payer MEDICARE, MEDICAID ==
[~2022-07-31] VITALS: Ht 162.6 cm; Wt 79.9 kg
[~2022-07-31 12:38] MED LIST changes: -BUSP5TA PO; -CVS1CRE56 TOP; -SIME125T PO
[2022-07-31] MEDS ORDERED: NS 1,000 ML IV ONE (13:45)
[2022-07-31 15:05] LABS: VENOUS BASE EXCESS -1.3 (-2.0-2.0); VENOUS HCO3 25.1 MEQ/L (23.0-27.0); VENOUS O2 SATURATION 90.7 % (60.0-80.0); VENOUS PARTIAL PRESSURE CO2 48.1 mmHg (38.0-50.0); VENOUS PARTIAL PRESSURE O2 62.8 mmHg (30.0-50.0); VENOUS PH 7.335 UNITS (7.330-7.430); VENOUS STANDARD HCO3 23.2 MEQ/L; VENOUS TOTAL CO2 26.6 MEQ/L (24.0-28.0)
[2022-07-31] MEDS ORDERED: LACT20EL PO (15:14)
[2022-07-31] MEDS ORDERED: CVS1CRE56 TOP (15:14)
[2022-07-31] MEDS ORDERED: SIME125T PO (15:14)
[2022-07-31] MEDS ORDERED: BUSP5TA PO (15:14)
[2022-07-31] MEDS ORDERED: HOME MED LIST COMPLETE! XX SCH (15:15)
[2022-07-31 15:36] LABS: CK-MB VALUE MASS < 1.0 NG/ML (<3.6)
[2022-07-31 15:38] LABS: CPK CREATINE PHOSPHOKINASE 26 U/L (34-145); MB/CK RELATIVE INDEX 3.84 (< OR =4); OSMOLALITY SERUM 283 MOSM/KG (280-301)
[2022-07-31 15:39] LABS: ALBUMIN 2.9 G/DL (3.2-5.2); ALKALINE PHOSPHATASE 46 U/L (46-116); ALT/SGPT 23 U/L (7.0-40); AST/SGOT 24 U/L (<34); BILIRUBIN,DIRECT 0.2 MG/DL (<0.4); BILIRUBIN,TOTAL 0.5 MG/DL (0.3-1.2); BLOOD UREA NITROGEN 9 MG/DL (9-23); CALCIUM LEVEL 9.2 MG/DL (8.3-10.6); CARBON DIOXIDE LEVEL 25 MMOL/L (20-31); CHLORIDE LEVEL 100 MMOL/L (98-107); CREATININE FOR GFR 0.53 MG/DL (0.55-1.30); GLOMERULAR FILTRATION RATE > 60.0 (>45); GLUCOSE, FASTING 117 MG/DL (74-106); POTASSIUM SERUM 4.4 MMOL/L (3.5-5.1); SODIUM LEVEL 137 MMOL/L (136-145); TOTAL PROTEIN 7.6 G/DL (5.7-8.2)
[2022-07-31 15:52] LABS: RSV AMPLIFICATION NEGATIVE (NEGATIVE)
[2022-07-31 16:34] LABS: BASO % 0.3 % (0.0-1.0); EOS # 0.1 10^3/uL (0.0-0.5); EOS % 0.9 % (0.0-3.0); HEMOGLOBIN 11.9 g/dl (12.0-15.5); LYMPH # 1.9 10^3/uL (1.5-5.0); LYMPH % 23.8 % (24.0-44.0); MEAN CORPUSCULAR HGB CONC 33.1 g/dl (32.0-36.5); MEAN CORPUSCULAR VOLUME 93.8 fl (80.0-96.0); MONO # 1.3 10^3/uL (0.0-0.8); MONO % 16.9 % (2.0-8.0); NEUTROPHILS # 4.6 10^3/uL (1.5-8.5); NEUTROPHILS % 57.7 % (36.0-66.0); PLATELET COUNT, AUTOMATED 113 10^3/uL (150-450); RED BLOOD COUNT 3.84 10^6/uL (4.00-5.40)
[2022-07-31] MEDS ORDERED: ISOVUE-370 76% 100ML VIAL As Ordered ONE (19:00)
[2022-07-31] MEDS ORDERED: PIPERACILLIN/TAZOBACTAM SOD 4.5 GM in D5W MINI-BAG PLUS 50 ML IV ONE (20:45)
[2022-07-31] MEDS ORDERED: IBUPROFEN 100MG 5ML ORAL SUSP UDC PO PRN (23:35)
[2022-07-31] MEDS ORDERED: ACETAMINOPHEN TAB 650MG DOSE (2X325MG) PO PRN (23:35)
[2022-07-31] MEDS ORDERED: guaiFENesin SYRUP 200MG 10ML UDC PO PRN (23:35)
[2022-08-01] MEDS: NS 1,000 ML IV SCH ×2 (02:48→17:15)
[2022-08-01 05:57] LABS: HEMATOCRIT 38.5 % (36.0-47.0); HEMOGLOBIN 12.9 g/dl (12.0-15.5); MEAN CORPUSCULAR HGB CONC 33.5 g/dl (32.0-36.5); MEAN CORPUSCULAR VOLUME 92.5 fl (80.0-96.0); PLATELET COUNT, AUTOMATED 136 10^3/uL (150-450); RED BLOOD COUNT 4.16 10^6/uL (4.00-5.40); WHITE BLOOD COUNT 7.7 10^3/uL (4.0-10.0)
[2022-08-01 06:16] LABS: MAGNESIUM LEVEL 1.6 MG/DL (1.8-2.4)
[2022-08-01 06:18] LABS: BLOOD UREA NITROGEN 8 MG/DL (9-23); CALCIUM LEVEL 8.2 MG/DL (8.3-10.6); CARBON DIOXIDE LEVEL 21 MMOL/L (20-31); CHLORIDE LEVEL 102 MMOL/L (98-107); CREATININE FOR GFR 0.43 MG/DL (0.55-1.30); GLOMERULAR FILTRATION RATE > 60.0 (>45); GLUCOSE, FASTING 113 MG/DL (74-106); POTASSIUM SERUM 4.2 MMOL/L (3.5-5.1); SODIUM LEVEL 135 MMOL/L (136-145)
[2022-08-01] MEDS ORDERED: FUROSEMIDE 40 MG TAB PO SCH (09:00)
[2022-08-01] MEDS: LACTULOSE 20GM/30ML SYRUP UDC PO SCH ×3 (10:12→20:11)
[2022-08-01] MEDS: ENOXAPARIN 40MG/0.4ML SYRINGE (J1650 PER 10MG) SC SCH (10:13)
[2022-08-01] MEDS: PIPERACILLIN/TAZOBACTAM SOD 3.375 GM in D5W MINI-BAG PLUS 50 ML IV SCH ×3 (10:13→20:51)
[2022-08-01] MEDS: LEVOTHYROXINE 50MCG TABLET (0.05MG) PO SCH (10:15)
[2022-08-01] MEDS: levETIRAcetam 250MG TABLET (KEPPRA) PO SCH ×2 (10:16→20:09)
[2022-08-01] MEDS: QUEtiapine FUMARATE 100 MG TAB PO SCH (10:16)
[2022-08-01] MEDS: METOPROLOL TART 50 MG TAB PO SCH ×2 (10:16→20:10)
[2022-08-01] MEDS: MAGNESIUM OXIDE 400MG TAB (MAG-OX) PO SCH ×2 (10:16→20:11)
[2022-08-01] MEDS: busPIRone 5 MG TAB PO SCH ×2 (10:17→20:11)
[2022-08-01] MEDS: rifAXIMin 550 MG TAB (XIFAXAN) PO SCH ×2 (10:17→20:09)
[2022-08-01] MEDS: FLEET ENEMA PR SCH ×2 (10:17→21:00)
[2022-08-01 13:00] VITALS: BP 117/65
[2022-08-01] MEDS: LEVALBUTEROL 1.25MG 0.5ML CONCENTRATE NEB INH SCH ×2 (16:00→20:00)
[2022-08-01] MEDS ORDERED: MAG SULF 1GM/100ML (MAG RUN) 1 GM in IV 1 EA IV ONE (16:00)
[2022-08-01] MEDS ORDERED: IPRATROPIUM 0.02% SOLN 0.5MG 2.5ML NEB INH PRN (16:20)
[2022-08-01] MEDS ORDERED: LEVALBUTEROL 1.25MG 0.5ML CONCENTRATE NEB INH PRN (16:20)
[2022-08-01 19:47] VITALS: BP 127/85
[2022-08-01] MEDS: IPRATROPIUM 0.02% SOLN 0.5MG 2.5ML NEB INH SCH (20:00)
[2022-08-01] MEDS: DIVALPROEX SPRINKLE 125 MG CAP PO SCH (20:09)
[2022-08-01] MEDS: QUEtiapine FUMARATE 200 MG TAB PO SCH (20:09)
[2022-08-01] MEDS: guaiFENesin ER 600 MG TAB PO SCH (20:10)
[2022-08-02] MEDS: PIPERACILLIN/TAZOBACTAM SOD 3.375 GM in D5W MINI-BAG PLUS 50 ML IV SCH ×4 (03:31→21:42)
[2022-08-02 05:23] VITALS: BP 110/68
[2022-08-02] MEDS: LEVOTHYROXINE 50MCG TABLET (0.05MG) PO SCH (05:57)
[2022-08-02] MEDS: rifAXIMin 550 MG TAB (XIFAXAN) PO SCH ×2 (07:47→21:40)
[2022-08-02] MEDS: levETIRAcetam 250MG TABLET (KEPPRA) PO SCH ×2 (07:47→21:40)
[2022-08-02] MEDS: LACTULOSE 20GM/30ML SYRUP UDC PO SCH ×3 (07:47→21:42)
[2022-08-02] MEDS: QUEtiapine FUMARATE 100 MG TAB PO SCH (07:48)
[2022-08-02] MEDS: METOPROLOL TART 50 MG TAB PO SCH ×2 (07:48→21:41)
[2022-08-02] MEDS: busPIRone 5 MG TAB PO SCH ×2 (07:48→21:41)
[2022-08-02] MEDS: guaiFENesin ER 600 MG TAB PO SCH ×2 (07:49→21:40)
[2022-08-02] MEDS: MAGNESIUM OXIDE 400MG TAB (MAG-OX) PO SCH ×2 (07:49→21:41)
[2022-08-02] MEDS: ENOXAPARIN 40MG/0.4ML SYRINGE (J1650 PER 10MG) SC SCH (07:50)
[2022-08-02] MEDS: IPRATROPIUM 0.02% SOLN 0.5MG 2.5ML NEB INH SCH ×4 (08:00→19:13)
[2022-08-02] MEDS: LEVALBUTEROL 1.25MG 0.5ML CONCENTRATE NEB INH SCH ×4 (08:00→19:13)
[2022-08-02] MEDS: FLEET ENEMA PR SCH ×2 (09:00→21:44)
[2022-08-02 10:25] LABS: BASO % 0.6 % (0.0-1.0); EOS # 0.1 10^3/uL (0.0-0.5); EOS % 2.5 % (0.0-3.0); HEMATOCRIT 36.9 % (36.0-47.0); HEMOGLOBIN 11.9 g/dl (12.0-15.5); LYMPH # 1.9 10^3/uL (1.5-5.0); LYMPH % 38.3 % (24.0-44.0); MEAN CORPUSCULAR HEMOGLOBIN 31.1 pg (27.0-33.0); MEAN CORPUSCULAR HGB CONC 32.2 g/dl (32.0-36.5); MEAN CORPUSCULAR VOLUME 96.3 fl (80.0-96.0); MONO # 0.7 10^3/uL (0.0-0.8); MONO % 13.6 % (2.0-8.0); NEUTROPHILS # 2.2 10^3/uL (1.5-8.5); NEUTROPHILS % 44.4 % (36.0-66.0); PLATELET COUNT, AUTOMATED 129 10^3/uL (150-450); RED BLOOD COUNT 3.83 10^6/uL (4.00-5.40); WHITE BLOOD COUNT 4.9 10^3/uL (4.0-10.0)
[2022-08-02 14:34] LABS: MAGNESIUM LEVEL 1.7 MG/DL (1.8-2.4)
[2022-08-02 14:36] LABS: ALBUMIN 2.1 G/DL (3.2-5.2); ALKALINE PHOSPHATASE 40 U/L (46-116); ALT/SGPT 27 U/L (7.0-40); AST/SGOT 36 U/L (<34); BILIRUBIN,TOTAL 0.2 MG/DL (0.3-1.2); BLOOD UREA NITROGEN 7 MG/DL (9-23); CALCIUM LEVEL 7.7 MG/DL (8.3-10.6); CARBON DIOXIDE LEVEL 28 MMOL/L (20-31); CHLORIDE LEVEL 106 MMOL/L (98-107); CREATININE FOR GFR 0.47 MG/DL (0.55-1.30); GLOMERULAR FILTRATION RATE > 60.0 (>45); GLUCOSE, FASTING 114 MG/DL (74-106); POTASSIUM SERUM 3.9 MMOL/L (3.5-5.1); SODIUM LEVEL 139 MMOL/L (136-145); TOTAL PROTEIN 6.2 G/DL (5.7-8.2)
[2022-08-02] MEDS: QUEtiapine FUMARATE 200 MG TAB PO SCH (21:41)
[2022-08-02] MEDS: DIVALPROEX SPRINKLE 125 MG CAP PO SCH (21:42)
[2022-08-03] MEDS: PIPERACILLIN/TAZOBACTAM SOD 3.375 GM in D5W MINI-BAG PLUS 50 ML IV SCH ×4 (02:21→22:10)
[2022-08-03 05:45] VITALS: BP 126/83
[2022-08-03] MEDS: LEVOTHYROXINE 50MCG TABLET (0.05MG) PO SCH (06:03)
[2022-08-03] MEDS: LEVALBUTEROL 1.25MG 0.5ML CONCENTRATE NEB INH SCH ×4 (07:14→19:16)
[2022-08-03] MEDS: IPRATROPIUM 0.02% SOLN 0.5MG 2.5ML NEB INH SCH ×4 (07:14→19:15)
[2022-08-03 08:46] LABS: BASO % 0.2 % (0.0-1.0); EOS # 0.1 10^3/uL (0.0-0.5); EOS % 2.6 % (0.0-3.0); HEMATOCRIT 36.5 % (36.0-47.0); LYMPH # 1.8 10^3/uL (1.5-5.0); LYMPH % 42.3 % (24.0-44.0); MEAN CORPUSCULAR HEMOGLOBIN 30.8 pg (27.0-33.0); MEAN CORPUSCULAR HGB CONC 32.9 g/dl (32.0-36.5); MEAN CORPUSCULAR VOLUME 93.6 fl (80.0-96.0); MONO # 0.5 10^3/uL (0.0-0.8); MONO % 10.9 % (2.0-8.0); NEUTROPHILS # 1.9 10^3/uL (1.5-8.5); NEUTROPHILS % 43.8 % (36.0-66.0); PLATELET COUNT, AUTOMATED 160 10^3/uL (150-450); WHITE BLOOD COUNT 4.3 10^3/uL (4.0-10.0)
[2022-08-03] MEDS: METOPROLOL TART 50 MG TAB PO SCH ×2 (09:00→21:00)
[2022-08-03] MEDS ORDERED: MAG SULF 1GM/100ML (MAG RUN) 1 GM in IV 1 EA IV ONE (09:00)
[2022-08-03 09:02] LABS: ERYTHROCYTE SEDIMENTATION RATE 50 mm/hr (0-30)
[2022-08-03 09:24] LABS: MAGNESIUM LEVEL 1.6 MG/DL (1.8-2.4)
[2022-08-03] MEDS: QUEtiapine FUMARATE 100 MG TAB PO SCH (09:33)
[2022-08-03] MEDS: levETIRAcetam 250MG TABLET (KEPPRA) PO SCH ×2 (09:34→22:16)
[2022-08-03] MEDS: MAGNESIUM OXIDE 400MG TAB (MAG-OX) PO SCH ×2 (09:34→22:11)
[2022-08-03] MEDS: LACTULOSE 20GM/30ML SYRUP UDC PO SCH ×4 (09:34→22:10)
[2022-08-03] MEDS: rifAXIMin 550 MG TAB (XIFAXAN) PO SCH ×2 (09:34→22:11)
[2022-08-03] MEDS: guaiFENesin ER 600 MG TAB PO SCH ×2 (09:34→22:10)
[2022-08-03] MEDS: ENOXAPARIN 40MG/0.4ML SYRINGE (J1650 PER 10MG) SC SCH (09:35)
[2022-08-03] MEDS: FLEET ENEMA PR SCH ×2 (09:38→22:11)
[2022-08-03] MEDS: busPIRone 5 MG TAB PO SCH ×2 (09:39→22:10)
[2022-08-03 09:42] LABS: ALBUMIN 2.3 G/DL (3.2-5.2); ALKALINE PHOSPHATASE 48 U/L (46-116); ALT/SGPT 31 U/L (7.0-40); AST/SGOT 33 U/L (<34); BILIRUBIN,TOTAL 0.2 MG/DL (0.3-1.2); BLOOD UREA NITROGEN 7 MG/DL (9-23); CARBON DIOXIDE LEVEL 29 MMOL/L (20-31); CHLORIDE LEVEL 105 MMOL/L (98-107); CREATININE FOR GFR 0.53 MG/DL (0.55-1.30); GLOMERULAR FILTRATION RATE > 60.0 (>45); GLUCOSE, FASTING 126 MG/DL (74-106); POTASSIUM SERUM 3.9 MMOL/L (3.5-5.1); SODIUM LEVEL 139 MMOL/L (136-145); TOTAL PROTEIN 6.9 G/DL (5.7-8.2)
[2022-08-03 14:29] VITALS: BP 103/75
[2022-08-03 21:19] VITALS: BP 108/74
[2022-08-03] MEDS: QUEtiapine FUMARATE 200 MG TAB PO SCH (22:10)
[2022-08-03] MEDS: DIVALPROEX SPRINKLE 125 MG CAP PO SCH (22:52)
[2022-08-04] MEDS: PIPERACILLIN/TAZOBACTAM SOD 3.375 GM in D5W MINI-BAG PLUS 50 ML IV SCH ×4 (03:44→20:58)
[2022-08-04 05:16] VITALS: BP 123/83
[2022-08-04] MEDS: IPRATROPIUM 0.02% SOLN 0.5MG 2.5ML NEB INH SCH ×4 (06:02→19:19)
[2022-08-04] MEDS: LEVALBUTEROL 1.25MG 0.5ML CONCENTRATE NEB INH SCH ×4 (06:02→19:20)
[2022-08-04 07:42] LABS: BASO % 0.4 % (0.0-1.0); EOS # 0.1 10^3/uL (0.0-0.5); EOS % 2.4 % (0.0-3.0); HEMATOCRIT 35.8 % (36.0-47.0); HEMOGLOBIN 11.9 g/dl (12.0-15.5); LYMPH # 1.7 10^3/uL (1.5-5.0); LYMPH % 34.3 % (24.0-44.0); MEAN CORPUSCULAR HEMOGLOBIN 30.6 pg (27.0-33.0); MEAN CORPUSCULAR HGB CONC 33.2 g/dl (32.0-36.5); MONO # 0.8 10^3/uL (0.0-0.8); MONO % 15.5 % (2.0-8.0); NEUTROPHILS # 2.3 10^3/uL (1.5-8.5); NEUTROPHILS % 46.8 % (36.0-66.0); PLATELET COUNT, AUTOMATED 165 10^3/uL (150-450); RED BLOOD COUNT 3.89 10^6/uL (4.00-5.40); WHITE BLOOD COUNT 4.9 10^3/uL (4.0-10.0)
[2022-08-04] MEDS: LEVOTHYROXINE 50MCG TABLET (0.05MG) PO SCH (07:51)
[2022-08-04] MEDS ORDERED: MAG SULF 1GM/100ML (MAG RUN) 1 GM in IV 1 EA IV ONE ×2 (08:00→14:00)
[2022-08-04 08:08] LABS: MAGNESIUM LEVEL 1.7 MG/DL (1.8-2.4)
[2022-08-04 08:10] LABS: BLOOD UREA NITROGEN 7 MG/DL (9-23); CALCIUM LEVEL 7.9 MG/DL (8.3-10.6); CARBON DIOXIDE LEVEL 29 MMOL/L (20-31); CHLORIDE LEVEL 105 MMOL/L (98-107); CREATININE FOR GFR 0.54 MG/DL (0.55-1.30); GLOMERULAR FILTRATION RATE > 60.0 (>45); GLUCOSE, FASTING 93 MG/DL (74-106); POTASSIUM SERUM 3.5 MMOL/L (3.5-5.1); SODIUM LEVEL 141 MMOL/L (136-145)
[2022-08-04] MEDS: METOPROLOL TART 50 MG TAB PO SCH ×2 (09:00→20:56)
[2022-08-04] MEDS: FLEET ENEMA PR SCH ×2 (09:00→20:42)
[2022-08-04] MEDS: LACTULOSE 20GM/30ML SYRUP UDC PO SCH ×3 (09:12→20:58)
[2022-08-04] MEDS: ENOXAPARIN 40MG/0.4ML SYRINGE (J1650 PER 10MG) SC SCH (09:12)
[2022-08-04] MEDS: levETIRAcetam 250MG TABLET (KEPPRA) PO SCH ×2 (09:13→20:58)
[2022-08-04] MEDS: MAGNESIUM OXIDE 400MG TAB (MAG-OX) PO SCH ×2 (09:13→20:58)
[2022-08-04] MEDS: QUEtiapine FUMARATE 100 MG TAB PO SCH (09:13)
[2022-08-04] MEDS: rifAXIMin 550 MG TAB (XIFAXAN) PO SCH ×2 (09:13→20:56)
[2022-08-04] MEDS: busPIRone 5 MG TAB PO SCH ×2 (09:13→20:58)
[2022-08-04] MEDS: guaiFENesin ER 600 MG TAB PO SCH ×2 (09:14→20:56)
[2022-08-04 18:00] VITALS: BP 101/72
[2022-08-04] MEDS: QUEtiapine FUMARATE 200 MG TAB PO SCH (20:55)
[2022-08-04] MEDS: DIVALPROEX SPRINKLE 125 MG CAP PO SCH (20:56)
[2022-08-05] MEDS: PIPERACILLIN/TAZOBACTAM SOD 3.375 GM in D5W MINI-BAG PLUS 50 ML IV SCH (03:03)
[2022-08-05 05:35] VITALS: BP 111/78
[2022-08-05] MEDS: LEVOTHYROXINE 50MCG TABLET (0.05MG) PO SCH (06:05)
[2022-08-05] MEDS: LEVALBUTEROL 1.25MG 0.5ML CONCENTRATE NEB INH SCH ×4 (07:39→20:00)
[2022-08-05] MEDS: IPRATROPIUM 0.02% SOLN 0.5MG 2.5ML NEB INH SCH ×4 (07:40→20:00)
[2022-08-05] MEDS: AUGMENTIN 500MG TAB PO SCH ×2 (08:00→17:23)
[2022-08-05 08:23] LABS: BASO % 0.3 % (0.0-1.0); EOS # 0.1 10^3/uL (0.0-0.5); EOS % 1.9 % (0.0-3.0); HEMATOCRIT 38.2 % (36.0-47.0); HEMOGLOBIN 12.4 g/dl (12.0-15.5); LYMPH # 1.7 10^3/uL (1.5-5.0); LYMPH % 29.8 % (24.0-44.0); MEAN CORPUSCULAR HEMOGLOBIN 30.5 pg (27.0-33.0); MEAN CORPUSCULAR HGB CONC 32.5 g/dl (32.0-36.5); MEAN CORPUSCULAR VOLUME 93.9 fl (80.0-96.0); MONO # 0.9 10^3/uL (0.0-0.8); MONO % 15.2 % (2.0-8.0); NEUTROPHILS # 3.1 10^3/uL (1.5-8.5); NEUTROPHILS % 52.5 % (36.0-66.0); PLATELET COUNT, AUTOMATED 195 10^3/uL (150-450); RED BLOOD COUNT 4.07 10^6/uL (4.00-5.40); WHITE BLOOD COUNT 5.8 10^3/uL (4.0-10.0)
[2022-08-05] MEDS: METOPROLOL TART 50 MG TAB PO SCH ×2 (08:52→20:42)
[2022-08-05 08:53] LABS: MAGNESIUM LEVEL 1.7 MG/DL (1.8-2.4)
[2022-08-05 08:54] LABS: BLOOD UREA NITROGEN 7 MG/DL (9-23); CALCIUM LEVEL 8.1 MG/DL (8.3-10.6); CARBON DIOXIDE LEVEL 30 MMOL/L (20-31); CHLORIDE LEVEL 102 MMOL/L (98-107); CREATININE FOR GFR 0.54 MG/DL (0.55-1.30); GLOMERULAR FILTRATION RATE > 60.0 (>45); GLUCOSE, FASTING 119 MG/DL (74-106); POTASSIUM SERUM 3.5 MMOL/L (3.5-5.1); SODIUM LEVEL 138 MMOL/L (136-145)
[2022-08-05] MEDS ORDERED: MAG SULF 1GM/100ML (MAG RUN) 1 GM in IV 1 EA IV ONE (09:00)
[2022-08-05] MEDS: QUEtiapine FUMARATE 100 MG TAB PO SCH (09:07)
[2022-08-05] MEDS: ENOXAPARIN 40MG/0.4ML SYRINGE (J1650 PER 10MG) SC SCH (09:07)
[2022-08-05] MEDS: FLEET ENEMA PR SCH ×2 (09:07→20:43)
[2022-08-05] MEDS: levETIRAcetam 250MG TABLET (KEPPRA) PO SCH ×2 (09:07→20:41)
[2022-08-05] MEDS: MAGNESIUM OXIDE 400MG TAB (MAG-OX) PO SCH ×2 (09:08→20:40)
[2022-08-05] MEDS: LACTOBACILLUS ACIDOPHILUS CAP (BACID) PO SCH ×2 (09:08→17:23)
[2022-08-05] MEDS: guaiFENesin ER 600 MG TAB PO SCH ×2 (09:08→20:40)
[2022-08-05] MEDS: LACTULOSE 20GM/30ML SYRUP UDC PO SCH ×3 (09:09→20:39)
[2022-08-05] MEDS: busPIRone 5 MG TAB PO SCH ×2 (09:09→20:41)
[2022-08-05] MEDS: rifAXIMin 550 MG TAB (XIFAXAN) PO SCH ×2 (09:09→20:42)
[2022-08-05] MEDS: SIMETHICONE 80MG CHEW TAB PO SCH ×3 (12:59→20:41)
[2022-08-05] MEDS: BISACODYL 10MG SUPP PR SCH (13:42)
[2022-08-05 14:00] VITALS: BP 114/78
[2022-08-05] MEDS: NS 1,000 ML IV SCH (18:18)
[2022-08-05] MEDS: QUEtiapine FUMARATE 200 MG TAB PO SCH (20:39)
[2022-08-05] MEDS: DIVALPROEX SPRINKLE 125 MG CAP PO SCH (20:40)
[2022-08-06] MEDS: AUGMENTIN 500MG TAB PO SCH ×2 (01:45→09:42)
[2022-08-06] MEDS: NS 1,000 ML IV SCH (02:33)
[2022-08-06] MEDS: LEVOTHYROXINE 50MCG TABLET (0.05MG) PO SCH (05:35)
[2022-08-06 05:39] VITALS: BP 114/79
[2022-08-06 06:23] LABS: BASO % 0.4 % (0.0-1.0); EOS # 0.1 10^3/uL (0.0-0.5); HEMOGLOBIN 11.8 g/dl (12.0-15.5); LYMPH # 1.8 10^3/uL (1.5-5.0); LYMPH % 32.4 % (24.0-44.0); MEAN CORPUSCULAR HEMOGLOBIN 30.3 pg (27.0-33.0); MEAN CORPUSCULAR HGB CONC 32.8 g/dl (32.0-36.5); MEAN CORPUSCULAR VOLUME 92.5 fl (80.0-96.0); MONO # 0.8 10^3/uL (0.0-0.8); MONO % 13.8 % (2.0-8.0); NEUTROPHILS # 2.8 10^3/uL (1.5-8.5); NEUTROPHILS % 50.9 % (36.0-66.0); PLATELET COUNT, AUTOMATED 183 10^3/uL (150-450); RED BLOOD COUNT 3.89 10^6/uL (4.00-5.40); WHITE BLOOD COUNT 5.5 10^3/uL (4.0-10.0)
[2022-08-06 06:53] LABS: MAGNESIUM LEVEL 1.8 MG/DL (1.8-2.4)
[2022-08-06 06:55] LABS: BLOOD UREA NITROGEN 8 MG/DL (9-23); CALCIUM LEVEL 8.3 MG/DL (8.3-10.6); CARBON DIOXIDE LEVEL 29 MMOL/L (20-31); CHLORIDE LEVEL 105 MMOL/L (98-107); CREATININE FOR GFR 0.46 MG/DL (0.55-1.30); GLOMERULAR FILTRATION RATE > 60.0 (>45); GLUCOSE, FASTING 101 MG/DL (74-106); POTASSIUM SERUM 4.2 MMOL/L (3.5-5.1); SODIUM LEVEL 140 MMOL/L (136-145)
[2022-08-06] MEDS: IPRATROPIUM 0.02% SOLN 0.5MG 2.5ML NEB INH SCH ×2 (07:25→12:29)
[2022-08-06] MEDS: LEVALBUTEROL 1.25MG 0.5ML CONCENTRATE NEB INH SCH ×2 (07:25→12:29)
[2022-08-06] MEDS ORDERED: MAGN400T2 PO (08:53)
[2022-08-06] MEDS ORDERED: SIME80TA16 PO (08:53)
[2022-08-06] MEDS ORDERED: BISA10SU PR (08:53)
[2022-08-06] MEDS ORDERED: RISATAB3 PO (08:53)
[2022-08-06] MEDS: FLEET ENEMA PR SCH (09:00)
[2022-08-06] MEDS: levETIRAcetam 250MG TABLET (KEPPRA) PO SCH (09:40)
[2022-08-06] MEDS: SIMETHICONE 80MG CHEW TAB PO SCH (09:40)
[2022-08-06] MEDS: rifAXIMin 550 MG TAB (XIFAXAN) PO SCH (09:41)
[2022-08-06] MEDS: MAGNESIUM OXIDE 400MG TAB (MAG-OX) PO SCH (09:41)
[2022-08-06] MEDS: busPIRone 5 MG TAB PO SCH (09:41)
[2022-08-06] MEDS: guaiFENesin ER 600 MG TAB PO SCH (09:42)
[2022-08-06] MEDS: QUEtiapine FUMARATE 100 MG TAB PO SCH (09:42)
[2022-08-06 09:45] VITALS: BP 113/80
[2022-08-06] MEDS: LACTULOSE 20GM/30ML SYRUP UDC PO SCH (09:45)
[2022-08-06] MEDS: METOPROLOL TART 50 MG TAB PO SCH (09:45)
[2022-08-06] MEDS: LACTOBACILLUS ACIDOPHILUS CAP (BACID) PO SCH (09:45)
[2022-08-06] MEDS: BISACODYL 10MG SUPP PR SCH (09:45)
[2022-08-06] MEDS: ENOXAPARIN 40MG/0.4ML SYRINGE (J1650 PER 10MG) SC SCH (09:46)
== END 2022-08-06 13:10 | disposition home or self-care (01) | DRG 391 ==
LOC: M ED 12:38 → M ED INP 23:32 → M MS5PR 08-01 13:05
PROVIDERS: ADMIT Internal Medicine; ATTEND Internal Medicine
DX: K52.9 Noninfective gastroenteritis and colitis, unspecified (principal); J69.0 Pneumonitis due to inhalation of food and vomit; N39.0 Urinary tract infection, site not specified; E87.20 Acidosis, unspecified; I50.32 Chronic diastolic (congestive) heart failure; I31.39 Other pericardial effusion (noninflammatory); J90 Pleural effusion, not elsewhere classified; K56.7 Ileus, unspecified; J44.9 Chronic obstructive pulmonary disease, unspecified; G40.909 Epilepsy, unspecified, not intractable, without status epilepticus; G47.33 Obstructive sleep apnea (adult) (pediatric); E78.5 Hyperlipidemia, unspecified; I11.0 Hypertensive heart disease with heart failure; K75.81 Nonalcoholic steatohepatitis (NASH); G80.9 Cerebral palsy, unspecified; M48.00 Spinal stenosis, site unspecified; K56.41 Fecal impaction; B96.20 Unspecified Escherichia coli [E. coli] as the cause of diseases classified elsewhere; E83.42 Hypomagnesemia; Z79.899 Other long term (current) drug therapy; Z88.8 Allergy status to other drugs, medicaments and biological substances

== ENCOUNTER → 2022-08-13 | Outpatient (CLI) | payer MEDICARE, MEDICAID ==
[~2022-08-13] MED LIST changes: +BISA10SU PR; +BUSP5TA PO; +CVS1CRE56 TOP; +RISATAB3 PO; +SIME125T PO; +SIME80TA16 PO
[2022-08-13 13:48] LABS: BASO % 0.5 % (0.0-1.0); EOS # 0.1 10^3/uL (0.0-0.5); EOS % 1.5 % (0.0-3.0); HEMATOCRIT 39.5 % (36.0-47.0); HEMOGLOBIN 13.2 g/dl (12.0-15.5); LYMPH # 2.1 10^3/uL (1.5-5.0); MEAN CORPUSCULAR HEMOGLOBIN 31.3 pg (27.0-33.0); MEAN CORPUSCULAR HGB CONC 33.4 g/dl (32.0-36.5); MEAN CORPUSCULAR VOLUME 93.6 fl (80.0-96.0); MONO # 0.5 10^3/uL (0.0-0.8); MONO % 8.6 % (2.0-8.0); NEUTROPHILS # 2.7 10^3/uL (1.5-8.5); NEUTROPHILS % 49.9 % (36.0-66.0); PLATELET COUNT, AUTOMATED 241 10^3/uL (150-450); RED BLOOD COUNT 4.22 10^6/uL (4.00-5.40); WHITE BLOOD COUNT 5.5 10^3/uL (4.0-10.0)
[2022-08-13 14:04] LABS: INR 1.07; PROTHROMBIN TIME 14.1 SECONDS (12.5-14.5)
[2022-08-13 14:05] LABS: PARTIAL THROMBOPLASTIN TIME 31.5 SECONDS (24.8-34.2)
[2022-08-13 14:16] LABS: ALBUMIN 3.1 G/DL (3.2-5.2); ALKALINE PHOSPHATASE 50 U/L (46-116); ALT/SGPT 35 U/L (7.0-40); AST/SGOT 39 U/L (<34); BILIRUBIN,TOTAL 0.2 MG/DL (0.3-1.2); BLOOD UREA NITROGEN 12 MG/DL (9-23); CALCIUM LEVEL 9.3 MG/DL (8.3-10.6); CARBON DIOXIDE LEVEL 23 MMOL/L (20-31); CHLORIDE LEVEL 100 MMOL/L (98-107); CREATININE FOR GFR 0.46 MG/DL (0.55-1.30); GLOMERULAR FILTRATION RATE > 60.0 (>45); GLUCOSE, FASTING 95 MG/DL (74-106); POTASSIUM SERUM 4.6 MMOL/L (3.5-5.1); SODIUM LEVEL 136 MMOL/L (136-145); TOTAL PROTEIN 7.9 G/DL (5.7-8.2)
[2022-08-13 14:17] LABS: PTH INTACT 54.7 PG/ML (18.5-88.0)
[2022-08-13 14:18] LABS: FREE T4 0.68 NG/DL (0.89-1.76); THYROID STIMULATING HORMONE 1.794 uIU/ML (0.55-4.78)
[2022-08-13 14:19] LABS: TOTAL 25(OH) VITAMIN D 67.9 NG/ML (20.0-100.0)
[2022-08-13 14:41] LABS: HEMOGLOBIN A1c 5.1 % (4.0-6.0)
== END ==
LOC: M PLALAB 10:24
PROVIDERS: ATTEND Family Medicine
DX: R55 Syncope and collapse (principal); K72.90 Hepatic failure, unspecified without coma; E55.9 Vitamin D deficiency, unspecified; R73.01 Impaired fasting glucose; E03.9 Hypothyroidism, unspecified

== ENCOUNTER → 2022-08-13 | Outpatient (CLI) | payer MEDICARE, MEDICAID | LOC: M LAB 11:08 | PROVIDERS: ATTEND Family Medicine | DX: K72.90 Hepatic failure, unspecified without coma (principal); R73.01 Impaired fasting glucose; R55 Syncope and collapse; E55.9 Vitamin D deficiency, unspecified ==

== ENCOUNTER → 2022-08-15 | Outpatient (REF) | payer MEDICARE, MEDICAID ==
[2022-08-15 16:21] LABS: APPEARANCE, URINE MANUAL CLEAR (CLEAR); COLOR, URINE MANUAL YELLOW (YELLOW)
[2022-08-15 16:22] LABS: BILIRUBIN, URINE MANUAL NEGATIVE (NEGATIVE); BLOOD URINE MANUAL TRACE (NEGATIVE); GLUCOSE, URINE (UA) MANUAL NEGATIVE (NEGATIVE); KETONE, URINE MANUAL NEGATIVE (NEGATIVE); LEUKOCYTE ESTERASE, URINE MAN TRACE (NEGATIVE); NITRITE, URINE MANUAL NEGATIVE (NEGATIVE); PROTEIN, URINE MANUAL NEGATIVE (NEGATIVE); SPECIFIC GRAVITY,URINE MANUAL 1.015 (1.002-1.035); UROBILINOGEN, URINE MANUAL NORMAL (NORMAL)
[2022-08-15 16:39] LABS: SQUAMOUS EPITHELIAL CELL URINE SMALL AMOUNT /hpf (SMALL AMT); TRANSITIONAL EPI CELLS, URINE MOD AMOUNT /hpf
[2022-08-15 16:40] LABS: BACTERIA, URINE NONE SEEN; MUCUS, URINE LARGE AMOUNT (NEGATIVE)
[2022-08-15 16:41] LABS: AMORPHOUS SEDIMENT, URINE SMALL AMOUNT (NEGATIVE); GRANULAR CAST, URINE 0-1 /lpf
== END ==
LOC: M LAB REF 13:12
PROVIDERS: ATTEND Family Medicine
DX: R30.0 Dysuria (principal)

== ENCOUNTER → 2022-08-19 | Outpatient (CLI) | payer MEDICARE, MEDICAID | LOC: M RAD 14:34 | PROVIDERS: ATTEND Physician Assistant | DX: K56.7 Ileus, unspecified (principal) ==

== ENCOUNTER → 2022-10-08 | Outpatient (CLI) | payer MEDICARE, MEDICAID | LOC: M RAD 13:23 | PROVIDERS: ATTEND Physician Assistant | DX: R93.89 Abnormal findings on diagnostic imaging of other specified body structures (principal); J84.9 Interstitial pulmonary disease, unspecified; I70.0 Atherosclerosis of aorta; I25.10 Atherosclerotic heart disease of native coronary artery without angina pectoris; I31.39 Other pericardial effusion (noninflammatory); Z90.49 Acquired absence of other specified parts of digestive tract; J43.9 Emphysema, unspecified ==

== ENCOUNTER → 2023-01-06 | Outpatient (CLI) | payer MEDICARE, MEDICAID ==
[2023-01-06 12:59] LABS: BASO % 0.3 % (0.0-1.0); EOS # 0.1 10^3/uL (0.0-0.5); EOS % 1.2 % (0.0-3.0); HEMATOCRIT 38.7 % (36.0-47.0); LYMPH # 2.3 10^3/uL (1.5-5.0); LYMPH % 38.9 % (24.0-44.0); MEAN CORPUSCULAR HEMOGLOBIN 30.4 pg (27.0-33.0); MEAN CORPUSCULAR HGB CONC 33.6 g/dl (32.0-36.5); MEAN CORPUSCULAR VOLUME 90.4 fl (80.0-96.0); MONO # 0.6 10^3/uL (0.0-0.8); MONO % 10.6 % (2.0-8.0); NEUTROPHILS # 2.9 10^3/uL (1.5-8.5); NEUTROPHILS % 48.7 % (36.0-66.0); PLATELET COUNT, AUTOMATED 145 10^3/uL (150-450); RED BLOOD COUNT 4.28 10^6/uL (4.00-5.40); WHITE BLOOD COUNT 5.9 10^3/uL (4.0-10.0)
[2023-01-06 13:21] LABS: ALBUMIN 3.3 G/DL (3.2-5.2); ALKALINE PHOSPHATASE 39 U/L (46-116); ALT/SGPT 26 U/L (7.0-40); AST/SGOT 29 U/L (<34); BILIRUBIN,TOTAL 0.3 MG/DL (0.3-1.2); BLOOD UREA NITROGEN 9 MG/DL (9-23); CALCIUM LEVEL 8.3 MG/DL (8.3-10.6); CARBON DIOXIDE LEVEL 28 MMOL/L (20-31); CHLORIDE LEVEL 97 MMOL/L (98-107); CREATININE FOR GFR 0.54 MG/DL (0.55-1.30); GLOMERULAR FILTRATION RATE > 60.0 (>45); GLUCOSE, FASTING 109 MG/DL (74-106); MAGNESIUM LEVEL 1.7 MG/DL (1.8-2.4); POTASSIUM SERUM 4.5 MMOL/L (3.5-5.1); SODIUM LEVEL 131 MMOL/L (136-145); TOTAL PROTEIN 7.8 G/DL (5.7-8.2)
[2023-01-06 13:23] LABS: FERRITIN 90.9 NG/ML (7.3-270.7)
[2023-01-06 13:27] LABS: HEMOGLOBIN A1c 5.2 % (4.0-6.0)
== END ==
LOC: M LAB 12:15
PROVIDERS: ATTEND Family Medicine
DX: R73.01 Impaired fasting glucose (principal); I50.32 Chronic diastolic (congestive) heart failure; D69.6 Thrombocytopenia, unspecified

== ENCOUNTER → 2023-01-08 | Outpatient (CLI) | payer MEDICARE, MEDICAID | LOC: M WHC 12:59 | PROVIDERS: ATTEND Family Medicine | DX: Z12.39 Encounter for other screening for malignant neoplasm of breast (principal); Z53.9 Procedure and treatment not carried out, unspecified reason ==

== ENCOUNTER → 2023-04-16 | Outpatient (CLI) | payer MEDICARE, MEDICAID ==
[~2023-04-16] MED LIST changes: +SENN-111 PO; -SENN18TA PO
[2023-04-16 11:14] LABS: HEMOGLOBIN A1c 5.2 % (4.0-6.0)
[2023-04-16 11:35] LABS: ALBUMIN 3.4 G/DL (3.2-5.2); ALKALINE PHOSPHATASE 43 U/L (46-116); ALT/SGPT 24 U/L (7.0-40); AST/SGOT 26 U/L (<34); BILIRUBIN,TOTAL 0.3 MG/DL (0.3-1.2); BLOOD UREA NITROGEN 7 MG/DL (9-23); CARBON DIOXIDE LEVEL 29 MMOL/L (20-31); CHLORIDE LEVEL 100 MMOL/L (98-107); FREE T4 0.55 NG/DL (0.89-1.76); GLOMERULAR FILTRATION RATE > 60.0 (>45); GLUCOSE, FASTING 91 MG/DL (74-106); POTASSIUM SERUM 5.3 MMOL/L (3.5-5.1); SODIUM LEVEL 134 MMOL/L (136-145); THYROID STIMULATING HORMONE 1.624 uIU/ML (0.55-4.78); TOTAL PROTEIN 8.2 G/DL (5.7-8.2); VALPROIC ACID (DEPAKOTE) 75.7 UG/ML (50.0-100.0)
== END ==
LOC: M LAB 10:25
PROVIDERS: ATTEND Physician Assistant Medical
DX: R73.01 Impaired fasting glucose (principal); E87.1 Hypo-osmolality and hyponatremia; E03.9 Hypothyroidism, unspecified; R55 Syncope and collapse

== ENCOUNTER → 2023-04-22 | Outpatient (CLI) | payer MEDICARE, MEDICAID | LOC: M PLAIMG 10:53 | PROVIDERS: ATTEND Internal Medicine Pulmonary Disease | DX: R91.8 Other nonspecific abnormal finding of lung field (principal); J47.9 Bronchiectasis, uncomplicated ==

== ENCOUNTER → 2023-05-05 | Outpatient (CLI) | payer MEDICARE, MEDICAID ==
[2023-05-05 15:50] LABS: IRON (FE) 75 UG/DL (50-170)
[2023-05-05 15:51] LABS: ALBUMIN 3.4 G/DL (3.2-5.2); ALKALINE PHOSPHATASE 48 U/L (46-116); ALT/SGPT 31 U/L (7.0-40); AST/SGOT 34 U/L (<34); BILIRUBIN,TOTAL 0.2 MG/DL (0.3-1.2); BLOOD UREA NITROGEN 11 MG/DL (9-23); CALCIUM LEVEL 9.4 MG/DL (8.3-10.6); CARBON DIOXIDE LEVEL 28 MMOL/L (20-31); CHLORIDE LEVEL 104 MMOL/L (98-107); CREATININE FOR GFR 0.49 MG/DL (0.55-1.30); GLOMERULAR FILTRATION RATE > 60.0 (>45); GLUCOSE, FASTING 103 MG/DL (74-106); PERCENT SATURATION 21.9 % (13.2-45.0); POTASSIUM SERUM 4.7 MMOL/L (3.5-5.1); SODIUM LEVEL 137 MMOL/L (136-145); TOTAL IRON BINDING CAPACITY 343 UG/DL (250-425); TOTAL PROTEIN 8.4 G/DL (5.7-8.2)
[2023-05-05 15:53] LABS: BASO % 0.5 % (0.0-1.0); EOS # 0.1 10^3/uL (0.0-0.5); EOS % 1.1 % (0.0-3.0); HEMATOCRIT 40.7 % (36.0-47.0); HEMOGLOBIN 13.4 g/dl (12.0-15.5); LYMPH # 1.9 10^3/uL (1.5-5.0); MEAN CORPUSCULAR HGB CONC 32.9 g/dl (32.0-36.5); MEAN CORPUSCULAR VOLUME 94.2 fl (80.0-96.0); MONO # 0.9 10^3/uL (0.0-0.8); MONO % 14.6 % (2.0-8.0); NEUTROPHILS # 3.4 10^3/uL (1.5-8.5); NEUTROPHILS % 53.3 % (36.0-66.0); PLATELET COUNT, AUTOMATED 166 10^3/uL (150-450); RED BLOOD COUNT 4.32 10^6/uL (4.00-5.40); WHITE BLOOD COUNT 6.3 10^3/uL (4.0-10.0)
[2023-05-05 15:56] LABS: FERRITIN 143.4 NG/ML (7.3-270.7); THYROID STIMULATING HORMONE 2.897 uIU/ML (0.55-4.78)
[2023-05-05 15:58] LABS: FREE T4 0.69 NG/DL (0.89-1.76); TOTAL 25(OH) VITAMIN D 58.3 NG/ML (20.0-100.0)
[2023-05-05 17:02] LABS: ERYTHROCYTE SEDIMENTATION RATE 99 mm/hr (0-30)
== END ==
LOC: M PLALAB 12:20
PROVIDERS: ATTEND Physician Assistant
DX: R53.83 Other fatigue (principal); E03.9 Hypothyroidism, unspecified; Z79.899 Other long term (current) drug therapy

== ENCOUNTER → 2023-05-25 | Outpatient (CLI) | payer MEDICARE, MEDICAID ==
[~2023-05-25] MED LIST changes: +BARIUM SULFATE 700 MG TABLET (E-Z-DISK) As Ordered ONE; +E-Z-PAQUE 96% w/w SUSP 176GM BTL As Ordered ONE; +VARIBAR NECTAR 40% w/v 240ML SUSP BTL As Ordered ONE; +VARIBAR PUDDING 40% w/v 230ML TUBE As Ordered ONE
== END ==
LOC: M RAD 13:11
PROVIDERS: ATTEND Internal Medicine Pulmonary Disease
DX: J47.9 Bronchiectasis, uncomplicated (principal); T17.908A Unspecified foreign body in respiratory tract, part unspecified causing other injury, initial encounter

== ENCOUNTER → 2023-07-15 | Outpatient (CLI) | payer MEDICARE, MEDICAID ==
[~2023-07-15] MED LIST changes: -BARIUM SULFATE 700 MG TABLET (E-Z-DISK) As Ordered ONE; -E-Z-PAQUE 96% w/w SUSP 176GM BTL As Ordered ONE; -VARIBAR NECTAR 40% w/v 240ML SUSP BTL As Ordered ONE; -VARIBAR PUDDING 40% w/v 230ML TUBE As Ordered ONE
== END ==
LOC: M PLALAB 15:30
PROVIDERS: ATTEND Nurse Practitioner Adult Health
DX: D69.6 Thrombocytopenia, unspecified (principal); G40.89 Other seizures; E66.9 Obesity, unspecified; E03.9 Hypothyroidism, unspecified; D72.819 Decreased white blood cell count, unspecified; R35.89 Other polyuria; E55.9 Vitamin D deficiency, unspecified; R25.1 Tremor, unspecified; Z53.9 Procedure and treatment not carried out, unspecified reason

== ENCOUNTER → 2023-07-30 | Outpatient (CLI) | payer MEDICARE, MEDICAID ==
[2023-07-30 13:17] LABS: BASO % 0.4 % (0.0-1.0); EOS # 0.1 10^3/uL (0.0-0.5); EOS % 1.1 % (0.0-3.0); HEMATOCRIT 39.5 % (36.0-47.0); HEMOGLOBIN 13.5 g/dl (12.0-15.5); LYMPH # 2.5 10^3/uL (1.5-5.0); LYMPH % 35.3 % (24.0-44.0); MEAN CORPUSCULAR HGB CONC 34.2 g/dl (32.0-36.5); MEAN CORPUSCULAR VOLUME 90.6 fl (80.0-96.0); MONO # 0.8 10^3/uL (0.0-0.8); MONO % 10.9 % (2.0-8.0); NEUTROPHILS # 3.6 10^3/uL (1.5-8.5); PLATELET COUNT, AUTOMATED 149 10^3/uL (150-450); RED BLOOD COUNT 4.36 10^6/uL (4.00-5.40)
[2023-07-30 13:29] LABS: HEMOGLOBIN A1c 5.1 % (4.0-6.0)
[2023-07-30 13:37] LABS: VALPROIC ACID (DEPAKOTE) 73.5 UG/ML (50.0-100.0)
[2023-07-30 13:38] LABS: ALBUMIN 3.3 G/DL (3.2-5.2); ALKALINE PHOSPHATASE 48 U/L (46-116); ALT/SGPT 17 U/L (7.0-40); AST/SGOT 24 U/L (<34); BILIRUBIN,TOTAL 0.3 MG/DL (0.3-1.2); BLOOD UREA NITROGEN 6 MG/DL (9-23); CALCIUM LEVEL 9.7 MG/DL (8.3-10.6); CARBON DIOXIDE LEVEL 26 MMOL/L (20-31); CHLORIDE LEVEL 100 MMOL/L (98-107); CREATININE FOR GFR 0.45 MG/DL (0.55-1.30); GLOMERULAR FILTRATION RATE > 60.0 (>45); GLUCOSE, FASTING 103 MG/DL (74-106); MAGNESIUM LEVEL 1.7 MG/DL (1.8-2.4); POTASSIUM SERUM 5.2 MMOL/L (3.5-5.1); SODIUM LEVEL 131 MMOL/L (136-145); TOTAL PROTEIN 8.2 G/DL (5.7-8.2)
[2023-07-30 13:39] LABS: FREE T4 0.62 NG/DL (0.89-1.76); THYROID STIMULATING HORMONE 1.712 uIU/ML (0.55-4.78); TOTAL 25(OH) VITAMIN D 60.4 NG/ML (20.0-100.0)
== END ==
LOC: M LAB 11:43 → M PLALAB 11:43
PROVIDERS: ATTEND Nurse Practitioner Adult Health
DX: D69.6 Thrombocytopenia, unspecified (principal); G40.89 Other seizures; E66.9 Obesity, unspecified; Z79.2 Long term (current) use of antibiotics; Z87.440 Personal history of urinary (tract) infections; E03.9 Hypothyroidism, unspecified; E83.42 Hypomagnesemia; R35.89 Other polyuria; D72.819 Decreased white blood cell count, unspecified; R25.1 Tremor, unspecified; Z79.899 Other long term (current) drug therapy

== ENCOUNTER 2023-08-06 11:44 | Emergency (ER) | payer MEDICARE, MEDICAID ==
[2023-08-06] MEDS ORDERED: LACTULOSE 20GM/30ML SYRUP UDC PO ONE (12:30)
[2023-08-06] MEDS ORDERED: LIDOCAINE 2% 5ML JELLY UROJET TOP ONE (12:30)
[2023-08-06] MEDS ORDERED: NS 1,000 ML IV ONE (12:30)
[2023-08-06 13:00] LABS: BASO % 0.4 % (0.0-1.0); EOS # 0.1 10^3/uL (0.0-0.5); EOS % 1.3 % (0.0-3.0); HEMATOCRIT 41.1 % (36.0-47.0); HEMOGLOBIN 13.8 g/dl (12.0-15.5); LYMPH # 2.3 10^3/uL (1.5-5.0); MEAN CORPUSCULAR HEMOGLOBIN 30.9 pg (27.0-33.0); MEAN CORPUSCULAR HGB CONC 33.6 g/dl (32.0-36.5); MEAN CORPUSCULAR VOLUME 92.2 fl (80.0-96.0); MONO # 0.7 10^3/uL (0.0-0.8); MONO % 10.8 % (2.0-8.0); NEUTROPHILS # 3.7 10^3/uL (1.5-8.5); NEUTROPHILS % 54.2 % (36.0-66.0); PLATELET COUNT, AUTOMATED 148 10^3/uL (150-450); RED BLOOD COUNT 4.46 10^6/uL (4.00-5.40); WHITE BLOOD COUNT 6.9 10^3/uL (4.0-10.0)
[2023-08-06 13:29] LABS: ALBUMIN 3.4 G/DL (3.2-5.2); ALKALINE PHOSPHATASE 48 U/L (46-116); ALT/SGPT 19 U/L (7.0-40); AST/SGOT 25 U/L (<34); BILIRUBIN,DIRECT < 0.1 MG/DL (<0.4); BILIRUBIN,TOTAL 0.2 MG/DL (0.3-1.2); BLOOD UREA NITROGEN 7 MG/DL (9-23); CALCIUM LEVEL 9.4 MG/DL (8.3-10.6); CARBON DIOXIDE LEVEL 30 MMOL/L (20-31); CHLORIDE LEVEL 100 MMOL/L (98-107); CREATININE FOR GFR 0.59 MG/DL (0.55-1.30); FREE T4 0.72 NG/DL (0.89-1.76); GLOMERULAR FILTRATION RATE > 60.0 (>45); GLUCOSE, FASTING 92 MG/DL (74-106); POTASSIUM SERUM 4.9 MMOL/L (3.5-5.1); SODIUM LEVEL 134 MMOL/L (136-145); THYROID STIMULATING HORMONE 2.315 uIU/ML (0.55-4.78); TOTAL PROTEIN 8.4 G/DL (5.7-8.2)
[2023-08-06] MEDS ORDERED: CIPROFLOXACIN 400 MG in IV 1 EA IV ONE (14:25)
[2023-08-06 15:45] VITALS: BP 122/81; O2SAT 96
[2023-08-06] MEDS ORDERED: LACT20EL PO (15:45)
[2023-08-06] MEDS ORDERED: CIPR-249 PO (15:45)
[2023-08-06 16:02] VITALS: TEMP 97.9
== END 2023-08-06 16:12 | disposition home or self-care (01) ==
LOC: M ED 11:44
DX: N39.0 Urinary tract infection, site not specified (principal); K76.82 Hepatic encephalopathy; F79 Unspecified intellectual disabilities; G40.909 Epilepsy, unspecified, not intractable, without status epilepticus; F41.9 Anxiety disorder, unspecified; K76.0 Fatty (change of) liver, not elsewhere classified; Z88.8 Allergy status to other drugs, medicaments and biological substances; Z79.1 Long term (current) use of non-steroidal anti-inflammatories (NSAID); Z79.82 Long term (current) use of aspirin; Z79.810 Long term (current) use of selective estrogen receptor modulators (SERMs); Z79.899 Other long term (current) drug therapy
CPT/HCPCS: 51701; 80048; 80076; 81001; 82140; 84439; 84443; 85025; 87088; 93041; 94760; 96361; 96365; 99285; J0744

== ENCOUNTER 2023-08-13 18:08 | Inpatient (IN) | payer MEDICARE, MEDICAID ==
[~2023-08-13] VITALS: Ht 172.7 cm; Wt 80.0 kg
[~2023-08-13 18:08] MED LIST changes: +CIPR-249 PO
[2023-08-13 20:57] LABS: BASO % 0.5 % (0.0-1.0); EOS # 0.1 10^3/uL (0.0-0.5); EOS % 1.5 % (0.0-3.0); HEMATOCRIT 38.2 % (36.0-47.0); HEMOGLOBIN 12.6 g/dl (12.0-15.5); LYMPH # 2.1 10^3/uL (1.5-5.0); LYMPH % 32.2 % (24.0-44.0); MEAN CORPUSCULAR HEMOGLOBIN 30.8 pg (27.0-33.0); MEAN CORPUSCULAR VOLUME 93.4 fl (80.0-96.0); MONO # 0.8 10^3/uL (0.0-0.8); MONO % 11.8 % (2.0-8.0); NEUTROPHILS # 3.6 10^3/uL (1.5-8.5); NEUTROPHILS % 53.7 % (36.0-66.0); PLATELET COUNT, AUTOMATED 153 10^3/uL (150-450); RED BLOOD COUNT 4.09 10^6/uL (4.00-5.40); WHITE BLOOD COUNT 6.6 10^3/uL (4.0-10.0)
[2023-08-13 21:14] LABS: LIPASE 40 U/L (12-53)
[2023-08-13 21:15] LABS: CK-MB VALUE MASS < 1.0 NG/ML (<3.6)
[2023-08-13 21:16] LABS: ALBUMIN 3.1 G/DL (3.2-5.2); ALKALINE PHOSPHATASE 44 U/L (46-116); ALT/SGPT 19 U/L (7.0-40); AST/SGOT 23 U/L (<34); BILIRUBIN,DIRECT < 0.1 MG/DL (<0.4); BILIRUBIN,TOTAL 0.2 MG/DL (0.3-1.2); BLOOD UREA NITROGEN 8 MG/DL (9-23); CALCIUM LEVEL 8.7 MG/DL (8.3-10.6); CARBON DIOXIDE LEVEL 31 MMOL/L (20-31); CHLORIDE LEVEL 100 MMOL/L (98-107); CREATININE FOR GFR 0.59 MG/DL (0.55-1.30); GLOMERULAR FILTRATION RATE > 60.0 (>45); GLUCOSE, FASTING 110 MG/DL (74-106); POTASSIUM SERUM 5.6 MMOL/L (3.5-5.1); SODIUM LEVEL 134 MMOL/L (136-145); TOTAL PROTEIN 7.6 G/DL (5.7-8.2)
[2023-08-13 21:20] LABS: CPK CREATINE PHOSPHOKINASE 69 U/L (34-145); MB/CK RELATIVE INDEX 1.44 (< OR =4)
[2023-08-13] MEDS ORDERED: PIPERACILLIN/TAZOBACTAM SOD 3.375 GM in D5W MINI-BAG PLUS 50 ML IV ONE (21:25)
[2023-08-13] MEDS ORDERED: ISOVUE-370 76% 100ML VIAL As Ordered ONE (21:42)
[2023-08-13 22:15] LABS: RSV AMPLIFICATION NEGATIVE (NEGATIVE)
[2023-08-13] MEDS ORDERED: GLYCERIN ADULT SUPP PR STA (22:41)
[2023-08-13] MEDS ORDERED: NS 1,000 ML IV ONE (22:45)
[2023-08-14] MEDS ORDERED: ALBU2.5V10 INH (00:06)
[2023-08-14] MEDS ORDERED: BUSP10TA PO (00:06)
[2023-08-14] MEDS ORDERED: FLEEENE12 PR (00:06)
[2023-08-14] MEDS ORDERED: CALC1TAB63 PO (00:06)
[2023-08-14 00:31] VITALS: BP 129/83; TEMP 97.1; O2SAT 98
[2023-08-14] MEDS ORDERED: SENOKOT S TAB PO SCH (00:35)
[2023-08-14] MEDS ORDERED: MAGN400T35 PO (00:37)
[2023-08-14] MEDS ORDERED: NYST-13 EXT (00:37)
[2023-08-14] MEDS ORDERED: CIPR-249 PO (00:37)
[2023-08-14] MEDS ORDERED: SODI3NEB INH (00:37)
[2023-08-14] MEDS ORDERED: BISACODYL 10MG SUPP PR ONE (00:40)
[2023-08-14] MEDS ORDERED: HOME MED LIST COMPLETE! XX SCH (00:50)
[2023-08-14] MEDS ORDERED: IBUPROFEN 100MG 5ML ORAL SUSP UDC PO PRN (01:00)
[2023-08-14] MEDS ORDERED: ACETAMINOPHEN TAB 650MG DOSE (2X325MG) PO PRN (01:00)
[2023-08-14] MEDS ORDERED: CARBAMIDE PEROXIDE 6.5% OTIC SOLN 15ML AU PRN (01:00)
[2023-08-14] MEDS: NS 1,000 ML IV SCH ×3 (01:10→12:37)
[2023-08-14] MEDS ORDERED: NS 1,000 ML IV ONE (01:40)
[2023-08-14] MEDS ORDERED: PILL CUTTER 1 EACH XX PRN (02:10)
[2023-08-14] MEDS ORDERED: GLYCERIN ADULT SUPP PR SCH (03:00)
[2023-08-14 06:53] VITALS: BP 113/76; TEMP 97.5; O2SAT 96
[2023-08-14] MEDS: LEVOTHYROXINE 50MCG TABLET (0.05MG) PO SCH (06:59)
[2023-08-14 07:19] LABS: ALBUMIN 2.7 G/DL (3.2-5.2); ALKALINE PHOSPHATASE 41 U/L (46-116); ALT/SGPT 14 U/L (7.0-40); AST/SGOT 20 U/L (<34); BILIRUBIN,TOTAL 0.2 MG/DL (0.3-1.2); BLOOD UREA NITROGEN 7 MG/DL (9-23); CALCIUM LEVEL 8.1 MG/DL (8.3-10.6); CARBON DIOXIDE LEVEL 28 MMOL/L (20-31); CHLORIDE LEVEL 104 MMOL/L (98-107); CREATININE FOR GFR 0.48 MG/DL (0.55-1.30); GLOMERULAR FILTRATION RATE > 60.0 (>45); GLUCOSE, FASTING 95 MG/DL (74-106); MAGNESIUM LEVEL 1.6 MG/DL (1.8-2.4); SODIUM LEVEL 135 MMOL/L (136-145); TOTAL PROTEIN 6.6 G/DL (5.7-8.2)
[2023-08-14] MEDS: ALBUTEROL SULFATE 2.5MG/0.5ML INH NEB SOLN INH SCH ×3 (08:00→19:17)
[2023-08-14] MEDS ORDERED: LINACLOTIDE 290 MCG PO SCH (09:00)
[2023-08-14] MEDS ORDERED: LACTULOSE 20GM/30ML SYRUP UDC PO SCH (09:00)
[2023-08-14] MEDS ORDERED: CLOMIPRAMINE 25 MG PO SCH (09:00)
[2023-08-14] MEDS: HEPARIN SOD (PORCINE) 5000UNITS/ML 1ML VIAL/SYRINGE SQ SCH ×2 (10:11→21:33)
[2023-08-14] MEDS: MIRALAX *UNIT DOSE* 17GM PACKET PO SCH ×2 (10:11→21:59)
[2023-08-14] MEDS: LACTULOSE 20GM/30ML SYRUP UDC PO SCH ×2 (10:11→21:59)
[2023-08-14] MEDS: SIMETHICONE 80MG CHEW TAB PO SCH ×3 (10:12→21:59)
[2023-08-14] MEDS: rifAXIMin 550 MG TAB (XIFAXAN) PO SCH ×2 (10:13→21:30)
[2023-08-14] MEDS: levETIRAcetam 250MG TABLET (KEPPRA) PO SCH ×2 (10:13→21:33)
[2023-08-14] MEDS: SENNA 8.6 MG TAB (SENOKOT) PO SCH ×3 (10:13→21:30)
[2023-08-14] MEDS: busPIRone 10 MG TAB PO SCH ×2 (10:13→21:30)
[2023-08-14] MEDS: BISACODYL 10MG SUPP PR SCH ×2 (10:13→21:00)
[2023-08-14] MEDS: MAGNESIUM OXIDE 400MG TAB (MAG-OX) PO SCH ×2 (10:14→21:30)
[2023-08-14] MEDS: CALCIUM/VITAMIN D 500 MG TAB PO SCH ×2 (10:14→21:33)
[2023-08-14] MEDS: METOPROLOL TART 50 MG TAB PO SCH ×2 (10:14→21:32)
[2023-08-14] MEDS: QUEtiapine FUMARATE 100 MG TAB PO SCH ×2 (10:16→21:29)
[2023-08-14 14:00] VITALS: BP 125/80; TEMP 97.9; O2SAT 95
[2023-08-14] MEDS: MAG SULF 1GM/100ML (MAG RUN) 1 GM in IV 1 EA IV SCH ×2 (14:34→16:06)
[2023-08-14] MEDS: VITAMIN D 1,000 INTERNATIONAL UNITS TABLET PO SCH (16:07)
[2023-08-14] MEDS: DIVALPROEX SPRINKLE 125 MG CAP PO SCH (21:28)
[2023-08-14] MEDS: NITROFURANTOIN (MACROBID) 100 MG CAP PO SCH (21:29)
[2023-08-14] MEDS: MULTIVITAMINS/MINERALS THERAP 1 TAB PO SCH (21:59)
[2023-08-15] MEDS: NS 1,000 ML IV SCH (04:26)
[2023-08-15] MEDS: LEVOTHYROXINE 50MCG TABLET (0.05MG) PO SCH (05:56)
[2023-08-15 06:06] VITALS: BP 133/84
[2023-08-15] MEDS: ALBUTEROL SULFATE 2.5MG/0.5ML INH NEB SOLN INH SCH ×3 (07:36→20:00)
[2023-08-15 07:58] LABS: BASO % 0.3 % (0.0-1.0); EOS # 0.1 10^3/uL (0.0-0.5); EOS % 1.8 % (0.0-3.0); HEMATOCRIT 33.9 % (36.0-47.0); HEMOGLOBIN 11.4 g/dl (12.0-15.5); LYMPH # 1.8 10^3/uL (1.5-5.0); LYMPH % 44.9 % (24.0-44.0); MEAN CORPUSCULAR HGB CONC 33.6 g/dl (32.0-36.5); MEAN CORPUSCULAR VOLUME 92.1 fl (80.0-96.0); MONO # 0.4 10^3/uL (0.0-0.8); MONO % 10.8 % (2.0-8.0); NEUTROPHILS # 1.7 10^3/uL (1.5-8.5); NEUTROPHILS % 41.9 % (36.0-66.0); PLATELET COUNT, AUTOMATED 135 10^3/uL (150-450); RED BLOOD COUNT 3.68 10^6/uL (4.00-5.40)
[2023-08-15 08:43] LABS: BLOOD UREA NITROGEN < 5 MG/DL (9-23); CALCIUM LEVEL 8.1 MG/DL (8.3-10.6); CARBON DIOXIDE LEVEL 27 MMOL/L (20-31); CHLORIDE LEVEL 109 MMOL/L (98-107); CREATININE FOR GFR 0.45 MG/DL (0.55-1.30); GLOMERULAR FILTRATION RATE > 60.0 (>45); GLUCOSE, FASTING 84 MG/DL (74-106); POTASSIUM SERUM 4.1 MMOL/L (3.5-5.1); SODIUM LEVEL 140 MMOL/L (136-145)
[2023-08-15] MEDS: MIRALAX *UNIT DOSE* 17GM PACKET PO SCH ×2 (09:41→20:17)
[2023-08-15] MEDS: SIMETHICONE 80MG CHEW TAB PO SCH ×3 (09:42→20:18)
[2023-08-15] MEDS: busPIRone 10 MG TAB PO SCH ×2 (09:42→20:18)
[2023-08-15] MEDS: levETIRAcetam 250MG TABLET (KEPPRA) PO SCH ×2 (09:42→20:18)
[2023-08-15] MEDS: rifAXIMin 550 MG TAB (XIFAXAN) PO SCH ×2 (09:42→20:18)
[2023-08-15] MEDS: QUEtiapine FUMARATE 100 MG TAB PO SCH ×2 (09:42→20:18)
[2023-08-15] MEDS: SENNA 8.6 MG TAB (SENOKOT) PO SCH ×3 (09:42→20:18)
[2023-08-15] MEDS: CALCIUM/VITAMIN D 500 MG TAB PO SCH ×2 (09:43→20:19)
[2023-08-15] MEDS: BISACODYL 10MG SUPP PR SCH ×2 (09:43→20:18)
[2023-08-15] MEDS: MAGNESIUM OXIDE 400MG TAB (MAG-OX) PO SCH ×2 (09:43→20:19)
[2023-08-15] MEDS: METOPROLOL TART 50 MG TAB PO SCH ×2 (09:43→20:19)
[2023-08-15] MEDS: HEPARIN SOD (PORCINE) 5000UNITS/ML 1ML VIAL/SYRINGE SQ SCH ×2 (09:44→22:17)
[2023-08-15] MEDS: LACTULOSE 20GM/30ML SYRUP UDC PO SCH ×2 (09:44→20:17)
[2023-08-15 14:00] VITALS: BP 94/60; TEMP 97.5; O2SAT 92
[2023-08-15] MEDS: VITAMIN D 1,000 INTERNATIONAL UNITS TABLET PO SCH (16:20)
[2023-08-15 18:17] VITALS: BP 123/71
[2023-08-15] MEDS: DIVALPROEX SPRINKLE 125 MG CAP PO SCH (20:18)
[2023-08-15] MEDS: NITROFURANTOIN (MACROBID) 100 MG CAP PO SCH (20:18)
[2023-08-15 20:19] VITALS: BP 119/74
[2023-08-15] MEDS: MULTIVITAMINS/MINERALS THERAP 1 TAB PO SCH (20:19)
[2023-08-15 20:30] VITALS: BP 119/74; TEMP 97.7; O2SAT 96
[2023-08-16 06:00] VITALS: BP 119/72; TEMP 96.8; O2SAT 94
[2023-08-16] MEDS: LEVOTHYROXINE 50MCG TABLET (0.05MG) PO SCH (06:01)
[2023-08-16] MEDS: ALBUTEROL SULFATE 2.5MG/0.5ML INH NEB SOLN INH SCH (07:14)
[2023-08-16] MEDS ORDERED: BISA10SU PR (09:17)
[2023-08-16] MEDS ORDERED: LACT20EL PO ×2 (09:17→13:07)
[2023-08-16] MEDS: METOPROLOL TART 50 MG TAB PO SCH (10:22)
[2023-08-16] MEDS: levETIRAcetam 250MG TABLET (KEPPRA) PO SCH ×2 (10:22→10:31)
[2023-08-16] MEDS: LACTULOSE 20GM/30ML SYRUP UDC PO SCH (10:22)
[2023-08-16] MEDS: busPIRone 10 MG TAB PO SCH ×2 (10:22→10:32)
[2023-08-16] MEDS: SIMETHICONE 80MG CHEW TAB PO SCH (10:30)
[2023-08-16] MEDS: QUEtiapine FUMARATE 100 MG TAB PO SCH (10:31)
[2023-08-16] MEDS: rifAXIMin 550 MG TAB (XIFAXAN) PO SCH (10:32)
[2023-08-16] MEDS: CALCIUM/VITAMIN D 500 MG TAB PO SCH (10:32)
[2023-08-16] MEDS: SENNA 8.6 MG TAB (SENOKOT) PO SCH (10:33)
[2023-08-16] MEDS: MAGNESIUM OXIDE 400MG TAB (MAG-OX) PO SCH (10:34)
[2023-08-16] MEDS: BISACODYL 10MG SUPP PR SCH (10:34)
[2023-08-16] MEDS: HEPARIN SOD (PORCINE) 5000UNITS/ML 1ML VIAL/SYRINGE SQ SCH (10:34)
[2023-08-16] MEDS: MIRALAX *UNIT DOSE* 17GM PACKET PO SCH (10:34)
== END 2023-08-16 11:15 | disposition home or self-care (01) | DRG 392 ==
LOC: M ED 18:08 → M ED INP 23:13 → M MSPAV 08-14 00:31
PROVIDERS: ADMIT Family Medicine; ATTEND Internal Medicine Nephrology
DX: K59.09 Other constipation (principal); I50.32 Chronic diastolic (congestive) heart failure; E87.20 Acidosis, unspecified; E66.2 Morbid (severe) obesity with alveolar hypoventilation; I47.29 Other ventricular tachycardia; K59.39 Other megacolon; G80.9 Cerebral palsy, unspecified; F79 Unspecified intellectual disabilities; I11.0 Hypertensive heart disease with heart failure; E03.9 Hypothyroidism, unspecified; F41.9 Anxiety disorder, unspecified; F32.A Depression, unspecified; E78.5 Hyperlipidemia, unspecified; G40.909 Epilepsy, unspecified, not intractable, without status epilepticus; J44.9 Chronic obstructive pulmonary disease, unspecified; D69.6 Thrombocytopenia, unspecified; J47.9 Bronchiectasis, uncomplicated; K75.81 Nonalcoholic steatohepatitis (NASH); R09.02 Hypoxemia; I87.2 Venous insufficiency (chronic) (peripheral); R91.1 Solitary pulmonary nodule; E83.42 Hypomagnesemia; M85.80 Other specified disorders of bone density and structure, unspecified site; E87.5 Hyperkalemia; M48.061 Spinal stenosis, lumbar region without neurogenic claudication; Z79.899 Other long term (current) drug therapy; E55.9 Vitamin D deficiency, unspecified; Z88.8 Allergy status to other drugs, medicaments and biological substances

== ENCOUNTER → 2023-08-28 | Outpatient (CLI) | payer MEDICARE, MEDICAID ==
[~2023-08-28] MED LIST changes: +ALBU2.5V10 INH; +BUSP10TA PO; +FLEEENE12 PR; +MAGN400T35 PO; +SODI3NEB INH
== END ==
LOC: M RAD 13:15
PROVIDERS: ATTEND Internal Medicine Pulmonary Disease
DX: J90 Pleural effusion, not elsewhere classified (principal); I31.39 Other pericardial effusion (noninflammatory); R91.8 Other nonspecific abnormal finding of lung field

== ENCOUNTER → 2023-09-16 | Outpatient (REF) | payer MEDICARE, MEDICAID ==
[2023-09-16 16:07] LABS: APPEARANCE, URINE CLEAR (CLEAR); BACTERIA, URINE AUTO NEGATIVE (NEGATIVE); BILIRUBIN, URINE AUTO NEGATIVE (NEGATIVE); BLOOD, URINE BLOOD NEGATIVE (NEGATIVE); COLOR, URINE YELLOW (YELLOW); GLUCOSE, URINE (UA) AUTO NEGATIVE (NEGATIVE); KETONE, URINE AUTO NEGATIVE (NEGATIVE); LEUKOCYTE ESTERASE, URINE AUTO NEGATIVE (NEGATIVE); NITRITE, URINE AUTO NEGATIVE (NEGATIVE); PROTEIN, URINE AUTO NEGATIVE (NEGATIVE); RBC, URINE AUTO 1 /HPF (0-3); SPECIFIC GRAVITY URINE AUTO 1.015 (1.002-1.035); SQUAMOUS EPITHELIAL CELL UR AU 0 /HPF (0-6); UROBILINOGEN, URINE AUTO 0.2 mg/dL (0.0-2.0); WBC, URINE AUTO 1 /HPF (0-3)
== END ==
LOC: M SMT 15:49
PROVIDERS: ATTEND Specialist
DX: N39.0 Urinary tract infection, site not specified (principal)

== ENCOUNTER 2023-09-28 22:21 | Inpatient (IN) | payer MEDICARE, MEDICAID ==
[~2023-09-28] VITALS: Ht 170.2 cm; Wt 78.6 kg
[~2023-09-28 22:21] MED LIST changes: +NYST-13 TOP
[2023-09-28 23:58] LABS: BASO % 0.1 % (0.0-1.0); EOS % 0.5 % (0.0-3.0); HEMATOCRIT 38.8 % (36.0-47.0); HEMOGLOBIN 13.1 g/dl (12.0-15.5); LYMPH # 0.8 10^3/uL (1.5-5.0); LYMPH % 9.7 % (24.0-44.0); MEAN CORPUSCULAR HEMOGLOBIN 31.1 pg (27.0-33.0); MEAN CORPUSCULAR HGB CONC 33.8 g/dl (32.0-36.5); MEAN CORPUSCULAR VOLUME 92.2 fl (80.0-96.0); MONO # 0.6 10^3/uL (0.0-0.8); MONO % 6.7 % (2.0-8.0); NEUTROPHILS # 6.9 10^3/uL (1.5-8.5); NEUTROPHILS % 82.6 % (36.0-66.0); PLATELET COUNT, AUTOMATED 152 10^3/uL (150-450); RED BLOOD COUNT 4.21 10^6/uL (4.00-5.40); WHITE BLOOD COUNT 8.4 10^3/uL (4.0-10.0)
[2023-09-29 00:10] LABS: ETHYL ALCOHOL (ETHANOL) < 0.003 % (0.000-0.010)
[2023-09-29 00:12] LABS: ALBUMIN 3.3 G/DL (3.2-5.2); ALKALINE PHOSPHATASE 57 U/L (46-116); ALT/SGPT 18 U/L (7.0-40); AST/SGOT 19 U/L (<34); BILIRUBIN,DIRECT 0.2 MG/DL (<0.4); BILIRUBIN,TOTAL 0.4 MG/DL (0.3-1.2); BLOOD UREA NITROGEN 9 MG/DL (9-23); CARBON DIOXIDE LEVEL 28 MMOL/L (20-31); CHLORIDE LEVEL 103 MMOL/L (98-107); CK-MB VALUE MASS < 1.0 NG/ML (<3.6); CPK CREATINE PHOSPHOKINASE 54 U/L (34-145); CREATININE FOR GFR 0.62 MG/DL (0.55-1.30); GLOMERULAR FILTRATION RATE > 60.0 (>45); GLUCOSE, FASTING 90 MG/DL (74-106); MB/CK RELATIVE INDEX 1.85 (< OR =4); POTASSIUM SERUM 4.5 MMOL/L (3.5-5.1); SODIUM LEVEL 137 MMOL/L (136-145); TOTAL PROTEIN 7.6 G/DL (5.7-8.2)
[2023-09-29] MEDS ORDERED: ISOVUE-370 76% 100ML VIAL As Ordered ONE (00:28)
[2023-09-29] MEDS: IPRATROPIUM 0.5MG/ALBUTEROL 2.5MG INH SOL UD 3ML (DUONEB) INH SCH (02:00)
[2023-09-29] MEDS: PIPERACILLIN/TAZOBACTAM SOD 4.5 GM in D5W MINI-BAG PLUS 50 ML IV ONE (02:41)
[2023-09-29] MEDS: VANCOMYCIN HCL 1,000 MG, VIAL MATE ADAPTER 1 EACH in D5W 250 ML IV ONE (02:41)
[2023-09-29] MEDS: NS 1,000 ML IV SCH ×2 (02:41→04:22)
[2023-09-29] MEDS ORDERED: MOM 30ML SUSPENSION UDC PO PRN (02:55)
[2023-09-29] MEDS: BISACODYL 10MG SUPP PR ONE (04:22)
[2023-09-29] MEDS: DOXYCYCLINE HYCLATE 100 MG in D5W MINI-BAG PLUS 100 ML IV SCH (04:22)
[2023-09-29] MEDS ORDERED: HALOPERIDOL 5MG/ML 1ML VIAL IM PRN (04:25)
[2023-09-29 04:26] LABS: MAGNESIUM LEVEL 1.6 MG/DL (1.8-2.4)
[2023-09-29 04:30] VITALS: BP 102/75; TEMP 97.5; O2SAT 92
[2023-09-29 04:35] LABS: PROCALCITONIN 0.23 ng/ml
[2023-09-29 05:04] VITALS: O2SAT 91
[2023-09-29] MEDS: PIPERACILLIN/TAZOBACTAM SOD 4.5 GM in D5W MINI-BAG PLUS 50 ML IV SCH (05:38)
[2023-09-29] MEDS: MAG SULF 1GM/100ML (MAG RUN) 1 GM in IV 1 EA IV SCH (06:44)
[2023-09-29] MEDS: LACTULOSE 20GM/30ML SYRUP UDC PO SCH ×2 (08:18→22:08)
[2023-09-29] MEDS ORDERED: ENEMENE PR (08:36)
[2023-09-29] MEDS ORDERED: METH-855 PO (08:36)
[2023-09-29] MEDS ORDERED: LEVE500T88 PO (08:36)
[2023-09-29] MEDS ORDERED: BISA10SU27 PR (08:36)
[2023-09-29] MEDS ORDERED: FLUO10CA18 PO (08:36)
[2023-09-29] MEDS ORDERED: MULT-40 PO (08:47)
[2023-09-29] MEDS ORDERED: KEPP10002 PO (08:47)
[2023-09-29] MEDS ORDERED: HOME MED LIST COMPLETE! XX SCH (08:50)
[2023-09-29] MEDS ORDERED: LACTULOSE 20GM/30ML SYRUP UDC PO SCH (09:00)
[2023-09-29] MEDS: rifAXIMin 550 MG TAB (XIFAXAN) PO SCH (11:56)
[2023-09-29] MEDS ORDERED: E-Z-PAQUE 96% w/w SUSP 176GM BTL As Ordered ONE (12:57)
[2023-09-29] MEDS ORDERED: VARIBAR NECTAR 40% w/v 240ML SUSP BTL As Ordered ONE (12:57)
[2023-09-29] MEDS ORDERED: VARIBAR PUDDING 40% w/v 230ML TUBE As Ordered ONE (12:57)
[2023-09-29] MEDS ORDERED: BARIUM SULFATE 700 MG TABLET (E-Z-DISK) As Ordered ONE (12:57)
[2023-09-29] MEDS ORDERED: ACETAMINOPHEN TAB 650MG DOSE (2X325MG) PO PRN (13:30)
[2023-09-29] MEDS ORDERED: NYSTATIN CREAM 15GM TOP PRN (13:30)
[2023-09-29] MEDS ORDERED: ALBUTEROL SULFATE 2.5MG/0.5ML INH NEB SOLN INH PRN (13:30)
[2023-09-29] MEDS: busPIRone 10 MG TAB PO SCH (15:09)
[2023-09-29] MEDS: METOPROLOL TART 50 MG TAB PO SCH (15:10)
[2023-09-29] MEDS: levETIRAcetam 250MG TABLET (KEPPRA) PO SCH (15:10)
[2023-09-29] MEDS: MIRALAX *UNIT DOSE* 17GM PACKET PO SCH (15:11)
[2023-09-29] MEDS: METHENAMINE HIPPURATE 1GM TABLET PO SCH (15:11)
[2023-09-29] MEDS: MAGNESIUM OXIDE 400MG TAB (MAG-OX) PO SCH (15:11)
[2023-09-29] MEDS: QUEtiapine FUMARATE 100 MG TAB PO SCH (15:11)
[2023-09-29] MEDS: LEVOTHYROXINE 50MCG TABLET (0.05MG) PO SCH (15:11)
[2023-09-29] MEDS: HEPARIN SOD (PORCINE) 5000UNITS/ML 1ML VIAL/SYRINGE SQ SCH (15:28)
[2023-09-29] MEDS: FUROSEMIDE 40 MG TAB PO SCH (15:29)
[2023-09-29] MEDS: SENNA 8.6 MG TAB (SENOKOT) PO SCH (15:29)
[2023-09-29] MEDS: FLUoxetine 10 MG CAP PO SCH (15:29)
[2023-09-29] MEDS: AMPICILLIN SOD/SULBACTAM SOD 3 GM in D5W MINI-BAG PLUS 100 ML IV SCH (18:10)
[2023-09-29 20:12] VITALS: BP 109/69; TEMP 97.3; O2SAT 92
[2023-09-29] MEDS: DIVALPROEX SPRINKLE 125 MG CAP PO SCH (22:06)
[2023-09-30 06:00] VITALS: BP 110/68; TEMP 97.2; O2SAT 90
[2023-09-30 06:25] LABS: HEMOGLOBIN 11.3 g/dl (12.0-15.5); MEAN CORPUSCULAR HGB CONC 32.3 g/dl (32.0-36.5); MEAN CORPUSCULAR VOLUME 95.9 fl (80.0-96.0); PLATELET COUNT, AUTOMATED 142 10^3/uL (150-450); RED BLOOD COUNT 3.65 10^6/uL (4.00-5.40); WHITE BLOOD COUNT 9.5 10^3/uL (4.0-10.0)
[2023-09-30 06:55] LABS: PROCALCITONIN 1.02 ng/ml
[2023-09-30 07:11] LABS: ALBUMIN 2.8 G/DL (3.2-5.2); ALKALINE PHOSPHATASE 47 U/L (46-116); ALT/SGPT 16 U/L (7.0-40); AST/SGOT 18 U/L (<34); BILIRUBIN,TOTAL 0.2 MG/DL (0.3-1.2); BLOOD UREA NITROGEN 9 MG/DL (9-23); CARBON DIOXIDE LEVEL 24 MMOL/L (20-31); CHLORIDE LEVEL 109 MMOL/L (98-107); CREATININE FOR GFR 0.62 MG/DL (0.55-1.30); GLOMERULAR FILTRATION RATE > 60.0 (>45); GLUCOSE, FASTING 94 MG/DL (74-106); MAGNESIUM LEVEL 1.8 MG/DL (1.8-2.4); SODIUM LEVEL 139 MMOL/L (136-145); TOTAL PROTEIN 6.7 G/DL (5.7-8.2)
[2023-09-30] MEDS: BISACODYL 10MG SUPP PR SCH (09:43)
[2023-09-30] MEDS: LEVOTHYROXINE 50MCG TABLET (0.05MG) PO SCH (09:43)
[2023-09-30 14:00] VITALS: BP 109/69; TEMP 97.3; O2SAT 95
[2023-09-30] MEDS ORDERED: FLEET OIL RETENTION ENEMA PR SCH (16:00)
[2023-09-30] MEDS: MOM 30ML SUSPENSION UDC PO SCH (16:06)
[2023-09-30] MEDS: FLEET OIL RETENTION ENEMA PR SCH (17:26)
[2023-09-30 18:16] LABS: BASO % 0.4 % (0.0-1.0); EOS # 0.2 10^3/uL (0.0-0.5); EOS % 2.2 % (0.0-3.0); HEMATOCRIT 34.5 % (36.0-47.0); HEMOGLOBIN 11.4 g/dl (12.0-15.5); LYMPH # 1.7 10^3/uL (1.5-5.0); LYMPH % 25.2 % (24.0-44.0); MEAN CORPUSCULAR HEMOGLOBIN 30.7 pg (27.0-33.0); MONO # 0.5 10^3/uL (0.0-0.8); MONO % 7.8 % (2.0-8.0); NEUTROPHILS # 4.3 10^3/uL (1.5-8.5); NEUTROPHILS % 64.1 % (36.0-66.0); PLATELET COUNT, AUTOMATED 145 10^3/uL (150-450); RED BLOOD COUNT 3.71 10^6/uL (4.00-5.40); WHITE BLOOD COUNT 6.8 10^3/uL (4.0-10.0)
[2023-09-30 18:51] LABS: BLOOD UREA NITROGEN 8 MG/DL (9-23); CALCIUM LEVEL 8.1 MG/DL (8.3-10.6); CARBON DIOXIDE LEVEL 29 MMOL/L (20-31); CHLORIDE LEVEL 106 MMOL/L (98-107); GLOMERULAR FILTRATION RATE > 60.0 (>45); GLUCOSE, FASTING 137 MG/DL (74-106); POTASSIUM SERUM 3.6 MMOL/L (3.5-5.1); SODIUM LEVEL 138 MMOL/L (136-145)
[2023-09-30 20:52] VITALS: BP 106/69; TEMP 97.5; O2SAT 96
[2023-10-01 06:00] VITALS: BP 113/62; TEMP 97.9; O2SAT 95
[2023-10-01] MEDS: metroNIDAZOLE (FLAGYL) 500MG TABLET PO SCH (06:00)
[2023-10-01] MEDS: LevoFLOXacin 750 MG TABLET PO SCH (06:00)
[2023-10-01] MEDS ORDERED: LevoFLOXacin 750 MG TABLET PO SCH (07:25)
[2023-10-01] MEDS: BISACODYL 10MG SUPP PR SCH (09:00)
[2023-10-01 14:00] VITALS: BP 106/69; TEMP 97; O2SAT 95
[2023-10-01] MEDS: GOLYTELY SOLN 4000 ML BTL PO ONE (14:00)
[2023-10-01] MEDS ORDERED: LACTULOSE 20GM/30ML SYRUP UDC PO SCH ×2 (17:00→21:00)
[2023-10-01] MEDS: MAGNESIUM CITRATE 300ML BTL PO ONE (17:27)
[2023-10-01 22:05] VITALS: BP 105/68; TEMP 97; O2SAT 93
[2023-10-02 05:57] VITALS: BP 119/75; TEMP 96.8; O2SAT 96
[2023-10-02] MEDS ORDERED: MOXIFLOXACIN 400 MG TAB PO SCH (06:00)
[2023-10-02] MEDS: MAGNESIUM CITRATE 300ML BTL PO ONE (09:04)
[2023-10-02 14:00] VITALS: BP 110/75; TEMP 97; O2SAT 96
[2023-10-02] MEDS: MAGNESIUM CITRATE 300ML BTL PO SCH (14:55)
[2023-10-02 20:00] VITALS: BP 113/75; TEMP 97.3; O2SAT 92
[2023-10-03 05:44] VITALS: BP 112/73; TEMP 97.2; O2SAT 94
[2023-10-03 07:56] LABS: HEMATOCRIT 36.7 % (36.0-47.0); HEMOGLOBIN 12.5 g/dl (12.0-15.5); MEAN CORPUSCULAR HEMOGLOBIN 31.2 pg (27.0-33.0); MEAN CORPUSCULAR HGB CONC 34.1 g/dl (32.0-36.5); MEAN CORPUSCULAR VOLUME 91.5 fl (80.0-96.0); PLATELET COUNT, AUTOMATED 156 10^3/uL (150-450); RED BLOOD COUNT 4.01 10^6/uL (4.00-5.40); WHITE BLOOD COUNT 5.8 10^3/uL (4.0-10.0)
[2023-10-03 08:28] LABS: BLOOD UREA NITROGEN 15 MG/DL (9-23); CALCIUM LEVEL 8.5 MG/DL (8.3-10.6); CARBON DIOXIDE LEVEL 27 MMOL/L (20-31); CHLORIDE LEVEL 104 MMOL/L (98-107); CREATININE FOR GFR 0.52 MG/DL (0.55-1.30); GLOMERULAR FILTRATION RATE > 60.0 (>45); GLUCOSE, FASTING 103 MG/DL (74-106); SODIUM LEVEL 136 MMOL/L (136-145)
[2023-10-03] MEDS: FLEET OIL RETENTION ENEMA PR SCH (08:55)
[2023-10-03] MEDS ORDERED: FLEET OIL RETENTION ENEMA PR SCH (09:00)
[2023-10-03] MEDS ORDERED: FLEETOIL PR (09:23)
[2023-10-03] MEDS ORDERED: RA M1.74 PO (09:23)
[2023-10-03] MEDS ORDERED: METR-265 PO (09:23)
[2023-10-03] MEDS ORDERED: LEVO1TAB40 PO (09:23)
[2023-10-03] MEDS: SIMETHICONE 80MG CHEW TAB PO SCH (13:21)
[2023-10-03 14:00] VITALS: BP 96/60; TEMP 97; O2SAT 93
[2023-10-03 14:52] VITALS: BP 100/68
[2023-10-03 17:55] VITALS: BP 145/69; TEMP 96.3; O2SAT 91
[2023-10-03 22:00] VITALS: BP 101/63; TEMP 97.3; O2SAT 94
[2023-10-03] MEDS: PROCTOFOAM-HC 1% FOAM 10GM CAN PR SCH (22:08)
[2023-10-04 06:55] LABS: HEMATOCRIT 39.6 % (36.0-47.0); HEMOGLOBIN 13.1 g/dl (12.0-15.5); MEAN CORPUSCULAR HEMOGLOBIN 30.6 pg (27.0-33.0); MEAN CORPUSCULAR HGB CONC 33.1 g/dl (32.0-36.5); MEAN CORPUSCULAR VOLUME 92.5 fl (80.0-96.0); PLATELET COUNT, AUTOMATED 158 10^3/uL (150-450); RED BLOOD COUNT 4.28 10^6/uL (4.00-5.40)
[2023-10-04 07:16] LABS: BLOOD UREA NITROGEN 12 MG/DL (9-23); CALCIUM LEVEL 8.9 MG/DL (8.3-10.6); CARBON DIOXIDE LEVEL 26 MMOL/L (20-31); CHLORIDE LEVEL 104 MMOL/L (98-107); CREATININE FOR GFR 0.61 MG/DL (0.55-1.30); GLOMERULAR FILTRATION RATE > 60.0 (>45); GLUCOSE, FASTING 105 MG/DL (74-106); POTASSIUM SERUM 3.9 MMOL/L (3.5-5.1); SODIUM LEVEL 137 MMOL/L (136-145)
[2023-10-04] MEDS ORDERED: FLEET ENEMA PR SCH ×2 (09:00)
[2023-10-04 09:53] VITALS: BP 103/64
[2023-10-04] MEDS ORDERED: PROC1AER16 PR (10:30)
[2023-10-04] MEDS ORDERED: FLEETOIL PR (10:36)
[2023-10-04] MEDS ORDERED: RA M1.74 PO (10:37)
[2023-10-04 12:33] VITALS: BP 99/67; TEMP 97.3; O2SAT 97
== END 2023-10-04 13:45 | disposition home or self-care (01) | DRG 177 ==
LOC: M ED 22:21 → M ED INP 09-29 02:51 → M MSPAV 09-29 03:52
PROVIDERS: ADMIT Family Medicine; ATTEND Student in an Organized Health Care Education/Training Program
DX: J69.0 Pneumonitis due to inhalation of food and vomit (principal); G93.41 Metabolic encephalopathy; N39.0 Urinary tract infection, site not specified; I50.32 Chronic diastolic (congestive) heart failure; I47.20 Ventricular tachycardia, unspecified; K59.39 Other megacolon; E66.2 Morbid (severe) obesity with alveolar hypoventilation; J44.0 Chronic obstructive pulmonary disease with (acute) lower respiratory infection; F79 Unspecified intellectual disabilities; R13.10 Dysphagia, unspecified; G80.9 Cerebral palsy, unspecified; G40.909 Epilepsy, unspecified, not intractable, without status epilepticus; R45.1 Restlessness and agitation; D69.6 Thrombocytopenia, unspecified; K56.41 Fecal impaction; I87.2 Venous insufficiency (chronic) (peripheral); E78.5 Hyperlipidemia, unspecified; I11.0 Hypertensive heart disease with heart failure; K75.81 Nonalcoholic steatohepatitis (NASH); F41.9 Anxiety disorder, unspecified; F32.A Depression, unspecified; E03.9 Hypothyroidism, unspecified; E55.9 Vitamin D deficiency, unspecified; Z90.49 Acquired absence of other specified parts of digestive tract; Z79.890 Hormone replacement therapy; Z79.899 Other long term (current) drug therapy; Z88.1 Allergy status to other antibiotic agents; Z11.52 Encounter for screening for COVID-19

== ENCOUNTER → 2023-12-23 | Outpatient (CLI) | payer MEDICARE, MEDICAID ==
[~2023-12-23] MED LIST changes: +BISA10SU27 PR; +ENEMENE PR; +FLEETOIL PR; +FLUO-290 PO; +KEPP10002 PO; +LEVE500T88 PO; +LEVO1TAB40 PO; +METH-855 PO; +METR-265 PO; +MULT-40 PO; +MV-M1TAB13 PO; +PROC1AER16 PR; +RA M1.74 PO; +RISP0.5T21 PO
== END ==
LOC: M RAD 16:14
PROVIDERS: ATTEND Nurse Practitioner Adult Health
DX: Z01.818 Encounter for other preprocedural examination (principal); Z01.810 Encounter for preprocedural cardiovascular examination; Z01.812 Encounter for preprocedural laboratory examination; R91.8 Other nonspecific abnormal finding of lung field

== ENCOUNTER → 2023-12-25 | Outpatient (CLI) | payer MEDICARE, MEDICAID ==
[2023-12-25 12:09] LABS: BASO # 0.1 10^3/uL (0.0-0.2); BASO % 0.5 % (0.0-1.0); EOS # 0.1 10^3/uL (0.0-0.5); HEMATOCRIT 47.6 % (36.0-47.0); HEMOGLOBIN 15.6 g/dl (12.0-15.5); LYMPH # 3.6 10^3/uL (1.5-5.0); LYMPH % 37.2 % (24.0-44.0); MEAN CORPUSCULAR HEMOGLOBIN 30.7 pg (27.0-33.0); MEAN CORPUSCULAR HGB CONC 32.8 g/dl (32.0-36.5); MEAN CORPUSCULAR VOLUME 93.7 fl (80.0-96.0); MONO # 1.2 10^3/uL (0.0-0.8); NEUTROPHILS # 4.7 10^3/uL (1.5-8.5); PLATELET COUNT, AUTOMATED 237 10^3/uL (150-450); RED BLOOD COUNT 5.08 10^6/uL (4.00-5.40); WHITE BLOOD COUNT 9.6 10^3/uL (4.0-10.0)
[2023-12-25 12:20] LABS: INR 1.19; PARTIAL THROMBOPLASTIN TIME 29.7 SECONDS (24.8-34.2); PROTHROMBIN TIME 14.7 SECONDS (12.5-14.5)
[2023-12-25 12:35] LABS: ALKALINE PHOSPHATASE 82 U/L (46-116); ALT/SGPT 35 U/L (7.0-40); AST/SGOT 25 U/L (<34); BILIRUBIN,TOTAL 0.4 MG/DL (0.3-1.2); BLOOD UREA NITROGEN 9 MG/DL (9-23); CALCIUM LEVEL 10.5 MG/DL (8.3-10.6); CARBON DIOXIDE LEVEL 28 MMOL/L (20-31); CHLORIDE LEVEL 105 MMOL/L (98-107); GLOMERULAR FILTRATION RATE > 60.0 (>45); GLUCOSE, FASTING 96 MG/DL (74-106); POTASSIUM SERUM 5.4 MMOL/L (3.5-5.1); SODIUM LEVEL 143 MMOL/L (136-145); TOTAL PROTEIN 8.8 G/DL (5.7-8.2)
== END ==
LOC: M EKG 10:48
PROVIDERS: ATTEND Nurse Practitioner Adult Health
DX: Z01.818 Encounter for other preprocedural examination (principal); Z01.812 Encounter for preprocedural laboratory examination; Z01.810 Encounter for preprocedural cardiovascular examination; K59.00 Constipation, unspecified; R00.0 Tachycardia, unspecified

== ENCOUNTER → 2024-04-12 | Outpatient (CLI) | payer MEDICARE, MEDICAID ==
[~2024-04-12] MED LIST changes: +CLOM1CAP3 PO; +CLOM1CAP4 PO; -CLOM25CA2 PO; -CLOM50CA3 PO; +RISP1TAB42 PO
[2024-04-12 15:10] LABS: BASO % 0.4 % (0.0-1.0); EOS # 0.1 10^3/uL (0.0-0.5); EOS % 1.8 % (0.0-3.0); HEMATOCRIT 42.1 % (36.0-47.0); HEMOGLOBIN 14.5 g/dl (12.0-15.5); LYMPH % 29.6 % (24.0-44.0); MEAN CORPUSCULAR HEMOGLOBIN 30.5 pg (27.0-33.0); MEAN CORPUSCULAR HGB CONC 34.4 g/dl (32.0-36.5); MEAN CORPUSCULAR VOLUME 88.4 fl (80.0-96.0); MONO # 0.6 10^3/uL (0.0-0.8); MONO % 9.5 % (2.0-8.0); NEUTROPHILS # 3.9 10^3/uL (1.5-8.5); NEUTROPHILS % 58.6 % (36.0-66.0); PLATELET COUNT, AUTOMATED 205 10^3/uL (150-450); RED BLOOD COUNT 4.76 10^6/uL (4.00-5.40); WHITE BLOOD COUNT 6.7 10^3/uL (4.0-10.0)
[2024-04-12 15:17] LABS: ALBUMIN 3.7 G/DL (3.2-5.2); ALKALINE PHOSPHATASE 67 U/L (46-116); ALT/SGPT 47 U/L (7.0-40); AST/SGOT 40 U/L (<34); BILIRUBIN,TOTAL 0.4 MG/DL (0.3-1.2); BLOOD UREA NITROGEN 10 MG/DL (9-23); CALCIUM LEVEL 9.8 MG/DL (8.3-10.6); CARBON DIOXIDE LEVEL 26 MMOL/L (20-31); CHLORIDE LEVEL 105 MMOL/L (98-107); CREATININE FOR GFR 0.53 MG/DL (0.55-1.30); GLOMERULAR FILTRATION RATE > 60.0 (>45); GLUCOSE, FASTING 110 MG/DL (74-106); POTASSIUM SERUM 4.4 MMOL/L (3.5-5.1); SODIUM LEVEL 136 MMOL/L (136-145)
[2024-04-12 15:21] LABS: INR 1.2; PARTIAL THROMBOPLASTIN TIME 29.8 SECONDS (24.8-34.2); PROTHROMBIN TIME 14.9 SECONDS (12.5-14.5)
== END ==
LOC: M PLALAB 12:50
PROVIDERS: ATTEND Nurse Practitioner Adult Health
DX: Z01.812 Encounter for preprocedural laboratory examination (principal); Z01.818 Encounter for other preprocedural examination; K59.00 Constipation, unspecified; Z01.810 Encounter for preprocedural cardiovascular examination; J84.9 Interstitial pulmonary disease, unspecified

== ENCOUNTER 2024-04-26 06:16 | Inpatient (IN) | payer MEDICARE, MEDICAID ==
[2024-04-26] VITALS (7 sets, daily range): BP systolic 113–121; BP diastolic 67–72; TEMP 97–97.5; O2SAT 95–97
[~2024-04-26] VITALS: Ht 170.2 cm; Wt 67.7 kg
[~2024-04-26 06:16] MED LIST changes: -OLAN2.5T25 PO; +OLAN2.5T53 PO; -RISP1TAB42 PO; -SENN-111 PO; +SENN-165 PO
[2024-04-26] MEDS ORDERED: MIDAZOLAM INJ 2MG/2ML VIAL As Ordered ONE (07:04)
[2024-04-26] MEDS ORDERED: ROCURONIUM BROMIDE 50MG/5ML VIAL As Ordered ONE (07:06)
[2024-04-26] MEDS ORDERED: fentaNYL 100 MCG/2 ML INJECTION As Ordered ONE (07:06)
[2024-04-26] MEDS ORDERED: LIDOCAINE 2% 100MG/5ML SDV (FOR ANES.) As Ordered ONE (07:09)
[2024-04-26] MEDS ORDERED: propofoL 200 MG/20 ML VIAL As Ordered ONE (07:10)
[2024-04-26] MEDS ORDERED: ONDANSETRON 4MG 2ML VIAL As Ordered ONE (07:11)
[2024-04-26] MEDS ORDERED: ACETAMINOPHEN 1000MG 100ML IV BAG As Ordered ONE (07:12)
[2024-04-26] MEDS ORDERED: SUGAMMADEX SODIUM 500 MG/5 ML VIAL (BRIDION) As Ordered ONE (07:14)
[2024-04-26] MEDS ORDERED: RISP1TAB42 PO (07:14)
[2024-04-26] MEDS ORDERED: HOME MED LIST COMPLETE! XX SCH (07:15)
[2024-04-26] MEDS ORDERED: LIDOCAINE 1% SDV 5ML VIAL SC PRN (07:15)
[2024-04-26] MEDS: ceFAZolin SOD 2 GM in IV 1 EA IV ONE (07:25)
[2024-04-26] MEDS: metroNIDAZOLE 500 MG in IV 1 EA IV ONE (07:40)
[2024-04-26] MEDS ORDERED: PHENYLephrine 500MCG 5ML (100MCG/ML) SYRINGE As Ordered ONE (08:10)
[2024-04-26] MEDS ORDERED: KETOROLAC 60MG 2ML VIAL As Ordered ONE (09:07)
[2024-04-26] MEDS ORDERED: fentaNYL 100 MCG/2 ML INJECTION IV PRN (09:15)
[2024-04-26] MEDS ORDERED: ULTRACET TAB PO PRN (09:15)
[2024-04-26] MEDS ORDERED: ONDANSETRON 4MG 2ML VIAL IV PRN ×2 (09:15)
[2024-04-26] MEDS ORDERED: traMADol 50 MG TAB PO PRN (09:15)
[2024-04-26] MEDS ORDERED: oxyCODONE 5MG TAB PO PRN (09:15)
[2024-04-26] MEDS ORDERED: HYDROMORPHONE HCL 0.5 MG/ 0.5 ML SYRINGE IV PRN (09:15)
[2024-04-26] MEDS: PANTOPRAZOLE 40MG VIAL IV SCH (09:59)
[2024-04-26] MEDS: LR 1,000 ML IV SCH (13:59)
[2024-04-26] MEDS: DOCUSATE SODIUM 100MG CAPSULE PO SCH (14:00)
[2024-04-26] MEDS: NS 1,000 ML IV SCH (15:26)
[2024-04-26] MEDS: KETOROLAC 30 MG/ML 1ML VIAL IV SCH (15:38)
[2024-04-26] MEDS: RISPERIDONE 1 MG TAB PO SCH (17:43)
[2024-04-26] MEDS: MAGNESIUM OXIDE 400MG TAB (MAG-OX) PO SCH (21:34)
[2024-04-26] MEDS: METOPROLOL TART 50 MG TAB PO SCH (21:35)
[2024-04-26] MEDS: busPIRone 10 MG TAB PO SCH (21:37)
[2024-04-26] MEDS: METHENAMINE HIPPURATE 1GM TABLET PO SCH (21:39)
[2024-04-27 01:30] VITALS: BP 117/73; TEMP 96.8; O2SAT 95
[2024-04-27 04:41] VITALS: BP_SYST 115; BP_SYST 133; BP_DIAS 73; BP_DIAS 81; TEMP 97.5; TEMP 97.7; O2SAT 95; O2SAT 96
[2024-04-27 06:16] LABS: HEMATOCRIT 33.3 % (36.0-47.0); HEMOGLOBIN 11.6 g/dl (12.0-15.5); MEAN CORPUSCULAR HEMOGLOBIN 30.4 pg (27.0-33.0); MEAN CORPUSCULAR HGB CONC 34.8 g/dl (32.0-36.5); MEAN CORPUSCULAR VOLUME 87.4 fl (80.0-96.0); PLATELET COUNT, AUTOMATED 157 10^3/uL (150-450); RED BLOOD COUNT 3.81 10^6/uL (4.00-5.40); WHITE BLOOD COUNT 8.1 10^3/uL (4.0-10.0)
[2024-04-27] MEDS: LEVOTHYROXINE 50MCG TABLET (0.05MG) PO SCH (06:21)
[2024-04-27 06:46] LABS: BLOOD UREA NITROGEN 8 MG/DL (9-23); CALCIUM LEVEL 8.2 MG/DL (8.3-10.6); CARBON DIOXIDE LEVEL 29 MMOL/L (20-31); CHLORIDE LEVEL 103 MMOL/L (98-107); CREATININE FOR GFR 0.55 MG/DL (0.55-1.30); GLOMERULAR FILTRATION RATE > 60.0 (>45); GLUCOSE, FASTING 100 MG/DL (74-106); POTASSIUM SERUM 3.6 MMOL/L (3.5-5.1); SODIUM LEVEL 135 MMOL/L (136-145)
[2024-04-27 08:09] VITALS: BP 117/77; TEMP 97.7; O2SAT 97
[2024-04-27] MEDS: MIRALAX *UNIT DOSE* 17GM PACKET PO SCH (08:49)
[2024-04-27] MEDS: VITAMIN D 1,000 INTERNATIONAL UNITS TABLET PO SCH (08:50)
[2024-04-27 12:32] VITALS: BP 115/74; TEMP 97.5; O2SAT 96
[2024-04-27] MEDS: FUROSEMIDE 40 MG TAB PO SCH (13:30)
[2024-04-27 16:31] VITALS: BP 110/77; TEMP 97.3; O2SAT 94
[2024-04-27 20:12] VITALS: BP 111/77; TEMP 97.2; O2SAT 95
[2024-04-28] VITALS (16 sets, daily range): BP systolic 85–136; BP diastolic 27–96; TEMP 96.8–98.7; O2SAT 92–99
[2024-04-28 06:18] LABS: MEAN CORPUSCULAR VOLUME 88.3 fl (80.0-96.0); PLATELET COUNT, AUTOMATED 234 10^3/uL (150-450); RED BLOOD COUNT 5.37 10^6/uL (4.00-5.40); WHITE BLOOD COUNT 10.8 10^3/uL (4.0-10.0)
[2024-04-28 06:36] LABS: HEMOGLOBIN 16.1 g/dl (12.0-15.5)
[2024-04-28 06:37] LABS: HEMATOCRIT 47.4 % (36.0-47.0)
[2024-04-28 07:03] LABS: BLOOD UREA NITROGEN 9 MG/DL (9-23); CALCIUM LEVEL 10.2 MG/DL (8.3-10.6); CARBON DIOXIDE LEVEL 27 MMOL/L (20-31); CHLORIDE LEVEL 103 MMOL/L (98-107); CREATININE FOR GFR 0.63 MG/DL (0.55-1.30); GLOMERULAR FILTRATION RATE > 60.0 (>45); GLUCOSE, FASTING 143 MG/DL (74-106); POTASSIUM SERUM 4.2 MMOL/L (3.5-5.1); SODIUM LEVEL 136 MMOL/L (136-145)
[2024-04-28] MEDS: SODIUM CHLORIDE 0.9% 1000ML IV ONE (18:54)
[2024-04-28] MEDS: KCL 20MEQ in NS 1000ML 1,000 ML IV SCH (18:55)
[2024-04-28] MEDS: MORPHINE 2 MG/ML 1ML VIAL IV PRN (20:16)
[2024-04-28] MEDS: HALOPERIDOL LACTATE 5MG/ML VIAL IM STA (20:20)
[2024-04-28] MEDS ORDERED: METOPROLOL 5 MG/5 ML VIAL IV SCH (21:00)
[2024-04-28] MEDS ORDERED: METOPROLOL 5 MG/5 ML VIAL IV STA (21:23)
[2024-04-28 21:27] LABS: ALBUMIN 3.3 G/DL (3.2-5.2); BILIRUBIN,TOTAL 0.4 MG/DL (0.3-1.2); CALCIUM LEVEL 10.3 MG/DL (8.3-10.6); CREATININE FOR GFR 1.42 MG/DL (0.55-1.30); GLOMERULAR FILTRATION RATE 39.5 (>45); MAGNESIUM LEVEL 2.4 MG/DL (1.8-2.4); POTASSIUM SERUM 4.9 MMOL/L (3.5-5.1); TOTAL PROTEIN 7.8 G/DL (5.7-8.2)
[2024-04-28] MEDS: NS 1,000 ML IV ONE (21:30)
[2024-04-29] VITALS (7 sets, daily range): BP systolic 114–131; BP diastolic 59–73; TEMP 97.1–98.2; O2SAT 97–100
[2024-04-29 06:26] LABS: HEMATOCRIT 42.1 % (36.0-47.0); HEMOGLOBIN 14.2 g/dl (12.0-15.5); MEAN CORPUSCULAR HEMOGLOBIN 30.2 pg (27.0-33.0); MEAN CORPUSCULAR HGB CONC 33.7 g/dl (32.0-36.5); MEAN CORPUSCULAR VOLUME 89.6 fl (80.0-96.0); PLATELET COUNT, AUTOMATED 222 10^3/uL (150-450); WHITE BLOOD COUNT 5.9 10^3/uL (4.0-10.0)
[2024-04-29 06:53] LABS: CALCIUM LEVEL 8.8 MG/DL (8.3-10.6); CREATININE FOR GFR 1.07 MG/DL (0.55-1.30); GLOMERULAR FILTRATION RATE 54.8 (>45); POTASSIUM SERUM 5.1 MMOL/L (3.5-5.1)
[2024-04-29] MEDS: CLOMIPRAMINE 25 MG PO SCH (09:00)
[2024-04-29] MEDS: ACETAMINOPHEN 325 MG TAB PO PRN (13:02)
[2024-04-29 14:52] LABS: HEMATOCRIT 37.8 % (36.0-47.0); HEMOGLOBIN 12.9 g/dl (12.0-15.5); MEAN CORPUSCULAR HEMOGLOBIN 30.5 pg (27.0-33.0); MEAN CORPUSCULAR HGB CONC 34.1 g/dl (32.0-36.5); MEAN CORPUSCULAR VOLUME 89.4 fl (80.0-96.0); PLATELET COUNT, AUTOMATED 198 10^3/uL (150-450); RED BLOOD COUNT 4.23 10^6/uL (4.00-5.40); WHITE BLOOD COUNT 5.3 10^3/uL (4.0-10.0)
[2024-04-29] MEDS: METOPROLOL TART 50 MG TAB NG SCH (15:00)
[2024-04-29 15:22] LABS: CK-MB VALUE MASS < 1.0 NG/ML (<3.6)
[2024-04-29 15:24] LABS: BLOOD UREA NITROGEN 28 MG/DL (9-23); CALCIUM LEVEL 8.6 MG/DL (8.3-10.6); CARBON DIOXIDE LEVEL 24 MMOL/L (20-31); CHLORIDE LEVEL 115 MMOL/L (98-107); CREATININE FOR GFR 0.83 MG/DL (0.55-1.30); GLOMERULAR FILTRATION RATE > 60.0 (>45); GLUCOSE, FASTING 126 MG/DL (74-106); POTASSIUM SERUM 4.9 MMOL/L (3.5-5.1); SODIUM LEVEL 140 MMOL/L (136-145)
[2024-04-29 15:29] LABS: ATYPICAL LYMPH 5 % (0-5); EOSINOPHILS 1 % (0-3); LYMPHOCYTES 13 % (16-44); METAMYELOCYTES 1 % (0-0); MONOCYTES 17 % (0-5); MYELOCYTES 1 % (0-0); NEUTROPHILS 32 % (28-66)
[2024-04-29 15:30] LABS: PLATELET ESTIMATE NORMAL (NORMAL)
[2024-04-29] MEDS: FLEET ENEMA PR ONE (15:30)
[2024-04-29 15:32] LABS: PROCALCITONIN 0.13 ng/ml
[2024-04-29 15:36] LABS: CPK CREATINE PHOSPHOKINASE 135 U/L (34-145); MB/CK RELATIVE INDEX 0.74 (< OR =4)
[2024-04-29] MEDS ORDERED: PIPERACILLIN/TAZOBACTAM SOD 3.375 GM in D5W MINI-BAG PLUS 50 ML IV SCH (17:00)
[2024-04-29] MEDS ORDERED: ISOVUE-370 76% 100ML VIAL As Ordered ONE (17:13)
[2024-04-29] MEDS ORDERED: MORPHINE 2 MG/ML 1ML VIAL IV PRN ×2 (17:45)
[2024-04-29] MEDS: PIPERACILLIN/TAZOBACTAM SOD 3.375 GM in D5W MINI-BAG PLUS 50 ML IV SCH (20:53)
[2024-04-29 21:03] LABS: BLOOD UREA NITROGEN 30 MG/DL (9-23); CALCIUM LEVEL 8.7 MG/DL (8.3-10.6); CARBON DIOXIDE LEVEL 24 MMOL/L (20-31); CHLORIDE LEVEL 115 MMOL/L (98-107); CREATININE FOR GFR 0.79 MG/DL (0.55-1.30); GLOMERULAR FILTRATION RATE > 60.0 (>45); GLUCOSE, FASTING 123 MG/DL (74-106); POTASSIUM SERUM 4.7 MMOL/L (3.5-5.1); SODIUM LEVEL 144 MMOL/L (136-145)
[2024-04-29] MEDS: LACTATED RINGER'S 1000 ML IV ONE (21:19)
[2024-04-30] VITALS (11 sets, daily range): BP systolic 120–143; BP diastolic 56–76; TEMP 97–98.2; O2SAT 93–97
[2024-04-30 08:07] LABS: BASO % 0.5 % (0.0-1.0); EOS # 0.1 10^3/uL (0.0-0.5); EOS % 1.7 % (0.0-3.0); LYMPH # 1.1 10^3/uL (1.5-5.0); LYMPH % 16.7 % (24.0-44.0); MONO # 1.1 10^3/uL (0.0-0.8); MONO % 16.8 % (2.0-8.0); NEUTROPHILS # 4.2 10^3/uL (1.5-8.5); NEUTROPHILS % 63.7 % (36.0-66.0)
[2024-04-30 08:08] LABS: HEMATOCRIT 35.2 % (36.0-47.0); HEMOGLOBIN 11.7 g/dl (12.0-15.5); MEAN CORPUSCULAR HEMOGLOBIN 30.2 pg (27.0-33.0); MEAN CORPUSCULAR HGB CONC 33.2 g/dl (32.0-36.5); PLATELET COUNT, AUTOMATED 191 10^3/uL (150-450); RED BLOOD COUNT 3.87 10^6/uL (4.00-5.40); WHITE BLOOD COUNT 6.5 10^3/uL (4.0-10.0)
[2024-04-30 08:35] LABS: BLOOD UREA NITROGEN 21 MG/DL (9-23); CALCIUM LEVEL 8.5 MG/DL (8.3-10.6); CARBON DIOXIDE LEVEL 22 MMOL/L (20-31); CHLORIDE LEVEL 117 MMOL/L (98-107); CREATININE FOR GFR 0.62 MG/DL (0.55-1.30); GLOMERULAR FILTRATION RATE > 60.0 (>45); GLUCOSE, FASTING 114 MG/DL (74-106); POTASSIUM SERUM 4.5 MMOL/L (3.5-5.1); SODIUM LEVEL 144 MMOL/L (136-145)
[2024-04-30] MEDS: LR 1,000 ML IV SCH (10:54)
[2024-05-01] VITALS (16 sets, daily range): BP systolic 116–144; BP diastolic 58–81; TEMP 97.2–99.7; O2SAT 94–98
[2024-05-01 07:55] LABS: BASO % 0.7 % (0.0-1.0); EOS # 0.2 10^3/uL (0.0-0.5); EOS % 2.8 % (0.0-3.0); HEMATOCRIT 32.9 % (36.0-47.0); HEMOGLOBIN 11.1 g/dl (12.0-15.5); MEAN CORPUSCULAR HEMOGLOBIN 30.1 pg (27.0-33.0); MEAN CORPUSCULAR HGB CONC 33.7 g/dl (32.0-36.5); MEAN CORPUSCULAR VOLUME 89.2 fl (80.0-96.0); MONO # 0.9 10^3/uL (0.0-0.8); NEUTROPHILS # 3.7 10^3/uL (1.5-8.5); PLATELET COUNT, AUTOMATED 181 10^3/uL (150-450); RED BLOOD COUNT 3.69 10^6/uL (4.00-5.40); WHITE BLOOD COUNT 5.7 10^3/uL (4.0-10.0)
[2024-05-01 08:21] LABS: BLOOD UREA NITROGEN 15 MG/DL (9-23); CALCIUM LEVEL 8.7 MG/DL (8.3-10.6); CARBON DIOXIDE LEVEL 25 MMOL/L (20-31); CHLORIDE LEVEL 111 MMOL/L (98-107); CREATININE FOR GFR 0.54 MG/DL (0.55-1.30); GLOMERULAR FILTRATION RATE > 60.0 (>45); GLUCOSE, FASTING 98 MG/DL (74-106); POTASSIUM SERUM 3.6 MMOL/L (3.5-5.1); SODIUM LEVEL 143 MMOL/L (136-145)
[2024-05-01] MEDS: ENOXAPARIN 40MG/0.4ML SYRINGE (J1650 PER 10MG) SC SCH (08:56)
[2024-05-01] MEDS: METOPROLOL TART 50 MG TAB NG SCH (10:55)
[2024-05-01] MEDS: POTASSIUM CHLORIDE INJ 20 MEQ in LR 1,000 ML IV SCH (11:03)
[2024-05-02] VITALS (17 sets, daily range): BP systolic 119–140; BP diastolic 56–75; TEMP 96.9–98.9; O2SAT 96–99
[2024-05-02] MEDS: DOCUSATE SOD LIQ 100MG/10ML UDC PO SCH (08:35)
[2024-05-02] MEDS: LACTOBACILLUS ACIDOPHILUS CAP (BACID) PO SCH (10:12)
[2024-05-02 10:24] LABS: BASO % 0.3 % (0.0-1.0); EOS # 0.2 10^3/uL (0.0-0.5); EOS % 1.9 % (0.0-3.0); HEMATOCRIT 35.7 % (36.0-47.0); HEMOGLOBIN 11.9 g/dl (12.0-15.5); LYMPH # 1.3 10^3/uL (1.5-5.0); LYMPH % 13.7 % (24.0-44.0); MEAN CORPUSCULAR HEMOGLOBIN 30.1 pg (27.0-33.0); MEAN CORPUSCULAR HGB CONC 33.3 g/dl (32.0-36.5); MEAN CORPUSCULAR VOLUME 90.2 fl (80.0-96.0); MONO # 0.9 10^3/uL (0.0-0.8); MONO % 8.8 % (2.0-8.0); NEUTROPHILS # 7.3 10^3/uL (1.5-8.5); NEUTROPHILS % 74.6 % (36.0-66.0); PLATELET COUNT, AUTOMATED 204 10^3/uL (150-450); RED BLOOD COUNT 3.96 10^6/uL (4.00-5.40); WHITE BLOOD COUNT 9.8 10^3/uL (4.0-10.0)
[2024-05-02 10:54] LABS: BLOOD UREA NITROGEN 13 MG/DL (9-23); CALCIUM LEVEL 8.3 MG/DL (8.3-10.6); CARBON DIOXIDE LEVEL 22 MMOL/L (20-31); CHLORIDE LEVEL 109 MMOL/L (98-107); CREATININE FOR GFR 0.53 MG/DL (0.55-1.30); GLOMERULAR FILTRATION RATE > 60.0 (>45); GLUCOSE, FASTING 82 MG/DL (74-106); POTASSIUM SERUM 4.1 MMOL/L (3.5-5.1); SODIUM LEVEL 140 MMOL/L (136-145)
[2024-05-02] MEDS: SIMETHICONE 40MG/0.6ML DROPS 30ML NG SCH (12:02)
[2024-05-03] VITALS (7 sets, daily range): BP systolic 130–144; BP diastolic 61–73; TEMP 96.9–97.7; O2SAT 96–98
[2024-05-03 10:16] LABS: BASO % 0.3 % (0.0-1.0); EOS # 0.3 10^3/uL (0.0-0.5); EOS % 2.7 % (0.0-3.0); HEMATOCRIT 34.8 % (36.0-47.0); HEMOGLOBIN 11.7 g/dl (12.0-15.5); LYMPH # 1.6 10^3/uL (1.5-5.0); LYMPH % 16.4 % (24.0-44.0); MEAN CORPUSCULAR HEMOGLOBIN 30.5 pg (27.0-33.0); MEAN CORPUSCULAR HGB CONC 33.6 g/dl (32.0-36.5); MEAN CORPUSCULAR VOLUME 90.6 fl (80.0-96.0); MONO # 0.8 10^3/uL (0.0-0.8); MONO % 8.5 % (2.0-8.0); NEUTROPHILS # 6.9 10^3/uL (1.5-8.5); NEUTROPHILS % 70.9 % (36.0-66.0); PLATELET COUNT, AUTOMATED 198 10^3/uL (150-450); RED BLOOD COUNT 3.84 10^6/uL (4.00-5.40); WHITE BLOOD COUNT 9.7 10^3/uL (4.0-10.0)
[2024-05-03 10:38] LABS: BLOOD UREA NITROGEN 11 MG/DL (9-23); CALCIUM LEVEL 7.7 MG/DL (8.3-10.6); CARBON DIOXIDE LEVEL 20 MMOL/L (20-31); CHLORIDE LEVEL 109 MMOL/L (98-107); CREATININE FOR GFR 0.42 MG/DL (0.55-1.30); GLOMERULAR FILTRATION RATE > 60.0 (>45); GLUCOSE, FASTING 82 MG/DL (74-106); POTASSIUM SERUM 5.6 MMOL/L (3.5-5.1); SODIUM LEVEL 140 MMOL/L (136-145)
[2024-05-04 00:22] VITALS: BP 141/77; TEMP 97.2; O2SAT 96
[2024-05-04 07:45] VITALS: BP 138/68; TEMP 97.5; O2SAT 95
[2024-05-04 09:53] LABS: BLOOD UREA NITROGEN 8 MG/DL (9-23); CALCIUM LEVEL 8.3 MG/DL (8.3-10.6); CARBON DIOXIDE LEVEL 26 MMOL/L (20-31); CHLORIDE LEVEL 105 MMOL/L (98-107); GLOMERULAR FILTRATION RATE > 60.0 (>45); GLUCOSE, FASTING 93 MG/DL (74-106); POTASSIUM SERUM 5.4 MMOL/L (3.5-5.1); SODIUM LEVEL 135 MMOL/L (136-145)
[2024-05-04 12:00] VITALS: BP 133/76; TEMP 97.6; O2SAT 96
[2024-05-04] MEDS: SIMETHICONE 40MG/0.6ML DROPS 30ML PO SCH (13:38)
[2024-05-04 16:00] VITALS: BP 135/67; TEMP 97.1; O2SAT 99
[2024-05-04 17:30] VITALS: BP 114/74; TEMP 97.5; O2SAT 98
[2024-05-04 20:31] VITALS: BP 111/74; TEMP 97.2; O2SAT 99
[2024-05-05] VITALS: BP 119/63; TEMP 97.7; O2SAT 99
[2024-05-05 04:12] VITALS: BP 124/64; TEMP 97.2; O2SAT 100
[2024-05-05 08:00] VITALS: BP 123/87; TEMP 97.9; O2SAT 97
[2024-05-05 12:00] VITALS: BP 143/74; TEMP 98.1; O2SAT 92
[2024-05-05 18:50] VITALS: BP 142/74; TEMP 97.7
[2024-05-05 21:08] VITALS: BP 142/75; TEMP 97.7; O2SAT 98
[2024-05-06] VITALS: BP 134/88; TEMP 97.9; O2SAT 97
[2024-05-06 04:03] VITALS: BP 139/80; TEMP 97.2; O2SAT 100
[2024-05-06 08:00] VITALS: BP 120/90; TEMP 97.7; O2SAT 97
[2024-05-06 12:00] VITALS: BP 118/92; TEMP 97.9; O2SAT 98
[2024-05-06 16:00] VITALS: BP 122/96; TEMP 97.3; O2SAT 97
[2024-05-06 20:00] VITALS: BP 102/67; TEMP 97.5; O2SAT 96
[2024-05-07 04:00] VITALS: BP 116/75; TEMP 97.3; O2SAT 96
[2024-05-07 20:00] VITALS: BP 116/77; TEMP 97.7; O2SAT 97
[2024-05-07] MEDS: CLOMIPRAMINE 25 MG PO SCH (20:58)
[2024-05-07 23:59] VITALS: BP 106/69; TEMP 97.5; O2SAT 96
[2024-05-08 04:00] VITALS: BP 125/88; TEMP 97.5; O2SAT 94
[2024-05-08 07:03] LABS: BASO % 0.3 % (0.0-1.0); EOS # 0.2 10^3/uL (0.0-0.5); EOS % 1.4 % (0.0-3.0); HEMATOCRIT 39.4 % (36.0-47.0); HEMOGLOBIN 13.5 g/dl (12.0-15.5); LYMPH # 1.6 10^3/uL (1.5-5.0); LYMPH % 15.4 % (24.0-44.0); MEAN CORPUSCULAR HEMOGLOBIN 30.1 pg (27.0-33.0); MEAN CORPUSCULAR HGB CONC 34.3 g/dl (32.0-36.5); MEAN CORPUSCULAR VOLUME 87.8 fl (80.0-96.0); MONO # 0.8 10^3/uL (0.0-0.8); MONO % 7.6 % (2.0-8.0); NEUTROPHILS # 7.8 10^3/uL (1.5-8.5); PLATELET COUNT, AUTOMATED 250 10^3/uL (150-450); RED BLOOD COUNT 4.49 10^6/uL (4.00-5.40); WHITE BLOOD COUNT 10.4 10^3/uL (4.0-10.0)
[2024-05-08 07:58] LABS: BLOOD UREA NITROGEN < 5 MG/DL (9-23); CALCIUM LEVEL 8.9 MG/DL (8.3-10.6); CARBON DIOXIDE LEVEL 28 MMOL/L (20-31); CHLORIDE LEVEL 98 MMOL/L (98-107); CREATININE FOR GFR 0.56 MG/DL (0.55-1.30); GLOMERULAR FILTRATION RATE > 60.0 (>45); GLUCOSE, FASTING 119 MG/DL (74-106); POTASSIUM SERUM 3.6 MMOL/L (3.5-5.1); SODIUM LEVEL 131 MMOL/L (136-145)
[2024-05-08 08:00] VITALS: BP 127/75; TEMP 97.6; O2SAT 95
[2024-05-08 12:00] VITALS: BP 127/82; TEMP 97.7; O2SAT 94
[2024-05-08 16:00] VITALS: BP 125/74; TEMP 97.7; O2SAT 94
[2024-05-08 20:25] VITALS: BP 125/82; TEMP 97.7; O2SAT 97
[2024-05-09] VITALS: BP 125/81; TEMP 97.5; O2SAT 98
[2024-05-09 04:00] VITALS: BP 125/81; TEMP 97.5; O2SAT 96
[2024-05-09 08:00] VITALS: BP 124/81; TEMP 97.5; O2SAT 98
[2024-05-09 08:22] VITALS: BP 124/81
== END 2024-05-09 16:35 | disposition home or self-care (01) | DRG 330 ==
LOC: M OR 06:16 → M MS5PR 14:15 → M PCU 04-28 21:09 → M MSPAV 05-04 17:28
PROVIDERS: ADMIT Surgery; ATTEND Surgery
PROC: 0D1B4Z4 Bypass Ileum to Cutaneous, Percutaneous Endoscopic Approach (ICD-10-PCS; principal; 2024-04-26 07:30)
DX: K59.39 Other megacolon (principal); I50.32 Chronic diastolic (congestive) heart failure; I47.20 Ventricular tachycardia, unspecified; K56.7 Ileus, unspecified; K91.89 Other postprocedural complications and disorders of digestive system; Z93.2 Ileostomy status; G80.9 Cerebral palsy, unspecified; E03.9 Hypothyroidism, unspecified; E78.5 Hyperlipidemia, unspecified; K75.81 Nonalcoholic steatohepatitis (NASH); I11.0 Hypertensive heart disease with heart failure; J44.9 Chronic obstructive pulmonary disease, unspecified; F41.9 Anxiety disorder, unspecified; F32.A Depression, unspecified; F79 Unspecified intellectual disabilities; I73.9 Peripheral vascular disease, unspecified; G40.909 Epilepsy, unspecified, not intractable, without status epilepticus; Z79.899 Other long term (current) drug therapy; Z88.8 Allergy status to other drugs, medicaments and biological substances; D69.6 Thrombocytopenia, unspecified; E55.9 Vitamin D deficiency, unspecified

== ENCOUNTER 2024-05-11 22:50 | Inpatient (IN) | payer MEDICARE, MEDICAID ==
[~2024-05-11] VITALS: Ht 170.2 cm; Wt 73.5 kg
[~2024-05-11 22:50] MED LIST changes: +RISP1TAB42 PO
[2024-05-11 23:19] LABS: BASO # 0.1 10^3/uL (0.0-0.2); BASO % 0.4 % (0.0-1.0); EOS # 0.1 10^3/uL (0.0-0.5); EOS % 0.6 % (0.0-3.0); HEMATOCRIT 42.2 % (36.0-47.0); HEMOGLOBIN 14.5 g/dl (12.0-15.5); LYMPH # 1.9 10^3/uL (1.5-5.0); LYMPH % 9.7 % (24.0-44.0); MEAN CORPUSCULAR HEMOGLOBIN 30.3 pg (27.0-33.0); MEAN CORPUSCULAR HGB CONC 34.4 g/dl (32.0-36.5); MEAN CORPUSCULAR VOLUME 88.1 fl (80.0-96.0); MONO # 1.4 10^3/uL (0.0-0.8); MONO % 7.2 % (2.0-8.0); NEUTROPHILS # 15.9 10^3/uL (1.5-8.5); NEUTROPHILS % 81.5 % (36.0-66.0); PLATELET COUNT, AUTOMATED 450 10^3/uL (150-450); RED BLOOD COUNT 4.79 10^6/uL (4.00-5.40); WHITE BLOOD COUNT 19.5 10^3/uL (4.0-10.0)
[2024-05-11] MEDS: NS 1,000 ML IV ONE (23:25)
[2024-05-11] MEDS ORDERED: ISOVUE-370 76% 100ML VIAL As Ordered ONE (23:43)
[2024-05-12] MEDS: PIPERACILLIN/TAZOBACTAM SOD 4.5 GM in D5W MINI-BAG PLUS 50 ML IV ONE (00:47)
[2024-05-12 01:07] LABS: LIPASE 310 U/L (12-53)
[2024-05-12 01:09] LABS: ALKALINE PHOSPHATASE 97 U/L (46-116); ALT/SGPT 42 U/L (7.0-40); AST/SGOT 51 U/L (<34); BILIRUBIN,DIRECT 0.3 MG/DL (<0.4); BILIRUBIN,TOTAL 0.4 MG/DL (0.3-1.2); BLOOD UREA NITROGEN 21 MG/DL (9-23); CALCIUM LEVEL 9.2 MG/DL (8.3-10.6); CARBON DIOXIDE LEVEL 23 MMOL/L (20-31); CHLORIDE LEVEL 97 MMOL/L (98-107); CK-MB VALUE MASS < 1.0 NG/ML (<3.6); CPK CREATINE PHOSPHOKINASE 39 U/L (34-145); CREATININE FOR GFR 0.75 MG/DL (0.55-1.30); GLOMERULAR FILTRATION RATE > 60.0 (>45); GLUCOSE, FASTING 138 MG/DL (74-106); MB/CK RELATIVE INDEX 2.56 (< OR =4); POTASSIUM SERUM 4.1 MMOL/L (3.5-5.1); SODIUM LEVEL 127 MMOL/L (136-145); TOTAL PROTEIN 7.9 G/DL (5.7-8.2)
[2024-05-12] MEDS ORDERED: LEVE10003 PO (01:42)
[2024-05-12] MEDS: NS 1,000 ML IV ONE (02:54)
[2024-05-12] MEDS ORDERED: ONDANSETRON 4MG 2ML VIAL IV PRN (04:20)
[2024-05-12] MEDS: AZITHROMYCIN INJ 500 MG, VIAL MATE ADAPTER 1 EACH in NS 250 ML IV SCH (05:09)
[2024-05-12] MEDS: NS 1,000 ML IV SCH ×2 (05:09→14:35)
[2024-05-12] MEDS ORDERED: D-20TAB PO (06:02)
[2024-05-12] MEDS ORDERED: NEOM28.3 TOP (06:04)
[2024-05-12] MEDS ORDERED: DEBR6.5S4 AU (06:04)
[2024-05-12] MEDS ORDERED: HOME MED LIST COMPLETE! XX SCH (06:05)
[2024-05-12] MEDS: PIPERACILLIN/TAZOBACTAM SOD 4.5 GM in D5W MINI-BAG PLUS 50 ML IV SCH (06:38)
[2024-05-12] MEDS: LEVOTHYROXINE 50MCG TABLET (0.05MG) PO SCH ×2 (06:43→11:24)
[2024-05-12] MEDS: ENOXAPARIN 40MG/0.4ML SYRINGE (J1650 PER 10MG) SC SCH (11:19)
[2024-05-12] MEDS: levETIRAcetam 250MG TABLET (KEPPRA) PO SCH (11:25)
[2024-05-12] MEDS: METOPROLOL TART 50 MG TAB PO SCH (11:25)
[2024-05-12 11:46] VITALS: BP 139/88; TEMP 97.4; O2SAT 96
[2024-05-12 19:51] VITALS: BP 150/75; TEMP 97.7; O2SAT 100
[2024-05-12 21:30] VITALS: O2SAT 100
[2024-05-12 22:28] VITALS: BP 103/65; TEMP 97; O2SAT 100
[2024-05-12 23:12] VITALS: BP 111/82; TEMP 97; O2SAT 100
[2024-05-12 23:14] VITALS: BP 111/62; O2SAT 100
[2024-05-13] VITALS (12 sets, daily range): BP systolic 94–138; BP diastolic 54–86; TEMP 97.1–97.8; O2SAT 95–100
[2024-05-13] MEDS: NS 500 ML IV ONE (05:20)
[2024-05-13 06:53] LABS: ALBUMIN 2.7 G/DL (3.2-5.2); ALKALINE PHOSPHATASE 81 U/L (46-116); ALT/SGPT 44 U/L (7.0-40); AST/SGOT 51 U/L (<34); BILIRUBIN,TOTAL 0.6 MG/DL (0.3-1.2); BLOOD UREA NITROGEN 18 MG/DL (9-23); CALCIUM LEVEL 8.8 MG/DL (8.3-10.6); CARBON DIOXIDE LEVEL 23 MMOL/L (20-31); CHLORIDE LEVEL 107 MMOL/L (98-107); CREATININE FOR GFR 0.61 MG/DL (0.55-1.30); GLOMERULAR FILTRATION RATE > 60.0 (>45); GLUCOSE, FASTING 126 MG/DL (74-106); POTASSIUM SERUM 4.7 MMOL/L (3.5-5.1); SODIUM LEVEL 137 MMOL/L (136-145); TOTAL PROTEIN 6.6 G/DL (5.7-8.2)
[2024-05-13 08:03] LABS: HEMATOCRIT 40.2 % (36.0-47.0); HEMOGLOBIN 13.2 g/dl (12.0-15.5); MEAN CORPUSCULAR HGB CONC 32.8 g/dl (32.0-36.5); MEAN CORPUSCULAR VOLUME 91.4 fl (80.0-96.0); PLATELET COUNT, AUTOMATED 334 10^3/uL (150-450); WHITE BLOOD COUNT 9.1 10^3/uL (4.0-10.0)
[2024-05-13] MEDS: NS 1,000 ML IV ONE ×3 (09:35→19:46)
[2024-05-13] MEDS: NS 1,000 ML IV SCH ×2 (11:43→21:07)
[2024-05-13] MEDS: LR 1,000 ML IV ONE (15:51)
[2024-05-13] MEDS: levETIRAcetam INJection 1,000 MG in D5W 100 ML IV SCH (21:52)
[2024-05-14 04:48] LABS: BASO % 0.7 % (0.0-1.0); EOS # 0.2 10^3/uL (0.0-0.5); EOS % 2.7 % (0.0-3.0); HEMATOCRIT 32.1 % (36.0-47.0); LYMPH # 1.3 10^3/uL (1.5-5.0); LYMPH % 21.9 % (24.0-44.0); MEAN CORPUSCULAR HEMOGLOBIN 30.5 pg (27.0-33.0); MEAN CORPUSCULAR VOLUME 89.9 fl (80.0-96.0); MONO # 0.7 10^3/uL (0.0-0.8); NEUTROPHILS # 3.6 10^3/uL (1.5-8.5); NEUTROPHILS % 62.2 % (36.0-66.0); PLATELET COUNT, AUTOMATED 309 10^3/uL (150-450); RED BLOOD COUNT 3.57 10^6/uL (4.00-5.40); WHITE BLOOD COUNT 5.9 10^3/uL (4.0-10.0)
[2024-05-14 04:50] VITALS: BP 124/76; TEMP 97.5; O2SAT 91
[2024-05-14 04:50] LABS: HEMOGLOBIN 10.9 g/dl (12.0-15.5)
[2024-05-14 04:51] LABS: BLOOD UREA NITROGEN 10 MG/DL (9-23); CALCIUM LEVEL 8.1 MG/DL (8.3-10.6); CARBON DIOXIDE LEVEL 23 MMOL/L (20-31); CHLORIDE LEVEL 110 MMOL/L (98-107); CREATININE FOR GFR 0.45 MG/DL (0.55-1.30); GLOMERULAR FILTRATION RATE > 60.0 (>45); GLUCOSE, FASTING 114 MG/DL (74-106); MAGNESIUM LEVEL 1.4 MG/DL (1.8-2.4); POTASSIUM SERUM 3.9 MMOL/L (3.5-5.1); SODIUM LEVEL 139 MMOL/L (136-145)
[2024-05-14] MEDS: FLEET ENEMA PR ONE (06:03)
[2024-05-14 07:47] VITALS: BP 118/55; TEMP 96.8; O2SAT 98
[2024-05-14] MEDS: GASTROGRAFIN SOLUTION 30ML NG SCH (08:38)
[2024-05-14] MEDS: LORazepam 2 MG/ML 1ML VIAL IV STA (08:45)
[2024-05-14] MEDS: LEVOTHYROXINE 100MCG (0.1MG) 5ML SDV PF (SOLUTION FORM) IV SCH (09:08)
[2024-05-14] MEDS: MAG SULF 1GM/100ML (MAG RUN) 1 GM in IV 1 EA IV SCH (09:09)
[2024-05-14 12:08] VITALS: BP 148/68; TEMP 97.4; O2SAT 96
[2024-05-14 16:01] VITALS: BP 130/60; TEMP 97; O2SAT 96
[2024-05-14 20:00] VITALS: BP 121/60; TEMP 96.9; O2SAT 95
[2024-05-14 23:37] VITALS: BP 125/58; TEMP 97.8; O2SAT 94
[2024-05-15 03:47] VITALS: BP 111/56; TEMP 97; O2SAT 97
[2024-05-15 05:59] LABS: BASO % 0.5 % (0.0-1.0); EOS # 0.1 10^3/uL (0.0-0.5); EOS % 0.9 % (0.0-3.0); HEMATOCRIT 31.9 % (36.0-47.0); HEMOGLOBIN 10.9 g/dl (12.0-15.5); LYMPH # 1.1 10^3/uL (1.5-5.0); LYMPH % 12.2 % (24.0-44.0); MEAN CORPUSCULAR HEMOGLOBIN 29.9 pg (27.0-33.0); MEAN CORPUSCULAR HGB CONC 34.2 g/dl (32.0-36.5); MEAN CORPUSCULAR VOLUME 87.6 fl (80.0-96.0); MONO # 0.8 10^3/uL (0.0-0.8); MONO % 9.7 % (2.0-8.0); NEUTROPHILS # 6.6 10^3/uL (1.5-8.5); NEUTROPHILS % 76.5 % (36.0-66.0); PLATELET COUNT, AUTOMATED 287 10^3/uL (150-450); RED BLOOD COUNT 3.64 10^6/uL (4.00-5.40); WHITE BLOOD COUNT 8.7 10^3/uL (4.0-10.0)
[2024-05-15 06:45] LABS: BLOOD UREA NITROGEN < 5 MG/DL (9-23); CALCIUM LEVEL 8.2 MG/DL (8.3-10.6); CARBON DIOXIDE LEVEL 25 MMOL/L (20-31); CHLORIDE LEVEL 108 MMOL/L (98-107); CREATININE FOR GFR 0.49 MG/DL (0.55-1.30); GLOMERULAR FILTRATION RATE > 60.0 (>45); GLUCOSE, FASTING 107 MG/DL (74-106); MAGNESIUM LEVEL 1.8 MG/DL (1.8-2.4); POTASSIUM SERUM 2.6 MMOL/L (3.5-5.1); SODIUM LEVEL 139 MMOL/L (136-145)
[2024-05-15 08:00] VITALS: BP 115/56; TEMP 97; O2SAT 98
[2024-05-15] MEDS: KCL 10MEQ/100ML SWI (KRUN) 10 MEQ in IV 1 EA IV SCH ×2 (08:06→17:03)
[2024-05-15] MEDS: POTASSIUM CHLORIDE 10% LIQ 20MEQ/15ML UDC PO ONE (08:06)
[2024-05-15] MEDS ORDERED: KCL 10MEQ/100ML SWI (KRUN) 10 MEQ in IV 1 EA IV SCH (08:25)
[2024-05-15] MEDS: MAG SULF 1GM/100ML (MAG RUN) 1 GM in IV 1 EA IV ONE (09:24)
[2024-05-15 12:00] VITALS: BP 137/74; TEMP 97.3; O2SAT 99
[2024-05-15 14:47] LABS: POTASSIUM SERUM 3.1 MMOL/L (3.5-5.1)
[2024-05-15 15:59] VITALS: BP 142/72; TEMP 97.6; O2SAT 100
[2024-05-15] MEDS ORDERED: POTASSIUM CHLORIDE 10% LIQ 20MEQ/15ML UDC PO SCH (16:00)
[2024-05-15 20:24] VITALS: BP 116/57; TEMP 97.1; O2SAT 99
[2024-05-15 20:46] LABS: MAGNESIUM LEVEL 1.7 MG/DL (1.8-2.4); POTASSIUM SERUM 2.8 MMOL/L (3.5-5.1)
[2024-05-16] MEDS: KCL 10MEQ/100ML SWI (KRUN) 10 MEQ in IV 1 EA IV SCH (01:11)
[2024-05-16 03:04] VITALS: BP 137/65; TEMP 97.6; O2SAT 97
[2024-05-16 06:00] LABS: BASO % 0.4 % (0.0-1.0); EOS # 0.2 10^3/uL (0.0-0.5); EOS % 2.5 % (0.0-3.0); HEMATOCRIT 32.4 % (36.0-47.0); HEMOGLOBIN 11.3 g/dl (12.0-15.5); LYMPH # 1.7 10^3/uL (1.5-5.0); LYMPH % 17.9 % (24.0-44.0); MEAN CORPUSCULAR HEMOGLOBIN 30.4 pg (27.0-33.0); MEAN CORPUSCULAR HGB CONC 34.9 g/dl (32.0-36.5); MEAN CORPUSCULAR VOLUME 87.1 fl (80.0-96.0); MONO # 0.8 10^3/uL (0.0-0.8); MONO % 7.9 % (2.0-8.0); NEUTROPHILS # 6.7 10^3/uL (1.5-8.5); NEUTROPHILS % 70.7 % (36.0-66.0); PLATELET COUNT, AUTOMATED 304 10^3/uL (150-450); RED BLOOD COUNT 3.72 10^6/uL (4.00-5.40); WHITE BLOOD COUNT 9.5 10^3/uL (4.0-10.0)
[2024-05-16] MEDS ORDERED: LEVOTHYROXINE 100MCG (0.1MG) 5ML SDV PF (SOLUTION FORM) IV SCH (06:00)
[2024-05-16] MEDS: LEVOTHYROXINE 50MCG TABLET (0.05MG) PO SCH (06:01)
[2024-05-16] MEDS: FLEET OIL RETENTION ENEMA PR SCH (06:02)
[2024-05-16 06:37] LABS: BLOOD UREA NITROGEN < 5 MG/DL (9-23); CALCIUM LEVEL 8.9 MG/DL (8.3-10.6); CARBON DIOXIDE LEVEL 27 MMOL/L (20-31); CHLORIDE LEVEL 103 MMOL/L (98-107); CREATININE FOR GFR 0.46 MG/DL (0.55-1.30); GLOMERULAR FILTRATION RATE > 60.0 (>45); GLUCOSE, FASTING 110 MG/DL (74-106); MAGNESIUM LEVEL 1.6 MG/DL (1.8-2.4); POTASSIUM SERUM 3.8 MMOL/L (3.5-5.1); SODIUM LEVEL 135 MMOL/L (136-145)
[2024-05-16 07:45] VITALS: BP 139/65
[2024-05-16] MEDS ORDERED: FLEET OIL RETENTION ENEMA PR SCH (09:00)
[2024-05-16] MEDS: MAG SULF 1GM/100ML (MAG RUN) 1 GM in IV 1 EA IV SCH (15:00)
[2024-05-16] MEDS: metroNIDAZOLE (FLAGYL) 500MG TABLET PO SCH (15:26)
[2024-05-16 15:50] VITALS: BP 134/73; TEMP 97.5; O2SAT 83
[2024-05-16] MEDS: LevoFLOXacin 750 MG TABLET PO SCH (18:00)
[2024-05-16] MEDS: MAGNESIUM OXIDE 400MG TAB (MAG-OX) PO SCH (18:00)
[2024-05-16 19:49] VITALS: BP 130/75; TEMP 97.3; O2SAT 95
[2024-05-16] MEDS: levETIRAcetam 250MG TABLET (KEPPRA) PO SCH (21:14)
[2024-05-17 04:11] VITALS: BP 131/76; TEMP 97.3; O2SAT 98
[2024-05-17 06:46] LABS: BASO % 0.6 % (0.0-1.0); EOS # 0.2 10^3/uL (0.0-0.5); EOS % 3.1 % (0.0-3.0); HEMATOCRIT 33.8 % (36.0-47.0); HEMOGLOBIN 11.9 g/dl (12.0-15.5); LYMPH # 1.5 10^3/uL (1.5-5.0); LYMPH % 22.3 % (24.0-44.0); MEAN CORPUSCULAR HEMOGLOBIN 30.1 pg (27.0-33.0); MEAN CORPUSCULAR HGB CONC 35.2 g/dl (32.0-36.5); MEAN CORPUSCULAR VOLUME 85.6 fl (80.0-96.0); MONO # 0.6 10^3/uL (0.0-0.8); MONO % 8.8 % (2.0-8.0); NEUTROPHILS # 4.4 10^3/uL (1.5-8.5); NEUTROPHILS % 64.8 % (36.0-66.0); PLATELET COUNT, AUTOMATED 291 10^3/uL (150-450); RED BLOOD COUNT 3.95 10^6/uL (4.00-5.40); WHITE BLOOD COUNT 6.7 10^3/uL (4.0-10.0)
[2024-05-17 07:54] LABS: BLOOD UREA NITROGEN < 5 MG/DL (9-23); CALCIUM LEVEL 8.9 MG/DL (8.3-10.6); CARBON DIOXIDE LEVEL 25 MMOL/L (20-31); CHLORIDE LEVEL 97 MMOL/L (98-107); CREATININE FOR GFR 0.44 MG/DL (0.55-1.30); GLOMERULAR FILTRATION RATE > 60.0 (>45); GLUCOSE, FASTING 128 MG/DL (74-106); MAGNESIUM LEVEL 1.3 MG/DL (1.8-2.4); POTASSIUM SERUM 3.4 MMOL/L (3.5-5.1); SODIUM LEVEL 133 MMOL/L (136-145)
[2024-05-17] MEDS: POTASSIUM CHLORIDE 10MEQ SR TABLET PO SCH (08:59)
[2024-05-17] MEDS ORDERED: MAG SULF 1GM/100ML (MAG RUN) 1 GM in IV 1 EA IV SCH (09:00)
[2024-05-17] MEDS: MAGNESIUM OXIDE 400MG TAB (MAG-OX) PO SCH (11:51)
[2024-05-17] MEDS ORDERED: METR-265 PO (13:41)
[2024-05-17] MEDS ORDERED: LEVO1TAB40 PO (13:41)
== END 2024-05-17 16:45 | disposition home or self-care (01) | DRG 388 ==
LOC: M ED 22:50 → EDBD 22:50 → M ED INP 05-12 04:19 → M MSPAV 05-12 11:46 → M PCU 05-13 18:36 → M MS5PR 05-16 15:47
PROVIDERS: ADMIT Student in an Organized Health Care Education/Training Program; ATTEND Hospitalist
DX: K56.609 Unspecified intestinal obstruction, unspecified as to partial versus complete obstruction (principal); J69.0 Pneumonitis due to inhalation of food and vomit; I50.32 Chronic diastolic (congestive) heart failure; J93.9 Pneumothorax, unspecified; E87.1 Hypo-osmolality and hyponatremia; I31.39 Other pericardial effusion (noninflammatory); E87.20 Acidosis, unspecified; K56.7 Ileus, unspecified; G80.9 Cerebral palsy, unspecified; I73.9 Peripheral vascular disease, unspecified; G40.909 Epilepsy, unspecified, not intractable, without status epilepticus; J44.9 Chronic obstructive pulmonary disease, unspecified; E78.5 Hyperlipidemia, unspecified; I11.0 Hypertensive heart disease with heart failure; K76.0 Fatty (change of) liver, not elsewhere classified; F79 Unspecified intellectual disabilities; F41.9 Anxiety disorder, unspecified; G47.30 Sleep apnea, unspecified; F32.A Depression, unspecified; Z79.899 Other long term (current) drug therapy; Z88.8 Allergy status to other drugs, medicaments and biological substances; Z93.2 Ileostomy status

== ENCOUNTER 2024-05-24 10:48 | Inpatient (IN) | payer MEDICARE, MEDICAID ==
[~2024-05-24] VITALS: Ht 167.6 cm; Wt 58.3 kg
[~2024-05-24 10:48] MED LIST changes: +D-20TAB PO; +LEVE10003 PO; +NEOM28.3 TOP
[2024-05-24 14:17] LABS: BASO # 0.1 10^3/uL (0.0-0.2); BASO % 0.6 % (0.0-1.0); EOS # 0.3 10^3/uL (0.0-0.5); EOS % 2.8 % (0.0-3.0); HEMATOCRIT 43.7 % (36.0-47.0); HEMOGLOBIN 14.6 g/dl (12.0-15.5); LYMPH # 2.4 10^3/uL (1.5-5.0); LYMPH % 24.5 % (24.0-44.0); MEAN CORPUSCULAR HEMOGLOBIN 29.7 pg (27.0-33.0); MEAN CORPUSCULAR HGB CONC 33.4 g/dl (32.0-36.5); MEAN CORPUSCULAR VOLUME 88.8 fl (80.0-96.0); MONO # 1.3 10^3/uL (0.0-0.8); MONO % 12.9 % (2.0-8.0); NEUTROPHILS # 5.8 10^3/uL (1.5-8.5); NEUTROPHILS % 58.6 % (36.0-66.0); PLATELET COUNT, AUTOMATED 284 10^3/uL (150-450); RED BLOOD COUNT 4.92 10^6/uL (4.00-5.40)
[2024-05-24] MEDS: NS 1,000 ML IV ONE (14:41)
[2024-05-24 14:52] LABS: ALBUMIN 3.8 G/DL (3.2-5.2); ALKALINE PHOSPHATASE 111 U/L (46-116); ALT/SGPT 84 U/L (7.0-40); AST/SGOT 110 U/L (<34); BILIRUBIN,DIRECT 0.3 MG/DL (<0.4); BILIRUBIN,TOTAL 0.6 MG/DL (0.3-1.2); BLOOD UREA NITROGEN 21 MG/DL (9-23); CARBON DIOXIDE LEVEL 29 MMOL/L (20-31); CHLORIDE LEVEL 94 MMOL/L (98-107); CK-MB VALUE MASS < 1.0 NG/ML (<3.6); CPK CREATINE PHOSPHOKINASE 20 U/L (34-145); CREATININE FOR GFR 0.79 MG/DL (0.55-1.30); GLOMERULAR FILTRATION RATE > 60.0 (>45); GLUCOSE, FASTING 101 MG/DL (74-106); POTASSIUM SERUM 5.9 MMOL/L (3.5-5.1); SODIUM LEVEL 127 MMOL/L (136-145); THYROID STIMULATING HORMONE 1.919 uIU/ML (0.55-4.78); TOTAL PROTEIN 9.1 G/DL (5.7-8.2)
[2024-05-24] MEDS ORDERED: NEOM28OI27 TOP (15:34)
[2024-05-24] MEDS ORDERED: HOME MED LIST COMPLETE! XX SCH (15:35)
[2024-05-24] MEDS: HumuLIN R (REGULAR) INSULIN (NovoLIN R) **100U/ML** PER UNIT IV ONE (16:03)
[2024-05-24] MEDS: LevoFLOXacin IV 750 MG in IV 1 EA IV ONE (16:04)
[2024-05-24] MEDS: PATIROMER SORBITEX CALCIUM 8.4 GM POWDER PACKET (VELTASSA) PO ONE (16:04)
[2024-05-24] MEDS: DEXTROSE 50% 50ML SYRINGE IV STA (16:04)
[2024-05-24] MEDS ORDERED: ACETAMINOPHEN 325 MG TAB PO PRN (16:25)
[2024-05-24 17:49] VITALS: BP 114/66; TEMP 98.8; O2SAT 92
[2024-05-24] MEDS: busPIRone 10 MG TAB PO SCH (20:09)
[2024-05-24] MEDS: RISPERIDONE 1 MG TAB PO SCH (20:09)
[2024-05-24] MEDS: levETIRAcetam 250MG TABLET (KEPPRA) PO SCH (20:09)
[2024-05-24] MEDS: METHENAMINE HIPPURATE 1GM TABLET PO SCH (20:09)
[2024-05-24] MEDS: MAGNESIUM OXIDE 400MG TAB (MAG-OX) PO SCH (20:10)
[2024-05-24] MEDS: METOPROLOL TART 50 MG TAB PO SCH (20:12)
[2024-05-24] MEDS: CARBAMIDE PEROXIDE 6.5% OTIC SOLN 15ML AU SCH (20:13)
[2024-05-24 20:24] LABS: BLOOD UREA NITROGEN 17 MG/DL (9-23); C REACTIVE PROTEIN QUANTITATIV < 0.40 MG/DL (<1.0); CARBON DIOXIDE LEVEL 28 MMOL/L (20-31); CHLORIDE LEVEL 95 MMOL/L (98-107); CREATININE FOR GFR 0.66 MG/DL (0.55-1.30); GLOMERULAR FILTRATION RATE > 60.0 (>45); GLUCOSE, FASTING 79 MG/DL (74-106); OSMOLALITY SERUM 286 MOSM/KG (280-301); POTASSIUM SERUM 4.8 MMOL/L (3.5-5.1); SODIUM LEVEL 130 MMOL/L (136-145)
[2024-05-24 20:25] LABS: CORTISOL AM 22.7 UG/DL (4.3-22.4)
[2024-05-24 20:27] LABS: THYROID STIMULATING HORMONE 2.261 uIU/ML (0.55-4.78)
[2024-05-24 20:28] LABS: FREE T4 1.21 NG/DL (0.89-1.76)
[2024-05-24 20:31] LABS: PROCALCITONIN 0.07 ng/ml
[2024-05-24] MEDS ORDERED: CLOMIPRAMINE 25 MG PO SCH (21:00)
[2024-05-24 21:19] LABS: CREATININE,RANDOM URINE 205.7 MG/DL
[2024-05-24 21:20] LABS: SODIUM,RANDOM URINE < 10 MMOL/L
[2024-05-24 21:56] LABS: OSMOLALITY URINE 428 MOSM/KG (50-1400)
[2024-05-25] VITALS (8 sets, daily range): BP systolic 102–118; BP diastolic 61–68; TEMP 96.1–97.9; O2SAT 93–100
[2024-05-25 05:17] LABS: BASO # 0.1 10^3/uL (0.0-0.2); BASO % 0.7 % (0.0-1.0); EOS # 0.3 10^3/uL (0.0-0.5); HEMATOCRIT 36.6 % (36.0-47.0); HEMOGLOBIN 12.9 g/dl (12.0-15.5); LYMPH # 1.4 10^3/uL (1.5-5.0); LYMPH % 21.2 % (24.0-44.0); MEAN CORPUSCULAR HEMOGLOBIN 30.5 pg (27.0-33.0); MEAN CORPUSCULAR HGB CONC 35.2 g/dl (32.0-36.5); MEAN CORPUSCULAR VOLUME 86.5 fl (80.0-96.0); MONO # 0.9 10^3/uL (0.0-0.8); MONO % 13.7 % (2.0-8.0); PLATELET COUNT, AUTOMATED 237 10^3/uL (150-450); RED BLOOD COUNT 4.23 10^6/uL (4.00-5.40); WHITE BLOOD COUNT 6.7 10^3/uL (4.0-10.0)
[2024-05-25 05:43] LABS: ALBUMIN 3.1 G/DL (3.2-5.2); ALKALINE PHOSPHATASE 91 U/L (46-116); ALT/SGPT 68 U/L (7.0-40); AST/SGOT 85 U/L (<34); BILIRUBIN,TOTAL 0.6 MG/DL (0.3-1.2); BLOOD UREA NITROGEN 16 MG/DL (9-23); CARBON DIOXIDE LEVEL 28 MMOL/L (20-31); CHLORIDE LEVEL 95 MMOL/L (98-107); CREATININE FOR GFR 0.59 MG/DL (0.55-1.30); GLOMERULAR FILTRATION RATE > 60.0 (>45); GLUCOSE, FASTING 116 MG/DL (74-106); MAGNESIUM LEVEL 1.6 MG/DL (1.8-2.4); POTASSIUM SERUM 4.2 MMOL/L (3.5-5.1); SODIUM LEVEL 129 MMOL/L (136-145); TOTAL PROTEIN 7.7 G/DL (5.7-8.2)
[2024-05-25] MEDS: LOPERAMIDE 2 MG CAPLET PO SCH (06:00)
[2024-05-25] MEDS: LEVOTHYROXINE 50MCG TABLET (0.05MG) PO SCH (06:02)
[2024-05-25 07:56] LABS: CORTISOL AM 19.6 UG/DL (4.3-22.4)
[2024-05-25] MEDS: MAG SULF 1GM/100ML (MAG RUN) 1 GM in IV 1 EA IV SCH (10:15)
[2024-05-25] MEDS: ENOXAPARIN 40MG/0.4ML SYRINGE (J1650 PER 10MG) SC SCH (10:15)
[2024-05-25] MEDS: METAMUCIL (PSYLLIUM) PACKET PO SCH (10:22)
[2024-05-25] MEDS: NS 1,000 ML IV ONE (11:20)
[2024-05-26 04:15] VITALS: BP 116/61; TEMP 96.8; O2SAT 99
[2024-05-26 06:35] LABS: BASO % 0.7 % (0.0-1.0); EOS # 0.2 10^3/uL (0.0-0.5); EOS % 2.7 % (0.0-3.0); HEMATOCRIT 38.3 % (36.0-47.0); HEMOGLOBIN 12.9 g/dl (12.0-15.5); LYMPH # 1.6 10^3/uL (1.5-5.0); MEAN CORPUSCULAR HEMOGLOBIN 30.4 pg (27.0-33.0); MEAN CORPUSCULAR HGB CONC 33.7 g/dl (32.0-36.5); MEAN CORPUSCULAR VOLUME 90.1 fl (80.0-96.0); MONO # 0.7 10^3/uL (0.0-0.8); MONO % 11.4 % (2.0-8.0); NEUTROPHILS # 3.3 10^3/uL (1.5-8.5); NEUTROPHILS % 56.5 % (36.0-66.0); PLATELET COUNT, AUTOMATED 202 10^3/uL (150-450); RED BLOOD COUNT 4.25 10^6/uL (4.00-5.40); WHITE BLOOD COUNT 5.9 10^3/uL (4.0-10.0)
[2024-05-26 07:11] LABS: ALBUMIN 3.1 G/DL (3.2-5.2); ALKALINE PHOSPHATASE 90 U/L (46-116); ALT/SGPT 77 U/L (7.0-40); AST/SGOT 103 U/L (<34); BILIRUBIN,TOTAL 0.5 MG/DL (0.3-1.2); BLOOD UREA NITROGEN 14 MG/DL (9-23); CARBON DIOXIDE LEVEL 26 MMOL/L (20-31); CHLORIDE LEVEL 101 MMOL/L (98-107); GLOMERULAR FILTRATION RATE > 60.0 (>45); GLUCOSE, FASTING 111 MG/DL (74-106); MAGNESIUM LEVEL 1.8 MG/DL (1.8-2.4); POTASSIUM SERUM 4.8 MMOL/L (3.5-5.1); SODIUM LEVEL 129 MMOL/L (136-145); TOTAL PROTEIN 7.5 G/DL (5.7-8.2)
[2024-05-26 07:47] VITALS: BP 105/68; TEMP 96.3
[2024-05-26] MEDS: NS 1,000 ML IV SCH (10:34)
[2024-05-26] MEDS ORDERED: LOPE2CA PO ×2 (11:45→15:46)
[2024-05-26] MEDS ORDERED: META1POW PO (11:45)
== END 2024-05-26 14:00 | disposition home or self-care (01) | DRG 394 ==
LOC: EDBD 10:48 → M ED 10:48 → M ED INP 16:24 → M PCU 17:43
PROVIDERS: ADMIT Student in an Organized Health Care Education/Training Program; ATTEND Student in an Organized Health Care Education/Training Program
DX: K94.09 Other complications of colostomy (principal); E27.1 Primary adrenocortical insufficiency; I50.32 Chronic diastolic (congestive) heart failure; E87.1 Hypo-osmolality and hyponatremia; E86.0 Dehydration; R55 Syncope and collapse; J44.9 Chronic obstructive pulmonary disease, unspecified; G40.909 Epilepsy, unspecified, not intractable, without status epilepticus; I11.0 Hypertensive heart disease with heart failure; I73.9 Peripheral vascular disease, unspecified; E78.5 Hyperlipidemia, unspecified; F79 Unspecified intellectual disabilities; I95.9 Hypotension, unspecified; E83.52 Hypercalcemia; R74.01 Elevation of levels of liver transaminase levels; R42 Dizziness and giddiness; E87.5 Hyperkalemia; J47.9 Bronchiectasis, uncomplicated; Z88.8 Allergy status to other drugs, medicaments and biological substances; Z79.899 Other long term (current) drug therapy; F41.9 Anxiety disorder, unspecified; F32.A Depression, unspecified; G80.9 Cerebral palsy, unspecified

== ENCOUNTER 2024-07-04 09:04 | Inpatient (IN) | payer MEDICARE, MEDICAID ==
[~2024-07-04] VITALS: Ht 167.6 cm; Wt 71.5 kg
[2024-07-04] MEDS: NEOSPORIN TOP OINT 15GM TOP SCH (09:00)
[~2024-07-04 09:04] MED LIST changes: +CLOM1CAP3 GT; +D-20TAB GT; -D-20TAB PO; +LEVE10003 GT; -LEVE10003 PO; +LOPE2CA PO; +MAGN400T35 GT; -MAGN400T35 PO; +META1POW PO; +METH-855 GT; -METH-855 PO; +METO50TA7 GT; -METO50TA7 PO; +NEOM28OI27 TOP; +RISP1TAB42 GT; -RISP1TAB42 PO; +SYNT50TA GT; -SYNT50TA PO
[2024-07-04] MEDS ORDERED: LOPE1CAP5 GT (09:47)
[2024-07-04] MEDS ORDERED: META1POW GT (09:47)
[2024-07-04] MEDS ORDERED: HOME MED LIST COMPLETE! XX SCH (09:55)
[2024-07-04 10:44] LABS: BASO % 0.2 % (0.0-1.0); EOS % 0.2 % (0.0-3.0); HEMATOCRIT 48.8 % (36.0-47.0); HEMOGLOBIN 16.2 g/dl (12.0-15.5); LYMPH # 1.3 10^3/uL (1.5-5.0); LYMPH % 10.3 % (24.0-44.0); MEAN CORPUSCULAR HEMOGLOBIN 29.6 pg (27.0-33.0); MEAN CORPUSCULAR HGB CONC 33.2 g/dl (32.0-36.5); MEAN CORPUSCULAR VOLUME 89.1 fl (80.0-96.0); MONO % 8.1 % (2.0-8.0); NEUTROPHILS # 9.9 10^3/uL (1.5-8.5); NEUTROPHILS % 80.9 % (36.0-66.0); PLATELET COUNT, AUTOMATED 362 10^3/uL (150-450); RED BLOOD COUNT 5.48 10^6/uL (4.00-5.40); WHITE BLOOD COUNT 12.2 10^3/uL (4.0-10.0)
[2024-07-04 11:10] LABS: BLOOD UREA NITROGEN 78 MG/DL (9-23); CALCIUM LEVEL 11.3 MG/DL (8.3-10.6); CARBON DIOXIDE LEVEL 33 MMOL/L (20-31); CHLORIDE LEVEL 86 MMOL/L (98-107); CREATININE FOR GFR 0.98 MG/DL (0.55-1.30); GLOMERULAR FILTRATION RATE > 60.0 (>45); GLUCOSE, FASTING 162 MG/DL (74-106); MAGNESIUM LEVEL 2.8 MG/DL (1.8-2.4); POTASSIUM SERUM 5.5 MMOL/L (3.5-5.1); SODIUM LEVEL 131 MMOL/L (136-145)
[2024-07-04] MEDS: NS 1,000 ML IV ONE (11:35)
[2024-07-04 13:45] VITALS: BP 128/63; TEMP 98.4; O2SAT 98
[2024-07-04 14:32] LABS: ALBUMIN 4.1 G/DL (3.2-5.2); ALKALINE PHOSPHATASE 138 U/L (35-104); ALT/SGPT 110 U/L (7.0-40); AST/SGOT 56 U/L (<34); BILIRUBIN,DIRECT 0.5 MG/DL (<0.4); BILIRUBIN,TOTAL 0.8 MG/DL (0.3-1.2); TOTAL PROTEIN 9.7 G/DL (5.7-8.2)
[2024-07-04] MEDS ORDERED: ACETAMINOPHEN 325 MG TAB PO PRN (14:40)
[2024-07-04 15:40] LABS: VENOUS BASE EXCESS 0.9 (-2.0-2.0); VENOUS HCO3 29.7 MMOL/L (23.0-27.0); VENOUS PARTIAL PRESSURE CO2 64.6 mmHg (38.0-50.0); VENOUS PARTIAL PRESSURE O2 40.9 mmHg (30.0-50.0); VENOUS PH 7.281 UNITS (7.330-7.430); VENOUS STANDARD HCO3 24.5 MMOL/L; VENOUS TOTAL CO2 31.7 MMOL/L (24.0-28.0)
[2024-07-04] MEDS: NS 500 ML IV ONE (15:51)
[2024-07-04] MEDS: LEVOTHYROXINE 50MCG TABLET (0.05MG) PO SCH (15:51)
[2024-07-04] MEDS: NS 1,000 ML IV SCH (15:59)
[2024-07-04] MEDS: MINI IV SCH (16:00)
[2024-07-04] MEDS: ADV IV SCH (16:00)
[2024-07-04] MEDS: DEXTROSE 5% IV SCH (16:00)
[2024-07-04] MEDS: AZTREONAM IV SCH (16:00)
[2024-07-04 16:18] LABS: C REACTIVE PROTEIN QUANTITATIV < 0.40 MG/DL (<1.0)
[2024-07-04 16:19] LABS: ALBUMIN 3.7 G/DL (3.2-5.2); ALKALINE PHOSPHATASE 134 U/L (35-104); ALT/SGPT 106 U/L (7.0-40); AST/SGOT 51 U/L (<34); BILIRUBIN,DIRECT 0.6 MG/DL (<0.4); BILIRUBIN,TOTAL 0.9 MG/DL (0.3-1.2); TOTAL PROTEIN 9.4 G/DL (5.7-8.2)
[2024-07-04 16:26] LABS: FREE T4 1.16 NG/DL (0.89-1.76)
[2024-07-04 17:13] LABS: THYROID STIMULATING HORMONE 1.651 uIU/ML (0.55-4.78)
[2024-07-04] MEDS: RISPERIDONE 1 MG TAB PO SCH (17:42)
[2024-07-04 18:26] LABS: PROCALCITONIN 0.08 ng/ml
[2024-07-04 19:36] VITALS: BP 118/71; TEMP 97.8; O2SAT 100
[2024-07-04] MEDS: levETIRAcetam 250MG TABLET (KEPPRA) PO SCH (20:43)
[2024-07-04] MEDS: METHENAMINE HIPPURATE 1GM TABLET PO SCH (20:45)
[2024-07-04] MEDS: CARBAMIDE PEROXIDE 6.5% OTIC SOLN 15ML AU SCH (20:45)
[2024-07-04] MEDS: METOPROLOL TART 50 MG TAB PO SCH (20:45)
[2024-07-04] MEDS: CHLORHEXIDINE GLUCONATE 0.12 % 15ML UDC (PERIDEX ORAL RINSE) MT SCH (20:55)
[2024-07-04] MEDS ORDERED: MAGNESIUM OXIDE 400MG TAB (MAG-OX) PO SCH (21:00)
[2024-07-04] MEDS: METAMUCIL (PSYLLIUM) PACKET PO SCH (21:00)
[2024-07-04 23:21] VITALS: BP 109/71; TEMP 96.9; O2SAT 96
[2024-07-05] VITALS (8 sets, daily range): BP systolic 118–134; BP diastolic 66–76; TEMP 97.4–98.2; O2SAT 96–99
[2024-07-05 05:26] LABS: HEMATOCRIT 39.9 % (36.0-47.0); MEAN CORPUSCULAR HEMOGLOBIN 29.9 pg (27.0-33.0); MEAN CORPUSCULAR HGB CONC 34.1 g/dl (32.0-36.5); MEAN CORPUSCULAR VOLUME 87.7 fl (80.0-96.0); PLATELET COUNT, AUTOMATED 264 10^3/uL (150-450); RED BLOOD COUNT 4.55 10^6/uL (4.00-5.40); WHITE BLOOD COUNT 7.8 10^3/uL (4.0-10.0)
[2024-07-05 05:38] LABS: HEMOGLOBIN 13.6 g/dl (12.0-15.5)
[2024-07-05 06:07] LABS: ALBUMIN 3.3 G/DL (3.2-5.2); ALKALINE PHOSPHATASE 109 U/L (35-104); ALT/SGPT 102 U/L (7.0-40); AST/SGOT 52 U/L (<34); BILIRUBIN,TOTAL 0.8 MG/DL (0.3-1.2); BLOOD UREA NITROGEN 57 MG/DL (9-23); CALCIUM LEVEL 9.7 MG/DL (8.3-10.6); CARBON DIOXIDE LEVEL 31 MMOL/L (20-31); CHLORIDE LEVEL 100 MMOL/L (98-107); CREATININE FOR GFR 0.76 MG/DL (0.55-1.30); GLOMERULAR FILTRATION RATE > 60.0 (>45); GLUCOSE, FASTING 145 MG/DL (74-106); POTASSIUM SERUM 4.2 MMOL/L (3.5-5.1); SODIUM LEVEL 136 MMOL/L (136-145); TOTAL PROTEIN 7.8 G/DL (5.7-8.2)
[2024-07-05] MEDS: PANTOPRAZOLE 40MG TAB (PROTONIX) PO SCH (09:00)
[2024-07-05] MEDS ORDERED: ISOVUE-370 76% 100ML VIAL As Ordered ONE (11:18)
[2024-07-05] MEDS: VITAMIN D 1,000 INTERNATIONAL UNITS TABLET PO SCH (13:08)
[2024-07-05] MEDS: levETIRAcetam INJection 1,000 MG in D5W 100 ML IV SCH (13:16)
[2024-07-05] MEDS ORDERED: LIDOCAINE 2% 100MG/5ML SDV (FOR ANES.) As Ordered ONE (18:13)
[2024-07-05] MEDS ORDERED: propofoL 200 MG/20 ML VIAL As Ordered ONE (18:13)
[2024-07-05] MEDS: LIDOCAINE 1% SDV 30ML VIAL As Ordered ONE (18:32)
[2024-07-05] MEDS: CLOMIPRAMINE 25 MG PO SCH (21:00)
[2024-07-06 03:57] VITALS: BP 128/69; TEMP 98.1; O2SAT 99
[2024-07-06 08:00] VITALS: BP 136/67; TEMP 98.2; O2SAT 97
[2024-07-06] MEDS: LEVOTHYROXINE 100MCG (0.1MG) 5ML SDV PF (SOLUTION FORM) IV SCH (09:01)
[2024-07-06] MEDS ORDERED: ACETAMINOPHEN 325 MG TAB GT PRN (09:50)
[2024-07-06 10:13] LABS: BASO % 0.2 % (0.0-1.0); EOS % 0.2 % (0.0-3.0); HEMATOCRIT 35.5 % (36.0-47.0); HEMOGLOBIN 11.7 g/dl (12.0-15.5); LYMPH # 0.6 10^3/uL (1.5-5.0); LYMPH % 7.8 % (24.0-44.0); MEAN CORPUSCULAR HEMOGLOBIN 29.6 pg (27.0-33.0); MEAN CORPUSCULAR VOLUME 89.9 fl (80.0-96.0); MONO # 0.7 10^3/uL (0.0-0.8); MONO % 8.6 % (2.0-8.0); NEUTROPHILS # 6.8 10^3/uL (1.5-8.5); NEUTROPHILS % 82.7 % (36.0-66.0); PLATELET COUNT, AUTOMATED 211 10^3/uL (150-450); RED BLOOD COUNT 3.95 10^6/uL (4.00-5.40); WHITE BLOOD COUNT 8.3 10^3/uL (4.0-10.0)
[2024-07-06 10:31] LABS: BLOOD UREA NITROGEN 25 MG/DL (9-23); CALCIUM LEVEL 8.6 MG/DL (8.3-10.6); CARBON DIOXIDE LEVEL 29 MMOL/L (20-31); CHLORIDE LEVEL 109 MMOL/L (98-107); CREATININE FOR GFR 0.55 MG/DL (0.55-1.30); GLOMERULAR FILTRATION RATE > 60.0 (>45); GLUCOSE, FASTING 177 MG/DL (74-106); POTASSIUM SERUM 3.6 MMOL/L (3.5-5.1); SODIUM LEVEL 140 MMOL/L (136-145)
[2024-07-06 11:42] VITALS: BP 116/74; TEMP 98.1; O2SAT 98
[2024-07-06] MEDS: RISPERIDONE 1 MG TAB GT SCH (12:12)
[2024-07-06] MEDS: VITAMIN D 1,000 INTERNATIONAL UNITS TABLET GT SCH (15:15)
[2024-07-06 16:00] VITALS: BP 106/57; TEMP 96.8; O2SAT 96
[2024-07-06 16:21] LABS: ANA SCREEN, IFA NEGATIVE (NEGATIVE)
[2024-07-06 20:00] VITALS: BP 125/70; TEMP 97.5; O2SAT 98
[2024-07-06] MEDS: METHENAMINE HIPPURATE 1GM TABLET GT SCH (21:38)
[2024-07-06] MEDS: METOPROLOL TART 50 MG TAB GT SCH (21:38)
[2024-07-06] MEDS: CLOMIPRAMINE 25 MG GT SCH (21:39)
[2024-07-06] MEDS: METAMUCIL (PSYLLIUM) PACKET GT SCH (21:46)
[2024-07-07] VITALS (7 sets, daily range): BP systolic 102–127; BP diastolic 59–78; TEMP 96.9–98.3; O2SAT 97–100
[2024-07-07] MEDS: OMEPRAZOLE/SODIUM BICARB 20-840MG 10ML ORAL SYRINGE GT SCH (13:51)
[2024-07-08] VITALS (7 sets, daily range): BP systolic 101–119; BP diastolic 58–68; TEMP 97.1–98.3; O2SAT 94–100
[2024-07-08 05:49] LABS: HEMATOCRIT 34.7 % (36.0-47.0); HEMOGLOBIN 11.5 g/dl (12.0-15.5); MEAN CORPUSCULAR HEMOGLOBIN 30.2 pg (27.0-33.0); MEAN CORPUSCULAR HGB CONC 33.1 g/dl (32.0-36.5); MEAN CORPUSCULAR VOLUME 91.1 fl (80.0-96.0); PLATELET COUNT, AUTOMATED 192 10^3/uL (150-450); RED BLOOD COUNT 3.81 10^6/uL (4.00-5.40); WHITE BLOOD COUNT 8.9 10^3/uL (4.0-10.0)
[2024-07-08 06:15] LABS: BLOOD UREA NITROGEN 14 MG/DL (9-23); CALCIUM LEVEL 8.4 MG/DL (8.3-10.6); CARBON DIOXIDE LEVEL 28 MMOL/L (20-31); CHLORIDE LEVEL 109 MMOL/L (98-107); CREATININE FOR GFR 0.45 MG/DL (0.55-1.30); GLOMERULAR FILTRATION RATE > 60.0 (>45); GLUCOSE, FASTING 115 MG/DL (74-106); POTASSIUM SERUM 3.8 MMOL/L (3.5-5.1); SODIUM LEVEL 141 MMOL/L (136-145)
[2024-07-08 15:10] LABS: MAGNESIUM LEVEL 1.4 MG/DL (1.8-2.4)
[2024-07-08] MEDS: NS 1,000 ML IV ONE (16:34)
[2024-07-08] MEDS: MAGNESIUM OXIDE 400MG TAB (MAG-OX) PEG ONE (16:57)
[2024-07-08] MEDS: MAG SULF 1GM/100ML (MAG RUN) 1 GM in IV 1 EA IV ONE (18:05)
[2024-07-08] MEDS ORDERED: DEXTROSE 50% 50ML VIAL IV STA (18:26)
[2024-07-08] MEDS: DEXTROSE 50% 50ML SYRINGE IV STA (18:36)
[2024-07-09 04:03] VITALS: BP 106/65; TEMP 97.7; O2SAT 99
[2024-07-09 05:50] LABS: BASO % 0.4 % (0.0-1.0); EOS # 0.4 10^3/uL (0.0-0.5); EOS % 4.4 % (0.0-3.0); HEMATOCRIT 35.1 % (36.0-47.0); HEMOGLOBIN 11.5 g/dl (12.0-15.5); LYMPH # 1.2 10^3/uL (1.5-5.0); MEAN CORPUSCULAR HEMOGLOBIN 29.4 pg (27.0-33.0); MEAN CORPUSCULAR HGB CONC 32.8 g/dl (32.0-36.5); MEAN CORPUSCULAR VOLUME 89.8 fl (80.0-96.0); MONO # 0.8 10^3/uL (0.0-0.8); MONO % 9.5 % (2.0-8.0); NEUTROPHILS # 5.5 10^3/uL (1.5-8.5); NEUTROPHILS % 70.1 % (36.0-66.0); PLATELET COUNT, AUTOMATED 194 10^3/uL (150-450); RED BLOOD COUNT 3.91 10^6/uL (4.00-5.40); WHITE BLOOD COUNT 7.9 10^3/uL (4.0-10.0)
[2024-07-09 05:57] LABS: ERYTHROCYTE SEDIMENTATION RATE 54 mm/hr (0-30)
[2024-07-09 06:07] LABS: BLOOD UREA NITROGEN 11 MG/DL (9-23); CARBON DIOXIDE LEVEL 26 MMOL/L (20-31); CHLORIDE LEVEL 107 MMOL/L (98-107); CREATININE FOR GFR 0.44 MG/DL (0.55-1.30); GLOMERULAR FILTRATION RATE > 60.0 (>45); GLUCOSE, FASTING 88 MG/DL (74-106); MAGNESIUM LEVEL 1.5 MG/DL (1.8-2.4); PHOSPHORUS LEVEL 1.8 MG/DL (2.4-5.1); POTASSIUM SERUM 3.6 MMOL/L (3.5-5.1); SODIUM LEVEL 138 MMOL/L (136-145)
[2024-07-09 07:32] VITALS: BP 126/71; TEMP 97.3; O2SAT 96
[2024-07-09] MEDS: MAG SULF 1GM/100ML (MAG RUN) 1 GM in IV 1 EA IV SCH (10:35)
[2024-07-09] MEDS: NS 1,000 ML IV ONE (10:35)
[2024-07-09 12:09] VITALS: BP 103/71; TEMP 97.8; O2SAT 100
[2024-07-09] MEDS: NEUTRA-PHOS 1.5 GM PACKET PO SCH (12:19)
[2024-07-09 15:26] VITALS: BP 103/56; TEMP 97; O2SAT 96
[2024-07-09 19:37] VITALS: BP 115/61; TEMP 97; O2SAT 100
[2024-07-10] VITALS (7 sets, daily range): BP systolic 106–124; BP diastolic 54–69; TEMP 96.9–97.8; O2SAT 92–100
[2024-07-10 06:00] LABS: MAGNESIUM LEVEL 1.7 MG/DL (1.8-2.4)
[2024-07-10] MEDS: GASTROGRAFIN SOLUTION 30ML PO SCH (13:47)
[2024-07-10] MEDS: NS 1,000 ML IV ONE (16:38)
[2024-07-10 17:33] LABS: BASO % 0.3 % (0.0-1.0); EOS # 0.3 10^3/uL (0.0-0.5); EOS % 3.8 % (0.0-3.0); HEMATOCRIT 35.6 % (36.0-47.0); HEMOGLOBIN 12.1 g/dl (12.0-15.5); LYMPH # 1.5 10^3/uL (1.5-5.0); LYMPH % 17.3 % (24.0-44.0); MEAN CORPUSCULAR HEMOGLOBIN 30.2 pg (27.0-33.0); MEAN CORPUSCULAR VOLUME 88.8 fl (80.0-96.0); MONO # 0.9 10^3/uL (0.0-0.8); MONO % 10.2 % (2.0-8.0); NEUTROPHILS # 5.9 10^3/uL (1.5-8.5); NEUTROPHILS % 67.6 % (36.0-66.0); PLATELET COUNT, AUTOMATED 193 10^3/uL (150-450); RED BLOOD COUNT 4.01 10^6/uL (4.00-5.40); WHITE BLOOD COUNT 8.7 10^3/uL (4.0-10.0)
[2024-07-10] MEDS: MAG SULF 1GM/100ML (MAG RUN) 1 GM in IV 1 EA IV ONE (18:04)
[2024-07-10 18:08] LABS: C REACTIVE PROTEIN QUANTITATIV 3.7 MG/DL (<1.0)
[2024-07-10 18:11] LABS: ALKALINE PHOSPHATASE 59 U/L (35-104); ALT/SGPT 25 U/L (7.0-40); AST/SGOT 25 U/L (<34); BILIRUBIN,TOTAL < 0.2 MG/DL (0.3-1.2); BLOOD UREA NITROGEN 10 MG/DL (9-23); CALCIUM LEVEL 8.1 MG/DL (8.3-10.6); CARBON DIOXIDE LEVEL 22 MMOL/L (20-31); CHLORIDE LEVEL 104 MMOL/L (98-107); CREATININE FOR GFR 0.33 MG/DL (0.55-1.30); GLOMERULAR FILTRATION RATE > 60.0 (>45); GLUCOSE, FASTING 103 MG/DL (74-106); POTASSIUM SERUM 4.8 MMOL/L (3.5-5.1); SODIUM LEVEL 135 MMOL/L (136-145); TOTAL PROTEIN 5.6 G/DL (5.7-8.2)
[2024-07-10 18:27] LABS: PROCALCITONIN 0.08 ng/ml
[2024-07-11 00:35] VITALS: BP 126/59; TEMP 97.2; O2SAT 96
[2024-07-11 05:25] VITALS: BP 107/67; TEMP 98; O2SAT 97
[2024-07-11 07:48] VITALS: BP 107/66; TEMP 97.6; O2SAT 97
[2024-07-11 16:00] VITALS: BP 108/65; TEMP 97.9; O2SAT 98
[2024-07-11] MEDS: OLANZapine 5 MG TAB PEG ONE (16:00)
[2024-07-11 21:16] VITALS: BP 110/70; TEMP 97.8; O2SAT 98
[2024-07-11 22:23] VITALS: BP 133/77; TEMP 98.2; O2SAT 94
[2024-07-12 04:10] VITALS: BP 111/69; TEMP 97.5; O2SAT 94
[2024-07-12] MEDS: NEUTRA-PHOS 1.5 GM PACKET GT SCH (10:38)
[2024-07-12 12:00] VITALS: BP 125/84; TEMP 97.2; O2SAT 95
[2024-07-12 19:38] VITALS: BP 124/77; TEMP 97.7; O2SAT 94
[2024-07-13 04:08] VITALS: BP 121/76; TEMP 97.7; O2SAT 95
[2024-07-13 06:11] LABS: BASO % 0.4 % (0.0-1.0); EOS # 0.4 10^3/uL (0.0-0.5); HEMATOCRIT 34.6 % (36.0-47.0); HEMOGLOBIN 11.5 g/dl (12.0-15.5); LYMPH # 1.3 10^3/uL (1.5-5.0); LYMPH % 16.9 % (24.0-44.0); MEAN CORPUSCULAR HEMOGLOBIN 29.9 pg (27.0-33.0); MEAN CORPUSCULAR HGB CONC 33.2 g/dl (32.0-36.5); MEAN CORPUSCULAR VOLUME 89.9 fl (80.0-96.0); MONO # 0.8 10^3/uL (0.0-0.8); MONO % 10.9 % (2.0-8.0); NEUTROPHILS # 5.1 10^3/uL (1.5-8.5); NEUTROPHILS % 66.1 % (36.0-66.0); PLATELET COUNT, AUTOMATED 214 10^3/uL (150-450); RED BLOOD COUNT 3.85 10^6/uL (4.00-5.40); WHITE BLOOD COUNT 7.6 10^3/uL (4.0-10.0)
[2024-07-13 06:36] LABS: BLOOD UREA NITROGEN 7 MG/DL (9-23); CALCIUM LEVEL 8.9 MG/DL (8.3-10.6); CARBON DIOXIDE LEVEL 24 MMOL/L (20-31); CHLORIDE LEVEL 105 MMOL/L (98-107); CREATININE FOR GFR 0.34 MG/DL (0.55-1.30); GLOMERULAR FILTRATION RATE > 60.0 (>45); GLUCOSE, FASTING 103 MG/DL (74-106); MAGNESIUM LEVEL 1.4 MG/DL (1.8-2.4); POTASSIUM SERUM 4.6 MMOL/L (3.5-5.1); SODIUM LEVEL 137 MMOL/L (136-145)
[2024-07-13] MEDS: LEVOTHYROXINE 50MCG TABLET (0.05MG) PO SCH (08:51)
[2024-07-13 09:10] VITALS: TEMP 97.9; O2SAT 98
[2024-07-13 09:55] VITALS: BP 122/74
[2024-07-13 12:00] VITALS: BP 120/64; TEMP 97.6; O2SAT 96
[2024-07-13 19:47] VITALS: BP 123/75; TEMP 97.3; O2SAT 95
[2024-07-14 04:10] VITALS: BP 129/78; TEMP 97.5; O2SAT 91
[2024-07-14 08:39] LABS: BASO % 0.5 % (0.0-1.0); EOS # 0.3 10^3/uL (0.0-0.5); EOS % 3.5 % (0.0-3.0); HEMATOCRIT 33.1 % (36.0-47.0); HEMOGLOBIN 11.3 g/dl (12.0-15.5); LYMPH # 1.2 10^3/uL (1.5-5.0); LYMPH % 13.9 % (24.0-44.0); MEAN CORPUSCULAR HEMOGLOBIN 30.2 pg (27.0-33.0); MEAN CORPUSCULAR HGB CONC 34.1 g/dl (32.0-36.5); MEAN CORPUSCULAR VOLUME 88.5 fl (80.0-96.0); MONO # 0.9 10^3/uL (0.0-0.8); MONO % 10.1 % (2.0-8.0); NEUTROPHILS # 6.3 10^3/uL (1.5-8.5); NEUTROPHILS % 71.5 % (36.0-66.0); PLATELET COUNT, AUTOMATED 227 10^3/uL (150-450); RED BLOOD COUNT 3.74 10^6/uL (4.00-5.40); WHITE BLOOD COUNT 8.8 10^3/uL (4.0-10.0)
[2024-07-14 09:00] VITALS: BP 115/67
[2024-07-14 09:12] LABS: BLOOD UREA NITROGEN 9 MG/DL (9-23); CALCIUM LEVEL 8.7 MG/DL (8.3-10.6); CARBON DIOXIDE LEVEL 27 MMOL/L (20-31); CHLORIDE LEVEL 105 MMOL/L (98-107); CREATININE FOR GFR 0.46 MG/DL (0.55-1.30); GLOMERULAR FILTRATION RATE > 60.0 (>45); GLUCOSE, FASTING 112 MG/DL (74-106); MAGNESIUM LEVEL 1.3 MG/DL (1.8-2.4); POTASSIUM SERUM 4.7 MMOL/L (3.5-5.1); SODIUM LEVEL 138 MMOL/L (136-145)
[2024-07-14 12:00] VITALS: O2SAT 94
== END 2024-07-14 16:00 | disposition home or self-care (01) | DRG 640 ==
LOC: M ED 09:04 → EDBD 09:04 → M ED INP 14:39 → M PCU 15:31 → M MS5PR 07-11 22:19
PROVIDERS: ADMIT Hospitalist; ATTEND Student in an Organized Health Care Education/Training Program
PROC: 0DH63UZ Insertion of Feeding Device into Stomach, Percutaneous Approach (ICD-10-PCS; principal; 2024-07-05 19:00)
DX: R62.7 Adult failure to thrive (principal); J69.0 Pneumonitis due to inhalation of food and vomit; J93.9 Pneumothorax, unspecified; I50.32 Chronic diastolic (congestive) heart failure; E87.20 Acidosis, unspecified; G80.9 Cerebral palsy, unspecified; I11.0 Hypertensive heart disease with heart failure; G40.909 Epilepsy, unspecified, not intractable, without status epilepticus; G47.33 Obstructive sleep apnea (adult) (pediatric); E03.9 Hypothyroidism, unspecified; J47.9 Bronchiectasis, uncomplicated; R13.10 Dysphagia, unspecified; F79 Unspecified intellectual disabilities; Z88.8 Allergy status to other drugs, medicaments and biological substances; Z79.899 Other long term (current) drug therapy; F41.9 Anxiety disorder, unspecified; F32.A Depression, unspecified; E87.5 Hyperkalemia; E53.8 Deficiency of other specified B group vitamins; E78.5 Hyperlipidemia, unspecified; E86.0 Dehydration; E83.52 Hypercalcemia

== ENCOUNTER 2024-08-07 15:18 | Emergency (ER) | payer MEDICARE, MEDICAID ==
[~2024-08-07] VITALS: Ht 167.6 cm; Wt 66.4 kg
[~2024-08-07 15:18] MED LIST changes: +LOPE1CAP5 GT; +META1POW GT
[2024-08-07 15:27] VITALS: BP 115/59; TEMP 97.4; O2SAT 95
[2024-08-07] MEDS ORDERED: DIAPER RELIEF PASTE (DESITIN) 60GM TOP SCH (18:30)
== END 2024-08-07 19:15 | disposition home or self-care (01) ==
LOC: M ED 15:18
DX: K94.23 Gastrostomy malfunction (principal); I50.22 Chronic systolic (congestive) heart failure; I11.0 Hypertensive heart disease with heart failure; E78.5 Hyperlipidemia, unspecified; K21.9 Gastro-esophageal reflux disease without esophagitis; Z88.8 Allergy status to other drugs, medicaments and biological substances; Z79.899 Other long term (current) drug therapy

== ENCOUNTER 2024-08-16 11:50 | Inpatient (IN) | payer MEDICARE, MEDICAID ==
[~2024-08-16] VITALS: Ht 165.1 cm; Wt 65.0 kg
[2024-08-16 16:45] LABS: BASO % 0.5 % (0.0-1.0); EOS # 0.3 10^3/uL (0.0-0.5); EOS % 3.1 % (0.0-3.0); HEMATOCRIT 36.9 % (36.0-47.0); HEMOGLOBIN 11.9 g/dl (12.0-15.5); LYMPH # 1.2 10^3/uL (1.5-5.0); MEAN CORPUSCULAR HEMOGLOBIN 27.7 pg (27.0-33.0); MEAN CORPUSCULAR HGB CONC 32.2 g/dl (32.0-36.5); MONO # 0.9 10^3/uL (0.0-0.8); NEUTROPHILS # 6.1 10^3/uL (1.5-8.5); PLATELET COUNT, AUTOMATED 262 10^3/uL (150-450); RED BLOOD COUNT 4.29 10^6/uL (4.00-5.40); WHITE BLOOD COUNT 8.5 10^3/uL (4.0-10.0)
[2024-08-16 17:15] LABS: BLOOD UREA NITROGEN 18 MG/DL (9-23); CALCIUM LEVEL 9.6 MG/DL (8.3-10.6); CARBON DIOXIDE LEVEL 26 MMOL/L (20-31); CHLORIDE LEVEL 103 MMOL/L (98-107); CREATININE FOR GFR 0.46 MG/DL (0.55-1.30); GLOMERULAR FILTRATION RATE > 60.0 (>45); GLUCOSE, FASTING 106 MG/DL (74-106); POTASSIUM SERUM 4.6 MMOL/L (3.5-5.1); SODIUM LEVEL 138 MMOL/L (136-145)
[2024-08-16] MEDS ORDERED: ISOVUE-300 61% 100ML VIAL As Ordered ONE (18:13)
[2024-08-16] MEDS ORDERED: LIDOCAINE 2% JELLY 6ML SYRINGE As Ordered ONE (18:13)
[2024-08-16] MEDS ORDERED: LIDOCAINE 1% MDV 20ML VIAL As Ordered ONE (18:34)
[2024-08-16 20:10] LABS: HEMATOCRIT 36.6 % (36.0-47.0); HEMOGLOBIN 12.1 g/dl (12.0-15.5); MEAN CORPUSCULAR HEMOGLOBIN 28.4 pg (27.0-33.0); MEAN CORPUSCULAR HGB CONC 33.1 g/dl (32.0-36.5); MEAN CORPUSCULAR VOLUME 85.9 fl (80.0-96.0); PLATELET COUNT, AUTOMATED 275 10^3/uL (150-450); RED BLOOD COUNT 4.26 10^6/uL (4.00-5.40); WHITE BLOOD COUNT 9.7 10^3/uL (4.0-10.0)
[2024-08-16] MEDS ORDERED: D3 U5000 PO (22:13)
[2024-08-16] MEDS ORDERED: HOME MED LIST COMPLETE! XX SCH (22:15)
[2024-08-17 02:02] LABS: HEMOGLOBIN A1c 5.3 % (4.0-6.0)
[2024-08-17] MEDS: D5W/LR 1,000 ML IV SCH (04:20)
[2024-08-17] MEDS: OLANZapine INTRAMUSCULAR 10MG VIAL IM ONE (04:24)
[2024-08-17] MEDS: LEVOTHYROXINE 100MCG (0.1MG) 5ML SDV PF (SOLUTION FORM) IV ONE (06:18)
[2024-08-17] MEDS: METOPROLOL 5 MG/5 ML VIAL IV ONE (06:18)
[2024-08-17 06:49] LABS: HEMATOCRIT 41.1 % (36.0-47.0); HEMOGLOBIN 13.1 g/dl (12.0-15.5); MEAN CORPUSCULAR HEMOGLOBIN 28.1 pg (27.0-33.0); MEAN CORPUSCULAR HGB CONC 31.9 g/dl (32.0-36.5); PLATELET COUNT, AUTOMATED 264 10^3/uL (150-450); RED BLOOD COUNT 4.67 10^6/uL (4.00-5.40); WHITE BLOOD COUNT 6.4 10^3/uL (4.0-10.0)
[2024-08-17] MEDS ORDERED: METOPROLOL 5 MG/5 ML VIAL IV PRN (07:10)
[2024-08-17] MEDS: LEVOTHYROXINE 100MCG (0.1MG) 5ML SDV PF (SOLUTION FORM) IV SCH (07:42)
[2024-08-17] MEDS: levETIRAcetam INJection 1,000 MG in D5W 100 ML IV SCH (09:18)
[2024-08-17 09:39] LABS: ALBUMIN 2.9 G/DL (3.2-5.2); ALKALINE PHOSPHATASE 86 U/L (35-104); ALT/SGPT 27 U/L (7.0-40); AST/SGOT 29 U/L (<34); BILIRUBIN,TOTAL 0.5 MG/DL (0.3-1.2); BLOOD UREA NITROGEN 18 MG/DL (9-23); CARBON DIOXIDE LEVEL 27 MMOL/L (20-31); CHLORIDE LEVEL 108 MMOL/L (98-107); GLOMERULAR FILTRATION RATE > 60.0 (>45); GLUCOSE, FASTING 109 MG/DL (74-106); MAGNESIUM LEVEL 1.8 MG/DL (1.8-2.4); POTASSIUM SERUM 5.2 MMOL/L (3.5-5.1); SODIUM LEVEL 141 MMOL/L (136-145); TOTAL PROTEIN 7.7 G/DL (5.7-8.2)
[2024-08-17] MEDS: CHLORHEXIDINE GLUCONATE 0.12 % 15ML UDC (PERIDEX ORAL RINSE) MT SCH (11:36)
[2024-08-17] MEDS: ENOXAPARIN 40MG/0.4ML SYRINGE (J1650 PER 10MG) SC SCH (11:50)
[2024-08-17] MEDS: PANTOPRAZOLE 40MG VIAL IV SCH (12:40)
[2024-08-17 16:12] VITALS: BP 110/58; TEMP 97.6; O2SAT 95
[2024-08-17 19:48] VITALS: BP 101/55; TEMP 97.7; O2SAT 94
[2024-08-17] MEDS ORDERED: CARBAMIDE PEROXIDE 6.5% OTIC SOLN 15ML AU SCH (21:00)
[2024-08-17] MEDS ORDERED: METAMUCIL (PSYLLIUM) PACKET GT SCH (21:00)
[2024-08-17] MEDS ORDERED: VITAMIN D 1,000 INTERNATIONAL UNITS TABLET PO SCH (21:00)
[2024-08-17] MEDS ORDERED: METOPROLOL TART 50 MG TAB GT SCH (21:00)
[2024-08-17 23:17] VITALS: BP 102/62; TEMP 98.1; O2SAT 92
[2024-08-18] VITALS (7 sets, daily range): BP systolic 98–135; BP diastolic 59–78; TEMP 97.4–98.6; O2SAT 84–100
[2024-08-18] MEDS ORDERED: LEVOTHYROXINE 50MCG TABLET (0.05MG) GT SCH (06:00)
[2024-08-18 08:26] LABS: BASO % 0.4 % (0.0-1.0); EOS # 0.3 10^3/uL (0.0-0.5); EOS % 4.1 % (0.0-3.0); HEMATOCRIT 34.1 % (36.0-47.0); HEMOGLOBIN 11.2 g/dl (12.0-15.5); LYMPH % 13.7 % (24.0-44.0); MEAN CORPUSCULAR HEMOGLOBIN 28.6 pg (27.0-33.0); MEAN CORPUSCULAR HGB CONC 32.8 g/dl (32.0-36.5); MONO # 0.9 10^3/uL (0.0-0.8); MONO % 12.2 % (2.0-8.0); NEUTROPHILS # 5.2 10^3/uL (1.5-8.5); NEUTROPHILS % 69.3 % (36.0-66.0); PLATELET COUNT, AUTOMATED 259 10^3/uL (150-450); RED BLOOD COUNT 3.92 10^6/uL (4.00-5.40); WHITE BLOOD COUNT 7.5 10^3/uL (4.0-10.0)
[2024-08-18 08:45] LABS: INR 1.16; PROTHROMBIN TIME 15.1 SECONDS (12.5-14.5)
[2024-08-18 08:58] LABS: BLOOD UREA NITROGEN 14 MG/DL (9-23); CALCIUM LEVEL 9.5 MG/DL (8.3-10.6); CARBON DIOXIDE LEVEL 27 MMOL/L (20-31); CHLORIDE LEVEL 104 MMOL/L (98-107); CREATININE FOR GFR 0.56 MG/DL (0.55-1.30); GLOMERULAR FILTRATION RATE > 60.0 (>45); GLUCOSE, FASTING 120 MG/DL (74-106); MAGNESIUM LEVEL 1.6 MG/DL (1.8-2.4); POTASSIUM SERUM 4.6 MMOL/L (3.5-5.1); SODIUM LEVEL 141 MMOL/L (136-145)
[2024-08-18] MEDS: MAG SULF 1GM/100ML (MAG RUN) 1 GM in IV 1 EA IV SCH (09:55)
[2024-08-18] MEDS ORDERED: GLUCAGON INJ 1MG VIAL As Ordered ONE (10:58)
[2024-08-18] MEDS ORDERED: VANCOMYCIN 1000MG/20ML VIAL As Ordered ONE (11:00)
[2024-08-18] MEDS ORDERED: LIDOCAINE 2% 100MG/5ML SDV (FOR ANES.) As Ordered ONE (11:23)
[2024-08-18] MEDS ORDERED: propofoL 200 MG/20 ML VIAL As Ordered ONE (11:23)
[2024-08-18] MEDS ORDERED: fentaNYL 100 MCG/2 ML INJECTION As Ordered ONE (11:23)
[2024-08-18] MEDS ORDERED: MIDAZOLAM INJ 2MG/2ML VIAL As Ordered ONE (11:23)
[2024-08-18] MEDS ORDERED: ONDANSETRON 4MG 2ML VIAL IV PRN (13:00)
[2024-08-18] MEDS ORDERED: MAGNESIUM SULFATE 1GM/100ML D5W BAG (10MG/ML) As Ordered ONE (14:13)
[2024-08-18] MEDS: VANCOMYCIN HCL 1,000 MG, VIAL MATE ADAPTER 1 EACH in NS 250 ML IV ONE (14:27)
[2024-08-18] MEDS: NS (Normal Saline) 0.9% 1,000 ML IV SCH ×2 (14:28)
[2024-08-19] VITALS (20 sets, daily range): BP systolic 69–142; BP diastolic 48–88; TEMP 97–98.4; O2SAT 92–100
[2024-08-19] MEDS: D5/LACTATED RINGERS 1000 ML IV ONE ×2 (04:13→06:28)
[2024-08-19 05:08] LABS: BASO % 0.3 % (0.0-1.0); EOS % 0.6 % (0.0-3.0); LYMPH # 0.7 10^3/uL (1.5-5.0); LYMPH % 10.4 % (24.0-44.0); MEAN CORPUSCULAR HEMOGLOBIN 28.6 pg (27.0-33.0); MEAN CORPUSCULAR HGB CONC 32.2 g/dl (32.0-36.5); MEAN CORPUSCULAR VOLUME 88.9 fl (80.0-96.0); MONO # 0.4 10^3/uL (0.0-0.8); MONO % 6.3 % (2.0-8.0); NEUTROPHILS # 5.3 10^3/uL (1.5-8.5); NEUTROPHILS % 81.6 % (36.0-66.0); PLATELET COUNT, AUTOMATED 229 10^3/uL (150-450); RED BLOOD COUNT 2.34 10^6/uL (4.00-5.40); WHITE BLOOD COUNT 6.5 10^3/uL (4.0-10.0)
[2024-08-19 05:10] LABS: HEMATOCRIT 20.8 % (36.0-47.0); HEMOGLOBIN 6.7 g/dl (12.0-15.5)
[2024-08-19 05:41] LABS: BLOOD UREA NITROGEN 26 MG/DL (9-23); CALCIUM LEVEL 7.7 MG/DL (8.3-10.6); CARBON DIOXIDE LEVEL 27 MMOL/L (20-31); CHLORIDE LEVEL 111 MMOL/L (98-107); CREATININE FOR GFR 0.57 MG/DL (0.55-1.30); GLOMERULAR FILTRATION RATE > 60.0 (>45); GLUCOSE, FASTING 247 MG/DL (74-106); MAGNESIUM LEVEL 1.5 MG/DL (1.8-2.4); POTASSIUM SERUM 4.3 MMOL/L (3.5-5.1); SODIUM LEVEL 141 MMOL/L (136-145)
[2024-08-19] MEDS ORDERED: ISOVUE-370 76% 100ML VIAL As Ordered ONE (07:11)
[2024-08-19] MEDS ORDERED: NS (Normal Saline) 0.9% 1,000 ML IV ONE (08:00)
[2024-08-19] MEDS: MAG SULF 1GM/100ML (MAG RUN) 1 GM in IV 1 EA IV SCH (08:26)
[2024-08-19] MEDS: OCTREOTIDE ACETATE 100MCG/ML VIAL **IV ADMINISTRATION ONLY IV SCH (08:41)
[2024-08-19] MEDS: PANTOPRAZOLE 40MG VIAL IV SCH (08:45)
[2024-08-19 11:55] LABS: PROCALCITONIN 0.12 ng/ml
[2024-08-19 13:17] LABS: HEMATOCRIT 34.7 % (36.0-47.0); HEMOGLOBIN 11.1 g/dl (12.0-15.5); MEAN CORPUSCULAR HEMOGLOBIN 26.9 pg (27.0-33.0); MEAN CORPUSCULAR VOLUME 84.2 fl (80.0-96.0); PLATELET COUNT, AUTOMATED 239 10^3/uL (150-450); RED BLOOD COUNT 4.12 10^6/uL (4.00-5.40); WHITE BLOOD COUNT 10.5 10^3/uL (4.0-10.0)
[2024-08-19 18:49] LABS: HEMATOCRIT 30.1 % (36.0-47.0); HEMOGLOBIN 9.9 g/dl (12.0-15.5)
[2024-08-19] MEDS: NS IV SCH (21:01)
[2024-08-19] MEDS: LEVETIRACETAM IV SCH (21:01)
[2024-08-20 00:58] LABS: HEMATOCRIT 27.8 % (36.0-47.0); HEMOGLOBIN 9.2 g/dl (12.0-15.5)
[2024-08-20 05:34] VITALS: BP 127/60; TEMP 98; O2SAT 96
[2024-08-20 06:15] LABS: BASO % 0.6 % (0.0-1.0); EOS # 0.3 10^3/uL (0.0-0.5); EOS % 4.3 % (0.0-3.0); HEMOGLOBIN 8.9 g/dl (12.0-15.5); LYMPH # 1.4 10^3/uL (1.5-5.0); LYMPH % 19.7 % (24.0-44.0); MEAN CORPUSCULAR HEMOGLOBIN 27.7 pg (27.0-33.0); MEAN CORPUSCULAR VOLUME 84.1 fl (80.0-96.0); MONO # 0.8 10^3/uL (0.0-0.8); MONO % 11.1 % (2.0-8.0); NEUTROPHILS # 4.5 10^3/uL (1.5-8.5); NEUTROPHILS % 63.3 % (36.0-66.0); PLATELET COUNT, AUTOMATED 189 10^3/uL (150-450); RED BLOOD COUNT 3.21 10^6/uL (4.00-5.40); WHITE BLOOD COUNT 7.1 10^3/uL (4.0-10.0)
[2024-08-20 06:45] LABS: BLOOD UREA NITROGEN 23 MG/DL (9-23); CALCIUM LEVEL 7.6 MG/DL (8.3-10.6); CARBON DIOXIDE LEVEL 27 MMOL/L (20-31); CHLORIDE LEVEL 110 MMOL/L (98-107); CREATININE FOR GFR 0.49 MG/DL (0.55-1.30); GLOMERULAR FILTRATION RATE > 60.0 (>45); GLUCOSE, FASTING 136 MG/DL (74-106); MAGNESIUM LEVEL 1.6 MG/DL (1.8-2.4); SODIUM LEVEL 144 MMOL/L (136-145)
[2024-08-20 07:59] VITALS: BP 117/56; TEMP 97.9; O2SAT 94
[2024-08-20] MEDS: MAG SULF 1GM/100ML (MAG RUN) 1 GM in IV 1 EA IV SCH (08:17)
[2024-08-20 10:05] VITALS: BP 122/64
[2024-08-20] MEDS: METOPROLOL TART 25 MG TABLET GT SCH (10:05)
[2024-08-20] MEDS: VITAMIN D 1,000 INTERNATIONAL UNITS TABLET GT SCH (10:06)
[2024-08-20 11:08] LABS: HEMATOCRIT 28.4 % (36.0-47.0); HEMOGLOBIN 9.3 g/dl (12.0-15.5)
[2024-08-20] MEDS ORDERED: ESOM40SU GT (11:50)
[2024-08-20 11:57] VITALS: BP 124/59; TEMP 98; O2SAT 90
[2024-08-20] MEDS ORDERED: MAGN400T2 GT (12:19)
[2024-08-20] MEDS ORDERED: levETIRAcetam ORAL SOLUTION 500MG/5ML UDC GT SCH (21:00)
[2024-08-21] MEDS ORDERED: LEVOTHYROXINE 50MCG TABLET (0.05MG) GT SCH (06:00)
[2024-08-21] MEDS ORDERED: OMEPRAZOLE/SODIUM BICARB 20-840MG 10ML ORAL SYRINGE GT SCH (09:00)
== END 2024-08-20 13:36 | disposition home or self-care (01) | DRG 920 ==
LOC: M ED 11:50 → EDBD 11:50 → M ED INP 22:43 → M PCU 08-17 16:06
PROVIDERS: ADMIT Student in an Organized Health Care Education/Training Program; ATTEND Student in an Organized Health Care Education/Training Program
PROC: 0DH63UZ Insertion of Feeding Device into Stomach, Percutaneous Approach (ICD-10-PCS; principal; 2024-08-18 11:00)
PROC: 30233N1 Transfusion of Nonautologous Red Blood Cells into Peripheral Vein, Percutaneous Approach (ICD-10-PCS; 2024-08-19)
DX: T85.528A Displacement of other gastrointestinal prosthetic devices, implants and grafts, initial encounter (principal); D62 Acute posthemorrhagic anemia; I50.32 Chronic diastolic (congestive) heart failure; I47.20 Ventricular tachycardia, unspecified; K92.2 Gastrointestinal hemorrhage, unspecified; E03.9 Hypothyroidism, unspecified; R13.10 Dysphagia, unspecified; E78.5 Hyperlipidemia, unspecified; I11.0 Hypertensive heart disease with heart failure; G80.9 Cerebral palsy, unspecified; J44.9 Chronic obstructive pulmonary disease, unspecified; I73.9 Peripheral vascular disease, unspecified; G47.33 Obstructive sleep apnea (adult) (pediatric); R56.9 Unspecified convulsions; F41.9 Anxiety disorder, unspecified; F32.A Depression, unspecified; F79 Unspecified intellectual disabilities; E83.42 Hypomagnesemia; Z91.119 Patient's noncompliance with dietary regimen due to unspecified reason; Z79.899 Other long term (current) drug therapy; Z88.8 Allergy status to other drugs, medicaments and biological substances; Y83.1 Surgical operation with implant of artificial internal device as the cause of abnormal reaction of the patient, or of later complication, without mention of misadventure at the time of the procedure

== ENCOUNTER 2024-09-24 23:57 | Emergency (ER) | payer MEDICARE, MEDICAID ==
[~2024-09-24] VITALS: Ht 175.3 cm; Wt 68.7 kg
[~2024-09-24 23:57] MED LIST changes: +CLOT15CR4 TOP; -CVS1CRE56 TOP; +D3 U5000 PO; +ESOM40SU GT; +MAGN400T2 GT
[2024-09-25 00:15] VITALS: TEMP 97
[2024-09-25 00:47] LABS: BASO % 0.6 % (0.0-1.0); EOS # 0.3 10^3/uL (0.0-0.5); EOS % 3.6 % (0.0-3.0); HEMOGLOBIN 11.9 g/dl (12.0-15.5); LYMPH # 1.4 10^3/uL (1.5-5.0); LYMPH % 20.3 % (24.0-44.0); MEAN CORPUSCULAR HEMOGLOBIN 26.9 pg (27.0-33.0); MEAN CORPUSCULAR HGB CONC 32.2 g/dl (32.0-36.5); MEAN CORPUSCULAR VOLUME 83.7 fl (80.0-96.0); MONO # 0.9 10^3/uL (0.0-0.8); MONO % 12.8 % (2.0-8.0); NEUTROPHILS # 4.3 10^3/uL (1.5-8.5); NEUTROPHILS % 62.3 % (36.0-66.0); PLATELET COUNT, AUTOMATED 231 10^3/uL (150-450); RED BLOOD COUNT 4.42 10^6/uL (4.00-5.40); WHITE BLOOD COUNT 6.9 10^3/uL (4.0-10.0)
[2024-09-25 01:14] LABS: BLOOD UREA NITROGEN 13 MG/DL (9-23); CALCIUM LEVEL 9.3 MG/DL (8.3-10.6); CARBON DIOXIDE LEVEL 26 MMOL/L (20-31); CHLORIDE LEVEL 104 MMOL/L (98-107); CREATININE FOR GFR 0.47 MG/DL (0.55-1.30); GLOMERULAR FILTRATION RATE > 60.0 (>45); GLUCOSE, FASTING 89 MG/DL (74-106); POTASSIUM SERUM 4.7 MMOL/L (3.5-5.1); SODIUM LEVEL 138 MMOL/L (136-145)
[2024-09-25] MEDS ORDERED: GUAI100L6 PO (02:02)
[2024-09-25] MEDS ORDERED: AZIT200S30 PO (02:02)
[2024-09-25] MEDS: AZITHROMYCIN INJ 500 MG, VIAL MATE ADAPTER 1 EACH in NS 250 ML IV ONE (02:45)
[2024-09-25] MEDS: guaiFENesin SYRUP 200MG 10ML UDC GT ONE (02:45)
[2024-09-25 03:10] LABS: PROCALCITONIN <0.04 ng/ml
[2024-09-25 04:03] VITALS: BP 109/67; O2SAT 97
== END 2024-09-25 04:13 | disposition home or self-care (01) ==
LOC: M ED 23:57
DX: R05.9 Cough, unspecified (principal); R91.8 Other nonspecific abnormal finding of lung field; Z88.1 Allergy status to other antibiotic agents; R56.9 Unspecified convulsions; K21.9 Gastro-esophageal reflux disease without esophagitis; F79 Unspecified intellectual disabilities; Z99.81 Dependence on supplemental oxygen; Z90.49 Acquired absence of other specified parts of digestive tract; Z79.899 Other long term (current) drug therapy; Z79.890 Hormone replacement therapy
CPT/HCPCS: 71045; 80048; 84145; 85025; 87486; 87581; 87633; 87798; 96365; 99284; J0456

== ENCOUNTER → 2024-10-05 | Outpatient (CLI) | payer MEDICARE, MEDICAID ==
[~2024-10-05] MED LIST changes: +AZIT200S30 PO
[2024-10-05 18:00] LABS: BASO % 0.5 % (0.0-1.0); EOS # 0.2 10^3/uL (0.0-0.5); EOS % 2.8 % (0.0-3.0); HEMATOCRIT 38.6 % (36.0-47.0); HEMOGLOBIN 12.3 g/dl (12.0-15.5); LYMPH # 1.1 10^3/uL (1.5-5.0); LYMPH % 16.9 % (24.0-44.0); MEAN CORPUSCULAR HEMOGLOBIN 26.6 pg (27.0-33.0); MEAN CORPUSCULAR HGB CONC 31.9 g/dl (32.0-36.5); MEAN CORPUSCULAR VOLUME 83.4 fl (80.0-96.0); MONO # 0.7 10^3/uL (0.0-0.8); MONO % 11.4 % (2.0-8.0); NEUTROPHILS # 4.3 10^3/uL (1.5-8.5); NEUTROPHILS % 68.1 % (36.0-66.0); PLATELET COUNT, AUTOMATED 232 10^3/uL (150-450); RED BLOOD COUNT 4.63 10^6/uL (4.00-5.40); WHITE BLOOD COUNT 6.3 10^3/uL (4.0-10.0)
[2024-10-05 18:29] LABS: ALBUMIN 3.1 G/DL (3.2-5.2); ALKALINE PHOSPHATASE 78 U/L (35-104); ALT/SGPT 35 U/L (7.0-40); AST/SGOT 31 U/L (<34); BILIRUBIN,TOTAL 0.2 MG/DL (0.3-1.2); BLOOD UREA NITROGEN 17 MG/DL (9-23); CALCIUM LEVEL 8.9 MG/DL (8.3-10.6); CARBON DIOXIDE LEVEL 24 MMOL/L (20-31); CHLORIDE LEVEL 104 MMOL/L (98-107); CREATININE FOR GFR 0.46 MG/DL (0.55-1.30); GLOMERULAR FILTRATION RATE > 60.0 (>45); GLUCOSE, FASTING 99 MG/DL (74-106); POTASSIUM SERUM 4.5 MMOL/L (3.5-5.1); SODIUM LEVEL 137 MMOL/L (136-145)
== END ==
LOC: M PLALAB 15:49
DX: R05.1 Acute cough (principal)

== ENCOUNTER → 2024-10-12 | Outpatient (CLI) | payer MEDICARE, MEDICAID | LOC: M RAD 12:42 | PROVIDERS: ATTEND Internal Medicine Pulmonary Disease | DX: R91.8 Other nonspecific abnormal finding of lung field (principal) ==

== ENCOUNTER → 2024-10-24 | Outpatient (CLI) | payer MEDICARE, MEDICAID | LOC: M PLALAB 15:08 | DX: R63.4 Abnormal weight loss (principal) ==

== ENCOUNTER → 2024-12-06 | Outpatient (CLI) | payer MEDICARE, MEDICAID ==
[~2024-12-06] MED LIST changes: -AMBI10TA PO; +LEVE1TAB43 PO; -LEVE500T88 PO; -NYST-13 EXT; -NYST-13 TOP; +NYST0.1C EXT; +NYST0.1C TOP; +ZOLP-533 PO
[2024-12-06 07:35] VITALS: TEMP 97.5
[2024-12-06] MEDS: fentaNYL 100 MCG/2 ML INJECTION IV PRN (08:42)
[2024-12-06] MEDS: MIDAZOLAM INJ 2MG/2ML VIAL IV PRN (08:42)
[2024-12-06] MEDS: NS (Normal Saline) 0.9% 1,000 ML IV SCH (08:44)
[2024-12-06 08:55] VITALS: BP 145/72; O2SAT 98
[2024-12-06] MEDS: ISOVUE-300 61% 100ML VIAL IV ONE (08:56)
[2024-12-06] MEDS: LIDOCAINE 2% JELLY 6ML SYRINGE TOP STA (08:56)
[2024-12-06] MEDS: LIDOCAINE 1% MDV 20ML VIAL SC ONE (08:56)
== END ==
LOC: M IRPRO 07:17
PROVIDERS: ATTEND Radiology Diagnostic Radiology
DX: K94.23 Gastrostomy malfunction (principal)
CPT/HCPCS: 49450; 99152; 99153; C1769; J2250; J3010; Q9967

== ENCOUNTER → 2024-12-15 | Outpatient (CLI) | payer MEDICARE, MEDICAID | LOC: M IRPRO 14:53 | PROVIDERS: ATTEND Radiology Diagnostic Radiology | DX: Z93.1 Gastrostomy status (principal); G80.9 Cerebral palsy, unspecified; F79 Unspecified intellectual disabilities; R13.10 Dysphagia, unspecified; I11.0 Hypertensive heart disease with heart failure; I50.32 Chronic diastolic (congestive) heart failure; J44.9 Chronic obstructive pulmonary disease, unspecified; G47.33 Obstructive sleep apnea (adult) (pediatric); E03.9 Hypothyroidism, unspecified; G40.909 Epilepsy, unspecified, not intractable, without status epilepticus; I87.2 Venous insufficiency (chronic) (peripheral); F32.A Depression, unspecified; F41.9 Anxiety disorder, unspecified ==

== ENCOUNTER → 2025-02-16 | Outpatient (REF) | payer MEDICARE, MEDICAID ==
[2025-02-16 12:36] LABS: APPEARANCE, URINE CLEAR (CLEAR); BACTERIA, URINE AUTO 1+ (NEGATIVE); BILIRUBIN, URINE AUTO NEGATIVE (NEGATIVE); BLOOD, URINE BLOOD NEGATIVE (NEGATIVE); GLUCOSE, URINE (UA) AUTO NEGATIVE (NEGATIVE); KETONE, URINE AUTO NEGATIVE (NEGATIVE); LEUKOCYTE ESTERASE, URINE AUTO NEGATIVE (NEGATIVE); NITRITE, URINE AUTO NEGATIVE (NEGATIVE); PROTEIN, URINE AUTO NEGATIVE (NEGATIVE); RBC, URINE AUTO 0 /HPF (0-3); SPECIFIC GRAVITY URINE AUTO 1.004 (1.002-1.035); SQUAMOUS EPITHELIAL CELL UR AU 1 /HPF (0-6); UROBILINOGEN, URINE AUTO 0.2 mg/dL (0.0-2.0); WBC, URINE AUTO 1 /HPF (0-3)
== END ==
LOC: M SMT 11:45
PROVIDERS: ATTEND Nurse Practitioner Family
DX: N39.0 Urinary tract infection, site not specified (principal)

== ENCOUNTER → 2025-03-08 | Outpatient (CLI) | payer MEDICARE, MEDICAID ==
[~2025-03-08] MED LIST changes: +ISOVUE-300 61% 100 ML VIAL IV SCH; +LIDOCAINE 1% MDV 20 ML VIAL SC SCH; +LIDOCAINE 2% JELLY 6 ML SYRINGE TOP SCH; +NS (Normal Saline) 0.9% 1,000 ML IV SCH; +SODIUM CHLORIDE 0.9% 1000 ML XX SCH
[2025-03-08 11:47] VITALS: TEMP 97.6
[2025-03-08] MEDS: LIDOCAINE 2% JELLY 6 ML SYRINGE TOP SCH (11:55)
[2025-03-08] MEDS: MIDAZOLAM INJ 2 MG/2 ML VIAL IV PRN (12:38)
[2025-03-08] MEDS: ISOVUE-300 61% 100 ML VIAL IV SCH (13:01)
[2025-03-08 13:14] VITALS: BP 139/63; O2SAT 98
== END ==
LOC: M IRPRO 11:17
DX: Z93.1 Gastrostomy status (principal); R13.10 Dysphagia, unspecified
CPT/HCPCS: 49450; 99152; 99153; J2250; J3010; Q9967

== ENCOUNTER → 2025-03-10 | Outpatient (CLI) | payer MEDICARE, MEDICAID ==
[~2025-03-10] MED LIST changes: -ISOVUE-300 61% 100 ML VIAL IV SCH; -LIDOCAINE 1% MDV 20 ML VIAL SC SCH; -LIDOCAINE 2% JELLY 6 ML SYRINGE TOP SCH; -NS (Normal Saline) 0.9% 1,000 ML IV SCH; -SODIUM CHLORIDE 0.9% 1000 ML XX SCH
== END ==
LOC: M PLALAB 10:14
DX: G40.89 Other seizures (principal)

== ENCOUNTER → 2025-04-17 | Outpatient (CLI) | payer MEDICARE, MEDICAID ==
[2025-04-17 13:42] LABS: FREE T4 0.78 NG/DL (0.89-1.76)
[2025-04-17 13:44] LABS: ALT/SGPT 26 U/L (7.0-40); AST/SGOT 32 U/L (<34); CALCIUM LEVEL 9.7 MG/DL (8.3-10.6); CARBON DIOXIDE LEVEL 24 MMOL/L (20-31); CHLORIDE LEVEL 102 MMOL/L (98-107); CHOLESTEROL LEVEL 144 MG/DL (<200); CHOLESTEROL RISK RATIO 3.06 (<5); CREATININE FOR GFR 0.53 MG/DL (0.55-1.30); GLOMERULAR FILTRATION RATE > 90.0 (>45); LDL CHOLESTEROL 70.6 MG/DL (<100); NON-HDL-C 97.0 MG/DL; POTASSIUM SERUM 4.9 MMOL/L (3.5-5.1); SODIUM LEVEL 139 MMOL/L (136-145); TRIGLYCERIDES LEVEL 132 MG/DL (<150)
[2025-04-17 13:51] LABS: BASO # 0.0 10^3/uL (0.0-0.2); BASO % 0.4 % (0.0-1.0); EOS # 0.2 10^3/uL (0.0-0.5); EOS % 1.8 % (0.0-3.0); LYMPH # 1.2 10^3/uL (1.5-5.0); LYMPH % 14.0 % (24.0-44.0); MONO # 0.9 10^3/uL (0.0-0.8); MONO % 11.1 % (2.0-8.0); NEUTROPHILS # 6.1 10^3/uL (1.5-8.5); NEUTROPHILS % 72.6 % (36.0-66.0); PLATELET COUNT, AUTOMATED 145 10^3/uL (150-450)
== END ==
LOC: M PLALAB 09:34
DX: Z01.812 Encounter for preprocedural laboratory examination (principal); K59.00 Constipation, unspecified; R63.1 Polydipsia; E03.9 Hypothyroidism, unspecified; F41.1 Generalized anxiety disorder

== ENCOUNTER → 2025-06-02 | Outpatient (POV) | payer MEDICARE, MEDICAID ==
[~2025-06-02] MED LIST changes: +METH-1100 GT; -METH-855 GT
== END ==
LOC: M IRPOV 15:19
PROVIDERS: ATTEND Radiology Diagnostic Radiology
DX: Z43.1 Encounter for attention to gastrostomy (principal); R13.10 Dysphagia, unspecified; L92.9 Granulomatous disorder of the skin and subcutaneous tissue, unspecified; F79 Unspecified intellectual disabilities; Z88.1 Allergy status to other antibiotic agents; Z53.9 Procedure and treatment not carried out, unspecified reason

== ENCOUNTER → 2025-06-02 | Outpatient (CLI) | payer MEDICARE, MEDICAID ==
[~2025-06-02] MED LIST changes: +ISOVUE-300 61% 100 ML VIAL IV SCH; +LIDOCAINE 1% MDV 20 ML VIAL SC SCH; +LIDOCAINE 2% JELLY 6 ML SYRINGE TOP SCH; +MIDAZOLAM INJ 2 MG/2 ML VIAL IV PRN; +NS (Normal Saline) 0.9% 1,000 ML IV SCH; +SODIUM CHLORIDE 0.9% 1000 ML XX SCH
[2025-06-02 14:10] VITALS: BP 119/74; TEMP 98.8; O2SAT 96
[2025-06-02] MEDS: SILVER NITRATE APPLICATOR (1 = QTY 10) TOP ONE (14:52)
== END ==
LOC: M IRPRO 13:49
PROVIDERS: ATTEND Radiology Diagnostic Radiology
DX: R13.10 Dysphagia, unspecified (principal); Z53.9 Procedure and treatment not carried out, unspecified reason

== ENCOUNTER → 2025-07-18 | Outpatient (REF) | payer MEDICARE, MEDICAID ==
[~2025-07-18] MED LIST changes: -ISOVUE-300 61% 100 ML VIAL IV SCH; -LIDOCAINE 1% MDV 20 ML VIAL SC SCH; -LIDOCAINE 2% JELLY 6 ML SYRINGE TOP SCH; -MIDAZOLAM INJ 2 MG/2 ML VIAL IV PRN; -NS (Normal Saline) 0.9% 1,000 ML IV SCH; -SODIUM CHLORIDE 0.9% 1000 ML XX SCH
[2025-07-18 12:53] LABS: APPEARANCE, URINE CLOUDY (CLEAR); BACTERIA, URINE AUTO 1+ (NEGATIVE); BILIRUBIN, URINE AUTO NEGATIVE (NEGATIVE); BLOOD, URINE BLOOD 1+ (NEGATIVE); GLUCOSE, URINE (UA) AUTO NEGATIVE (NEGATIVE); KETONE, URINE AUTO NEGATIVE (NEGATIVE); LEUKOCYTE ESTERASE, URINE AUTO 1+ (NEGATIVE); NITRITE, URINE AUTO NEGATIVE (NEGATIVE); PROTEIN, URINE AUTO NEGATIVE (NEGATIVE); RBC, URINE AUTO 13 /HPF (0-3); SPECIFIC GRAVITY URINE AUTO 1.011 (1.002-1.035); SQUAMOUS EPITHELIAL CELL UR AU 11 /HPF (0-6); UROBILINOGEN, URINE AUTO 0.2 mg/dL (0.0-2.0); WBC, URINE AUTO 4 /HPF (0-3)
== END ==
LOC: M SMT 12:11
PROVIDERS: ATTEND Nurse Practitioner Family
DX: N39.0 Urinary tract infection, site not specified (principal)

== ENCOUNTER → 2025-07-25 | Outpatient (CLI) | payer MEDICARE, MEDICAID ==
[2025-07-25 14:24] VITALS: TEMP 96.8
[2025-07-25] MEDS: MIDAZOLAM INJ 2 MG/2 ML VIAL IV PRN (15:30)
[2025-07-25] MEDS: SODIUM CHLORIDE 0.9% 1000 ML XX SCH (15:56)
[2025-07-25] MEDS: NS (Normal Saline) 0.9% 1,000 ML IV SCH (15:57)
[2025-07-25 16:05] VITALS: BP 148/90; O2SAT 98
[2025-07-25] MEDS: LIDOCAINE 2% JELLY 6 ML SYRINGE TOP SCH (16:11)
[2025-07-25] MEDS: ISOVUE-300 61% 100 ML VIAL IV SCH (16:12)
== END ==
LOC: M IRPRO 14:13
PROVIDERS: ATTEND Radiology Diagnostic Radiology
DX: R13.10 Dysphagia, unspecified (principal)
CPT/HCPCS: 49450; 99152; 99153; C1769; C1887; J2250; J3010; Q9967